=== PATIENT | female | born 1950 | race African-American/Black ===

== ENCOUNTER 2016-09-27 08:41 | Inpatient (IN) | payer MEDICARE, BC, MEDICAID ==
[~2016-09-27] VITALS: Ht 175.3 cm; Wt 57.6 kg
[2016-09-27] VITALS (9 sets, daily range): BP systolic 147–224; BP diastolic 75–100; PULSE 83–95; RESP 15–18; TEMP 97–98.8; O2SAT 89–97
[~2016-09-27 08:41] MED LIST: 3-IN3MIS; ACCUKIT11; ACCUKIT13; AMLO10 PO; ATOR10TA PO; CALC667T PO; CITA10TA4 PO; CLON.1 PO; CLON.2 PO; DUONI NEB; ERGO50000 PO; GUAN1TAB PO; HYDRA50 PO; INSU-118; LIDO3CRE2 TOP; LORA-474 PO; LOSA50 PO; METO50TA PO; NIFE1TAB86 PO; NOVOLOGSS SQ; OXYC1SOL5 PO; PRED10 PO; PROT40TA PO; SYMB160A INH; WALKER ROLLING
[2016-09-27] MEDS ORDERED: MORPHINE SULFATE 4 MG/ML INJ IV PUSH ONE (09:15)
[2016-09-27] MEDS ORDERED: ONDANSETRON HCL 4 MG/2 ML VIAL IVP ONE (09:15)
[2016-09-27] MEDS: SODIUM CHLORIDE 0.9% FLUSH 10 ML FLUSH IV FLUSH PRN (09:34)
[2016-09-27 09:40] LABS: AUTOMATED NEUTROPHIL # 7.8 TH/MM3 (1.8-7.7); BASOPHIL % 0.4 % (0.0-2.0); EOSINOPHIL # 0.1 TH/MM3 (0-0.4); EOSINOPHIL % 1.3 % (0.0-4.0); HEMATOCRIT 29.7 % (35.0-46.0); HEMO FLAGS DIFF FINAL; LYMPH % 5.5 % (9.0-44.0); LYMPHOCYTE # 0.5 TH/MM3 (1.0-4.8); MEAN CELL VOLUME 92.6 FL (80.0-100.0); MEAN CORPUSCULAR HEMOGLOBIN 31.9 PG (27.0-34.0); MEAN CORPUSCULAR HGB CONC 34.4 % (32.0-36.0); MONO % 9.4 % (0.0-8.0); NEUT % 83.4 % (16.0-70.0); PLATELET COUNT 147 TH/MM3 (150-450); RED BLOOD COUNT 3.21 MIL/MM3 (4.00-5.30); RED CELL DISTRIBUTION WIDTH 15.1 % (11.6-17.2); WHITE BLOOD COUNT 9.4 TH/MM3 (4.0-11.0)
--- NOTE | 2016-09-27 09:46 | PD ---
HPI Chief Complaint: GI Complaint Time Seen by Provider: 09:08 Travel History International Travel<30 days: No Contact w/Intl Traveler<30days: No Traveled to known affect area: No History of Present Illness HPI Patient is a 66-year-old female with history of hypertension, hyperlipidemia, GERD, osteoarthritis, end-stage renal disease on hemodialysis on Tuesdays, and Monday and lung cancer, presents to emergency room with complaints of abdominal pain with nausea and vomiting. She reports that since , she has had increased lower abdominal pain, reports that she has been feeling sick and has been nauseous and has been vomiting. Reports that she has not been able to eat or drink anything because her symptoms. Patient reports that she missed dialysis on Monday because she simply forgot to go to her dialysis treatment. Reports that she went to dialysis today and half way through her dialysis, is that she cannot tolerate any longer as she felt nauseous and had increased lower abdominal pain. Patient reports that she feels as if she may have a small bowel obstruction as she had similar symptoms in the past which ended up leading to small bowel obstruction which required surgical intervention. Patient denies any fevers or chills, reports that her last bowel movement was yesterday. Patient with no chest pain or shortness of breath at this time. PFSH Past Medical History Heart Rhythm Problems: Yes (PAPITATIONS, PT REPORTS OCC TACHY) Cancer: Yes (lung) Cardiovascular Problems: Yes High Cholesterol: Yes Chemotherapy: Yes Chest Pain: Yes Congestive Heart Failure: No Diabetes: Yes Patient Takes Glucophage: No Dialysis: Yes () Diminished Hearing: No Endocrine: Yes Gastrointestinal Disorders: Yes GERD: Yes Genitourinary: Yes Hepatitis: No Hiatal Hernia: No Hypertension: Yes Immune Disorder: No Medical other: Yes (CURRENTLY ON CHEMO AND RADIATION) Musculoskeletal: Yes (OSTEOARTHRITIS) Neurologic: No Psychiatric: No Reproductive: Yes (CERVICAL CANCER 2006) Respiratory: Yes (lung ca) Immunizations Current: Yes Radiation Therapy: Yes Renal Failure: Yes Thyroid Disease: Yes (GOITER REMOVED 2006) Tetanus Vaccination: < 5 Years Influenza Vaccination: Yes Menopausal: Yes : 0 Past Surgical History Abdominal Surgery: Yes (PEG TUBE PLACEMENT 01-13-) AICD: No Endocrine Surgery: Yes (THYROIDECTOMY FOR GOITER 2010) Gynecologic Surgery: Yes (PARTIAL HYSTERECTOMY 1980, SALPINGOOOPHORECTOMY 1994) Hysterectomy: Yes Joint Replacement: No Pacemaker: No Other Surgery: Yes Social History Alcohol Use: No Tobacco Use: Yes (1 PPD) Substance Use: No Allergies-Medications (Allergen,Severity, Reaction): Coded Allergies: Penicillin (Verified Allergy, Intermediate, UNKNOWN, 07/14/15) Reported Meds & Prescriptions Reported Meds & Active Scripts Active Oxycodone/Acetaminophen 5 mg/325 mg 5 mg/325 mg Tab 1 Tab PO Q6H PRN 3 Days Novolog Insulin Supplemental Scale (Insulin Aspart) 100 /Ml Inj 1 Injection SQ ACHS SLIDING SCALE 30 Days Norvasc (Amlodipine Besylate) 10 Mg Tab 10 Mg PO DAILY 30 Days Resp: Albuterol/Ipratropium 2.5 Mg/0.5 Mg (Albuterol/Ipratropium) 1 Amp Nebu 1 Ampule NEB Q2HR NEB PRN 30 Days Resp: Albuterol/Ipratropium 2.5 Mg/0.5 Mg (Albuterol/Ipratropium) 1 Amp Nebu 1 Ampule NEB QID NEB 30 Days Metoprolol Tartrate 50 Mg Tab 75 Mg PO Q6HR 30 Days Calcium Acetate 667 Mg Cap 1,334 Mg PO TID 30 Days Deltasone 10 Mg Tab (Prednisone) 10 Mg Tab 10 Mg PO DAILY Take 2 tablets (20mg) daily for 3 days; Take 1 tablets (10mg) daily for 3 days; Ativan (Lorazepam) 1 Mg Tab 1 Mg PO Q6H PRN Accu-Chek Fastclix Lancet (Lancets Misc.) Fastclix Kit Kit Careone Insulin Syringes/ 30G X 1/2" 0.3 ml (Insulin Syringe/Needle U-100) 1 Mis Mis Syringe Accu-Chek Fanny Plus (Blood Glucose Monitoring Suppl) Fanny Pl Kit Kit Protonix (Pantoprazole Sodium) 40 Mg Tabdr 40 Mg PO DAILY Losartan Potassium 50 Mg Tab 50 Mg PO BID Hydralazine HCl 50 Mg Tab 100 Mg PO Q8HR Catapres (Clonidine HCl) 0.1 Mg Tab 0.1 Mg PO UNSCH PRN Symbicort (Budesonide/Formoterol Fumarate) 60 Puff Aero 2 Puff INH Q12HR 30 Days 3-in-1 Commode (Misc. Devices) 1 Mis Mis Container DAILY as directed Walker Rolling (Device) Device 1 Ea as instructed Reported Citalopram Hydrobromide 10 Mg Tab 10 Mg PO DAILY Guanfacine Hcl (Guanfacine HCl) 1 Mg Tab 1 Mg PO HS Lidocaine (Lidocaine HCl) 3 % Cre 1 Appl TOP PRIOR TO TREATMENTS Vitamin D / Drisdol 50,000 Units (Ergocalciferol) 50,000 Units Cap 1 Cap PO DIRECTED VERY OTHER MONDAY Nifedipine Er (Nifedipine) 60 Mg Tab 60 Mg PO BID Catapres 0.2 mg (Clonidine HCl) 0.2 Mg Tab 0.2 Mg PO TID Atorvastatin 10 mg (Atorvastatin Calcium) 10 Mg Tab 10 Mg PO DAILY Review of Systems General / Constitutional: No: Fever Eyes: No: Visual changes HENT: No: Headaches Cardiovascular: No: Chest Pain or Discomfort Respiratory: No: Shortness of Breath Gastrointestinal: Positive: Nausea, Vomiting, Abdominal Pain Genitourinary: No: Dysuria Musculoskeletal: No: Pain Skin: No Rash Neurologic: No: Weakness Psychiatric: No: Depression Endocrine: No: Polydipsia Hematologic/Lymphatic: No: Easy Bruising Physical Exam Narrative GENERAL: Mild distress SKIN: Focused skin assessment warm/dry. HEAD: Atraumatic. Normocephalic. EYES: Pupils equal and round. No scleral icterus. No injection or drainage. ENT: No nasal bleeding or discharge. Mucous membranes pink and dry. NECK: Trachea midline. No JVD. CARDIOVASCULAR: Regular rate and rhythm. No murmur appreciated. RESPIRATORY: No accessory muscle use. Clear to auscultation. Breath sounds equal bilaterally. GASTROINTESTINAL: Abdomen soft, patient with diffuse tenderness on exam, no rebound or guarding. MUSCULOSKELETAL: No obvious deformities. No clubbing. No cyanosis. No edema. Right sided AV fistula with good thrill NEUROLOGICAL: Awake and alert. No obvious cranial nerve deficits. Motor grossly within normal limits. Normal speech. PSYCHIATRIC: Appropriate mood and affect; insight and judgment normal. Data Data Last Documented VS Vital Signs Date Time Temp Pulse Resp B/P Pulse Ox O2 Delivery O2 Flow Rate FiO2 09/27/16 10:00 86 18 178/84 96 Nasal Cannula 2 09/27/16 08:53 98.4 Orders Complete Blood Count With Diff (09/27/16 09:13) Comprehensive Metabolic Panel (09/27/16 09:13) Lipase (09/27/16 09:13) Lactic Acid (09/27/16 09:13) Prothrombin Time / Inr (Pt) (09/27/16 09:13) Act Partial Throm Time (Ptt) (09/27/16 09:13) Ct Abd/Pel W/O Iv Contrast (09/27/16 09:13) Iv Access Insert/Monitor (09/27/16 09:13) Ecg Monitoring (09/27/16 09:13) Oximetry (09/27/16 09:13) Morphine Inj (Morphine Inj) (09/27/16 09:15) Ondansetron Inj (Zofran Inj) (09/27/16 09:15) Sodium Chloride 0.9% Flush (Ns Flush) (09/27/16 09:15) Chest, Single Ap (09/27/16 09:13) Electrocardiogram (09/27/16 ) Consult General Surgery (09/27/16 ) Labs Laboratory Tests Test 09/27/16 09:13 White Blood Count 9.4 TH/MM3 Red Blood Count 3.21 MIL/MM3 Hemoglobin 10.2 GM/DL Hematocrit 29.7 % Mean Corpuscular Volume 92.6 FL Mean Corpuscular Hemoglobin 31.9 PG Mean Corpuscular Hemoglobin 34.4 % Concent Red Cell Distribution Width 15.1 % Platelet Count 147 TH/MM3 Mean Platelet Volume 9.9 FL Neutrophils (%) (Auto) 83.4 % Lymphocytes (%) (Auto) 5.5 % Monocytes (%) (Auto) 9.4 % Eosinophils (%) (Auto) 1.3 % Basophils (%) (Auto) 0.4 % Neutrophils # (Auto) 7.8 TH/MM3 Lymphocytes # (Auto) 0.5 TH/MM3 Monocytes # (Auto) 0.9 TH/MM3 Eosinophils # (Auto) 0.1 TH/MM3 Basophils # (Auto) 0.0 TH/MM3 CBC Comment DIFF FINAL Differential Comment Prothrombin Time 11.7 SEC Prothromb Time International 1.1 RATIO Ratio Activated Partial 75.1 SEC Thromboplast Time Sodium Level 137 MEQ/L Potassium Level 3.8 MEQ/L Chloride Level 93 MEQ/L Carbon Dioxide Level 28.0 MEQ/L Anion Gap 16 MEQ/L Blood Urea Nitrogen 69 MG/DL Creatinine 11.72 MG/DL Estimat Glomerular Filtration 4 ML/MIN Rate Random Glucose 148 MG/DL Lactic Acid Level 0.8 mmol/L Calcium Level 9.3 MG/DL Total Bilirubin 0.5 MG/DL Aspartate Amino Transf 10 U/L (AST/SGOT) Alanine Aminotransferase 8 U/L (ALT/SGPT) Alkaline Phosphatase 76 U/L Total Protein 8.5 GM/DL Albumin 3.7 GM/DL Lipase 136 U/L [facility] Medical Decision Making Medical Screen Exam Complete: Yes Emergency Medical Condition: Yes Interpretation(s) Vital Signs Date Time Temp Pulse Resp B/P Pulse Ox O2 Delivery O2 Flow Rate FiO2 09/27/16 08:53 18 09/27/16 08:53 98.4 83 18 152/78 96 Nasal Cannula 2 09/27/16 08:46 98.4 85 16 152/78 89 Differential Diagnosis abdominal pain could be secondary to colitis, electrolyte abnormality, SBO Narrative Course Patient is a 66-year-old female who presents to emergency room with complaints of abdominal pain, with nausea and vomiting. Patient missed her dialysis Monday as she forgot to go to her dialysis treatment. Patient reports that she was fpc through her dialysis today, patient reports that she felt nauseous and was vomiting. Patient complains of pain to lower abdomen. Plan to give antiemetics and pain medications, will obtain lab work and CT of the abdomen and pelvis. Vital Signs Date Time Temp Pulse Resp B/P Pulse Ox O2 Delivery O2 Flow Rate FiO2 09/27/16 09:39 18 09/27/16 09:36 96 Nasal Cannula 2 09/27/16 08:53 18 09/27/16 08:53 98.4 83 18 152/78 96 Nasal Cannula 2 09/27/16 08:46 98.4 85 16 152/78 89 Laboratory Tests Test 09/27/16 09:13 White Blood Count 9.4 TH/MM3 (4.0-11.0) Red Blood Count 3.21 MIL/MM3 (4.00-5.30) Hemoglobin 10.2 GM/DL (11.6-15.3) Hematocrit 29.7 % (35.0-46.0) Mean Corpuscular Volume 92.6 FL (80.0-100.0) Mean Corpuscular Hemoglobin 31.9 PG (27.0-34.0) Mean Corpuscular Hemoglobin 34.4 % Concent (32.0-36.0) Red Cell Distribution Width 15.1 % (11.6-17.2) Platelet Count 147 TH/MM3 (150-450) Mean Platelet Volume 9.9 FL (7.0-11.0) Neutrophils (%) (Auto) 83.4 % (16.0-70.0) Lymphocytes (%) (Auto) 5.5 % (9.0-44.0) Monocytes (%) (Auto) 9.4 % (0.0-8.0) Eosinophils (%) (Auto) 1.3 % (0.0-4.0) Basophils (%) (Auto) 0.4 % (0.0-2.0) Neutrophils # (Auto) 7.8 TH/MM3 (1.8-7.7) Lymphocytes # (Auto) 0.5 TH/MM3 (1.0-4.8) Monocytes # (Auto) 0.9 TH/MM3 (0-0.9) Eosinophils # (Auto) 0.1 TH/MM3 (0-0.4) Basophils # (Auto) 0.0 TH/MM3 (0-0.2) CBC Comment DIFF FINAL Differential Comment Prothrombin Time 11.7 SEC (9.8-11.6) Prothromb Time International 1.1 RATIO Ratio Activated Partial 75.1 SEC Thromboplast Time (24.3-30.1) Sodium Level 137 MEQ/L (136-145) Potassium Level 3.8 MEQ/L (3.5-5.1) Chloride Level 93 MEQ/L (98-107) Carbon Dioxide Level 28.0 MEQ/L (21.0-32.0) Anion Gap 16 MEQ/L (5-15) Blood Urea Nitrogen 69 MG/DL (7-18) Creatinine 11.72 MG/DL (0.50-1.00) Estimat Glomerular Filtration 4 ML/MIN (>89) Rate Random Glucose 148 MG/DL (74-106) Lactic Acid Level 0.8 mmol/L (0.4-2.0) Calcium Level 9.3 MG/DL (8.5-10.1) Total Bilirubin 0.5 MG/DL (0.2-1.0) Aspartate Amino Transf 10 U/L (15-37) (AST/SGOT) Alanine Aminotransferase 8 U/L (10-53) (ALT/SGPT) Alkaline Phosphatase 76 U/L (45-117) Total Protein 8.5 GM/DL (6.4-8.2) Albumin 3.7 GM/DL (3.4-5.0) Lipase 136 U/L (73-393) WBC is slightly 9.4, hemoglobin is 10.2, sodium 137, BUN 69, creatinine 11.72 ( pt does have ESRD on HD), potassium 3.8, ast: 10, alt: 8, lipase 136, lactic acid 0.8 ct abd/pelvis pending Last Impressions Chest X-Ray 09/27/16912 Signed Impressions: Service Date/Time: Tuesday, September 27, 2016 09:30 - CONCLUSION: 1. Stable left upper lobe density adjacent to aortic knob. 2. Stable scarring/atelectasis left lower lobe. Campbell Hines MD Abdomen/Pelvis CT 09/27/16912 Signed Impressions: Service Date/Time: Tuesday, September 27, 2016 10:27 - CONCLUSION: Proximal to mid small bowel distention with fluid accumulation characteristic of a partial small bowel obstruction. Transition zone is not clearly evident. Mild dilatation of the main pancreatic duct in the head and neck of the pancreas. This can be seen on prior study. Small kidneys with generalized cortical thinning. No other evidence of acute process. Frederick Dexter MD Patient with small bowel obstruction seen on CT of the abdomen and pelvis without IV contrast. CT shows that there are multiple distended loops of fluid- filled small bowel. There are several loops demonstrating greater than 4 cm in distention. A clear transition is not evident however the mid to distal ileum is not distended. Previous surgical history include thyroidectomy, PEG tube placement with reversal, partial hysterectomy for cervical cancer, salpingo- oophorectomy, AV shunt for hemodialysis, upper endoscopy. Call made to medicine service for admission. Call made to surgical service for SBO Case reviewed with Dr. Gutiérrez, will see patient in consult. Case reviewed with Dr. Cain who accepts pt to service Diagnosis Primary Impression: Small bowel obstruction Admitting Information Admitting Physician Requests: Admit Maidha Burgos DO September 27, 2016 09:46
[2016-09-27 09:53] LABS: APTT (PATIENT) 75.1 SEC (24.3-30.1); INTERNATIONAL NORMALIZED RATIO 1.1 RATIO; PROTHROMBIN TIME - PATIENT 11.7 SEC (9.8-11.6)
[2016-09-27 09:58] LABS: ALKALINE PHOSPHATASE 76 U/L (45-117); ALT (GPT) 8 U/L (10-53); ANION GAP 16 MEQ/L (5-15); AST (GOT) 10 U/L (15-37); BLOOD UREA NITROGEN 69 MG/DL (7-18); CHLORIDE 93 MEQ/L (98-107); GLOMERULAR FILTRATION RATE 4 ML/MIN (>89); POTASSIUM 3.8 MEQ/L (3.5-5.1); SODIUM (NA) 137 MEQ/L (136-145); TOTAL BILIRUBIN ADULT 0.5 MG/DL (0.2-1.0)
--- NOTE | 2016-09-27 10:37 | RADRPT ---
EXAM DATE/TIME: 09/27/2016 09:30 [facility] COMPARISON: CHEST SINGLE AP, July 25, 2015, 2:15. INDICATIONS : Nausea and vomiting today. MEDICAL HISTORY : Hypertension. Cardiovascular disease Carcinoma, lung.Cervical cancer; diabetes. Chemo therapy. Radiat ion therapy. SURGICAL HISTORY : Thyroidectomy. ENCOUNTER: Initial ACUITY: 1 day PAIN SCORE: 2/10 LOCATION: Bilateral chest FINDINGS: A single view of the chest demonstrates hyperaeration with slight elevation left hemidiaphragm and st able left basilar scarring. Minimal left upper lobe density is stable and seen adjacent to aortic kno b. Osseous structures are intact. CONCLUSION: 1. Stable left upper lobe density adjacent to aortic knob. 2. Stable scarring/atelectasis left lower lobe. Campbell Hines MD on September 27, 2016 at 10:33 Board Certified Radiologist. This report was verified electronically.
--- NOTE | 2016-09-27 11:08 | RADRPT ---
EXAM DATE/TIME: 09/27/2016 10:27 [facility] COMPARISON: CT ABDOMEN & PELVIS W/O CONTRAST, January 30, 2015, 10:28. INDICATIONS : Abdominal distention ORAL CONTRAST: No oral contrast ingested. RADIATION DOSE: 6.13 CTDIvol (mGy) MEDICAL HISTORY : Hypertension. Diabetes mellitus type 2. Carcinoma, lung.Renal failure SURGICAL HISTORY : Hysterectomy. ENCOUNTER: Initial ACUITY: 1 day PAIN SCALE: 5/10 LOCATION: diffuse abdomen TECHNIQUE: Volumetric scanning of the abdomen and pelvis was performed. Using automated exposure control and ad justment of the mA and/or kV according to patient size, radiation dose was kept as low as reasonably achievable to obtain optimal diagnostic quality images. FINDINGS: LOWER LUNGS: The visualized lower lungs are clear. LIVER: Homogeneous density without lesion. There is no dilation of the biliary tree. No calcified gallston es. SPLEEN: Normal size without lesion. PANCREAS: The main pancreatic duct remains mildly prominent throughout the head and neck of the pancreas. The m easures 5.6 mm in size. Pancreas is otherwise stable in appearance. There is no evidence of discrete mass. KIDNEYS: Kidneys are small and demonstrate diffuse cortical thinning. There is no evidence of hydronephrosis o r suspicious mass. ADRENAL GLANDS: Within normal limits. VASCULAR: There is no aortic aneurysm. BOWEL/MESENTERY: Multiple distended loops of fluid-filled small bowel are identified. There are several loops demonstr ating greater than 4 cm in distention. A clear transition is not evident however the mid to distal il eum is not distended. Post surgical changes with anastomotic suture are noted in the left anterior pe lvis. ABDOMINAL WALL: Postsurgical scarring is noted. RETROPERITONEUM: There is no lymphadenopathy. BLADDER: No wall thickening or mass. REPRODUCTIVE: Uterus is absent consistent with prior hysterectomy. INGUINAL: There is no lymphadenopathy or hernia. MUSCULOSKELETAL: Within normal limits for patient age. CONCLUSION: Proximal to mid small bowel distention with fluid accumulation characteristic of a partial small austyn l obstruction. Transition zone is not clearly evident. Mild dilatation of the main pancreatic duct in the head and neck of the pancreas. This can be seen on prior study. Small kidneys with generalized cortical thinning. No other evidence of acute process. Frederick Dexter MD on September 27, 2016 at 10:52 Board Certified Radiologist. This report was verified electronically.
--- NOTE | 2016-09-27 12:28 | HHI.HP ---
[facility] Harry Ackerman MD Admission Diagnosis small bowel obstruction Diagnoses: (1) Small bowel obstruction (2) DM (diabetes mellitus) (3) HTN (hypertension) (4) Lung cancer (5) ESRD on hemodialysis Chief Complaint: Abdominal pain Travel History International Travel<30 Days: No Contact w/Intl Traveler <30 Da: No Traveled to Known Affected Are: No History of Present Illness The patient is a 66-year-old female who presented to the ER with complaint of abdominal pain, nausea, vomiting. She states that she missed dialysis on Monday because she forgot. She went to dialysis today, and [facility] through she developed worsening abdominal pain. The abdominal pain started 3-4 days ago and has continued to worsen. She has not been able to keep any food or drink down. She states that she had a small bowel obstruction last year and required surgery. Review of Systems ROS Limitations: Poor Historian Constitutional: DENIES: Fever, Chills, Night Sweats Eyes: DENIES: Blurred vision, Vision loss Ears, nose, mouth, throat: DENIES: Hearing loss Respiratory: DENIES: Cough, Wheezing, Sputum production, Shortness of breath Cardiovascular: DENIES: Chest pain, Palpitations, Dyspnea on Exertion, Lower Extremity Edema Gastrointestinal: COMPLAINS OF: Abdominal pain, Nausea, Vomiting, DENIES: Constipation, Diarrhea Genitourinary: DENIES: Urinary frequency, Urinary incontinence, Urgency, Hematuria, Dysuria, Nocturia Musculoskeletal: DENIES: Joint pain, Muscle aches Integumentary: DENIES: Pruritus, Rash Hematologic/lymphatic: DENIES: Bruising Neurologic: DENIES: Headache Past Family Social History Past Medical History End-stage renal disease on hemodialysis Lung cancer Hyperlipidemia Diabetes mellitus GERD Hypertension Osteoarthritis History of cervical cancer Hypothyroidism Past Surgical History PEG tube placement 2014 Thyroidectomy for goiter Partial hysterectomy 1981 Salpingo-oophorectomy 1994 Surgery for bowel obstruction last year Reported Medications Oxycodone/Acetaminophen 5 mg/325 mg 5 mg/325 mg Tab 1 Tab PO Q6H PRN 3 Days Novolog Insulin Supplemental Scale (Insulin Aspart) 100 /Ml Inj 1 Injection SQ ACHS SLIDING SCALE 30 Days Norvasc (Amlodipine Besylate) 10 Mg Tab 10 Mg PO DAILY 30 Days Resp: Albuterol/Ipratropium 2.5 Mg/0.5 Mg (Albuterol/Ipratropium) 1 Amp Nebu 1 Ampule NEB Q2HR NEB PRN 30 Days Resp: Albuterol/Ipratropium 2.5 Mg/0.5 Mg (Albuterol/Ipratropium) 1 Amp Nebu 1 Ampule NEB QID NEB 30 Days Metoprolol Tartrate 50 Mg Tab 75 Mg PO Q6HR 30 Days Calcium Acetate 667 Mg Cap 1,334 Mg PO TID 30 Days Deltasone 10 Mg Tab (Prednisone) 10 Mg Tab 10 Mg PO DAILY Take 2 tablets (20mg) daily for 3 days; Take 1 tablets (10mg) daily for 3 days; Ativan (Lorazepam) 1 Mg Tab 1 Mg PO Q6H PRN Accu-Chek Fastclix Lancet (Lancets Misc.) Fastclix Kit Kit Careone Insulin Syringes/ 30G X 1/2" 0.3 ml (Insulin Syringe/Needle U-100) 1 Mis Mis Syringe Accu-Chek Fanny Plus (Blood Glucose Monitoring Suppl) Fanny Pl Kit Kit Protonix (Pantoprazole Sodium) 40 Mg Tabdr 40 Mg PO DAILY Losartan Potassium 50 Mg Tab 50 Mg PO BID Hydralazine HCl 50 Mg Tab 100 Mg PO Q8HR Catapres (Clonidine HCl) 0.1 Mg Tab 0.1 Mg PO UNSCH PRN Symbicort (Budesonide/Formoterol Fumarate) 60 Puff Aero 2 Puff INH Q12HR 30 Days Citalopram Hydrobromide 10 Mg Tab 10 Mg PO DAILY Guanfacine Hcl (Guanfacine HCl) 1 Mg Tab 1 Mg PO HS Lidocaine (Lidocaine HCl) 3 % Cre 1 Appl TOP PRIOR TO TREATMENTS Vitamin D / Drisdol 50,000 Units (Ergocalciferol) 50,000 Units Cap 1 Cap PO DIRECTED VERY OTHER MONDAY Nifedipine Er (Nifedipine) 60 Mg Tab 60 Mg PO BID Catapres 0.2 mg (Clonidine HCl) 0.2 Mg Tab 0.2 Mg PO TID Atorvastatin 10 mg (Atorvastatin Calcium) 10 Mg Tab 10 Mg PO DAILY Allergies: Coded Allergies: Penicillin (Verified Allergy, Intermediate, UNKNOWN, 07/14/15) Family History Diabetes mellitus Social History Denies alcohol or illicit drug use. Smokes about a pack per day. Physical Exam Vital Signs Vital Signs Date Time Temp Pulse Resp B/P Pulse Ox O2 Delivery O2 Flow Rate FiO2 09/27/16 10:00 86 18 178/84 96 Nasal Cannula 2 09/27/16 09:39 18 09/27/16 09:36 96 Nasal Cannula 2 09/27/16 08:53 18 09/27/16 08:53 98.4 83 18 152/78 96 Nasal Cannula 2 09/27/16 08:46 98.4 85 16 152/78 89 Physical Exam GENERAL: Well-nourished, well-developed female in no acute distress. HEENT: Normocephalic, atraumatic. Pupils equal, round and reactive. Extraocular movements intact. No scleral icterus. No injection or drainage. Oropharynx is clear. Mucous membranes are moist. CARDIOVASCULAR: Regular rate and rhythm without murmurs, gallops, or rubs. RESPIRATORY: Clear to auscultation. No wheezes, rales, or rhonchi. Breathing is non-labored. GASTROINTESTINAL: Abdomen soft, mild diffuse tenderness to palpation without rebound or guarding, nondistended. Decreased bowel sounds. EXTREMITIES: No lower extremity edema. No calf tenderness. PSYCH: Alert, answers questions appropriately. Does appear somewhat confused at times. Laboratory Laboratory Tests Test 09/27/16 09:13 White Blood Count 9.4 Red Blood Count 3.21 Hemoglobin 10.2 Hematocrit 29.7 Mean Corpuscular Volume 92.6 Mean Corpuscular Hemoglobin 31.9 Mean Corpuscular Hemoglobin 34.4 Concent Red Cell Distribution Width 15.1 Platelet Count 147 Mean Platelet Volume 9.9 Neutrophils (%) (Auto) 83.4 Lymphocytes (%) (Auto) 5.5 Monocytes (%) (Auto) 9.4 Eosinophils (%) (Auto) 1.3 Basophils (%) (Auto) 0.4 Neutrophils # (Auto) 7.8 Lymphocytes # (Auto) 0.5 Monocytes # (Auto) 0.9 Eosinophils # (Auto) 0.1 Basophils # (Auto) 0.0 CBC Comment DIFF FINAL Differential Comment Prothrombin Time 11.7 Prothromb Time International 1.1 Ratio Activated Partial 75.1 Thromboplast Time Sodium Level 137 Potassium Level 3.8 Chloride Level 93 Carbon Dioxide Level 28.0 Anion Gap 16 Blood Urea Nitrogen 69 Creatinine 11.72 Estimat Glomerular Filtration 4 Rate Random Glucose 148 Lactic Acid Level 0.8 Calcium Level 9.3 Total Bilirubin 0.5 Aspartate Amino Transf 10 (AST/SGOT) Alanine Aminotransferase 8 (ALT/SGPT) Alkaline Phosphatase 76 Total Protein 8.5 Albumin 3.7 Lipase 136 Result Diagram: 09/27/1691209/27/16912 Imaging Last Impressions Chest X-Ray 09/27/16912 Signed Impressions: Service Date/Time: Tuesday, September 27, 2016 09:30 - CONCLUSION: 1. Stable left upper lobe density adjacent to aortic knob. 2. Stable scarring/atelectasis left lower lobe. Campbell Hines MD Abdomen/Pelvis CT 09/27/16912 Signed Impressions: Service Date/Time: Tuesday, September 27, 2016 10:27 - CONCLUSION: Proximal to mid small bowel distention with fluid accumulation characteristic of a partial small bowel obstruction. Transition zone is not clearly evident. Mild dilatation of the main pancreatic duct in the head and neck of the pancreas. This can be seen on prior study. Small kidneys with generalized cortical thinning. No other evidence of acute process. Frederick Dexter MD Assessment and Plan Assessment and Plan 1. Small bowel obstruction: Surgery consultation requested. The ER physician notified the general surgeon. Keep nothing by mouth. IV fluids, pain medications , antiemetics. 2. Lung cancer: Continue outpatient follow-up with Dr. Barker. 3. End-stage renal disease: Hemodialysis per nephrology. 4. Diabetes mellitus: Monitor Accu-Cheks and cover with sliding scale insulin. 5. Hypertension: Continue home medications. Will cover with IV medication as needed as patient is nothing by mouth. 6. GERD: PPI. Otis Cain MD September 27, 2016 12:28
[2016-09-27] MEDS ORDERED: DEXTROSE 50% IN WATER 50 ML VIAL(D50) IV PUSH PRN (12:30)
[2016-09-27] MEDS ORDERED: GLUCAGON 1 MG/ML VIAL OTHER PRN (12:30)
[2016-09-27] MEDS: ONDANSETRON HCL 4 MG/2 ML VIAL IV PRN (12:39)
[2016-09-27] MEDS ORDERED: cloNIDine HCL 0.1 MG/24 HR PATCH T-DERMAL SCH (13:00)
[2016-09-27] MEDS ORDERED: CLON0.2T PO (13:04)
[2016-09-27] MEDS ORDERED: PHOS667C5 PO (13:04)
[2016-09-27] MEDS ORDERED: HYDR-3516 PO (13:04)
[2016-09-27] MEDS ORDERED: ATOR10TA15 PO (13:04)
[2016-09-27] MEDS ORDERED: DIPH2.5T14 PO (13:04)
[2016-09-27] MEDS ORDERED: CITA10TA4 PO (13:04)
[2016-09-27] MEDS ORDERED: NIFE90TA2 PO (13:04)
[2016-09-27] MEDS ORDERED: PERI8.6T PO (13:04)
[2016-09-27] MEDS ORDERED: CHOL50006 (13:04)
[2016-09-27] MEDS ORDERED: TERA5CAP3 PO (13:04)
[2016-09-27] MEDS ORDERED: METO50TA11 PO (13:04)
[2016-09-27] MEDS ORDERED: SYMB160A INH (13:04)
[2016-09-27] MEDS ORDERED: LORA-474 PO (13:04)
[2016-09-27] MEDS ORDERED: NOVOLOGP2 SQ (13:04)
[2016-09-27] MEDS ORDERED: PRIL20CA9 PO (13:04)
[2016-09-27] MEDS ORDERED: ZOFR8TAB PO (13:04)
[2016-09-27] MEDS ORDERED: SITA50 PO (13:04)
[2016-09-27] MEDS ORDERED: NS + KCL 20 MEQ INJ 1,000 ML IV SCH (14:00)
--- NOTE | 2016-09-27 15:47 | EKG ---
Date Performed: 09/27/2016 Time Performed: 11:00:30 PTAGE: 66 years EKG: Sinus rhythm NONSPECIFIC T-WAVE ABNORMALITY Compared to prior tracing no significant change BORDERLINE ECG PREVIOUS TRACING : 07/14/2015 00.11 DOCTOR: Bernadette Martinez Interpretating Date/Time 09/27/2016 15:44:53
--- NOTE | 2016-09-27 15:56 | PD.CONS ---
HPI Service General surgery Consult Requested By Dr. Burgos Reason for Consult Small bowel obstruction Primary Care Physician Harry Ackerman MD History of Present Illness 66-year-old female with a history of end-stage renal disease on hemodialysis and lung cancer presented mainly lower abdominal pain for for 5 days associated with nausea and emesis. She she missed dialysis on Monday and today in dialysis had persistent pain and nausea and therefore presented to the emergency room. She has a history of hysterectomy and salpingo-oophorectomy and also in 2014 underwent laparotomy with lysis of adhesions and small bowel resection for a small bowel obstruction. She had a PEG tube placed which has since been removed. At one time she had been doing quite poorly and lost significant amount of weight but she is much improved now. She was evaluated in the emergency department and a CT scan was concerning for small bowel obstruction. Review of Systems Constitutional: DENIES: Fever, Dizziness Eyes: DENIES: Eye inflammation, Eye pain Respiratory: DENIES: Cough Cardiovascular: DENIES: Chest pain, Syncope Gastrointestinal: COMPLAINS OF: Abdominal pain, Nausea, Vomiting Integumentary: DENIES: Pruritus, Rash Neurologic: DENIES: Localized weakness, Paresthesias Past Family Social History Past Medical History End-stage renal disease on hemodialysis Hypertension Hyperlipidemia Lung cancer Past Surgical History PEG tube placement 2014 Exploratory laparotomy, lysis of adhesions, small bowel resection 2014 Thyroidectomy for goiter Partial hysterectomy 1981 Salpingo-oophorectomy 1994 Reported Medications Reported Meds & Active Scripts Active Reported Zofran (Ondansetron HCl) 8 Mg Tab 8 Mg PO TID PRN Nifedipine ER (Nifedipine) 90 Mg Tab 60 Tab PO BID Prilosec (Omeprazole) 20 Mg Cap 20 Mg PO DAILY Metoprolol Succinate ER 24 HR (Metoprolol Succinate) 50 Mg Tab 50 Mg PO DAILY Phoslo (Calcium Acetate (Phosphate Binder)) 667 Mg Cap 667 Mg PO TID Ysbil-Colace (Sennosides-Docusate Sodium) 8.6-50 Mg Tab 1 Tab PO BID PRN Terazosin (Terazosin HCl) 5 Mg Cap 5 Mg PO HS Hydrocodone-Acetaminophen 5-325 mg Tab 1 Tab PO Q6H PRN Symbicort Inh (Budesonide/Formoterol Fumarate) 160-4.5 Mcg/Act Aero 2 Puff INH Q12HR Diphenoxylate-Atropine 2.5-0.025 Mg Tab 1 Tab PO Q6H PRN Januvia (Sitagliptin Phosphate) 50 Mg Tab 50 Mg PO DAILY Clonidine (Clonidine HCl) 0.2 Mg Tab 0.2 Mg PO TID Vitamin D (Cholecalciferol) 5,000 Unit Tab Citalopram (Citalopram Hydrobromide) 10 Mg Tab 10 Mg PO DAILY Atorvastatin (Atorvastatin Calcium) 10 Mg Tab 10 Mg PO HS Novolog Inj (Insulin Aspart) 1,000 Unit/10 Ml Vial 0 SQ DIRECTED Sliding Scale as directed. Ativan (Lorazepam) 1 Mg Tab 1 Mg PO Q6H PRN Allergies: Coded Allergies: Penicillin (Verified Allergy, Intermediate, UNKNOWN, 07/14/15) Active Ordered Medications Current Medications Medications (Trade) Dose Ordered Sig/Hero Route Start Time Stop Time Status Last Admin Sodium Chloride 2 ml 2 ml UNSCH PRN IV FLUSH 09/27/16 09:15 09/27/16 09:34 (NS + KCl 20 Meq Inj) 1,000 ml @ 70 mls/hr [id number] IV 09/27/16 14:00 09/27/16 14:00 (Morphine Inj) 2 mg Q4H PRN IV 09/27/16 12:15 (Zofran Inj) 4 mg Q6H PRN IV 09/27/16 12:15 09/27/16 12:39 (Protonix Inj) 40 mg DAILY IVP 09/28/16 09:00 (D50w (Vial) Inj) 25 ml UNSCH PRN IV PUSH 09/27/16 12:30 (Glucagon Inj) 1 mg UNSCH PRN OTHER 09/27/16 12:30 (Catapres-Tts 0.1mg Patch.7d) 1 patch Q7D T-DERMAL 09/27/16 13:00 09/27/16 13:52 (Lipitor) 10 mg HS PO 09/27/16 21:00 (Symbicort 160-4.5 Inh) 2 puff Q12HR INH 09/27/16 21:00 (Phoslo) 667 mg TID PO 09/27/16 18:00 (CeleXA) 10 mg DAILY PO 09/28/16 09:00 (Ativan) 1 mg Q6H PRN PO 09/27/16 15:45 (Toprol Xl) 50 mg DAILY PO 09/28/16 09:00 (Hytrin) 5 mg HS PO 09/27/16 21:00 Non-Formulary Medication 20 mg DAILY PO 09/28/16 09:00 UNV (Procardia Xl) 60 mg BID PO 09/27/16 21:00 Family History Noncontributory Social History According to the chart she continues to smoke 1 pack of cigarettes daily. Physical Exam Vital Signs Vital Signs Date Time Temp Pulse Resp B/P Pulse Ox O2 Delivery O2 Flow Rate FiO2 09/27/16 14:35 97.0 87 16 153/82 95 09/27/16 13:09 87 18 147/75 97 Nasal Cannula 2 09/27/16 10:00 86 18 178/84 96 Nasal Cannula 2 09/27/16 09:39 18 09/27/16 09:36 96 Nasal Cannula 2 09/27/16 08:53 18 09/27/16 08:53 98.4 83 18 152/78 96 Nasal Cannula 2 09/27/16 08:46 98.4 85 16 152/78 89 Physical Exam GENERAL: Awake and alert. No acute distress. Cooperative. Somewhat frail- appearing. HEAD: Normocephalic. Atraumatic. EYES: Pupils equal round and reactive to light bilaterally. No scleral icterus. CHEST: Lungs clear to auscultation bilaterally with no wheezing or rhonchi. No respiratory distress. CARDIOVASCULAR: Regular rate and rhythm. ABDOMEN: Lower midline scar and PEG scar. Mild distention. Mild left mid and upper abdominal tenderness to palpation. No rebound or guarding. EXTREMITIES: No cyanosis or edema. SKIN: Warm, dry, nonjaundiced. Laboratory Laboratory Tests Test 09/27/16 09:13 White Blood Count 9.4 Red Blood Count 3.21 Hemoglobin 10.2 Hematocrit 29.7 Mean Corpuscular Volume 92.6 Mean Corpuscular Hemoglobin 31.9 Mean Corpuscular Hemoglobin 34.4 Concent Red Cell Distribution Width 15.1 Platelet Count 147 Mean Platelet Volume 9.9 Neutrophils (%) (Auto) 83.4 Lymphocytes (%) (Auto) 5.5 Monocytes (%) (Auto) 9.4 Eosinophils (%) (Auto) 1.3 Basophils (%) (Auto) 0.4 Neutrophils # (Auto) 7.8 Lymphocytes # (Auto) 0.5 Monocytes # (Auto) 0.9 Eosinophils # (Auto) 0.1 Basophils # (Auto) 0.0 CBC Comment DIFF FINAL Differential Comment Prothrombin Time 11.7 Prothromb Time International 1.1 Ratio Activated Partial 75.1 Thromboplast Time Sodium Level 137 Potassium Level 3.8 Chloride Level 93 Carbon Dioxide Level 28.0 Anion Gap 16 Blood Urea Nitrogen 69 Creatinine 11.72 Estimat Glomerular Filtration 4 Rate Random Glucose 148 Lactic Acid Level 0.8 Calcium Level 9.3 Total Bilirubin 0.5 Aspartate Amino Transf 10 (AST/SGOT) Alanine Aminotransferase 8 (ALT/SGPT) Alkaline Phosphatase 76 Total Protein 8.5 Albumin 3.7 Lipase 136 Result Diagram: 09/27/1691209/27/16912 Imaging Last Impressions Chest X-Ray 09/27/16912 Signed Impressions: Service Date/Time: Tuesday, September 27, 2016 09:30 - CONCLUSION: 1. Stable left upper lobe density adjacent to aortic knob. 2. Stable scarring/atelectasis left lower lobe. Campbell Hines MD Abdomen/Pelvis CT 09/27/16912 Signed Impressions: Service Date/Time: Tuesday, September 27, 2016 10:27 - CONCLUSION: Proximal to mid small bowel distention with fluid accumulation characteristic of a partial small bowel obstruction. Transition zone is not clearly evident. Mild dilatation of the main pancreatic duct in the head and neck of the pancreas. This can be seen on prior study. Small kidneys with generalized cortical thinning. No other evidence of acute process. Frederick Dexter MD Assessment and Plan Assessment and Plan 66-year-old female with at least partial small bowel obstruction. She has a history of small bowel obstruction requiring operative intervention about 2 years ago. The current obstruction appears proximal in the small bowel. I have asked the nursing staff to place an NG tube to suction. We will attempt nonoperative management. Repeat labs and imaging in the morning. Discussed all with the nurse and the patient. Michael Gutiérrez MD September 27, 2016 15:56
[2016-09-27] MEDS: INSULIN ASPART SUPPLEMENTAL SCALE SQ SCH ×2 (16:00→20:00)
[2016-09-27] MEDS ORDERED: SODIUM CHLOR 0.9% 1000 ML INJ 1,000 ML IV PRN ×3 (17:14)
--- NOTE | 2016-09-27 17:14 | PD.CONS ---
HPI Service Nephrology Consult Requested By Reason for Consult ESRD on HD Primary Care Physician Harry Ackerman MD History of Present Illness This is out 66 y/o AAF dialysis patient. She had to cut dialysis short today as she was having severe abdominal pain. Transferred to [facility] and imaging showed SBO. She was admitted for management. She admits she did not have dialysis on Monday as she was vomiting and not feeling well. Other PMH listed below include lung CA with active smoking, anemia, metabolic bone disorder. She also has had cervical history (remote) and previous bowel obstruction. Today she is tearful, having NG tube placed. Reporting abdominal pain and nausea. K is normal today, she is not fluid overloaded. We were consulted for dialysis management. She has patent AVF for treatment. (Dinora Sanchez) Review of Systems Constitutional: COMPLAINS OF: Fatigue, Change in appetite, DENIES: Fever Cardiovascular: DENIES: Chest pain Gastrointestinal: COMPLAINS OF: Abdominal pain, Constipation, Nausea, Vomiting , DENIES: Black stools, Diarrhea (Dinora Sanchez) Past Family Social History Allergies: Coded Allergies: Penicillin (Verified Allergy, Intermediate, UNKNOWN, 07/14/15) Past Medical History End-stage renal disease on hemodialysis TTS Lung cancer Hyperlipidemia Diabetes mellitus GERD Hypertension anemia metabolic bone disorder Osteoarthritis History of cervical cancer Hypothyroidism Past Surgical History PEG tube placement 2014 Thyroidectomy for goiter Partial hysterectomy 1981 Salpingo-oophorectomy 1994 Surgery for bowel obstruction last year AV fistula Reported Medications Oxycodone/Acetaminophen 5 mg/325 mg 5 mg/325 mg Tab 1 Tab PO Q6H PRN 3 Days Novolog Insulin Supplemental Scale (Insulin Aspart) 100 /Ml Inj 1 Injection SQ ACHS SLIDING SCALE 30 Days Norvasc (Amlodipine Besylate) 10 Mg Tab 10 Mg PO DAILY 30 Days Resp: Albuterol/Ipratropium 2.5 Mg/0.5 Mg (Albuterol/Ipratropium) 1 Amp Nebu 1 Ampule NEB Q2HR NEB PRN 30 Days Resp: Albuterol/Ipratropium 2.5 Mg/0.5 Mg (Albuterol/Ipratropium) 1 Amp Nebu 1 Ampule NEB QID NEB 30 Days Metoprolol Tartrate 50 Mg Tab 75 Mg PO Q6HR 30 Days Calcium Acetate 667 Mg Cap 1,334 Mg PO TID 30 Days Deltasone 10 Mg Tab (Prednisone) 10 Mg Tab 10 Mg PO DAILY Take 2 tablets (20mg) daily for 3 days; Take 1 tablets (10mg) daily for 3 days; Ativan (Lorazepam) 1 Mg Tab 1 Mg PO Q6H PRN Accu-Chek Fastclix Lancet (Lancets Misc.) Fastclix Kit Kit Careone Insulin Syringes/ 30G X 1/2" 0.3 ml (Insulin Syringe/Needle U-100) 1 Mis Mis Syringe Accu-Chek Fanny Plus (Blood Glucose Monitoring Suppl) Fanny Pl Kit Kit Protonix (Pantoprazole Sodium) 40 Mg Tabdr 40 Mg PO DAILY Losartan Potassium 50 Mg Tab 50 Mg PO BID Hydralazine HCl 50 Mg Tab 100 Mg PO Q8HR Catapres (Clonidine HCl) 0.1 Mg Tab 0.1 Mg PO UNSCH PRN Symbicort (Budesonide/Formoterol Fumarate) 60 Puff Aero 2 Puff INH Q12HR 30 Days Active Ordered Medications Current Medications Medications (Trade) Dose Ordered Sig/Hero Route Start Time Stop Time Status Last Admin Sodium Chloride 2 ml 2 ml UNSCH PRN IV FLUSH 09/27/16 09:15 09/27/16 09:34 (NS + KCl 20 Meq Inj) 1,000 ml @ 70 mls/hr [id number] IV 09/27/16 14:00 09/27/16 14:00 (Morphine Inj) 2 mg Q4H PRN IV 09/27/16 12:15 (Zofran Inj) 4 mg Q6H PRN IV 09/27/16 12:15 09/27/16 12:39 (Protonix Inj) 40 mg DAILY IVP 09/28/16 09:00 (D50w (Vial) Inj) 25 ml UNSCH PRN IV PUSH 09/27/16 12:30 (Glucagon Inj) 1 mg UNSCH PRN OTHER 09/27/16 12:30 (Catapres-Tts 0.1mg Patch.7d) 1 patch Q7D T-DERMAL 09/27/16 13:00 09/27/16 13:52 (Lipitor) 10 mg HS PO 09/27/16 21:00 (Symbicort 160-4.5 Inh) 2 puff Q12HR INH 09/27/16 21:00 (Phoslo) 667 mg TID PO 09/27/16 18:00 (CeleXA) 10 mg DAILY PO 09/28/16 09:00 (Ativan) 1 mg Q6H PRN PO 09/27/16 15:45 (Toprol Xl) 50 mg DAILY PO 09/28/16 09:00 (Hytrin) 5 mg HS PO 09/27/16 21:00 (Procardia Xl) 60 mg BID PO 09/27/16 21:00 (Protonix) 20 mg DAILY PO 09/28/16 09:00 Family History no hx of renal disorders Social History daily smoker for many years no ETOH or illicits 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 (Dinora Sanchez) Physical Exam Vital Signs Vital Signs Date Time Temp Pulse Resp B/P Pulse Ox O2 Delivery O2 Flow Rate FiO2 09/27/16 14:35 97.0 87 16 153/82 95 09/27/16 13:09 87 18 147/75 97 Nasal Cannula 2 09/27/16 10:00 86 18 178/84 96 Nasal Cannula 2 09/27/16 09:39 18 09/27/16 09:36 96 Nasal Cannula 2 09/27/16 08:53 18 09/27/16 08:53 98.4 83 18 152/78 96 Nasal Cannula 2 09/27/16 08:46 98.4 85 16 152/78 89 Physical Exam Chronically ill appearing AAF having NG tube placed she is tearful, awake/alert/oriented x 3 S1/S2, regular without murmurs lungs: clear Abd: she is guarding left side, tender, hyperactive bowel sounds Ext: no edema; AVF patent with + thrill/bruit Laboratory Laboratory Tests Test 09/27/16 09:13 White Blood Count 9.4 Red Blood Count 3.21 Hemoglobin 10.2 Hematocrit 29.7 Mean Corpuscular Volume 92.6 Mean Corpuscular Hemoglobin 31.9 Mean Corpuscular Hemoglobin 34.4 Concent Red Cell Distribution Width 15.1 Platelet Count 147 Mean Platelet Volume 9.9 Neutrophils (%) (Auto) 83.4 Lymphocytes (%) (Auto) 5.5 Monocytes (%) (Auto) 9.4 Eosinophils (%) (Auto) 1.3 Basophils (%) (Auto) 0.4 Neutrophils # (Auto) 7.8 Lymphocytes # (Auto) 0.5 Monocytes # (Auto) 0.9 Eosinophils # (Auto) 0.1 Basophils # (Auto) 0.0 CBC Comment DIFF FINAL Differential Comment Prothrombin Time 11.7 Prothromb Time International 1.1 Ratio Activated Partial 75.1 Thromboplast Time Sodium Level 137 Potassium Level 3.8 Chloride Level 93 Carbon Dioxide Level 28.0 Anion Gap 16 Blood Urea Nitrogen 69 Creatinine 11.72 Estimat Glomerular Filtration 4 Rate Random Glucose 148 Lactic Acid Level 0.8 Calcium Level 9.3 Total Bilirubin 0.5 Aspartate Amino Transf 10 (AST/SGOT) Alanine Aminotransferase 8 (ALT/SGPT) Alkaline Phosphatase 76 Total Protein 8.5 Albumin 3.7 Lipase 136 (Dinora Sanchez) Result Diagram: 09/27/1691209/27/16912 Imaging Last Impressions Chest X-Ray 09/27/16912 Signed Impressions: Service Date/Time: Tuesday, September 27, 2016 09:30 - CONCLUSION: 1. Stable left upper lobe density adjacent to aortic knob. 2. Stable scarring/atelectasis left lower lobe. Campbell Hines MD Abdomen/Pelvis CT 09/27/16912 Signed Impressions: Service Date/Time: Tuesday, September 27, 2016 10:27 - CONCLUSION: Proximal to mid small bowel distention with fluid accumulation characteristic of a partial small bowel obstruction. Transition zone is not clearly evident. Mild dilatation of the main pancreatic duct in the head and neck of the pancreas. This can be seen on prior study. Small kidneys with generalized cortical thinning. No other evidence of acute process. Frederick Dexter MD (Dinora Sanchez) Assessment and Plan Problem List: (1) Small bowel obstruction Plan: general surgery has been consulted, they recommend non surgical management NG tube placed to suction monitor clinically, serial imaging , antiemetics (2) ESRD on hemodialysis Plan: typical TTS dialysis, last treatment last no electorltye disorders, no fluid overload we will dialyze tomorrow and resume schedule avoid IVF, current order discontinued monitor electrolytes daily avoid Gadolinium she does make some urine (3) DM (diabetes mellitus) Plan: insulin as needed goal 140-180 mg/dL (4) HTN (hypertension) Plan: resume home medications (5) Metabolic bone disease Plan: phoslo with meals when no longer NPO (6) Anemia Plan: epogen with dialysis (Dinora Sanchez) Assessment and Plan patient was seen and examined. Agree with above assessment and plan. (Benjamín Teixeira MD) Dinora Sanchez September 27, 2016 17:14 Benjamín Teixeira MD September 29, 2016 11:06
[2016-09-27] MEDS ORDERED: HEPARIN SODIUM - IV 10,000 UNITS/10 ML VIAL PRN (17:15)
[2016-09-27] MEDS ORDERED: GENTAMICIN SULFATE (DIALYSIS USE ONLY) 20 MG/2 ML VIAL IV PRN (17:15)
[2016-09-27] MEDS ORDERED: NITROGLYCERIN 0.4 MG SL 25 TABS/BTL SL PRN (17:15)
[2016-09-27] MEDS ORDERED: SODIUM CHLORIDE 0.9% FLUSH 10 ML FLUSH IV FLUSH PRN (17:15)
[2016-09-27] MEDS ORDERED: ONDANSETRON HCL 4 MG/2 ML VIAL IV PRN (17:15)
[2016-09-27] MEDS ORDERED: MANNITOL 12.5 GM/50 ML VIAL IV PRN (17:15)
[2016-09-27] MEDS ORDERED: cloNIDine HCL 0.1 MG TAB PO PRN (17:15)
[2016-09-27] MEDS ORDERED: GELATIN 12 MM/7 MM FOAM TOP PRN (17:15)
[2016-09-27] MEDS ORDERED: HEPARIN SODIUM - IV 10,000 UNITS/10 ML VIAL IVF PRN (17:15)
[2016-09-27] MEDS ORDERED: diphenhydrAMINE HCL 25 MG CAP PO PRN (17:15)
[2016-09-27] MEDS ORDERED: ACETAMINOPHEN 325 MG TAB PO PRN (17:15)
[2016-09-27] MEDS: MORPHINE SULFATE 4 MG/ML INJ IV PRN ×2 (17:32→23:54)
[2016-09-27] MEDS: CALCIUM ACETATE 667 MG CAP PO SCH (18:10)
[2016-09-27] MEDS: NIFEdipine 60 MG SUSTAINED RELEASE TAB PO SCH (19:59)
[2016-09-27] MEDS: TERAZOSIN HCL 5 MG CAP PO SCH (19:59)
[2016-09-27] MEDS: ATORVASTATIN 10 MG TAB PO SCH (19:59)
[2016-09-27] MEDS: BUDESONIDE-FORMOTEROL 160/4.5 MCG INHALER INH SCH (20:00)
[2016-09-27] MEDS ORDERED: NIFEDIPINE PO SCH (21:00)
[2016-09-28] VITALS (9 sets, daily range): BP systolic 121–173; BP diastolic 56–89; PULSE 82–109; RESP 15–20; TEMP 96.5–98.9; O2SAT 92–100
[2016-09-28] MEDS: MORPHINE SULFATE 4 MG/ML INJ IV PRN ×2 (05:43→19:24)
[2016-09-28] MEDS: INSULIN ASPART SUPPLEMENTAL SCALE SQ SCH ×4 (07:00→21:00)
[2016-09-28 07:04] LABS: AUTOMATED NEUTROPHIL # 4.2 TH/MM3 (1.8-7.7); BASOPHIL # 0.1 TH/MM3 (0-0.2); BASOPHIL % 0.8 % (0.0-2.0); EOSINOPHIL # 0.2 TH/MM3 (0-0.4); EOSINOPHIL % 2.4 % (0.0-4.0); HEMATOCRIT 27.8 % (35.0-46.0); HEMO FLAGS DIFF FINAL; LYMPH % 16.7 % (9.0-44.0); MEAN CELL VOLUME 94.3 FL (80.0-100.0); MEAN CORPUSCULAR HEMOGLOBIN 31.4 PG (27.0-34.0); MEAN CORPUSCULAR HGB CONC 33.3 % (32.0-36.0); MONO % 12.3 % (0.0-8.0); NEUT % 67.8 % (16.0-70.0); PLATELET COUNT 112 TH/MM3 (150-450); RED BLOOD COUNT 2.95 MIL/MM3 (4.00-5.30); WHITE BLOOD COUNT 6.2 TH/MM3 (4.0-11.0)
[2016-09-28 07:37] LABS: BICARBONATE 25.2 MEQ/L (21.0-32.0); POTASSIUM 4.3 MEQ/L (3.5-5.1)
[2016-09-28] MEDS: BUDESONIDE-FORMOTEROL 160/4.5 MCG INHALER INH SCH ×2 (08:35→20:27)
[2016-09-28] MEDS: METOPROLOL SUCCINATE 50 MG EXTENDED RELEASE TAB PO SCH (08:36)
[2016-09-28] MEDS: NIFEdipine 60 MG SUSTAINED RELEASE TAB PO SCH ×2 (08:36→20:27)
[2016-09-28] MEDS: CALCIUM ACETATE 667 MG CAP PO SCH ×3 (08:36→18:00)
[2016-09-28] MEDS: PANTOPRAZOLE SODIUM 40 MG VIAL IVP SCH (08:36)
[2016-09-28] MEDS: PANTOPRAZOLE SOD 20 MG DELAYED RELEASE TAB PO SCH (08:36)
[2016-09-28] MEDS: CITALOPRAM HYDROBROMIDE 20 MG TAB PO SCH (08:36)
[2016-09-28] MEDS ORDERED: NON-FORMULARY DRUG (Omeprazole (Prilosec) 20 MG) PO SCH (09:00)
--- NOTE | 2016-09-28 09:21 | RADRPT ---
EXAM DATE/TIME: 09/28/2016 08:57 [facility] COMPARISON: ABDOMEN FLAT & UPRIGHT, February 01, 2015, 8:19. INDICATIONS : Obstruction. Nausea and vomiting. MEDICAL HISTORY : Hypertension. Diabetes mellitus type 2. Carcinoma, lung.Renal failure SURGICAL HISTORY : Hysterectomy. ENCOUNTER: Subsequent ACUITY: 2 days PAIN SCORE: 0/10 LOCATION: Bilateral Abdomen. FINDINGS: Supine and upright views of the abdomen were performed. The abdominal bowel gas pattern is normal. No air fluid levels are seen. No abnormal masses, calcifications, or organomegaly is seen. The visu alized lower lungs are clear. No evidence of free intraperitoneal gas. Anastomotic sutures in the p salma. The osseous structures are unremarkable. CONCLUSION: Unremarkable abdomen. Campbell Hines MD on September 28, 2016 at 9:18 Board Certified Radiologist. This report was verified electronically.
--- NOTE | 2016-09-28 10:27 | HHI.NPPN ---
Subjective General Problems: Anemia Renal Failure: Chronic, End Stage Renal Disease Interval History She had a BM last night. Abdominal pain has improved. (Dinora Sanchez) Objective Data Data 09/27/16 09/28/16 19:00 07:00 Intake Total 0 ml Output Total 950 ml Balance -950 ml Intake Oral 0 ml Output Gastric Drainage Total 950 ml # Voids 1 # Bowel Movements 2 Vital Signs Date Time Temp Pulse Resp B/P Pulse Ox O2 Delivery O2 Flow Rate FiO2 09/28/16 08:00 96.5 100 20 172/89 92 09/28/16 04:30 98.5 95 15 144/75 100 09/28/16 00:35 98.9 91 15 173/84 94 09/27/16 21:10 166/91 09/27/16 20:52 185/90 09/27/16 19:45 98.8 95 15 224/100 92 09/27/16 14:35 97.0 87 16 153/82 95 09/27/16 13:09 87 18 147/75 97 Nasal Cannula 2 (Dinora Sanchez) -: 09/28/16 0640 09/28/16 0640 Imaging Last 72 hours Impressions Abdomen X-Ray 09/28/16 0600 Signed Impressions: Service Date/Time: Wednesday, September 28, 2016 08:57 - CONCLUSION: Unremarkable abdomen. Campbell Hines MD Chest X-Ray 09/27/16912 Signed Impressions: Service Date/Time: Tuesday, September 27, 2016 09:30 - CONCLUSION: 1. Stable left upper lobe density adjacent to aortic knob. 2. Stable scarring/atelectasis left lower lobe. Campbell Hines MD Abdomen/Pelvis CT 09/27/16912 Signed Impressions: Service Date/Time: Tuesday, September 27, 2016 10:27 - CONCLUSION: Proximal to mid small bowel distention with fluid accumulation characteristic of a partial small bowel obstruction. Transition zone is not clearly evident. Mild dilatation of the main pancreatic duct in the head and neck of the pancreas. This can be seen on prior study. Small kidneys with generalized cortical thinning. No other evidence of acute process. Frederick Dexter MD (Dinora Sanchez) Physical Exam General Appearance: Well Developed, No Acute Distress, Comfortable, Malnourished ( Dinora Sanchez) Throat Throat Exam: Oral Mucosa [place] & Moist Throat Remarks missing teeth (Dinora Sanchez) Pulmonary Resp Exam: Breath Sounds Equal, Crackles, Rhonchi (Dinora Sanchez) Cardiology CV Exam: Regular, Normal Sinus Rhythm (Dinora Sanchez) Gastrointestinal/Abdomen GI Exam: Bowel Sounds Present, Positive Bowel Movement, Distended GI Remarks slightly tender (Dinora Sanchez) Musculoskeletal MS Exam: Joints Intact, Normal Tone (Dinora Sanchez) Integumentary Skin Exam: Warm, Dry (Dinora Sanchez) Extremeties Extremities Exam: No Edema, Pedal Pulses Palpable (Dinora Sanchez) Neurologic Neuro Exam: Alert, Awake, Oriented, Speech Clear, Moving All Extremities ( Dinora Sanchez) Psychiatric Psych Exam: Appropriate Responses (Dinora Sanchez) Assessment/Plan Discussed Condition With: Patient Assessment Summary: Anemia of CKD, End Stage Renal Disease Problem List: (1) Small bowel obstruction Plan: general surgery has been consulted, they recommend to continue non surgical management NG tube in place, she did have a BM last hospital monitor clinically, serial imaging , antiemetics (2) ESRD on hemodialysis Plan: typical TTS dialysis, last treatment last HD today and resume TTS schedule tomorrow no electrolyte disorders, no fluid overload avoid IVF monitor electrolytes intermittently avoid Gadolinium she does make some urine (3) DM (diabetes mellitus) Plan: insulin as needed goal 140-180 mg/dL (4) HTN (hypertension) Plan: resume home medications (5) Metabolic bone disease Plan: phosphorus is very high, resume phoslo with meals when no longer NPO (6) Anemia Plan: epogen with dialysis (Dinora Sanchez) Plan patient was seen and examined. Agree with above assessment and plan. Conservative management for SBO being pursued for the time being. (Benjamín Teixeira MD) Dinora Sanchez September 28, 2016 10:27 Benjamín Teixiera MD September 29, 2016 11:11
--- NOTE | 2016-09-28 11:36 | HHI.PR ---
Subjective Remarks The patient was sitting up by the window. She was not sure when she was going for dialysis. She said she came into the hospital because she was having pain all over. She said she did have a bowel movement earlier today. Objective Vitals Vital Signs Date Time Temp Pulse Resp B/P Pulse Ox O2 Delivery O2 Flow Rate FiO2 09/28/16 08:00 96.5 100 20 172/89 92 09/28/16 04:30 98.5 95 15 144/75 100 09/28/16 00:35 98.9 91 15 173/84 94 09/27/16 21:10 166/91 09/27/16 20:52 185/90 09/27/16 19:45 98.8 95 15 224/100 92 09/27/16 14:35 97.0 87 16 153/82 95 09/27/16 13:09 87 18 147/75 97 Nasal Cannula 2 I/O 09/27/16 09/27/16 09/27/16 09/28/16 09/28/16 09/28/16 07:00 15:00 23:00 07:00 15:00 23:00 Intake Total 0 ml 0 ml Output Total 950 ml Balance -950 ml 0 ml Intake Oral 0 ml 0 ml Output Gastric Drainage Total 950 ml # Voids 1 # Bowel Movements 1 1 Result Diagram: 09/28/1640 09/28/16639 Imaging Last Impressions Abdomen X-Ray 09/28/16599 Signed Impressions: Service Date/Time: Wednesday, September 28, 2016 08:57 - CONCLUSION: Unremarkable abdomen. Campbell Hines MD Chest X-Ray 09/27/16912 Signed Impressions: Service Date/Time: Tuesday, September 27, 2016 09:30 - CONCLUSION: 1. Stable left upper lobe density adjacent to aortic knob. 2. Stable scarring/atelectasis left lower lobe. Campbell Hines MD Abdomen/Pelvis CT 09/27/16912 Signed Impressions: Service Date/Time: Tuesday, September 27, 2016 10:27 - CONCLUSION: Proximal to mid small bowel distention with fluid accumulation characteristic of a partial small bowel obstruction. Transition zone is not clearly evident. Mild dilatation of the main pancreatic duct in the head and neck of the pancreas. This can be seen on prior study. Small kidneys with generalized cortical thinning. No other evidence of acute process. Frederick Dexter MD Objective Remarks GENERAL: Well-nourished, well-developed female in no acute distress. HEENT: Normocephalic, atraumatic. Pupils equal, round and reactive. Extraocular movements intact. No scleral icterus. No injection or drainage. Oropharynx is clear. Mucous membranes are moist. CARDIOVASCULAR: Regular rate and rhythm without murmurs, gallops, or rubs. RESPIRATORY: Clear to auscultation. No wheezes, rales, or rhonchi. Breathing is non-labored. GASTROINTESTINAL: Abdomen soft, mild tenderness to palpation without rebound or guarding, nondistended. + bowel sounds. EXTREMITIES: No lower extremity edema. No calf tenderness. NEURO: Awake and alert. PSYCH: Flattened affect. Medications and IVs Current Medications Medications (Trade) Dose Ordered Sig/Hero Route Start Time Stop Time Status Last Admin (NS Flush) 2 ml UNSCH PRN IV FLUSH 09/27/16 09:15 09/27/16 09:34 (Morphine Inj) 2 mg Q4H PRN IV 09/27/16 12:15 09/28/16 05:43 (Zofran Inj) 4 mg Q6H PRN IV 09/27/16 12:15 09/27/16 12:39 (Protonix Inj) 40 mg DAILY IVP 09/28/16 09:00 09/28/16 08:36 (D50w (Vial) Inj) 25 ml UNSCH PRN IV PUSH 09/27/16 12:30 (Glucagon Inj) 1 mg UNSCH PRN OTHER 09/27/16 12:30 (Catapres-Tts 0.1mg Patch.7d) 1 patch Q7D T-DERMAL 09/27/16 13:00 09/27/16 13:52 (Lipitor) 10 mg HS PO 09/27/16 21:00 09/27/16 19:59 (Symbicort 160-4.5 Inh) 2 puff Q12HR INH 09/27/16 21:00 09/28/16 08:35 (CeleXA) 10 mg DAILY PO 09/28/16 09:00 09/28/16 08:36 (Ativan) 1 mg Q6H PRN PO 09/27/16 15:45 (Toprol Xl) 50 mg DAILY PO 09/28/16 09:00 09/28/16 08:36 (Hytrin) 5 mg HS PO 09/27/16 21:00 09/27/16 19:59 (Procardia Xl) 60 mg BID PO 09/27/16 21:00 09/28/16 08:36 Pantoprazole Sodium 20 mg 20 mg DAILY PO 09/28/16 09:00 09/28/16 08:36 (NS 1000 ml Inj) 1,000 ml @ 0 mls/hr Q0M PRN IV 09/27/16 17:14 Heparin Sodium (Porcine) 8000 units 8,000 units UNSCH PRN IVF 09/27/16 17:15 Sodium Chloride 1,000 ml @ 200 mls/hr Q5H PRN IV 09/27/16 17:14 (NS 1000 ml Inj) 1,000 ml @ 0 mls/hr Q0M PRN IV 09/27/16 17:14 (Mannitol Inj) 12.5 gm UNSCH PRN IV 09/27/16 17:15 (Albumin 25% Inj) 25 gm UNSCH PRN IV 09/27/16 17:15 (NS Flush) 5 ml UNSCH PRN IV FLUSH 09/27/16 17:15 (Heparin Inj) UNSCH PRN .XX 09/27/16 17:15 (Gentamicin (Dialysis) Inj) 20 mg UNSCH PRN IV 09/27/16 17:15 (Zofran Inj) 4 mg UNSCH PRN IV 09/27/16 17:15 (Tylenol) 650 mg UNSCH PRN PO 09/27/16 17:15 (Benadryl) 25 mg UNSCH PRN PO 09/27/16 17:15 (Nitrostat Sl) 0.4 mg UNSCH PRN SL 09/27/16 17:15 (Catapres) 0.1 mg UNSCH PRN PO 09/27/16 17:15 09/27/16 19:59 (Epogen Inj) 8,000 units UNSCH PRN IV 09/27/16 17:15 (Gelfoam 12 Mm/7 Mm Top) 1 foam UNSCH PRN TOP 09/27/16 17:15 (Phoslo) 1,334 mg TID PO 09/28/16 13:00 A/P Problem List: (1) Small bowel obstruction ICD Code: K56.69 Status: Acute (2) DM (diabetes mellitus) ICD Code: E11.9 Status: Chronic (3) HTN (hypertension) ICD Code: I10 Status: Chronic (4) Lung cancer ICD Code: C34.90 Status: Chronic (5) ESRD on hemodialysis ICD Code: N18.6 Status: Chronic Assessment and Plan Small bowel obstruction CT showed Proximal to mid small bowel distention with fluid accumulation characteristic of a partial small bowel obstruction; Transition zone is not clearly evident; Mild dilatation of the main pancreatic duct in the head and neck of the pancreas, This can be seen on prior study. Surgery consultation appreciated. Repeat KUB unremarkable. - Keep nothing by mouth with IV fluids. - pain medications, antiemetics as needed. Lung cancer Respiratory status is stable. - Continue outpatient follow-up with Dr. Barker. End-stage renal disease Nephrology consult appreciated. - Hemodialysis per nephrology. Diabetes mellitus Well controlled 09/28. - Monitor Accu-Cheks and cover with sliding scale insulin. Hypertension Blood pressure has been elevated. - Continue home medications. Will cover with IV medication as needed as patient is nothing by mouth. PPx: SCDs. Discharge Planning Awaiting clinical improvement. Deep Kam DO September 28, 2016 11:36
[2016-09-28] MEDS: EPOETIN ALFA 10,000 UNITS/ML VIAL IV PRN (14:18)
[2016-09-28] MEDS: ALBUMIN HUMAN 25% 25 GM/100 ML BAGP IV PRN (14:19)
--- NOTE | 2016-09-28 18:34 | HHI.PR ---
Subjective Subjective Notes Denies pain or nausea. She had a larger bm yesterday. Objective Vitals/I&O Vital Signs Date Time Temp Pulse Resp B/P Pulse Ox O2 Delivery O2 Flow Rate FiO2 09/28/16 16:00 98.5 91 20 121/56 92 09/28/16 11:49 21 09/27/16 13:09 Nasal Cannula 2 Labs Laboratory Tests Test 09/28/16 06:40 White Blood Count 6.2 Red Blood Count 2.95 Hemoglobin 9.3 Hematocrit 27.8 Mean Corpuscular Volume 94.3 Mean Corpuscular Hemoglobin 31.4 Mean Corpuscular Hemoglobin 33.3 Concent Red Cell Distribution Width 15.0 Platelet Count 112 Mean Platelet Volume 9.6 Neutrophils (%) (Auto) 67.8 Lymphocytes (%) (Auto) 16.7 Monocytes (%) (Auto) 12.3 Eosinophils (%) (Auto) 2.4 Basophils (%) (Auto) 0.8 Neutrophils # (Auto) 4.2 Lymphocytes # (Auto) 1.0 Monocytes # (Auto) 0.8 Eosinophils # (Auto) 0.2 Basophils # (Auto) 0.1 CBC Comment DIFF FINAL Differential Comment Sodium Level 137 Potassium Level 4.3 Chloride Level 94 Carbon Dioxide Level 25.2 Anion Gap 18 Blood Urea Nitrogen 90 Creatinine 14.74 Estimat Glomerular Filtration 3 Rate Random Glucose 124 Calcium Level 8.5 Phosphorus Level 8.5 Radiology Last Impressions Chest X-Ray 09/27/16912 Signed Impressions: Service Date/Time: Tuesday, September 27, 2016 09:30 - CONCLUSION: 1. Stable left upper lobe density adjacent to aortic knob. 2. Stable scarring/atelectasis left lower lobe. Campbell Hines MD Abdomen/Pelvis CT 09/27/16912 Signed Impressions: Service Date/Time: Tuesday, September 27, 2016 10:27 - CONCLUSION: Proximal to mid small bowel distention with fluid accumulation characteristic of a partial small bowel obstruction. Transition zone is not clearly evident. Mild dilatation of the main pancreatic duct in the head and neck of the pancreas. This can be seen on prior study. Small kidneys with generalized cortical thinning. No other evidence of acute process. Frederick Dexter MD Narrative Exam NAD, sitting up Abd: soft, nontender. NG dark green output about 1200 since placement. A/P Assessment and Plan 66 yo F with SBO Denies pain. KUB unremarkable. Start clears. Await return of bowel function. May not be distended due to SBO being proximal. If she does not fully resolve would need surgery in the next few days. Michael Gutiérrez MD September 28, 2016 18:34
[2016-09-28] MEDS: TERAZOSIN HCL 5 MG CAP PO SCH (20:27)
[2016-09-28] MEDS: ATORVASTATIN 10 MG TAB PO SCH (20:27)
[2016-09-28] MEDS: LORazepam 1 MG TAB PO PRN (22:25)
[2016-09-29 00:45] VITALS: BP 137/63; PULSE 94; RESP 16; TEMP 97.9; O2SAT 100
[2016-09-29] MEDS: MORPHINE SULFATE 4 MG/ML INJ IV PRN ×3 (01:30→21:27)
[2016-09-29 04:30] VITALS: BP 137/80; PULSE 96; RESP 16; TEMP 98.3; O2SAT 94
[2016-09-29] MEDS: INSULIN ASPART SUPPLEMENTAL SCALE SQ SCH ×3 (07:00→16:00)
[2016-09-29 07:34] VITALS: BP 175/76; PULSE 99; RESP 17; TEMP 98.2; O2SAT 91
[2016-09-29] MEDS: CITALOPRAM HYDROBROMIDE 20 MG TAB PO SCH (09:00)
[2016-09-29] MEDS: NIFEdipine 60 MG SUSTAINED RELEASE TAB PO SCH ×2 (09:00→21:28)
[2016-09-29] MEDS: METOPROLOL SUCCINATE 50 MG EXTENDED RELEASE TAB PO SCH (09:00)
[2016-09-29] MEDS: PANTOPRAZOLE SOD 20 MG DELAYED RELEASE TAB PO SCH (09:00)
--- NOTE | 2016-09-29 09:20 | HHI.PR ---
Subjective Subjective Notes No complaints. NG output 350cc for 8 hrs overnight. She denies flatus. Objective Vitals/I&O Vital Signs Date Time Temp Pulse Resp B/P Pulse Ox O2 Delivery O2 Flow Rate FiO2 09/29/16 07:34 98.2 99 17 175/76 91 09/28/16 11:49 21 09/27/16 13:09 Nasal Cannula 2 Radiology Last Impressions Chest X-Ray 09/27/16912 Signed Impressions: Service Date/Time: Tuesday, September 27, 2016 09:30 - CONCLUSION: 1. Stable left upper lobe density adjacent to aortic knob. 2. Stable scarring/atelectasis left lower lobe. Campbell Hines MD Abdomen/Pelvis CT 09/27/16912 Signed Impressions: Service Date/Time: Tuesday, September 27, 2016 10:27 - CONCLUSION: Proximal to mid small bowel distention with fluid accumulation characteristic of a partial small bowel obstruction. Transition zone is not clearly evident. Mild dilatation of the main pancreatic duct in the head and neck of the pancreas. This can be seen on prior study. Small kidneys with generalized cortical thinning. No other evidence of acute process. Frederick Dexter MD Narrative Exam NAD Abd: soft, mild diffuse tenderness A/P Assessment and Plan 66 yo F with SBO Cont ng to LIS. Check sbft today. Michael Gutiérrez MD September 29, 2016 09:20
[2016-09-29] MEDS ORDERED: DIATRIZOATE MEGLUM/DIATRIZOATE SOD 120 ML BTL (for RAD DIAG) NG ONE (10:00)
--- NOTE | 2016-09-29 11:05 | HHI.NPPN ---
Subjective General Problems: Anemia Renal Failure: Chronic, End Stage Renal Disease Interval History In route for small bowel series. Due for dialysis today. (Dinora Sanchez) Objective Data Data 09/28/16 09/29/16 19:00 07:00 Intake Total 0 ml 180 ml Output Total 2100 ml 275 ml Balance -2100 ml -95 ml Intake Oral 0 ml 180 ml Output Urine Total 0 ml Gastric Drainage Total 300 ml 275 ml Hemodialysis 1800 ml # Voids 0 # Bowel Movements 0 0 Vital Signs Date Time Temp Pulse Resp B/P Pulse Ox O2 Delivery O2 Flow Rate FiO2 09/29/16 07:34 98.2 99 17 175/76 91 09/29/16 04:30 98.3 96 16 137/80 94 09/29/16 00:45 97.9 94 16 137/63 100 09/28/16 23:00 82 09/28/16 22:00 88 09/28/16 20:20 98.1 99 16 159/74 96 09/28/16 16:00 98.5 91 20 121/56 92 09/28/16 12:00 97.4 109 20 166/81 93 09/28/16 11:49 92 21 (Dinora Sanchez) -: 09/28/16 0640 09/28/16 0640 Imaging Last 72 hours Impressions Abdomen X-Ray 09/28/16 0600 Signed Impressions: Service Date/Time: Wednesday, September 28, 2016 08:57 - CONCLUSION: Unremarkable abdomen. Campbell Hines MD Chest X-Ray 09/27/16912 Signed Impressions: Service Date/Time: Tuesday, September 27, 2016 09:30 - CONCLUSION: 1. Stable left upper lobe density adjacent to aortic knob. 2. Stable scarring/atelectasis left lower lobe. Campbell Hines MD Abdomen/Pelvis CT 09/27/16912 Signed Impressions: Service Date/Time: Tuesday, September 27, 2016 10:27 - CONCLUSION: Proximal to mid small bowel distention with fluid accumulation characteristic of a partial small bowel obstruction. Transition zone is not clearly evident. Mild dilatation of the main pancreatic duct in the head and neck of the pancreas. This can be seen on prior study. Small kidneys with generalized cortical thinning. No other evidence of acute process. Frederick Dexter MD Tubes & Lines Comment NG tube (Dinora Sanchez) Physical Exam General Appearance: Well Developed, No Acute Distress, Comfortable, Malnourished ( Dinora Sanchez) Throat Throat Exam: Oral Mucosa [place] & Moist Throat Remarks missing teeth (Dinora Sanchez) Pulmonary Resp Exam: Breath Sounds Equal, Crackles, Rhonchi (Dinora Sanchez) Cardiology CV Exam: Regular, Normal Sinus Rhythm (Dinora Sanchez) Gastrointestinal/Abdomen GI Exam: Bowel Sounds Present, Positive Bowel Movement, Distended GI Remarks slightly tender (Dinora Sanchez) Musculoskeletal MS Exam: Joints Intact, Normal Tone (Dinora Sanchez) Integumentary Skin Exam: Warm, Dry (Dinora Sanchez) Extremeties Extremities Exam: No Edema, Pedal Pulses Palpable (Dinora Sanchez) Neurologic Neuro Exam: Alert, Awake, Oriented, Speech Clear, Moving All Extremities ( Dinora Sanchez) Psychiatric Psych Exam: Appropriate Responses (Dinora Sanchez) Assessment/Plan Discussed Condition With: Patient Assessment Summary: Anemia of CKD, End Stage Renal Disease Problem List: (1) Small bowel obstruction Plan: general surgery is following, they recommend to continue non surgical management NG tube in place KUB unremarkable, having small bowel series this morning if no improvement may need surgical intervention monitor clinically, serial imaging , antiemetics (2) ESRD on hemodialysis Plan: typical TTS dialysis, she is due today no electrolyte disorders, no fluid overload avoid IVF monitor electrolytes intermittently avoid Gadolinium she does make some urine at baseline (3) DM (diabetes mellitus) Plan: insulin as needed goal 140-180 mg/dL (4) HTN (hypertension) Plan: resume home medications (5) Metabolic bone disease Plan: phosphorus is elevated, on phoslo with meals as no longer NPO dose was increased (6) Anemia Plan: epogen with dialysis (Dinora Sanchez) Plan patient was seen and examined. Repeat imaging today. Dialysis TTS. (Benjamín Teixeira MD) Dinora Sanchez September 29, 2016 11:05 Benjamín Teixeira MD September 29, 2016 11:29
[2016-09-29] MEDS: PANTOPRAZOLE SODIUM 40 MG VIAL IVP SCH (13:58)
[2016-09-29] MEDS: BUDESONIDE-FORMOTEROL 160/4.5 MCG INHALER INH SCH ×2 (14:04→21:27)
--- NOTE | 2016-09-29 15:10 | RADRPT ---
EXAM DATE/TIME: 09/29/2016 10:26 [facility] COMPARISON: SMALL BOWEL SERIES W/GASTROGRAFIN, January 31, 2015, 15:56. INDICATIONS : Abdominal pain, evaluate for obstruction FLUORO TIME: 3.9 minutes IMAGE COUNT: 13 CONTRAST: MD Rivera IMAGING TIME(S): 15 min, 30 min, 45 min, 1 hr, 1.5 hrs2 hr MEDICAL HISTORY : Hypertension. Diabetes mellitus type II. Carcinoma, lung. Smoker. Dialysis. SURGICAL HISTORY : Hysterectomy. ENCOUNTER: Subsequent ACUITY: 3 days PAIN SCORE: 3/10 LOCATION: Bilateral abd FINDINGS: Preliminary film dimensions a nasogastric tube in the gastric lumen. There is atherosclerotic calcifi cation of the regional vasculature. The stomach is grossly unremarkable. Transient filling defects in the gastric antrum or duodenal bulb are most characteristic of an air bubble. Examination of the small bowel demonstrates mild distention of the jejunal loops with decompression o f the more distal bowel loops to the terminal ileum. Findings are concerning for a partial small [place] l extraction with a transition point near the jejunal ileal junction. CONCLUSION: 1. Mild distention of the proximal small bowel loops with decompression of the distal loops concernin g for a more proximal partial small bowel obstruction. 2. No pneumoperitoneum. Terminal ileum is partially obscured by overlying bowel loops but appears to be grossly normal. . Josue Chand MD on September 29, 2016 at 14:34 Board Certified Radiologist. This report was verified electronically.
[2016-09-29 15:28] VITALS: BP 128/65; PULSE 94; RESP 17; TEMP 95.5; O2SAT 96
[2016-09-29] MEDS: ALBUMIN HUMAN 25% 25 GM/100 ML BAGP IV PRN (16:45)
--- NOTE | 2016-09-29 17:33 | HHI.PR ---
Subjective Remarks The pt was being taken to dialysis. She said she was exhausted from the testing earlier. She wanted to know if she would be having surgery. Objective Vitals Vital Signs Date Time Temp Pulse Resp B/P Pulse Ox O2 Delivery O2 Flow Rate FiO2 09/29/16 15:28 95.5 94 17 128/65 96 09/29/16 07:34 98.2 99 17 175/76 91 09/29/16 04:30 98.3 96 16 137/80 94 09/29/16 00:45 97.9 94 16 137/63 100 09/28/16 23:00 82 09/28/16 22:00 88 09/28/16 20:20 98.1 99 16 159/74 96 I/O 09/28/16 09/28/16 09/28/16 09/29/16 09/29/16 09/29/16 07:00 15:00 23:00 07:00 15:00 23:00 Intake Total 0 ml 0 ml 180 ml 400 ml Output Total 300 ml 2075 ml 800 ml Balance 0 ml -300 ml -1895 ml 400 ml -800 ml Intake Oral 0 ml 0 ml 180 ml 400 ml Output Urine Total 0 ml Gastric Drainage Total 300 ml 275 ml 800 ml Hemodialysis 1800 ml # Voids 0 3 # Bowel Movements 1 0 0 1 Result Diagram: 09/28/16 0640 09/28/16 0640 Imaging Last Impressions Small Bowel X-Ray 09/29/16 0000 Signed Impressions: Service Date/Time: September 10:26 - CONCLUSION: 1. Mild distention of the proximal small bowel loops with decompression of the distal loops concerning for a more proximal partial small bowel obstruction. 2. No pneumoperitoneum. Terminal ileum is partially obscured by overlying bowel loops but appears to be grossly normal. . Josue Chand MD Abdomen X-Ray 09/28/16 0600 Signed Impressions: Service Date/Time: Wednesday, September 28, 2016 08:57 - CONCLUSION: Unremarkable abdomen. Campbell Hines MD Chest X-Ray 09/27/16 0913 Signed Impressions: Service Date/Time: Tuesday, September 27, 2016 09:30 - CONCLUSION: 1. Stable left upper lobe density adjacent to aortic knob. 2. Stable scarring/atelectasis left lower lobe. Campbell Hines MD Abdomen/Pelvis CT 09/27/16 0913 Signed Impressions: Service Date/Time: Tuesday, September 27, 2016 10:27 - CONCLUSION: Proximal to mid small bowel distention with fluid accumulation characteristic of a partial small bowel obstruction. Transition zone is not clearly evident. Mild dilatation of the main pancreatic duct in the head and neck of the pancreas. This can be seen on prior study. Small kidneys with generalized cortical thinning. No other evidence of acute process. Frederick Dexter MD Objective Remarks GENERAL: Well-nourished, well-developed female in no acute distress. HEENT: Normocephalic, atraumatic. Pupils equal, round and reactive. Extraocular movements intact. No scleral icterus. No injection or drainage. Oropharynx is clear. Mucous membranes are moist. NGT in place. CARDIOVASCULAR: Regular rate and rhythm without murmurs, gallops, or rubs. RESPIRATORY: Clear to auscultation. No wheezes, rales, or rhonchi. Breathing is non-labored. GASTROINTESTINAL: Abdomen soft, mild tenderness to palpation without rebound or guarding, nondistended. + bowel sounds. EXTREMITIES: No lower extremity edema. NEURO: Awake and alert. PSYCH: Flattened affect. Medications and IVs Current Medications Medications (Trade) Dose Ordered Sig/Hero Route Start Time Stop Time Status Last Admin (NS Flush) 2 ml UNSCH PRN IV FLUSH 09/27/16 09:15 09/27/16 09:34 (Morphine Inj) 2 mg Q4H PRN IV 09/27/16 12:15 09/29/16 08:59 (Zofran Inj) 4 mg Q6H PRN IV 09/27/16 12:15 09/27/16 12:39 (Protonix Inj) 40 mg DAILY IVP 09/28/16 09:00 09/29/16 13:58 (D50w (Vial) Inj) 25 ml UNSCH PRN IV PUSH 09/27/16 12:30 (Glucagon Inj) 1 mg UNSCH PRN OTHER 09/27/16 12:30 (Catapres-Tts 0.1mg Patch.7d) 1 patch Q7D T-DERMAL 09/27/16 13:00 09/27/16 13:52 (Lipitor) 10 mg HS PO 09/27/16 21:00 09/28/16 20:27 (Symbicort 160-4.5 Inh) 2 puff Q12HR INH 09/27/16 21:00 09/29/16 14:04 (CeleXA) 10 mg DAILY PO 09/28/16 09:00 09/28/16 08:36 (Ativan) 1 mg Q6H PRN PO 09/27/16 15:45 09/28/16 22:25 (Toprol Xl) 50 mg DAILY PO 09/28/16 09:00 09/28/16 08:36 (Hytrin) 5 mg HS PO 09/27/16 21:00 09/28/16 20:27 (Procardia Xl) 60 mg BID PO 09/27/16 21:00 09/28/16 20:27 Pantoprazole Sodium 20 mg 20 mg DAILY PO 09/28/16 09:00 09/28/16 08:36 (NS 1000 ml Inj) 1,000 ml @ 0 mls/hr Q0M PRN IV 09/27/16 17:14 Heparin Sodium (Porcine) 8000 units 8,000 units UNSCH PRN IVF 09/27/16 17:15 Sodium Chloride 1,000 ml @ 200 mls/hr Q5H PRN IV 09/27/16 17:14 (NS 1000 ml Inj) 1,000 ml @ 0 mls/hr Q0M PRN IV 09/27/16 17:14 (Mannitol Inj) 12.5 gm UNSCH PRN IV 09/27/16 17:15 (Albumin 25% Inj) 25 gm UNSCH PRN IV 09/27/16 17:15 09/29/16 16:45 (NS Flush) 5 ml UNSCH PRN IV FLUSH 09/27/16 17:15 (Heparin Inj) UNSCH PRN .XX 09/27/16 17:15 (Gentamicin (Dialysis) Inj) 20 mg UNSCH PRN IV 09/27/16 17:15 (Zofran Inj) 4 mg UNSCH PRN IV 09/27/16 17:15 (Tylenol) 650 mg UNSCH PRN PO 09/27/16 17:15 (Benadryl) 25 mg UNSCH PRN PO 09/27/16 17:15 (Nitrostat Sl) 0.4 mg UNSCH PRN SL 09/27/16 17:15 (Catapres) 0.1 mg UNSCH PRN PO 09/27/16 17:15 09/27/16 19:59 (Epogen Inj) 8,000 units UNSCH PRN IV 09/27/16 17:15 09/28/16 14:18 (Gelfoam 12 Mm/7 Mm Top) 1 foam UNSCH PRN TOP 09/27/16 17:15 (Phoslo) 1,334 mg TID PO 09/28/16 13:00 A/P Problem List: (1) Small bowel obstruction ICD Code: K56.69 Status: Acute (2) DM (diabetes mellitus) ICD Code: E11.9 Status: Chronic (3) HTN (hypertension) ICD Code: I10 Status: Chronic (4) Lung cancer ICD Code: C34.90 Status: Chronic (5) ESRD on hemodialysis ICD Code: N18.6 Status: Chronic Assessment and Plan Small bowel obstruction CT showed Proximal to mid small bowel distention with fluid accumulation characteristic of a partial small bowel obstruction; Transition zone is not clearly evident; Mild dilatation of the main pancreatic duct in the head and neck of the pancreas, This can be seen on prior study. Surgery consultation appreciated. Repeat KUB unremarkable. Small bowel series: Mild distention of the proximal small bowel loops with decompression of the distal loops concerning for a more proximal partial small bowel obstruction; No pneumoperitoneum; Terminal ileum is partially obscured by overlying bowel loops but appears to be grossly normal. - clear liquid diet per surgery. - pain medications, antiemetics as needed. Lung cancer Respiratory status is stable. - Continue outpatient follow-up with Dr. Barker. End-stage renal disease Nephrology consult appreciated. - Hemodialysis per nephrology. Diabetes mellitus Well controlled 09/29. - Monitor Accu-Cheks and cover with sliding scale insulin. Hypertension Blood pressure has been elevated. - Continue home medications. PPx: SCDs. Discharge Planning Awaiting clinical improvement. Deep Kam DO September 29, 2016 17:33
[2016-09-29] MEDS: EPOETIN ALFA 10,000 UNITS/ML VIAL IV PRN (17:34)
[2016-09-29] MEDS: CALCIUM ACETATE 667 MG CAP PO SCH (18:00)
[2016-09-29 20:25] VITALS: BP 141/67; PULSE 95; RESP 17; TEMP 98.1; O2SAT 97
[2016-09-29] MEDS: ATORVASTATIN 10 MG TAB PO SCH (21:28)
[2016-09-29] MEDS: TERAZOSIN HCL 5 MG CAP PO SCH (21:31)
[2016-09-29] MEDS: SODIUM CHLORIDE 0.9% FLUSH 10 ML FLUSH IV FLUSH PRN (21:32)
[2016-09-29 21:41] LABS: HEMATOCRIT 32.1 % (35.0-46.0); MEAN CELL VOLUME 94.9 FL (80.0-100.0); MEAN CORPUSCULAR HEMOGLOBIN 30.7 PG (27.0-34.0); MEAN CORPUSCULAR HGB CONC 32.4 % (32.0-36.0); PLATELET COUNT 135 TH/MM3 (150-450); RED BLOOD COUNT 3.38 MIL/MM3 (4.00-5.30); RED CELL DISTRIBUTION WIDTH 15.1 % (11.6-17.2); REVIEW FLAG FINAL; WHITE BLOOD COUNT 8.5 TH/MM3 (4.0-11.0)
[2016-09-29 22:00] LABS: BICARBONATE 27.2 MEQ/L (21.0-32.0); MAGNESIUM 1.8 MG/DL (1.5-2.5); POTASSIUM 3.6 MEQ/L (3.5-5.1)
[2016-09-30] VITALS (7 sets, daily range): BP systolic 115–144; BP diastolic 57–70; PULSE 89–102; RESP 17–18; TEMP 97.3–98.3; O2SAT 94–97
[2016-09-30] MEDS: LORazepam 1 MG TAB PO PRN ×2 (00:14→11:13)
[2016-09-30] MEDS: INSULIN ASPART SUPPLEMENTAL SCALE SQ SCH ×5 (00:24→21:12)
[2016-09-30 06:25] LABS: HEMATOCRIT 29.5 % (35.0-46.0); MEAN CELL VOLUME 94.8 FL (80.0-100.0); MEAN CORPUSCULAR HGB CONC 32.7 % (32.0-36.0); PLATELET COUNT 126 TH/MM3 (150-450); RED BLOOD COUNT 3.12 MIL/MM3 (4.00-5.30); RED CELL DISTRIBUTION WIDTH 14.7 % (11.6-17.2); REVIEW FLAG FINAL; WHITE BLOOD COUNT 7.3 TH/MM3 (4.0-11.0)
[2016-09-30 06:50] LABS: BICARBONATE 30.7 MEQ/L (21.0-32.0); MAGNESIUM 1.9 MG/DL (1.5-2.5); POTASSIUM 3.6 MEQ/L (3.5-5.1)
[2016-09-30] MEDS: METOPROLOL SUCCINATE 50 MG EXTENDED RELEASE TAB PO SCH (08:33)
[2016-09-30] MEDS: PANTOPRAZOLE SODIUM 40 MG VIAL IVP SCH (08:33)
[2016-09-30] MEDS: NIFEdipine 60 MG SUSTAINED RELEASE TAB PO SCH ×2 (08:33→21:06)
[2016-09-30] MEDS: PANTOPRAZOLE SOD 20 MG DELAYED RELEASE TAB PO SCH (08:34)
[2016-09-30] MEDS: CALCIUM ACETATE 667 MG CAP PO SCH ×3 (08:34→18:10)
[2016-09-30] MEDS: CITALOPRAM HYDROBROMIDE 20 MG TAB PO SCH (08:34)
[2016-09-30] MEDS: BUDESONIDE-FORMOTEROL 160/4.5 MCG INHALER INH SCH ×2 (08:37→21:07)
--- NOTE | 2016-09-30 09:00 | HHI.PR ---
Subjective Subjective Notes Denies abdominal pain. Had a few bowel movts. She had SBFT yesterday showing dilated proximal small bowel but relatively quick transit to colon. Objective Vitals/I&O Vital Signs Date Time Temp Pulse Resp B/P Pulse Ox O2 Delivery O2 Flow Rate FiO2 09/30/16 08:10 97.4 96 18 129/69 95 09/29/16 21:13 21 09/27/16 13:09 Nasal Cannula 2 Labs Laboratory Tests Test 09/29/16 09/30/16 21:17 06:01 White Blood Count 8.5 7.3 Red Blood Count 3.38 3.12 Hemoglobin 10.4 9.7 Hematocrit 32.1 29.5 Mean Corpuscular Volume 94.9 94.8 Mean Corpuscular Hemoglobin 30.7 31.0 Mean Corpuscular Hemoglobin 32.4 32.7 Concent Red Cell Distribution Width 15.1 14.7 Platelet Count 135 126 Mean Platelet Volume 9.9 10.7 Sodium Level 138 138 Potassium Level 3.6 3.6 Chloride Level 93 92 Carbon Dioxide Level 27.2 30.7 Anion Gap 18 15 Blood Urea Nitrogen 36 43 Creatinine 7.16 8.43 Estimat Glomerular Filtration 7 6 Rate Random Glucose 87 119 Calcium Level 10.4 10.2 Phosphorus Level 4.7 Magnesium Level 1.8 1.9 Radiology Last Impressions Chest X-Ray 09/27/16912 Signed Impressions: Service Date/Time: Tuesday, September 27, 2016 09:30 - CONCLUSION: 1. Stable left upper lobe density adjacent to aortic knob. 2. Stable scarring/atelectasis left lower lobe. Campbell Hines MD Abdomen/Pelvis CT 09/27/16912 Signed Impressions: Service Date/Time: Tuesday, September 27, 2016 10:27 - CONCLUSION: Proximal to mid small bowel distention with fluid accumulation characteristic of a partial small bowel obstruction. Transition zone is not clearly evident. Mild dilatation of the main pancreatic duct in the head and neck of the pancreas. This can be seen on prior study. Small kidneys with generalized cortical thinning. No other evidence of acute process. Frederick Dexter MD Narrative Exam NAD Abd: soft, nontender A/P Assessment and Plan 66 yo F with partial small bowel obstruction. She has partial obstruction in proximal small bowel, and contrast seems to pass relatively easily. I am going to d/c ngt and place her on fulls. Hopefully she will tolerate this well and be able to be advanced over the weekend. Brock,Michael CHAO September 30, 2016 09:00
--- NOTE | 2016-09-30 11:48 | HHI.PR ---
Subjective Remarks The patient was sitting up in a chair. She said she was happy the NG tube was removed. She ordered lunch. She would like some pain medication for her pain in her left chest which she gets from her lung cancer. She said she had a bowel movement in her diapers last night. Discussed with nursing. Objective Vitals Vital Signs Date Time Temp Pulse Resp B/P Pulse Ox O2 Delivery O2 Flow Rate FiO2 09/30/16 09:55 94 21 09/30/16 08:10 97.4 96 18 129/69 95 09/30/16 04:29 97.9 102 17 144/70 95 09/30/16 00:12 97.9 100 17 115/57 95 09/29/16 21:13 21 09/29/16 20:25 98.1 95 17 141/67 97 09/29/16 15:28 95.5 94 17 128/65 96 I/O 09/29/16 09/29/16 09/29/16 09/30/16 09/30/16 09/30/16 06:59 14:59 22:59 06:59 14:59 22:59 Intake Total 400 ml 300 ml 120 ml Output Total 1350 ml 200 ml Balance 400 ml -1050 ml -80 ml Intake Oral 400 ml 300 ml 120 ml Gastric Drainage Total 1350 ml 200 ml Hemodialysis 0 ml # Voids 3 1 1 # Bowel Movements 1 1 1 Result Diagram: 09/30/16 0601 09/30/16 0601 Imaging Last Impressions Small Bowel X-Ray 09/29/16 0000 Signed Impressions: Service Date/Time: September 10:26 - CONCLUSION: 1. Mild distention of the proximal small bowel loops with decompression of the distal loops concerning for a more proximal partial small bowel obstruction. 2. No pneumoperitoneum. Terminal ileum is partially obscured by overlying bowel loops but appears to be grossly normal. . Josue Chand MD Abdomen X-Ray 09/28/16 0600 Signed Impressions: Service Date/Time: Wednesday, September 28, 2016 08:57 - CONCLUSION: Unremarkable abdomen. Campbell Hines MD Chest X-Ray 09/27/16 0913 Signed Impressions: Service Date/Time: Tuesday, September 27, 2016 09:30 - CONCLUSION: 1. Stable left upper lobe density adjacent to aortic knob. 2. Stable scarring/atelectasis left lower lobe. Campbell Hines MD Abdomen/Pelvis CT 09/27/16 0913 Signed Impressions: Service Date/Time: Tuesday, September 27, 2016 10:27 - CONCLUSION: Proximal to mid small bowel distention with fluid accumulation characteristic of a partial small bowel obstruction. Transition zone is not clearly evident. Mild dilatation of the main pancreatic duct in the head and neck of the pancreas. This can be seen on prior study. Small kidneys with generalized cortical thinning. No other evidence of acute process. Frederick Dexter MD Objective Remarks GENERAL: Well-nourished, well-developed female in no acute distress. HEENT: Normocephalic, atraumatic. Pupils equal, round and reactive. Extraocular movements intact. No scleral icterus. No injection or drainage. Oropharynx is clear. Mucous membranes are moist. NGT in place. CARDIOVASCULAR: Regular rate and rhythm without murmurs, gallops, or rubs. RESPIRATORY: Clear to auscultation. No wheezes, rales, or rhonchi. Breathing is non-labored. GASTROINTESTINAL: Abdomen soft, mild tenderness to palpation without rebound or guarding, nondistended. + bowel sounds. EXTREMITIES: No lower extremity edema. NEURO: Awake and alert. PSYCH: Flattened affect. Medications and IVs Current Medications Medications (Trade) Dose Ordered Sig/Hero Route Start Time Stop Time Status Last Admin (NS Flush) 2 ml UNSCH PRN IV FLUSH 09/27/16 09:15 09/29/16 21:32 (Morphine Inj) 2 mg Q4H PRN IV 09/27/16 12:15 09/29/16 21:27 (Zofran Inj) 4 mg Q6H PRN IV 09/27/16 12:15 09/27/16 12:39 (Protonix Inj) 40 mg DAILY IVP 09/28/16 09:00 09/30/16 08:33 (D50w (Vial) Inj) 25 ml UNSCH PRN IV PUSH 09/27/16 12:30 (Glucagon Inj) 1 mg UNSCH PRN OTHER 09/27/16 12:30 (Catapres-Tts 0.1mg Patch.7d) 1 patch Q7D T-DERMAL 09/27/16 13:00 09/27/16 13:52 (Lipitor) 10 mg HS PO 09/27/16 21:00 09/29/16 21:28 (Symbicort 160-4.5 Inh) 2 puff Q12HR INH 09/27/16 21:00 09/30/16 08:37 (CeleXA) 10 mg DAILY PO 09/28/16 09:00 09/30/16 08:34 (Ativan) 1 mg Q6H PRN PO 09/27/16 15:45 09/30/16 11:13 (Toprol Xl) 50 mg DAILY PO 09/28/16 09:00 09/30/16 08:33 (Hytrin) 5 mg HS PO 09/27/16 21:00 09/29/16 21:31 (Procardia Xl) 60 mg BID PO 09/27/16 21:00 09/30/16 08:33 Pantoprazole Sodium 20 mg 20 mg DAILY PO 09/28/16 09:00 09/30/16 08:34 (NS 1000 ml Inj) 1,000 ml @ 0 mls/hr Q0M PRN IV 09/27/16 17:14 Heparin Sodium (Porcine) 8000 units 8,000 units UNSCH PRN IVF 09/27/16 17:15 Sodium Chloride 1,000 ml @ 200 mls/hr Q5H PRN IV 09/27/16 17:14 (NS 1000 ml Inj) 1,000 ml @ 0 mls/hr Q0M PRN IV 09/27/16 17:14 (Mannitol Inj) 12.5 gm UNSCH PRN IV 09/27/16 17:15 (Albumin 25% Inj) 25 gm UNSCH PRN IV 09/27/16 17:15 09/29/16 16:45 (NS Flush) 5 ml UNSCH PRN IV FLUSH 09/27/16 17:15 (Heparin Inj) UNSCH PRN .XX 09/27/16 17:15 (Gentamicin (Dialysis) Inj) 20 mg UNSCH PRN IV 09/27/16 17:15 (Zofran Inj) 4 mg UNSCH PRN IV 09/27/16 17:15 (Tylenol) 650 mg UNSCH PRN PO 09/27/16 17:15 (Benadryl) 25 mg UNSCH PRN PO 09/27/16 17:15 (Nitrostat Sl) 0.4 mg UNSCH PRN SL 09/27/16 17:15 (Catapres) 0.1 mg UNSCH PRN PO 09/27/16 17:15 09/27/16 19:59 (Epogen Inj) 8,000 units UNSCH PRN IV 09/27/16 17:15 09/29/16 17:34 (Gelfoam 12 Mm/7 Mm Top) 1 foam UNSCH PRN TOP 09/27/16 17:15 (Phoslo) 1,334 mg TID PO 09/28/16 13:00 09/30/16 08:34 A/P Problem List: (1) Small bowel obstruction ICD Code: K56.69 Status: Acute (2) DM (diabetes mellitus) ICD Code: E11.9 Status: Chronic (3) HTN (hypertension) ICD Code: I10 Status: Chronic (4) Lung cancer ICD Code: C34.90 Status: Chronic (5) ESRD on hemodialysis ICD Code: N18.6 Status: Chronic Assessment and Plan Small bowel obstruction CT showed Proximal to mid small bowel distention with fluid accumulation characteristic of a partial small bowel obstruction; Transition zone is not clearly evident; Mild dilatation of the main pancreatic duct in the head and neck of the pancreas, This can be seen on prior study. Surgery consultation appreciated. Repeat KUB unremarkable. Small bowel series: Mild distention of the proximal small bowel loops with decompression of the distal loops concerning for a more proximal partial small bowel obstruction; No pneumoperitoneum; Terminal ileum is partially obscured by overlying bowel loops but appears to be grossly normal. NGT has been removed. The pt had a bowel movement 09/29. - full liquid diet per surgery. - pain medications, antiemetics as needed. Lung cancer Respiratory status is stable. - Continue outpatient follow-up with Dr. Barker. - pain meds as needed for chronic pain. End-stage renal disease Nephrology consult appreciated. - Hemodialysis per nephrology. Diabetes mellitus Well controlled 09/30. - Monitor Accu-Cheks and cover with sliding scale insulin. Hypertension Blood pressure improved 09/30. - Continue home medications. Anemia Likely s/t ESRD, cancer. Hgb around baseline. - follow CBC as needed. PPx: SCDs. Discharge Planning Awaiting clinical improvement. Deep Kam DO September 30, 2016 11:48
[2016-09-30] MEDS: ATORVASTATIN 10 MG TAB PO SCH (21:06)
[2016-09-30] MEDS: TERAZOSIN HCL 5 MG CAP PO SCH (21:06)
[2016-10-01] VITALS: BP 103/58; PULSE 87; RESP 17; TEMP 97; O2SAT 100
[2016-10-01 04:00] VITALS: BP 111/62; PULSE 96; RESP 18; TEMP 98.1; O2SAT 93
[2016-10-01] MEDS: INSULIN ASPART SUPPLEMENTAL SCALE SQ SCH ×4 (07:00→20:18)
[2016-10-01 08:00] VITALS: BP 107/61; PULSE 89; RESP 17; TEMP 98.1; O2SAT 97
[2016-10-01] MEDS: METOPROLOL SUCCINATE 50 MG EXTENDED RELEASE TAB PO SCH (09:00)
[2016-10-01] MEDS: CALCIUM ACETATE 667 MG CAP PO SCH ×3 (09:00→18:31)
[2016-10-01] MEDS: NIFEdipine 60 MG SUSTAINED RELEASE TAB PO SCH ×2 (09:07→20:06)
[2016-10-01] MEDS: PANTOPRAZOLE SOD 20 MG DELAYED RELEASE TAB PO SCH (09:07)
[2016-10-01] MEDS: CITALOPRAM HYDROBROMIDE 20 MG TAB PO SCH (09:08)
[2016-10-01] MEDS: BUDESONIDE-FORMOTEROL 160/4.5 MCG INHALER INH SCH ×2 (09:10→20:04)
[2016-10-01] MEDS: PANTOPRAZOLE SODIUM 40 MG VIAL IVP SCH (09:12)
--- NOTE | 2016-10-01 11:08 | HHI.PR ---
Subjective Remarks The patient was seen in dialysis. She said she has been tolerating a full liquid diet. She denies abdominal pain or nausea. She said she had 2 watery bowel movements. She had no acute complaints. Objective Vitals Vital Signs Date Time Temp Pulse Resp B/P Pulse Ox O2 Delivery O2 Flow Rate FiO2 10/01/16 08:00 98.1 89 17 107/61 97 10/01/16 04:00 98.1 96 18 111/62 93 10/01/16 00:00 97.0 87 17 103/58 100 09/30/16 20:00 97.3 89 18 121/69 94 09/30/16 16:10 98.3 94 18 122/60 97 09/30/16 12:19 97.7 90 18 130/64 96 I/O 09/30/16 09/30/16 09/30/16 10/01/16 10/01/16 10/01/16 07:00 15:00 23:00 07:00 15:00 23:00 Intake Total 120 ml 660 ml 240 ml 120 ml Output Total 200 ml Balance -80 ml 660 ml 240 ml 120 ml Intake Oral 120 ml 660 ml 240 ml 120 ml Gastric Drainage Total 200 ml # Voids 1 4 0 0 # Bowel Movements 1 0 2 Result Diagram: 09/30/16 0601 09/30/16 0601 Imaging Last Impressions Small Bowel X-Ray 09/29/16 0000 Signed Impressions: Service Date/Time: September 10:26 - CONCLUSION: 1. Mild distention of the proximal small bowel loops with decompression of the distal loops concerning for a more proximal partial small bowel obstruction. 2. No pneumoperitoneum. Terminal ileum is partially obscured by overlying bowel loops but appears to be grossly normal. . Josue Chand MD Abdomen X-Ray 09/28/16 0600 Signed Impressions: Service Date/Time: Wednesday, September 28, 2016 08:57 - CONCLUSION: Unremarkable abdomen. Campbell Hines MD Chest X-Ray 09/27/16 0913 Signed Impressions: Service Date/Time: Tuesday, September 27, 2016 09:30 - CONCLUSION: 1. Stable left upper lobe density adjacent to aortic knob. 2. Stable scarring/atelectasis left lower lobe. Campbell Hines MD Abdomen/Pelvis CT 09/27/16 0913 Signed Impressions: Service Date/Time: Tuesday, September 27, 2016 10:27 - CONCLUSION: Proximal to mid small bowel distention with fluid accumulation characteristic of a partial small bowel obstruction. Transition zone is not clearly evident. Mild dilatation of the main pancreatic duct in the head and neck of the pancreas. This can be seen on prior study. Small kidneys with generalized cortical thinning. No other evidence of acute process. Frederick Dexter MD Objective Remarks GENERAL: Well-nourished, well-developed female in no acute distress. HEENT: Normocephalic, atraumatic. Pupils equal, round and reactive. Extraocular movements intact. No scleral icterus. No injection or drainage. Oropharynx is clear. Mucous membranes are moist. NGT in place. CARDIOVASCULAR: Regular rate and rhythm without murmurs, gallops, or rubs. RESPIRATORY: Clear to auscultation. No wheezes, rales, or rhonchi. Breathing is non-labored. GASTROINTESTINAL: Abdomen soft, mild tenderness to palpation without rebound or guarding, nondistended. + bowel sounds. EXTREMITIES: No lower extremity edema. NEURO: Awake and alert. PSYCH: Flattened affect. Medications and IVs Current Medications Medications (Trade) Dose Ordered Sig/Hero Route Start Time Stop Time Status Last Admin (NS Flush) 2 ml UNSCH PRN IV FLUSH 09/27/16 09:15 09/29/16 21:32 (Zofran Inj) 4 mg Q6H PRN IV 09/27/16 12:15 09/27/16 12:39 (Protonix Inj) 40 mg DAILY IVP 09/28/16 09:00 10/01/16 09:12 (D50w (Vial) Inj) 25 ml UNSCH PRN IV PUSH 09/27/16 12:30 (Glucagon Inj) 1 mg UNSCH PRN OTHER 09/27/16 12:30 (Catapres-Tts 0.1mg Patch.7d) 1 patch Q7D T-DERMAL 09/27/16 13:00 09/27/16 13:52 (Lipitor) 10 mg HS PO 09/27/16 21:00 09/30/16 21:06 (Symbicort 160-4.5 Inh) 2 puff Q12HR INH 09/27/16 21:00 10/01/16 09:10 (CeleXA) 10 mg DAILY PO 09/28/16 09:00 10/01/16 09:08 (Ativan) 1 mg Q6H PRN PO 09/27/16 15:45 09/30/16 11:13 (Toprol Xl) 50 mg DAILY PO 09/28/16 09:00 09/30/16 08:33 (Hytrin) 5 mg HS PO 09/27/16 21:00 09/30/16 21:06 (Procardia Xl) 60 mg BID PO 09/27/16 21:00 10/01/16 09:07 Pantoprazole Sodium 20 mg 20 mg DAILY PO 09/28/16 09:00 10/01/16 09:07 (NS 1000 ml Inj) 1,000 ml @ 0 mls/hr Q0M PRN IV 09/27/16 17:14 Heparin Sodium (Porcine) 8000 units 8,000 units UNSCH PRN IVF 09/27/16 17:15 Sodium Chloride 1,000 ml @ 200 mls/hr Q5H PRN IV 09/27/16 17:14 (NS 1000 ml Inj) 1,000 ml @ 0 mls/hr Q0M PRN IV 09/27/16 17:14 (Mannitol Inj) 12.5 gm UNSCH PRN IV 09/27/16 17:15 (Albumin 25% Inj) 25 gm UNSCH PRN IV 09/27/16 17:15 09/29/16 16:45 (NS Flush) 5 ml UNSCH PRN IV FLUSH 09/27/16 17:15 (Heparin Inj) UNSCH PRN .XX 09/27/16 17:15 (Gentamicin (Dialysis) Inj) 20 mg UNSCH PRN IV 09/27/16 17:15 (Zofran Inj) 4 mg UNSCH PRN IV 09/27/16 17:15 (Tylenol) 650 mg UNSCH PRN PO 09/27/16 17:15 (Benadryl) 25 mg UNSCH PRN PO 09/27/16 17:15 (Nitrostat Sl) 0.4 mg UNSCH PRN SL 09/27/16 17:15 (Catapres) 0.1 mg UNSCH PRN PO 09/27/16 17:15 09/27/16 19:59 (Epogen Inj) 8,000 units UNSCH PRN IV 09/27/16 17:15 09/29/16 17:34 (Gelfoam 12 Mm/7 Mm Top) 1 foam UNSCH PRN TOP 09/27/16 17:15 (Phoslo) 1,334 mg TID PO 09/28/16 13:00 09/30/16 18:10 (Roxicodone) 5 mg Q4H PRN PO 09/30/16 13:00 09/30/16 19:02 A/P Problem List: (1) Small bowel obstruction ICD Code: K56.69 Status: Acute (2) DM (diabetes mellitus) ICD Code: E11.9 Status: Chronic (3) HTN (hypertension) ICD Code: I10 Status: Chronic (4) Lung cancer ICD Code: C34.90 Status: Chronic (5) ESRD on hemodialysis ICD Code: N18.6 Status: Chronic Assessment and Plan Small bowel obstruction CT showed Proximal to mid small bowel distention with fluid accumulation characteristic of a partial small bowel obstruction; Transition zone is not clearly evident; Mild dilatation of the main pancreatic duct in the head and neck of the pancreas, This can be seen on prior study. Surgery consultation appreciated. Repeat KUB unremarkable. Small bowel series: Mild distention of the proximal small bowel loops with decompression of the distal loops concerning for a more proximal partial small bowel obstruction; No pneumoperitoneum; Terminal ileum is partially obscured by overlying bowel loops but appears to be grossly normal. NGT has been removed. The pt has been having bowel movements and is tolerating a full liquid diet. - advance diet per surgery. - pain medications, antiemetics as needed. Lung cancer Respiratory status is stable. - Continue outpatient follow-up with Dr. Barker. - pain meds as needed for chronic pain. End-stage renal disease Nephrology consult appreciated. - Hemodialysis per nephrology. Diabetes mellitus Well controlled 10/01. - Monitor Accu-Cheks and cover with sliding scale insulin. Hypertension Blood pressure improved 10/01. - Continue home medications. Anemia Likely s/t ESRD, cancer. Hgb around baseline. - follow CBC as needed. - Epo per nephrology. PPx: SCDs. Discharge Planning Anticipate d/c in 1-2 days once cleared by surgery. Deep Kam DO October 01, 2016 11:08
--- NOTE | 2016-10-01 11:31 | HHI.NPPN ---
Subjective General Problems: Anemia Renal Failure: Chronic, End Stage Renal Disease Additional Remarks c/o chest pain Objective Data Data 09/30/16 10/01/16 19:00 07:00 Intake Total 660 ml 360 ml Balance 660 ml 360 ml Intake Oral 660 ml 360 ml # Voids 4 0 # Bowel Movements 2 Vital Signs Date Time Temp Pulse Resp B/P Pulse Ox O2 Delivery O2 Flow Rate FiO2 10/01/16 08:00 98.1 89 17 107/61 97 10/01/16 04:00 98.1 96 18 111/62 93 10/01/16 00:00 97.0 87 17 103/58 100 09/30/16 20:00 97.3 89 18 121/69 94 09/30/16 16:10 98.3 94 18 122/60 97 09/30/16 12:19 97.7 90 18 130/64 96 -: 09/30/16 0601 09/30/16 0601 Tubes & Lines Comment NG tube Physical Exam General Appearance: Well Developed, No Acute Distress, Comfortable, Malnourished Throat Throat Exam: Oral Mucosa [place] & Moist Pulmonary Resp Exam: Breath Sounds Equal, Crackles, Rhonchi Cardiology CV Exam: Regular, Normal Sinus Rhythm Gastrointestinal/Abdomen GI Exam: Bowel Sounds Present, Positive Bowel Movement, Distended Musculoskeletal MS Exam: Joints Intact, Normal Tone Integumentary Skin Exam: Warm, Dry Extremeties Extremities Exam: No Edema, Pedal Pulses Palpable Neurologic Neuro Exam: Alert, Awake, Oriented, Speech Clear, Moving All Extremities Psychiatric Psych Exam: Appropriate Responses Assessment/Plan Discussed Condition With: Patient Assessment Summary: Anemia of CKD, End Stage Renal Disease Problem List: (1) Small bowel obstruction Plan: general surgery is following, they recommend to continue non surgical management lung cancer seen during HD 4 K UF 2 L if no improvement may need surgical intervention monitor clinically, serial imaging , antiemetics (2) ESRD on hemodialysis Plan: TTS dialysis, monitor electrolytes intermittently avoid Gadolinium she does make some urine at baseline (3) DM (diabetes mellitus) Plan: insulin as needed goal 140-180 mg/dL (4) HTN (hypertension) Plan: resume home medications (5) Metabolic bone disease Plan: phosphorus is elevated, on phoslo with meals as no longer NPO dose was increased (6) Anemia Plan: epogen with dialysis Юлия Elizabeth MD October 01, 2016 11:31
[2016-10-01] MEDS: EPOETIN ALFA 10,000 UNITS/ML VIAL IV PRN (11:49)
[2016-10-01] MEDS: LORazepam 1 MG TAB PO PRN (12:43)
--- NOTE | 2016-10-01 15:26 | HHI.PR ---
Subjective Subjective Notes The patient recently returned from dialysis and is very tired. Denies any abdominal pain. There's been at least 1 or 2 small bowel movements as well as increased passage of flatus. Tolerating a full liquid diet currently. Objective Vitals/I&O Vital Signs Date Time Temp Pulse Resp B/P Pulse Ox O2 Delivery O2 Flow Rate FiO2 10/01/16 08:00 98.1 89 17 107/61 97 09/30/16 09:55 21 09/27/16 13:09 Nasal Cannula 2 Labs Laboratory Tests Test 09/29/16 09/30/16 21:17 06:01 White Blood Count 8.5 TH/MM3 7.3 TH/MM3 Red Blood Count 3.38 MIL/MM3 3.12 MIL/MM3 Hemoglobin 10.4 GM/DL 9.7 GM/DL Hematocrit 32.1 % 29.5 % Mean Corpuscular Volume 94.9 FL 94.8 FL Mean Corpuscular Hemoglobin 30.7 PG 31.0 PG Mean Corpuscular Hemoglobin 32.4 % 32.7 % Concent Red Cell Distribution Width 15.1 % 14.7 % Platelet Count 135 TH/MM3 126 TH/MM3 Mean Platelet Volume 9.9 FL 10.7 FL Sodium Level 138 MEQ/L 138 MEQ/L Potassium Level 3.6 MEQ/L 3.6 MEQ/L Chloride Level 93 MEQ/L 92 MEQ/L Carbon Dioxide Level 27.2 MEQ/L 30.7 MEQ/L Anion Gap 18 MEQ/L 15 MEQ/L Blood Urea Nitrogen 36 MG/DL 43 MG/DL Creatinine 7.16 MG/DL 8.43 MG/DL Estimat Glomerular Filtration 7 ML/MIN 6 ML/MIN Rate Random Glucose 87 MG/DL 119 MG/DL Calcium Level 10.4 MG/DL 10.2 MG/DL Phosphorus Level 4.7 MG/DL Magnesium Level 1.8 MG/DL 1.9 MG/DL Radiology Last Impressions Chest X-Ray 09/27/16912 Signed Impressions: Service Date/Time: Tuesday, September 27, 2016 09:30 - CONCLUSION: 1. Stable left upper lobe density adjacent to aortic knob. 2. Stable scarring/atelectasis left lower lobe. Campbell Hines MD Abdomen/Pelvis CT 09/27/16912 Signed Impressions: Service Date/Time: Tuesday, September 27, 2016 10:27 - CONCLUSION: Proximal to mid small bowel distention with fluid accumulation characteristic of a partial small bowel obstruction. Transition zone is not clearly evident. Mild dilatation of the main pancreatic duct in the head and neck of the pancreas. This can be seen on prior study. Small kidneys with generalized cortical thinning. No other evidence of acute process. Frederick Dexter MD Cardiovascular: Regular Lungs: Clear Abdomen: Non-distended, Non-tender, BS normal A/P Assessment and Plan Impression: No evidence currently for small bowel obstruction. No surgical intervention is necessary. Plan: General surgery will sign off and see the patient when necessary. Please call if needed. Kuldip Buckley MD October 01, 2016 15:26
[2016-10-01 16:00] VITALS: BP 90/56; PULSE 104; RESP 17; TEMP 98.1; O2SAT 98
[2016-10-01 20:00] VITALS: BP 104/65; PULSE 98; RESP 17; TEMP 96.1; O2SAT 96
[2016-10-01] MEDS: ATORVASTATIN 10 MG TAB PO SCH (20:04)
[2016-10-01] MEDS: TERAZOSIN HCL 5 MG CAP PO SCH (20:06)
[2016-10-02] VITALS: BP 107/62; PULSE 83; RESP 18; TEMP 96.9; O2SAT 94
[2016-10-02] MEDS: ONDANSETRON HCL 4 MG/2 ML VIAL IV PRN (02:54)
[2016-10-02 04:00] VITALS: BP 105/62; PULSE 101; RESP 17; TEMP 96.5; O2SAT 100
[2016-10-02] MEDS: LORazepam 1 MG TAB PO PRN (06:22)
[2016-10-02 07:09] LABS: HEMATOCRIT 30.2 % (35.0-46.0); MEAN CORPUSCULAR HEMOGLOBIN 30.9 PG (27.0-34.0); MEAN CORPUSCULAR HGB CONC 32.6 % (32.0-36.0); PLATELET COUNT 150 TH/MM3 (150-450); RED BLOOD COUNT 3.18 MIL/MM3 (4.00-5.30); RED CELL DISTRIBUTION WIDTH 14.6 % (11.6-17.2); REVIEW FLAG FINAL
[2016-10-02 07:30] LABS: BICARBONATE 29.9 MEQ/L (21.0-32.0); MAGNESIUM 1.7 MG/DL (1.5-2.5); POTASSIUM 3.8 MEQ/L (3.5-5.1)
[2016-10-02] MEDS: INSULIN ASPART SUPPLEMENTAL SCALE SQ SCH (07:56)
[2016-10-02 08:00] VITALS: BP 141/79; PULSE 101; RESP 17; TEMP 97.1; O2SAT 96
[2016-10-02] MEDS: PANTOPRAZOLE SODIUM 40 MG VIAL IVP SCH (09:00)
[2016-10-02] MEDS: METOPROLOL SUCCINATE 50 MG EXTENDED RELEASE TAB PO SCH (09:41)
[2016-10-02] MEDS: CITALOPRAM HYDROBROMIDE 20 MG TAB PO SCH (09:41)
[2016-10-02] MEDS: PANTOPRAZOLE SOD 20 MG DELAYED RELEASE TAB PO SCH (09:41)
[2016-10-02] MEDS: NIFEdipine 60 MG SUSTAINED RELEASE TAB PO SCH (09:41)
[2016-10-02] MEDS: CALCIUM ACETATE 667 MG CAP PO SCH (09:41)
[2016-10-02] MEDS: BUDESONIDE-FORMOTEROL 160/4.5 MCG INHALER INH SCH (09:42)
[2016-10-02] MEDS ORDERED: LORA-474 PO (10:27)
[2016-10-02] MEDS ORDERED: CALC667C PO (10:27)
[2016-10-02] MEDS ORDERED: HYDR-3516 PO (10:27)
--- NOTE | 2016-10-02 10:28 | HHI.DCPOC ---
Discharge Care Plan Diagnosis: (1) Anemia (2) Lung cancer (3) HTN (hypertension) (4) DM (diabetes mellitus) (5) ESRD on hemodialysis (6) Partial bowel obstruction Goals to Promote Your Health * To prevent worsening of your condition and complications * To maintain your health at the optimal level Directions to Meet Your Goals Take your medications as prescribed Follow your dietary instruction Follow activity as directed Keep your appointments as scheduled Take your immunizations and boosters as scheduled If your symptoms worsen call your PCP, if no PCP go to Urgent Care Center or Emergency Room Smoking is Dangerous to Your Health. Avoid second hand smoke Call the 24-hour hour crisis hotline for domestic abuse at Deep Kam DO October 02, 2016 10:28
--- NOTE | 2016-10-02 10:34 | HHI.PR ---
Subjective Remarks The patient was sitting up in a chair. She said she has been tolerating her diet. She had some nausea earlier but that has resolved with medication. She describes a decreased appetite. She is looking forward to going home. Discussed with case management. Objective Vitals Vital Signs Date Time Temp Pulse Resp B/P Pulse Ox O2 Delivery O2 Flow Rate FiO2 10/02/16 08:00 97.1 101 17 141/79 96 10/02/16 04:00 96.5 101 17 105/62 100 10/02/16 00:00 96.9 83 18 107/62 94 10/01/16 20:00 96.1 98 17 104/65 96 10/01/16 16:00 98.1 104 17 90/56 98 I/O 10/01/16 10/01/16 10/01/16 10/02/16 10/02/16 10/02/16 07:00 15:00 23:00 07:00 15:00 23:00 Intake Total 120 ml 240 ml 240 ml Output Total 2000 ml Balance 120 ml -2000 ml 240 ml 240 ml Intake Oral 120 ml 240 ml 240 ml Hemodialysis 2000 ml # Voids 0 0 0 # Bowel Movements 2 0 0 Result Diagram: 10/02/16 0603 10/02/16 0603 Imaging Last Impressions Small Bowel X-Ray 09/29/16 0000 Signed Impressions: Service Date/Time: September 10:26 - CONCLUSION: 1. Mild distention of the proximal small bowel loops with decompression of the distal loops concerning for a more proximal partial small bowel obstruction. 2. No pneumoperitoneum. Terminal ileum is partially obscured by overlying bowel loops but appears to be grossly normal. . Josue Chand MD Abdomen X-Ray 09/28/16 0600 Signed Impressions: Service Date/Time: Wednesday, September 28, 2016 08:57 - CONCLUSION: Unremarkable abdomen. Campbell Hines MD Chest X-Ray 09/27/16912 Signed Impressions: Service Date/Time: Tuesday, September 27, 2016 09:30 - CONCLUSION: 1. Stable left upper lobe density adjacent to aortic knob. 2. Stable scarring/atelectasis left lower lobe. Campbell Hines MD Abdomen/Pelvis CT 09/27/16912 Signed Impressions: Service Date/Time: Tuesday, September 27, 2016 10:27 - CONCLUSION: Proximal to mid small bowel distention with fluid accumulation characteristic of a partial small bowel obstruction. Transition zone is not clearly evident. Mild dilatation of the main pancreatic duct in the head and neck of the pancreas. This can be seen on prior study. Small kidneys with generalized cortical thinning. No other evidence of acute process. Frederick Dexter MD Objective Remarks GENERAL: Well-nourished, well-developed female in no acute distress. HEENT: Normocephalic, atraumatic. Pupils equal, round and reactive. Extraocular movements intact. No scleral icterus. No injection or drainage. Oropharynx is clear. Mucous membranes are moist. NGT in place. CARDIOVASCULAR: Regular rate and rhythm without murmurs, gallops, or rubs. RESPIRATORY: Clear to auscultation. No wheezes, rales, or rhonchi. Breathing is non-labored. GASTROINTESTINAL: Abdomen soft, mild tenderness to palpation without rebound or guarding, nondistended. Decreased bowel sounds. EXTREMITIES: No lower extremity edema. NEURO: Awake and alert. PSYCH: Flattened affect. Procedures None. Medications and IVs Current Medications Medications (Trade) Dose Ordered Sig/Hero Route Start Time Stop Time Status Last Admin (NS Flush) 2 ml UNSCH PRN IV FLUSH 09/27/16 09:15 09/29/16 21:32 (Zofran Inj) 4 mg Q6H PRN IV 09/27/16 12:15 10/02/16 02:54 (Protonix Inj) 40 mg DAILY IVP 09/28/16 09:00 10/01/16 09:12 (D50w (Vial) Inj) 25 ml UNSCH PRN IV PUSH 09/27/16 12:30 (Glucagon Inj) 1 mg UNSCH PRN OTHER 09/27/16 12:30 (Catapres-Tts 0.1mg Patch.7d) 1 patch Q7D T-DERMAL 09/27/16 13:00 09/27/16 13:52 (Lipitor) 10 mg HS PO 09/27/16 21:00 10/01/16 20:04 (Symbicort 160-4.5 Inh) 2 puff Q12HR INH 09/27/16 21:00 10/02/16 09:42 (CeleXA) 10 mg DAILY PO 09/28/16 09:00 10/02/16 09:41 (Ativan) 1 mg Q6H PRN PO 09/27/16 15:45 10/02/16 06:22 (Toprol Xl) 50 mg DAILY PO 09/28/16 09:00 10/02/16 09:41 (Hytrin) 5 mg HS PO 09/27/16 21:00 09/30/16 21:06 (Procardia Xl) 60 mg BID PO 09/27/16 21:00 10/02/16 09:41 Pantoprazole Sodium 20 mg 20 mg DAILY PO 09/28/16 09:00 10/02/16 09:41 (NS 1000 ml Inj) 1,000 ml @ 0 mls/hr Q0M PRN IV 09/27/16 17:14 Heparin Sodium (Porcine) 8000 units 8,000 units UNSCH PRN IVF 09/27/16 17:15 Sodium Chloride 1,000 ml @ 200 mls/hr Q5H PRN IV 09/27/16 17:14 (NS 1000 ml Inj) 1,000 ml @ 0 mls/hr Q0M PRN IV 09/27/16 17:14 (Mannitol Inj) 12.5 gm UNSCH PRN IV 09/27/16 17:15 (Albumin 25% Inj) 25 gm UNSCH PRN IV 09/27/16 17:15 09/29/16 16:45 (NS Flush) 5 ml UNSCH PRN IV FLUSH 09/27/16 17:15 (Heparin Inj) UNSCH PRN .XX 09/27/16 17:15 (Gentamicin (Dialysis) Inj) 20 mg UNSCH PRN IV 09/27/16 17:15 (Zofran Inj) 4 mg UNSCH PRN IV 09/27/16 17:15 (Tylenol) 650 mg UNSCH PRN PO 09/27/16 17:15 (Benadryl) 25 mg UNSCH PRN PO 09/27/16 17:15 (Nitrostat Sl) 0.4 mg UNSCH PRN SL 09/27/16 17:15 (Catapres) 0.1 mg UNSCH PRN PO 09/27/16 17:15 09/27/16 19:59 (Epogen Inj) 8,000 units UNSCH PRN IV 09/27/16 17:15 10/01/16 11:49 (Gelfoam 12 Mm/7 Mm Top) 1 foam UNSCH PRN TOP 09/27/16 17:15 (Phoslo) 1,334 mg TID PO 09/28/16 13:00 10/02/16 09:41 (Roxicodone) 5 mg Q4H PRN PO 09/30/16 13:00 10/02/16 09:47 A/P Problem List: (1) Small bowel obstruction ICD Code: K56.69 Status: Acute (2) DM (diabetes mellitus) ICD Code: E11.9 Status: Chronic (3) HTN (hypertension) ICD Code: I10 Status: Chronic (4) Lung cancer ICD Code: C34.90 Status: Chronic (5) ESRD on hemodialysis ICD Code: N18.6 Status: Chronic Assessment and Plan Small bowel obstruction CT showed Proximal to mid small bowel distention with fluid accumulation characteristic of a partial small bowel obstruction; Transition zone is not clearly evident; Mild dilatation of the main pancreatic duct in the head and neck of the pancreas, This can be seen on prior study. Surgery consultation appreciated. Repeat KUB unremarkable. Small bowel series: Mild distention of the proximal small bowel loops with decompression of the distal loops concerning for a more proximal partial small bowel obstruction; No pneumoperitoneum; Terminal ileum is partially obscured by overlying bowel loops but appears to be grossly normal. NGT has been removed. The pt has been having bowel movements and is tolerating a full liquid diet. Surgery signed off. - advance diet as tolerated. - pain medications, antiemetics as needed. Lung cancer Respiratory status is stable. - Continue outpatient follow-up with Dr. Barker. - pain meds as needed for chronic pain. End-stage renal disease Nephrology consult appreciated. - Hemodialysis per nephrology. Diabetes mellitus Well controlled 10/02. - Monitor Accu-Cheks and cover with sliding scale insulin. Hypertension Blood pressure controlled 10/02. - Continue home medications. Anemia Likely s/t ESRD, cancer. Hgb around baseline. - follow CBC as needed. - Epo per nephrology. PPx: SCDs. Discharge Planning D/c after lunch if tolerating. Deep Kam DO October 02, 2016 10:34
--- NOTE | 2016-10-02 10:40 | HHI.DS ---
Discharge Summary Admission Date September 27, 2016 at 11:45 Discharge Date: October 02, 2016 Admitting Diagnosis small bowel obstruction (1) Small bowel obstruction ICD Code: K56.69 Diagnosis: Principal (2) DM (diabetes mellitus) ICD Code: E11.9 (3) HTN (hypertension) ICD Code: I10 (4) Lung cancer ICD Code: C34.90 (5) ESRD on hemodialysis ICD Code: N18.6 Procedures None. Brief History - From Admission The patient is a 66-year-old female who presented to the ER with complaint of abdominal pain, nausea, vomiting. She states that she missed dialysis on Monday because she forgot. She went to dialysis today, and residential through she developed worsening abdominal pain. The abdominal pain started 3-4 days ago and has continued to worsen. She has not been able to keep any food or drink down. She states that she had a small bowel obstruction last year and required surgery. CBC/BMP: 10/02/16 0603 10/02/16 0603 Significant Findings Laboratory Tests Test 09/29/16 09/30/16 10/02/16 21:17 06:01 06:03 Red Blood Count 3.38 MIL/MM3 3.12 MIL/MM3 3.18 MIL/MM3 (4.00-5.30) (4.00-5.30) (4.00-5.30) Hemoglobin 10.4 GM/DL 9.7 GM/DL 9.8 GM/DL (11.6-15.3) (11.6-15.3) (11.6-15.3) Hematocrit 32.1 % 29.5 % 30.2 % (35.0-46.0) (35.0-46.0) (35.0-46.0) Platelet Count 135 TH/MM3 126 TH/MM3 (150-450) (150-450) Chloride Level 93 MEQ/L 92 MEQ/L 89 MEQ/L (98-107) (98-107) (98-107) Anion Gap 18 MEQ/L (5-15) Blood Urea Nitrogen 36 MG/DL (7-18) 43 MG/DL (7-18) 50 MG/DL (7-18) Creatinine 7.16 MG/DL 8.43 MG/DL 8.71 MG/DL (0.50-1.00) (0.50-1.00) (0.50-1.00) Estimat Glomerular Filtration 7 ML/MIN (>89) 6 ML/MIN (>89) 6 ML/MIN (>89) Rate Calcium Level 10.4 MG/DL 10.2 MG/DL 10.4 MG/DL (8.5-10.1) (8.5-10.1) (8.5-10.1) Random Glucose 119 MG/DL 153 MG/DL (74-106) (74-106) Sodium Level 132 MEQ/L (136-145) Imaging Last Impressions Small Bowel X-Ray 09/29/16 0000 Signed Impressions: Service Date/Time: September 10:26 - CONCLUSION: 1. Mild distention of the proximal small bowel loops with decompression of the distal loops concerning for a more proximal partial small bowel obstruction. 2. No pneumoperitoneum. Terminal ileum is partially obscured by overlying bowel loops but appears to be grossly normal. . Josue Chand MD Abdomen X-Ray 09/28/16 0600 Signed Impressions: Service Date/Time: Wednesday, September 28, 2016 08:57 - CONCLUSION: Unremarkable abdomen. Campbell Hines MD Chest X-Ray 09/27/16 0913 Signed Impressions: Service Date/Time: Tuesday, September 27, 2016 09:30 - CONCLUSION: 1. Stable left upper lobe density adjacent to aortic knob. 2. Stable scarring/atelectasis left lower lobe. Campbell Hines MD Abdomen/Pelvis CT 09/27/1613 Signed Impressions: Service Date/Time: Tuesday, September 27, 2016 10:27 - CONCLUSION: Proximal to mid small bowel distention with fluid accumulation characteristic of a partial small bowel obstruction. Transition zone is not clearly evident. Mild dilatation of the main pancreatic duct in the head and neck of the pancreas. This can be seen on prior study. Small kidneys with generalized cortical thinning. No other evidence of acute process. Frederick Dexter MD PE at Discharge GENERAL: Well-nourished, well-developed female in no acute distress. HEENT: Normocephalic, atraumatic. Pupils equal, round and reactive. Extraocular movements intact. No scleral icterus. No injection or drainage. Oropharynx is clear. Mucous membranes are moist. NGT in place. CARDIOVASCULAR: Regular rate and rhythm without murmurs, gallops, or rubs. RESPIRATORY: Clear to auscultation. No wheezes, rales, or rhonchi. Breathing is non-labored. GASTROINTESTINAL: Abdomen soft, mild tenderness to palpation without rebound or guarding, nondistended. Decreased bowel sounds. EXTREMITIES: No lower extremity edema. NEURO: Awake and alert. PSYCH: Flattened affect. Hospital Course Small bowel obstruction CT showed Proximal to mid small bowel distention with fluid accumulation characteristic of a partial small bowel obstruction; Transition zone is not clearly evident; Mild dilatation of the main pancreatic duct in the head and neck of the pancreas, This can be seen on prior study. Surgery was consulted. Repeat KUB unremarkable. Small bowel series: Mild distention of the proximal small bowel loops with decompression of the distal loops concerning for a more proximal partial small bowel obstruction; No pneumoperitoneum; Terminal ileum is partially obscured by overlying bowel loops but appears to be grossly normal. NGT was placed and has since been removed. The pt has been having bowel movements and is tolerating a full liquid diet. Surgery signed off. She was advanced to a regular diet. She received pain medications, antiemetics as needed. She will follow up with her PCP. End-stage renal disease/ Anemia Nephrology was consulted for resumption of hemodialysis. She received Epogen as indicated. Pt Condition on Discharge: Stable Discharge Disposition: Discharge Home Discharge Time: > 30 minutes Discharge Instructions DIET: Follow Instructions for: Renal Failure Diet, Low Residue Diet Activities you can perform: Weight Bearing as Tim Follow up Referrals: Nephrology - 1 Week PCP Follow-up - 1 Week New Medications: Calcium Acetate (Phosphate Bin (Calcium Acetate) 667 Mg Cap 1334 MG PO TID Dialysis #90 CAP Continued Medications: Atorvastatin (Atorvastatin) 10 Mg Tab 10 MG PO HS Cholesterol Management #30 Ref 0 TAB Budesonide-Formoterol Inh (Symbicort Inh) 160-4.5 Mcg/Act Aero 2 PUFF INH Q12HR #1 Ref 0 INHALER Calcium Acetate (Phosphate Binder) (Phoslo) 667 Mg Cap 667 MG PO TID Hyperphosphatemia #90 Ref 0 CAP Cholecalciferol (Vitamin D) 5,000 Unit Tab Citalopram (Citalopram) 10 Mg Tab 10 MG PO DAILY Control Depression #30 Ref 0 TAB Clonidine (Clonidine) 0.2 Mg Tab 0.2 MG PO TID Blood Pressure Management #60 Ref 0 TAB Hydrocodone-Acetaminophen (Hydrocodone-Acetaminophen) 5-325 mg Tab 1 TAB PO Q6H PRN PAIN #12 Ref 0 TAB (This prescription has been renewed) Insulin Aspart Inj (Novolog Inj) 1,000 Unit/10 Ml Vial 0 SQ DIRECTED Sliding Scale as directed. Blood Sugar Management #10 Ref 0 ML Lorazepam (Ativan) 1 Mg Tab 1 MG PO Q6H PRN ANXIETY AND/OR AGITATION #10 Ref 0 TAB (This prescription has been renewed) Metoprolol Succinate ER 24 HR (Metoprolol Succinate ER 24 HR) 50 Mg Tab 50 MG PO DAILY #30 Ref 0 TAB Nifedipine (Nifedipine ER) 90 Mg Tab 60 TAB PO BID Omeprazole (Prilosec) 20 Mg Cap 20 MG PO DAILY #30 Ref 0 CAP Ondansetron (Zofran) 8 Mg Tab 8 MG PO TID PRN NAUSEA OR VOMITING Ref 0 TAB Sennosides-Docusate Sodium (Sybil-Colace) 8.6-50 Mg Tab 1 TAB PO BID PRN Constipation #60 Ref 0 TAB Sitagliptin (Januvia) 50 Mg Tab 50 MG PO DAILY Blood Sugar Management #30 Ref 0 TAB Terazosin (Terazosin) 5 Mg Cap 5 MG PO HS #30 Ref 0 CAP Discontinued Medications: Diphenoxylate-Atropine (Diphenoxylate-Atropine) 2.5-0.025 Mg Tab 1 TAB PO Q6H PRN DIARRHEA Ref 0 TAB Additional Information Discharge time greater than 30 minutes Deep Kam DO October 02, 2016 10:40
[2016-10-02 12:00] VITALS: BP 94/52; PULSE 87; RESP 16; TEMP 96.2; O2SAT 96
== END 2016-10-02 15:40 | disposition home or self-care (01) | DRG 388 ==
LOC: NEPC 08:41 → NEDA 11:45 → N06B 14:07
PROVIDERS: ADMIT Family Medicine; ATTEND Hospitalist
PROC: 5A1D60Z (ICD-10-PCS; principal; 2016-09-28)
DX: K56.60 Unspecified intestinal obstruction (principal); N18.6 End stage renal disease; E88.89 Other specified metabolic disorders; I12.0 Hypertensive chronic kidney disease with stage 5 chronic kidney disease or end stage renal disease; E11.22 Type 2 diabetes mellitus with diabetic chronic kidney disease; D63.1 Anemia in chronic kidney disease; C34.90 Malignant neoplasm of unspecified part of unspecified bronchus or lung; K21.9 Gastro-esophageal reflux disease without esophagitis; F17.210 Nicotine dependence, cigarettes, uncomplicated; E78.5 Hyperlipidemia, unspecified; Z99.2 Dependence on renal dialysis; G89.3 Neoplasm related pain (acute) (chronic); D63.0 Anemia in neoplastic disease; Z85.41 Personal history of malignant neoplasm of cervix uteri; Z79.4 Long term (current) use of insulin; Z88.0 Allergy status to penicillin
CPT/HCPCS: 71010; 74020; 74176; 74250; 76937; 80048; 80053; 82948; 83605; 83690; 83735; 84100; 85025; 85027; 85610; 85730; 90935; 93005; 96374; 96375; C9113; J1815; J2270; J2405; J3480; P9047; Q4081; Q9963

== ENCOUNTER 2016-10-27 06:35 | Inpatient (IN) | payer MEDICARE, BC, MEDICAID ==
[2016-10-27] VITALS (9 sets, daily range): BP systolic 141–205; BP diastolic 70–125; PULSE 76–110; RESP 18–22; TEMP 98–98.7; O2SAT 88–96
[~2016-10-27] VITALS: Ht 175.3 cm; Wt 61.0 kg
[~2016-10-27 06:35] MED LIST changes: -3-IN3MIS; -ACCUKIT11; -ACCUKIT13; -AMLO10 PO; -ATOR10TA PO; +ATOR10TA15 PO; +CALC667C PO; -CALC667T PO; +CHOL50006; -CLON.1 PO; -CLON.2 PO; +CLON0.2T PO; -DUONI NEB; -ERGO50000 PO; -GUAN1TAB PO; +HYDR-3516 PO; -HYDRA50 PO; -INSU-118; -LIDO3CRE2 TOP; -LOSA50 PO; -METO50TA PO; +METO50TA11 PO; -NIFE1TAB86 PO; +NIFE90TA2 PO; +NOVOLOGP2 SQ; -NOVOLOGSS SQ; -OXYC1SOL5 PO; +PERI8.6T PO; +PHOS667C5 PO; -PRED10 PO; +PRIL20CA9 PO; -PROT40TA PO; +SITA50 PO; +TERA5CAP3 PO; -WALKER ROLLING; +ZOFR8TAB PO
--- NOTE | 2016-10-27 06:56 | PD ---
HPI Chief Complaint: Respiratory Symptoms Time Seen by Provider: 06:56 Travel History International Travel<30 days: No Contact w/Intl Traveler<30days: No Traveled to known affect area: No History of Present Illness HPI 66-year-old female presents to the emergency department by private transportation for evaluation of shortness of breath. Patient states she has a history of lung cancer, renal failure on hemodialysis Tuesdays and Saturdays, and more recently was hospitalized with a small bowel obstruction. Patient also complains of lower abdominal pain. Patient does not complain of any chest pain or pleuritic chest pain. Patient denies any fever or chills or productive cough. Patient does not report any nausea or vomiting or change in bowel activity. Patient was supposed to go to dialysis this morning at 6 AM because of shortness of breath decided to come to the emergency room instead. Patient rates abdominal discomfort as mild to moderate. PFSH Past Medical History Narrative Medical Palpitations, lung cancer, dyslipidemia, chest pain, chemotherapy, diabetes, renal failure, hemodialysis Saturdays, GERD hypertension, hypothyroidism; hysterectomy salpingo-oophorectomy PEG tube AV graft fistula right upper extremity tobacco use nursing notes reviewed Heart Rhythm Problems: Yes (PAPITATIONS, PT REPORTS OCC TACHY) Cancer: Yes (lung) Cardiovascular Problems: Yes High Cholesterol: Yes Chemotherapy: Yes Chest Pain: Yes Congestive Heart Failure: No Diabetes: Yes Dialysis: Yes () Diminished Hearing: No Endocrine: Yes Gastrointestinal Disorders: Yes GERD: Yes Genitourinary: Yes Hepatitis: No Hiatal Hernia: No Hypertension: Yes Immune Disorder: No Musculoskeletal: Yes (OSTEOARTHRITIS) Neurologic: No Psychiatric: No Reproductive: Yes (CERVICAL CANCER 2006) Respiratory: Yes (lung ca) Immunizations Current: Yes Radiation Therapy: Yes Renal Failure: Yes Thyroid Disease: Yes (GOITER REMOVED 2006) Menopausal: Yes : 0 Past Surgical History Abdominal Surgery: Yes (PEG TUBE PLACEMENT 01-13-15) AICD: No Endocrine Surgery: Yes (THYROIDECTOMY FOR GOITER 2010) Gynecologic Surgery: Yes (PARTIAL HYSTERECTOMY 1980, SALPINGOOOPHORECTOMY 1994) Hysterectomy: Yes Joint Replacement: No Pacemaker: No Other Surgery: Yes Social History Alcohol Use: No Tobacco Use: Yes (1 PPD) Substance Use: No Allergies-Medications (Allergen,Severity, Reaction): Coded Allergies: Penicillin (Verified Allergy, Intermediate, UNKNOWN, 10/27/16) Reported Meds & Prescriptions Reported Meds & Active Scripts Active Calcium Acetate (Calcium Acetate (Phosphate Bin) 667 Mg Cap 1,334 Mg PO TID Hydrocodone-Acetaminophen 5-325 mg Tab 1 Tab PO Q6H PRN Ativan (Lorazepam) 1 Mg Tab 1 Mg PO Q6H PRN Reported Zofran (Ondansetron HCl) 8 Mg Tab 8 Mg PO TID PRN Nifedipine ER (Nifedipine) 90 Mg Tab 60 Tab PO BID Metoprolol Succinate ER 24 HR (Metoprolol Succinate) 50 Mg Tab 50 Mg PO DAILY Phoslo (Calcium Acetate (Phosphate Binder)) 667 Mg Cap 667 Mg PO TID Sybil-Colace (Sennosides-Docusate Sodium) 8.6-50 Mg Tab 1 Tab PO BID PRN Terazosin (Terazosin HCl) 5 Mg Cap 5 Mg PO HS Symbicort Inh (Budesonide/Formoterol Fumarate) 160-4.5 Mcg/Act Aero 2 Puff INH Q12HR Januvia (Sitagliptin Phosphate) 50 Mg Tab 50 Mg PO DAILY Clonidine (Clonidine HCl) 0.2 Mg Tab 0.2 Mg PO TID Vitamin D (Cholecalciferol) 5,000 Unit Tab Citalopram (Citalopram Hydrobromide) 10 Mg Tab 10 Mg PO DAILY Atorvastatin (Atorvastatin Calcium) 10 Mg Tab 10 Mg PO HS Novolog Inj (Insulin Aspart) 1,000 Unit/10 Ml Vial 0 SQ DIRECTED Sliding Scale as directed. Review of Systems Except as stated in HPI: all other systems reviewed are Neg General / Constitutional: No: Fever, Chills HENT: No: Congestion Cardiovascular: No: Chest Pain or Discomfort Respiratory: Positive: Shortness of Breath Gastrointestinal: Positive: Abdominal Pain, No: Nausea, Vomiting Genitourinary: No: Flank Pain Musculoskeletal: No: Myalgias, Arthralgias Skin: No Rash Neurologic: No: Weakness Psychiatric: No: Anxiety Hematologic/Lymphatic: No: Lymph Node Enlargement Physical Exam Narrative GENERAL: Well-developed well-nourished female in no acute distress no respiratory distress; patient speaking in complete sentences and smiling and laughing with medical staff. Room air O2 saturation 95%. SKIN: Warm and dry. HEAD: Normocephalic. EYES: No scleral icterus. No injection or drainage. NECK: Supple, trachea midline. No JVD or lymphadenopathy. CARDIOVASCULAR: Regular rate and rhythm without murmurs, gallops, or rubs. RESPIRATORY: Breath sounds equal bilaterally. No accessory muscle use. GASTROINTESTINAL: Abdomen soft, non-tender, nondistended. MUSCULOSKELETAL: No cyanosis, or edema. BACK: Nontender without obvious deformity. No CVA tenderness. Data Data Last Documented VS Vital Signs Date Time Temp Pulse Resp B/P Pulse Ox O2 Delivery O2 Flow Rate FiO2 10/27/16 07:05 95 Nasal Cannula 2 10/27/16 06:48 98.5 95 18 151/70 Orders Complete Blood Count With Diff (10/27/16 06:56) Comprehensive Metabolic Panel (10/27/16 06:56) Magnesium (Mg) (10/27/16 06:56) Ckmb (Isoenzyme) Profile (10/27/16 06:56) Troponin I (10/27/16 06:56) Iv Access Insert/Monitor (10/27/16 06:56) Electrocardiogram (10/27/16 06:56) Ecg Monitoring (10/27/16 06:56) Oximetry (10/27/16 06:56) Oxygen Administration (10/27/16 06:56) Chest, Single Ap (10/27/16 06:56) Sodium Chloride 0.9% Flush (Ns Flush) (10/27/16 07:00) Albuterol-Ipratropium Neb (Duoneb Neb) (10/27/16 07:00) Blood Glucose (10/27/16 06:56) MDM Medical Decision Making Medical Screen Exam Complete: Yes Emergency Medical Condition: Yes Medical Record Reviewed: Yes Differential Diagnosis Dyspnea, CHF, PE, pneumonia, COPD, anemia, partial bowel obstruction, electrolyte disturbance, arrhythmia, ACS Narrative Course Patient placed on ross furnace operator IV access obtained specimens collected and sent for resulting EKG ordered At 7:10 AM care signed over to oncoming physician Chantale Silva MD Oct 27, 2016 06:56
[2016-10-27] MEDS ORDERED: RESP: ALBUTEROL 2.5 MG/IPRATROPIUM 0.5 MG NEB (SCH) INH ONE (07:00)
[2016-10-27] MEDS ORDERED: SODIUM CHLORIDE 0.9% FLUSH 10 ML FLUSH IVF PRN (07:00)
--- NOTE | 2016-10-27 07:19 | RADHPO ---
EXAM DATE/TIME: 10/27/2016 07:04 [facility] COMPARISON: CHEST SINGLE AP, September 27, 2016, 9:30. INDICATIONS : Short of breath. MEDICAL HISTORY : Hypertension. Hypercholesterolemia. Osteoarthritis. Thyriod disease. Lung CA. GERD. Cervical CA. Dialysis. Renal failure. Chemotherapy. Radiation Therapy. SURGICAL HISTORY : Hysterectomy. Peg tube. Thyroidectomy. ENCOUNTER: Initial ACUITY: 1 day PAIN SCORE: 0/10 LOCATION: chest FINDINGS: The heart size is normal. The aorta is calcified. There is diffuse increased interstitial markings. T here is further increased density seen at the bases bilaterally being worse on the right. There is a mild right pleural effusion. CONCLUSION: Diffuse increased interstitial markings and right effusion likely representing pulmonary edema. Is ne w when compared to the prior exam. There is some further atelectasis or consolidation at the bases be ing worse on the right. Dilan Pizarro MD on October 27, 2016 at 7:17 Board Certified Radiologist. This report was verified electronically.
[2016-10-27 08:14] LABS: CHLORIDE 101 MEQ/L (98-107); POTASSIUM 5.3 MEQ/L (3.5-5.1); SODIUM (NA) 137 MEQ/L (136-145)
[2016-10-27] MEDS ORDERED: NITROGLYCERIN 2% OINT 1 GM PACKET TOPICAL ONE (08:15)
[2016-10-27 08:18] LABS: ANION GAP 11 MEQ/L (5-15); BICARBONATE 24.8 MEQ/L (21.0-32.0); BLOOD UREA NITROGEN 44 MG/DL (7-18); MAGNESIUM 1.5 MG/DL (1.5-2.5)
[2016-10-27 08:21] LABS: ALT (GPT) 50 U/L (10-53); AST (GOT) 63 U/L (15-37); GLOMERULAR FILTRATION RATE 6 ML/MIN (>89)
[2016-10-27 08:22] LABS: AUTOMATED NEUTROPHIL # 5.2 TH/MM3 (1.8-7.7); BASOPHIL # 0.1 TH/MM3 (0-0.2); BASOPHIL % 0.9 % (0.0-2.0); EOSINOPHIL # 0.2 TH/MM3 (0-0.4); EOSINOPHIL % 2.7 % (0.0-4.0); LYMPH % 10.9 % (9.0-44.0); LYMPHOCYTE # 0.7 TH/MM3 (1.0-4.8); MEAN CELL VOLUME 93.9 FL (80.0-100.0); MEAN CORPUSCULAR HEMOGLOBIN 30.6 PG (27.0-34.0); MEAN CORPUSCULAR HGB CONC 32.6 % (32.0-36.0); MONO % 8.5 % (0.0-8.0); PLATELET COUNT 132 TH/MM3 (150-450); RED BLOOD COUNT 2.23 MIL/MM3 (4.00-5.30); RED CELL DISTRIBUTION WIDTH 16.1 % (11.6-17.2); WHITE BLOOD COUNT 6.8 TH/MM3 (4.0-11.0)
[2016-10-27 08:23] LABS: TOTAL BILIRUBIN ADULT 0.4 MG/DL (0.2-1.0)
[2016-10-27 08:24] LABS: ALKALINE PHOSPHATASE 91 U/L (45-117)
[2016-10-27 08:25] LABS: HEMO FLAGS AUTO DIFF
[2016-10-27 08:26] LABS: CREATINE KINASE 52 U/L (26-192); HEMATOCRIT 20.9 % (35.0-46.0)
[2016-10-27] MEDS ORDERED: SODIUM CHLOR 0.9% 250 ML INJ 250 ML IV ONE ×2 (08:45→09:30)
[2016-10-27 09:00] LABS: KERATOCYTES 1+ (NORMAL); ROULEAUX PRESENT (NORMAL); SCAN/DIFF AUTO DIFF CONFIRMED
--- NOTE | 2016-10-27 09:07 | PD ---
Physical Exam Date Seen by Provider: Oct 27, 2016 Time Seen by Provider: 07:00 Narrative Patient initially seen and evaluated by Dr. Jackson, please see her note for further details. Here with shortness of breath, initially was ordered for Solu- Medrol and nebulizers in the ER. Awaiting workup. Laboratory Tests Test 10/27/16 07:55 Red Blood Count 2.23 MIL/MM3 (4.00-5.30) Hemoglobin 6.8 GM/DL (11.6-15.3) Hematocrit 20.9 % (35.0-46.0) Platelet Count 132 TH/MM3 (150-450) Neutrophils (%) (Auto) 77.0 % (16.0-70.0) Monocytes (%) (Auto) 8.5 % (0.0-8.0) Lymphocytes # (Auto) 0.7 TH/MM3 (1.0-4.8) Rouleau PRESENT (NORMAL) Keratocytes 1+ (NORMAL) Potassium Level 5.3 MEQ/L (3.5-5.1) Blood Urea Nitrogen 44 MG/DL (7-18) Creatinine 7.80 MG/DL (0.50-1.00) Estimat Glomerular Filtration 6 ML/MIN (>89) Rate Random Glucose 195 MG/DL (74-106) Aspartate Amino Transf 63 U/L (15-37) (AST/SGOT) Troponin I LESS THAN 0.02 NG/ML (0.02-0.05) B-Type Natriuretic Peptide 1457 PG/ML (0-100) Albumin 3.2 GM/DL (3.4-5.0) Last 24 hours Impressions Chest X-Ray 10/27/16 0656 Signed Impressions: Service Date/Time: October 07:04 - CONCLUSION: Diffuse increased interstitial markings and right effusion likely representing pulmonary edema. Is new when compared to the prior exam. There is some further atelectasis or consolidation at the bases being worse on the right. Dilan Pizarro MD Chest x-ray indicates underlying pulmonary effusion. Patient had missed dialysis today and likely needs her dialysis. Nitroglycerin was placed by me at this point. Lab work returns showing significant anemia which is decreased from baseline just 3 weeks ago from 9 to a hemoglobin of 6. At this point, case was discussed with Dr. Teixeira who is covering for patient's renal doctor, Dr. Ackerman, and he states that patient will need dialysis this morning and to get a transfusion at dialysis. He has recommended that considering patient's significant medical issues, he would recommend dialysis at the [facility]. At this point, my plan would be to admit the patient to the [facility], transferred directly for dialysis and transfusion as per discussion with renal. Case is discussed with Dr. Her for admission. Data Data Last Documented VS Vital Signs Date Time Temp Pulse Resp B/P Pulse Ox O2 Delivery O2 Flow Rate FiO2 10/27/16 08:56 92 18 141/78 94 Nasal Cannula 2 10/27/16 06:48 98.5 Orders Complete Blood Count With Diff (10/27/16 06:56) Comprehensive Metabolic Panel (10/27/16 06:56) Magnesium (Mg) (10/27/16 06:56) Ckmb (Isoenzyme) Profile (10/27/16 06:56) Troponin I (10/27/16 06:56) Iv Access Insert/Monitor (10/27/16 06:56) Electrocardiogram (10/27/16 06:56) Ecg Monitoring (10/27/16 06:56) Oximetry (10/27/16 06:56) Oxygen Administration (10/27/16 06:56) Chest, Single Ap (10/27/16 06:56) Sodium Chloride 0.9% Flush (Ns Flush) (10/27/16 07:00) Albuterol-Ipratropium Neb (Duoneb Neb) (10/27/16 07:00) Blood Glucose (10/27/16 06:56) B-Type Natriuretic Peptide (10/27/16 07:47) Nitroglycerin 2% Oint (Nitroglycerin 2% (10/27/16 08:15) Type And Screen (10/27/16 08:42) Red Blood Cells (Rbc) (10/27/16 08:42) Blood Product Administration .UPON TRANSFUSION (10/27/16 08:42) Sodium Chlor 0.9% 250 Ml Inj (Ns 250 Ml (10/27/16 08:45) Consult Nephrology (10/27/16 ) (Hub Use Only)Inp Phy Cons/Ref (10/27/16 ) Admit Order (Ed Use Only) (10/27/16 09:09) Labs Laboratory Tests Test 10/27/16 07:55 White Blood Count 6.8 TH/MM3 Red Blood Count 2.23 MIL/MM3 Hemoglobin 6.8 GM/DL Hematocrit 20.9 % Mean Corpuscular Volume 93.9 FL Mean Corpuscular Hemoglobin 30.6 PG Mean Corpuscular Hemoglobin 32.6 % Concent Red Cell Distribution Width 16.1 % Platelet Count 132 TH/MM3 Mean Platelet Volume 8.1 FL Neutrophils (%) (Auto) 77.0 % Lymphocytes (%) (Auto) 10.9 % Monocytes (%) (Auto) 8.5 % Eosinophils (%) (Auto) 2.7 % Basophils (%) (Auto) 0.9 % Neutrophils # (Auto) 5.2 TH/MM3 Lymphocytes # (Auto) 0.7 TH/MM3 Monocytes # (Auto) 0.6 TH/MM3 Eosinophils # (Auto) 0.2 TH/MM3 Basophils # (Auto) 0.1 TH/MM3 CBC Comment AUTO DIFF Differential Comment AUTO DIFF CONFIRMED Rouleau PRESENT Keratocytes 1+ Sodium Level 137 MEQ/L Potassium Level 5.3 MEQ/L Chloride Level 101 MEQ/L Carbon Dioxide Level 24.8 MEQ/L Anion Gap 11 MEQ/L Blood Urea Nitrogen 44 MG/DL Creatinine 7.80 MG/DL Estimat Glomerular Filtration 6 ML/MIN Rate Random Glucose 195 MG/DL Calcium Level 8.8 MG/DL Magnesium Level 1.5 MG/DL Total Bilirubin 0.4 MG/DL Aspartate Amino Transf 63 U/L (AST/SGOT) Alanine Aminotransferase 50 U/L (ALT/SGPT) Alkaline Phosphatase 91 U/L Total Creatine Kinase 52 U/L Troponin I LESS THAN 0.02 NG/ML B-Type Natriuretic Peptide 1457 PG/ML Total Protein 7.7 GM/DL Albumin 3.2 GM/DL [facility] Medical Record Reviewed: Yes Supervised Visit with TRIP: No Diagnosis Primary Impression: Fluid overload Additional Impressions: Symptomatic anemia Dialysis patient Admitting Information Admitting Physician Requests: Chalino Muñoz MD Oct 27, 2016 09:07
[2016-10-27] MEDS ORDERED: NALOXONE HCL 0.4 MG/ML AMP IV PRN (09:15)
[2016-10-27] MEDS ORDERED: LACTULOSE SYRUP 20 GM/30 ML CUP PO PRN (09:15)
[2016-10-27] MEDS ORDERED: MAGNESIUM HYDROXIDE SUSP 30 ML CUP PO PRN (09:15)
[2016-10-27] MEDS ORDERED: SENNOSIDES 8.6 MG TAB PO PRN (09:15)
[2016-10-27] MEDS ORDERED: SODIUM CHLORIDE 0.9% FLUSH 10 ML FLUSH IV FLUSH PRN ×2 (09:15→09:30)
[2016-10-27] MEDS ORDERED: BISACODYL 10 MG SUPP RECTAL PRN (09:15)
[2016-10-27] MEDS ORDERED: SODIUM CHLOR 0.9% 1000 ML INJ 1,000 ML IV PRN ×3 (09:26)
[2016-10-27] MEDS ORDERED: NITROGLYCERIN 0.4 MG SL 25 TABS/BTL SL PRN (09:30)
[2016-10-27] MEDS ORDERED: HEPARIN SODIUM - IV 10,000 UNITS/10 ML VIAL IVF PRN (09:30)
[2016-10-27] MEDS ORDERED: GENTAMICIN SULFATE (DIALYSIS USE ONLY) 20 MG/2 ML VIAL IV PRN (09:30)
[2016-10-27] MEDS ORDERED: DOCUSATE SODIUM 50 MG/SENNA 8.6 MG TAB PO PRN (09:30)
[2016-10-27] MEDS ORDERED: ALBUMIN HUMAN 25% 25 GM/100 ML BAGP IV PRN (09:30)
[2016-10-27] MEDS ORDERED: ONDANSETRON HCL 4 MG/2 ML VIAL IV PRN (09:30)
[2016-10-27] MEDS ORDERED: HEPARIN SODIUM - IV 10,000 UNITS/10 ML VIAL PRN (09:30)
[2016-10-27] MEDS ORDERED: cloNIDine HCL 0.1 MG TAB PO PRN (09:30)
[2016-10-27] MEDS ORDERED: GELATIN 12 MM/7 MM FOAM TOP PRN (09:30)
[2016-10-27] MEDS ORDERED: ACETAMINOPHEN 325 MG TAB PO PRN (09:30)
[2016-10-27] MEDS ORDERED: diphenhydrAMINE HCL 25 MG CAP PO PRN (09:30)
[2016-10-27] MEDS ORDERED: MANNITOL 12.5 GM/50 ML VIAL IV PRN (09:30)
[2016-10-27] MEDS ORDERED: ONDANSETRON ODT 4 MG TAB PO PRN (09:30)
[2016-10-27] MEDS ORDERED: GLUCAGON 1 MG/ML VIAL OTHER PRN (09:45)
[2016-10-27] MEDS ORDERED: DEXTROSE 50% IN WATER 50 ML VIAL(D50) IV PUSH PRN (09:45)
[2016-10-27] MEDS: INSULIN ASPART SUPPLEMENTAL SCALE SQ SCH ×3 (11:00→20:24)
--- NOTE | 2016-10-27 11:08 | HHI.HP ---
[facility] Trini Naranjo MD Admission Diagnosis fluid overload/dialysis/symptomatic anemia Diagnoses: Travel History International Travel<30 Days: No Contact w/Intl Traveler <30 Da: No Traveled to Known Affected Are: No History of Present Illness 66-year-old female with a history of end-stage renal disease, on hemodialysis, lung cancer status post radiation, but not on chemotherapy, diabetes, recent admission for small bowel obstruction which resolved with NG tube, who presents with a one-week history of worsening generalized fatigue, as well as generalized weakness worse in bilateral legs. She reports chronic left-sided chest pressure/pain, which is worse over the past week, however with no exacerbating or relieving factors area; patient does have lung cancer with baseline chest pain. She denies any bleeding. Denies any abdominal pain. Reports chronic chills but no fevers. Review of Systems Performed and negative except for history of present illness and past medical history. Past Family Social History Past Medical History ESRD on hemodialysis Lung cancer. Status post radiation, no chemotherapy Hyperlipidemia Diabetes mellitus GERD Hypertension Osteoarthritis History of cervical cancer Hypothyroidism History of small bowel obstruction last month Past Surgical History 2014 with PEG tube placement Thyroidectomy Rectal hysterectomy 1981 Salpingo-oophorectomy 1995 Small bowel obstruction surgery last year. Reported Medications Reported Meds & Active Scripts Active Calcium Acetate (Calcium Acetate (Phosphate Bin) 667 Mg Cap 1,334 Mg PO TID Hydrocodone-Acetaminophen 5-325 mg Tab 1 Tab PO Q6H PRN Ativan (Lorazepam) 1 Mg Tab 1 Mg PO Q6H PRN Reported Zofran (Ondansetron HCl) 8 Mg Tab 8 Mg PO TID PRN Nifedipine ER (Nifedipine) 90 Mg Tab 60 Tab PO BID Metoprolol Succinate ER 24 HR (Metoprolol Succinate) 50 Mg Tab 50 Mg PO DAILY Phoslo (Calcium Acetate (Phosphate Binder)) 667 Mg Cap 667 Mg PO TID Sybil-Colace (Sennosides-Docusate Sodium) 8.6-50 Mg Tab 1 Tab PO BID PRN Terazosin (Terazosin HCl) 5 Mg Cap 5 Mg PO HS Symbicort Inh (Budesonide/Formoterol Fumarate) 160-4.5 Mcg/Act Aero 2 Puff INH Q12HR Januvia (Sitagliptin Phosphate) 50 Mg Tab 50 Mg PO DAILY Clonidine (Clonidine HCl) 0.2 Mg Tab 0.2 Mg PO TID Vitamin D (Cholecalciferol) 5,000 Unit Tab Citalopram (Citalopram Hydrobromide) 10 Mg Tab 10 Mg PO DAILY Atorvastatin (Atorvastatin Calcium) 10 Mg Tab 10 Mg PO HS Novolog Inj (Insulin Aspart) 1,000 Unit/10 Ml Vial 0 SQ DIRECTED Sliding Scale as directed. Allergies: Coded Allergies: Penicillin (Verified Allergy, Intermediate, UNKNOWN, 10/27/16) Family History Mother with history of diabetes and kidney failure. Father from meningitis Social History Patient has smoked one pack per day for the past 50 years Patient drinks socially. Past history of drug use. Denies any recently. Physical Exam Vital Signs Vital Signs Date Time Temp Pulse Resp B/P Pulse Ox O2 Delivery O2 Flow Rate FiO2 10/27/16 08:56 92 18 141/78 94 Nasal Cannula 2 10/27/16 07:17 94 Nasal Cannula 1.50 10/27/16 07:11 Nasal Cannula 2 10/27/16 07:11 95 Nasal Cannula 2 10/27/16 07:05 95 Nasal Cannula 2 10/27/16 06:48 98.5 95 18 151/70 95 Physical Exam GENERAL: This is a well-nourished, well-developed patient, in no apparent distress. SKIN: No rashes, ecchymoses or lesions. Cool and dry. HEAD: Atraumatic. Normocephalic. No temporal or scalp tenderness. EYES: Pupils equal round and reactive. Extraocular motions intact. No scleral icterus. No injection or drainage. ENT: Nose without bleeding, purulent drainage or septal hematoma. Throat without erythema, tonsillar hypertrophy or exudate. Uvula midline. Airway patent. NECK: Trachea midline. No JVD or lymphadenopathy. Supple, nontender, no meningeal signs. CARDIOVASCULAR: Regular rate and rhythm without murmurs, gallops, or rubs. RESPIRATORY: Clear to auscultation. Breath sounds equal bilaterally. No wheezes , rales, or rhonchi. GASTROINTESTINAL: Abdomen soft, non-tender, nondistended. No hepato-splenomegaly , or palpable masses. No guarding. MUSCULOSKELETAL: Extremities without clubbing, cyanosis, or edema. No joint tenderness, effusion, or edema noted. No calf tenderness. Negative Homans sign bilaterally. NEUROLOGICAL: Awake and alert. Cranial nerves II through XII intact. Motor and sensory grossly within normal limits. Five out of 5 muscle strength in all muscle groups. Normal speech. Laboratory Laboratory Tests Test 10/27/16 07:55 White Blood Count 6.8 Red Blood Count 2.23 Hemoglobin 6.8 Hematocrit 20.9 Mean Corpuscular Volume 93.9 Mean Corpuscular Hemoglobin 30.6 Mean Corpuscular Hemoglobin 32.6 Concent Red Cell Distribution Width 16.1 Platelet Count 132 Mean Platelet Volume 8.1 Neutrophils (%) (Auto) 77.0 Lymphocytes (%) (Auto) 10.9 Monocytes (%) (Auto) 8.5 Eosinophils (%) (Auto) 2.7 Basophils (%) (Auto) 0.9 Neutrophils # (Auto) 5.2 Lymphocytes # (Auto) 0.7 Monocytes # (Auto) 0.6 Eosinophils # (Auto) 0.2 Basophils # (Auto) 0.1 CBC Comment AUTO DIFF Differential Comment AUTO DIFF CONFIRMED Rouleau PRESENT Keratocytes 1+ Sodium Level 137 Potassium Level 5.3 Chloride Level 101 Carbon Dioxide Level 24.8 Anion Gap 11 Blood Urea Nitrogen 44 Creatinine 7.80 Estimat Glomerular Filtration 6 Rate Random Glucose 195 Calcium Level 8.8 Magnesium Level 1.5 Total Bilirubin 0.4 Aspartate Amino Transf 63 (AST/SGOT) Alanine Aminotransferase 50 (ALT/SGPT) Alkaline Phosphatase 91 Total Creatine Kinase 52 Troponin I LESS THAN 0.02 B-Type Natriuretic Peptide 1457 Total Protein 7.7 Albumin 3.2 Result Diagram: 10/27/16 0755 10/27/16 0755 Imaging Last Impressions Chest X-Ray 10/27/16 0656 Signed Impressions: Service Date/Time: October 07:04 - CONCLUSION: Diffuse increased interstitial markings and right effusion likely representing pulmonary edema. Is new when compared to the prior exam. There is some further atelectasis or consolidation at the bases being worse on the right. Dilan Pizarro MD Assessment and Plan Assessment and Plan //Symptomatic Anemia. Acute on chronic. -Could be GI bleed versus anemia of renal disease versus chronic inflammation from malignancy. -Uncertain if patient is on EPO Every 8 hour H&H. Hemoccult. -Transfused 2 units with hemodialysis. - GI consult //Chest pain. Acute on chronic. - One-week history of worsening left-sided chest pain. -Troponin 1 negative. -Possibility of demand ischemia from anemia. -EKG nonspecific. Trending troponins, EKGs. -Transfuse. Monitor. //Hypertension. Blood pressure acceptable. Continue home medications. Monitor. //GERD. Chronic. Continue PPI. //Lung cancer. Chronic. Patient follows with Dr. Barker. No chemotherapy. //Tobaccoism. Cessation counseling provided. Cessation strongly advised. //Prophylaxis. SCDs. Avoid anticoagulation in the setting of anemia with possible GI bleed. Code Status full code Discussed Condition With patient, nurse, ed physician Physician Certification 2 Midnight Certification Type: Admission for Inpatient Services Order for Inpatient Services The services are ordered in accordance with Medicare regulations or non- Medicare payer requirements, as applicable. In the case of services not specified as inpatient-only, they are appropriately provided as inpatient services in accordance with the 2-midnight benchmark. Estimated LOS (days): 3 days is the estimated time the patient will need to remain in the hospital, assuming treatment plan goals are met and no additional complications. Post-Hospital Plan: Not yet determined Romie Her MD Oct 27, 2016 11:07
[2016-10-27] MEDS: LORazepam 1 MG TAB PO PRN (11:50)
[2016-10-27] MEDS: PANTOPRAZOLE SOD 40 MG DELAYED RELEASE TAB PO SCH ×2 (11:50→19:59)
[2016-10-27 12:40] LABS: PROTHROMBIN TIME - PATIENT 11.5 SEC (9.8-11.6)
[2016-10-27] MEDS: cloNIDine HCL 0.2 MG TAB PO SCH ×2 (13:00→17:16)
[2016-10-27 13:02] LABS: TRANSFERRIN IRON PROFILE 128 MG/DL (200-360)
[2016-10-27 13:04] LABS: FERRITIN 1252 NG/ML (8-252)
[2016-10-27 13:09] LABS: CREATINE KINASE 40 U/L (26-192)
--- NOTE | 2016-10-27 14:08 | EKG ---
Date Performed: 10/27/2016 Time Performed: 07:35:08 PTAGE: 66 years EKG: Sinus rhythm Septal T wave changes are nonspecific Borderline ECG PREVIOUS TRACING : 09/27/2016 11.00 Since previous tracing, no significant change noted DOCTOR: Rinku Hammer Interpretating Date/Time 10/27/2016 14:00:12
[2016-10-27] MEDS: EPOETIN ALFA 10,000 UNITS/ML VIAL IV PRN (14:40)
--- NOTE | 2016-10-27 16:33 | PD.CONS ---
HPI History of Present Illness This is a 66 year old female with ESRD, lung cancer, who presented with anemia. She says she has "felt bad" for a week. No black stools or blood in stool, no hematemesis. She says she has had nausea for a long time, cannot qualify further. No blood thinners, NSAIDs. She does have hx SBO and says she had surgery on it but cannot give further details. Per EMR she had SBO in September and it resolved with NGT. She said she wanted a blood transfusion but the people at [facility] wouldn't give her any. She had a colonoscopy she thinks before and findings were "irlanda" that were burnt off. Pt is poor historian. (Soco Meraz) PFSH Past Medical History ESRD on hemodialysis Lung cancer. Status post radiation, no chemotherapy Hyperlipidemia Diabetes mellitus GERD Hypertension Osteoarthritis History of cervical cancer Hypothyroidism History of small bowel obstruction last month Past Surgical History 2014 with PEG tube placement Thyroidectomy Rectal hysterectomy 1980 Salpingo-oophorectomy 1994 Small bowel obstruction surgery last year. (Soco Meraz) Coded Allergies: Penicillin (Verified Allergy, Intermediate, UNKNOWN, 10/27/16) Family History Mother with history of diabetes and kidney failure. Father from meningitis Social History Patient has smoked one pack per day for the past 50 years Patient drinks socially. Past history of drug use. Denies any recently. (Soco Meraz) Review of Systems Constitutional: DENIES: Fever Ears, nose, mouth, throat: DENIES: Hearing loss Respiratory: DENIES: Hemoptysis Cardiovascular: DENIES: Chest pain Gastrointestinal: COMPLAINS OF: Nausea, DENIES: Abdominal pain, Black stools, Bloody stools, Constipation, Diarrhea, Vomiting, Hematemesis Genitourinary: DENIES: Hematuria Musculoskeletal: DENIES: Muscle aches Neurologic: DENIES: Headache Psychiatric: DENIES: Confusion (Soco Meraz) GI Exam Vitals I&O Vital Signs Date Time Temp Pulse Resp B/P Pulse Ox O2 Delivery O2 Flow Rate FiO2 10/27/16 11:30 76 10/27/16 11:10 98.0 90 20 168/79 88 10/27/16 08:56 92 18 141/78 94 Nasal Cannula 2 10/27/16 07:17 94 Nasal Cannula 1.50 10/27/16 07:11 Nasal Cannula 2 10/27/16 07:11 95 Nasal Cannula 2 10/27/16 07:05 95 Nasal Cannula 2 10/27/16 06:48 98.5 95 18 151/70 95 I/O 10/26/16 10/26/16 10/26/16 10/27/16 10/27/16 10/27/16 07:00 15:00 23:00 07:00 15:00 23:00 Intake Total 240 ml Output Total 3500 ml Balance 240 ml -3500 ml Intake Oral 240 ml Output Hemodialysis 3500 ml Imaging Last Impressions Chest X-Ray 10/27/16 0656 Signed Impressions: Service Date/Time: October 07:04 - CONCLUSION: Diffuse increased interstitial markings and right effusion likely representing pulmonary edema. Is new when compared to the prior exam. There is some further atelectasis or consolidation at the bases being worse on the right. Dilan Pizarro MD Laboratory Test 10/27/16 10/27/16 10/27/16 07:55 08:53 11:49 White Blood Count 6.8 TH/MM3 Red Blood Count 2.23 MIL/MM3 Hemoglobin 6.8 GM/DL 6.3 GM/DL Hematocrit 20.9 % Mean Corpuscular Volume 93.9 FL Mean Corpuscular Hemoglobin 30.6 PG Mean Corpuscular Hemoglobin 32.6 % Concent Red Cell Distribution Width 16.1 % Platelet Count 132 TH/MM3 Mean Platelet Volume 8.1 FL Neutrophils (%) (Auto) 77.0 % Lymphocytes (%) (Auto) 10.9 % Monocytes (%) (Auto) 8.5 % Eosinophils (%) (Auto) 2.7 % Basophils (%) (Auto) 0.9 % Neutrophils # (Auto) 5.2 TH/MM3 Lymphocytes # (Auto) 0.7 TH/MM3 Monocytes # (Auto) 0.6 TH/MM3 Eosinophils # (Auto) 0.2 TH/MM3 Basophils # (Auto) 0.1 TH/MM3 CBC Comment AUTO DIFF Differential Comment AUTO DIFF CONFIRMED Rouleau PRESENT Keratocytes 1+ Sodium Level 137 MEQ/L Potassium Level 5.3 MEQ/L Chloride Level 101 MEQ/L Carbon Dioxide Level 24.8 MEQ/L Anion Gap 11 MEQ/L Blood Urea Nitrogen 44 MG/DL Creatinine 7.80 MG/DL Estimat Glomerular Filtration 6 ML/MIN Rate Random Glucose 195 MG/DL Calcium Level 8.8 MG/DL Magnesium Level 1.5 MG/DL Total Bilirubin 0.4 MG/DL Aspartate Amino Transf 63 U/L (AST/SGOT) Alanine Aminotransferase 50 U/L (ALT/SGPT) Alkaline Phosphatase 91 U/L Total Creatine Kinase 52 U/L 40 U/L Troponin I LESS THAN 0.02 LESS THAN 0.02 NG/ML NG/ML B-Type Natriuretic Peptide 1457 PG/ML Total Protein 7.7 GM/DL Albumin 3.2 GM/DL Blood Type A POSITIVE Antibody Screen NEGATIVE Crossmatch Leukocyte-Reduced Red Blood Cells Blood Bank Comment Prothrombin Time 11.5 SEC Prothromb Time International 1.0 RATIO Ratio Iron Level 42 MCG/DL Total Iron Binding Capacity 179 MCG/DL Percent Iron Saturation 23.4 % Ferritin 1252 NG/ML Physical Examination HEENT: EOMI; normocephalic; atraumatic; no jaundice. CHEST: CTA CARDIAC: tachy ABDOMEN: Soft, nondistended, nontender; no hepatosplenomegaly; bowel sounds are present in all four quadrants. EXTREMITIES: No clubbing, cyanosis, or edema. SKIN: Normal; no rash; no jaundice. [employer] SERVICE SUPERVISOR: No focal deficits; alert and oriented times three. (Soco Meraz) Assessment and Plan Plan ASSESSMENT - anemia - Hgb 6.8 on admission. Pt has since received blood with dialysis. Denies black stool, blood in stool, hematemesis. stool occult pending. PLAN - await stool occult - consider colonoscopy and EGD if pos - monitor HH - transfuse prn this pt seen by myself and DR Prieto and this note is written on his behalf. ( Soco Meraz) Physician Comments Seen and examined, plan as above, will follow up with you. (Eric Prieto MD) Soco Meraz Oct 27, 2016 16:33 Eric Prieto MD Oct 27, 2016 23:53
--- NOTE | 2016-10-27 17:09 | PD.CONS ---
[facility] Service Nephrology Consult Requested By Reason for Consult ESRD on HD Primary Care Physician Trini Naranjo MD History of Present Illness This is a 66 y/o AAF with PMH listed below and is quite extensive. She was short of breath therefore did not go to dialysis today, came to ER. She was found to be severely anemic at 6.8 (Hb). Typical TTS dialysis, she has not missed any treatments. Other PMH of lung cancer with radiation no chemotherapy. She often times has fluid overload in outpatient setting, symptoms of shortness of breath are similar today. We were consulted for renal management. She is seen during dialysis today, is receiving 1 of 2 PRBC units ordered. She is awake , alert, not in distress. She is on oxygen via nasal cannula. She is a full code. (Dinora Sanchez) Review of Systems Constitutional: COMPLAINS OF: Fatigue, Weight gain Respiratory: COMPLAINS OF: Shortness of breath Cardiovascular: DENIES: Chest pain, Lower Extremity Edema Gastrointestinal: DENIES: Abdominal pain (Dinora Sanchez) Past Family Social History Allergies: Coded Allergies: Penicillin (Verified Allergy, Intermediate, UNKNOWN, 10/27/16) Past Medical History ESRD on hemodialysis Lung cancer. Status post radiation, no chemotherapy Hyperlipidemia DM II GERD HTN Osteoarthritis History of cervical cancer Hypothyroidism History of small bowel obstruction last month anemia metabolic bone disorder Past Surgical History 2014 with PEG tube placement Thyroidectomy Rectal hysterectomy 1981 Salpingo-oophorectomy 1994 Small bowel obstruction surgery last year. Reported Medications Calcium Acetate (Calcium Acetate (Phosphate Bin) 667 Mg Cap 1,334 Mg PO TID Hydrocodone-Acetaminophen 5-325 mg Tab 1 Tab PO Q6H PRN Ativan (Lorazepam) 1 Mg Tab 1 Mg PO Q6H PRN Zofran (Ondansetron HCl) 8 Mg Tab 8 Mg PO TID PRN Nifedipine ER (Nifedipine) 90 Mg Tab 60 Tab PO BID Metoprolol Succinate ER 24 HR (Metoprolol Succinate) 50 Mg Tab 50 Mg PO DAILY Phoslo (Calcium Acetate (Phosphate Binder)) 667 Mg Cap 667 Mg PO TID Sybil-Colace (Sennosides-Docusate Sodium) 8.6-50 Mg Tab 1 Tab PO BID PRN Terazosin (Terazosin HCl) 5 Mg Cap 5 Mg PO HS Symbicort Inh (Budesonide/Formoterol Fumarate) 160-4.5 Mcg/Act Aero 2 Puff INH Q12HR Januvia (Sitagliptin Phosphate) 50 Mg Tab 50 Mg PO DAILY Clonidine (Clonidine HCl) 0.2 Mg Tab 0.2 Mg PO TID Vitamin D (Cholecalciferol) 5,000 Unit Tab Citalopram (Citalopram Hydrobromide) 10 Mg Tab 10 Mg PO DAILY Atorvastatin (Atorvastatin Calcium) 10 Mg Tab 10 Mg PO HS Novolog Inj (Insulin Aspart) 1,000 Unit/10 Ml Vial 0 SQ DIRECTED Sliding Scale as directed. Active Ordered Medications Current Medications Medications (Trade) Dose Ordered Sig/Hero Route Start Time Stop Time Status Last Admin (NS 250 ml Inj) 250 ml @ 15 mls/hr ONCE ONCE IV 10/27/16 08:45 10/28/16 01:24 (NS Flush) 2 ml UNSCH PRN IV FLUSH 10/27/16 09:15 (NS Flush) 2 ml BID IV FLUSH 10/27/16 21:00 (Narcan Inj) 0.4 mg UNSCH PRN IV 10/27/16 09:15 (Sybil-Colace) 1 tab BID PO 10/27/16 21:00 (Milk Of Magnesia Liq) 30 ml Q12H PRN PO 10/27/16 09:15 (Senokot) 17.2 mg Q12H PRN PO 10/27/16 09:15 (Dulcolax Supp) 10 mg DAILY PRN RECTAL 10/27/16 09:15 (Lactulose Liq) 30 ml DAILY PRN PO 10/27/16 09:15 (Lipitor) 10 mg HS PO 10/27/16 21:00 (Symbicort 160-4.5 Inh) 2 puff Q12HR INH 10/27/16 21:00 (CeleXA) 10 mg DAILY PO 10/28/16 09:00 (Catapres) 0.2 mg TID PO 10/27/16 13:00 ([place] 5-325 Mg) 1 tab Q6H PRN PO 10/27/16 09:30 (Ativan) 1 mg Q6H PRN PO 10/27/16 09:30 10/27/16 11:50 (Toprol Xl) 50 mg DAILY PO 10/28/16 09:00 (Procardia Xl) 90 mg BID PO 10/27/16 21:00 (Hytrin) 5 mg HS PO 10/27/16 21:00 Ondansetron HCl 8 mg 8 mg TID PRN PO 10/27/16 09:30 Sodium Chloride 250 ml @ 15 mls/hr ONCE ONCE IV 10/27/16 09:30 10/28/16 02:09 (NS 1000 ml Inj) 1,000 ml @ 0 mls/hr Q0M PRN IV 10/27/16 09:26 Heparin Sodium (Porcine) 8000 units 8,000 units UNSCH PRN IVF 10/27/16 09:30 Sodium Chloride 1,000 ml @ 200 mls/hr Q5H PRN IV 10/27/16 09:26 (NS 1000 ml Inj) 1,000 ml @ 0 mls/hr Q0M PRN IV 10/27/16 09:26 (Mannitol Inj) 12.5 gm UNSCH PRN IV 10/27/16 09:30 (Albumin 25% Inj) 25 gm UNSCH PRN IV 10/27/16 09:30 (NS Flush) 5 ml UNSCH PRN IV FLUSH 10/27/16 09:30 (Heparin Inj) UNSCH PRN .XX 10/27/16 09:30 (Gentamicin (Dialysis) Inj) 20 mg UNSCH PRN IV 10/27/16 09:30 (Zofran Inj) 4 mg UNSCH PRN IV 10/27/16 09:30 (Tylenol) 650 mg UNSCH PRN PO 10/27/16 09:30 (Benadryl) 25 mg UNSCH PRN PO 10/27/16 09:30 (Nitrostat Sl) 0.4 mg UNSCH PRN SL 10/27/16 09:30 (Catapres) 0.1 mg UNSCH PRN PO 10/27/16 09:30 (Epogen Inj) 10,000 units UNSCH PRN IV 10/27/16 09:30 10/27/16 14:40 (Gelfoam 12 Mm/7 Mm Top) 1 foam UNSCH PRN TOP 10/27/16 09:30 (D50w (Vial) Inj) 25 ml UNSCH PRN IV PUSH 10/27/16 09:45 (Glucagon Inj) 1 mg UNSCH PRN OTHER 10/27/16 09:45 (Protonix) 40 mg Q12HR PO 10/27/16 11:00 10/27/16 11:50 Family History no hx of renal disorders Social History daily smoker for decades no ETOH or drug use full code disabled independent lives alone (Dinora Sanchez) Physical Exam Vital Signs Vital Signs Date Time Temp Pulse Resp B/P Pulse Ox O2 Delivery O2 Flow Rate FiO2 10/27/16 11:30 76 10/27/16 11:10 98.0 90 20 168/79 88 10/27/16 08:56 92 18 141/78 94 Nasal Cannula 2 10/27/16 07:17 94 Nasal Cannula 1.50 10/27/16 07:11 Nasal Cannula 2 10/27/16 07:11 95 Nasal Cannula 2 10/27/16 07:05 95 Nasal Cannula 2 10/27/16 06:48 98.5 95 18 151/70 95 Physical Exam GENERAL: This is a chronically ill, thin AAF receiving dialysis, in no apparent distress. SKIN: No rashes, ecchymoses or lesions. Cool and dry. HEAD: Atraumatic. Normocephalic. No temporal or scalp tenderness. EYES: Pupils equal round and reactive. Extraocular motions intact. No scleral icterus. No injection or drainage. she wears glasses ENT: Nose without bleeding, purulent drainage or septal hematoma. Throat without erythema, tonsillar hypertrophy or exudate. Uvula midline. Airway patent. NECK: Trachea midline. No JVD or lymphadenopathy. Supple, nontender, no meningeal signs. CARDIOVASCULAR: Regular rate and rhythm without murmurs, gallops, or rubs. RESPIRATORY: Breath sounds equal bilaterally. No wheezes, although she does have bibasilar rales GASTROINTESTINAL: Abdomen flat, soft, non-tender, nondistended. MUSCULOSKELETAL: Extremities without clubbing, cyanosis, or edema. No joint tenderness, effusion, or edema noted. No calf tenderness. Negative Homans sign bilaterally. NEUROLOGICAL: Awake and alert. Cranial nerves II through XII intact. Motor and sensory grossly within normal limits. Five out of 5 muscle strength in all muscle groups. Normal speech. EXT: no dependent edema, left arm AVF accessed for HD Laboratory Laboratory Tests Test 10/27/16 10/27/16 10/27/16 07:55 08:53 11:49 White Blood Count 6.8 Red Blood Count 2.23 Hemoglobin 6.8 6.3 Hematocrit 20.9 Mean Corpuscular Volume 93.9 Mean Corpuscular Hemoglobin 30.6 Mean Corpuscular Hemoglobin 32.6 Concent Red Cell Distribution Width 16.1 Platelet Count 132 Mean Platelet Volume 8.1 Neutrophils (%) (Auto) 77.0 Lymphocytes (%) (Auto) 10.9 Monocytes (%) (Auto) 8.5 Eosinophils (%) (Auto) 2.7 Basophils (%) (Auto) 0.9 Neutrophils # (Auto) 5.2 Lymphocytes # (Auto) 0.7 Monocytes # (Auto) 0.6 Eosinophils # (Auto) 0.2 Basophils # (Auto) 0.1 CBC Comment AUTO DIFF Differential Comment AUTO DIFF CONFIRMED Rouleau PRESENT Keratocytes 1+ Sodium Level 137 Potassium Level 5.3 Chloride Level 101 Carbon Dioxide Level 24.8 Anion Gap 11 Blood Urea Nitrogen 44 Creatinine 7.80 Estimat Glomerular Filtration 6 Rate Random Glucose 195 Calcium Level 8.8 Magnesium Level 1.5 Total Bilirubin 0.4 Aspartate Amino Transf 63 (AST/SGOT) Alanine Aminotransferase 50 (ALT/SGPT) Alkaline Phosphatase 91 Total Creatine Kinase 52 40 Troponin I LESS THAN 0.02 LESS THAN 0.02 B-Type Natriuretic Peptide 1457 Total Protein 7.7 Albumin 3.2 Blood Type A POSITIVE Antibody Screen NEGATIVE Crossmatch Leukocyte-Reduced Red Blood Cells Blood Bank Comment Prothrombin Time 11.5 Prothromb Time International 1.0 Ratio Iron Level 42 Total Iron Binding Capacity 179 Percent Iron Saturation 23.4 Ferritin 1252 (Dinora Sanchez) Result Diagram: 10/27/16 1149 10/27/16 0755 Imaging Last 72 hours Impressions Chest X-Ray 10/27/16 0656 Signed Impressions: Service Date/Time: October 07:04 - CONCLUSION: Diffuse increased interstitial markings and right effusion likely representing pulmonary edema. Is new when compared to the prior exam. There is some further atelectasis or consolidation at the bases being worse on the right. Dilan Pizarro MD (Dinora Sanchez) Assessment and Plan Problem List: (1) ESRD on hemodialysis Plan: Seen during dialysis on a 2K, 350 BFR, goal 3500 ml K 5.3, recheck tomorrow has functioning fistula for dialysis intermittent renal panel avoid IVF, gadolinium high protein diet , add protein supplement (2) Anemia Plan: severely anemic, GI has been consulted given 2 units with dialysis today continue Epogen with dialysis check iron profile. check stool for occult blood follow Hb (3) DM (diabetes mellitus) Plan: continue insulin therapy goal 140-180 mg/dL. (4) Fluid overload Plan: discussed and advised fluid restriction UF as tolerated with dialysis (5) HTN (hypertension) Plan: BP acceptable, she is on clonidine, terazosin, nifedipine (6) Metabolic bone disease Plan: resume Calcium acetate (Dinora Sanchez) Assessment and Plan patient was seen and examined. Seen during dialysis. Blood transfusion done during dialysis. Rule out GI bleeding. Fluid removal with dialysis. Monitor. ( Benjamín Teixeira MD) Problem Qualifiers (1) DM (diabetes mellitus): Dinora Sanchez Oct 27, 2016 17:09 Benjamín Teixeira MD Oct 28, 2016 16:59
[2016-10-27] MEDS: CALCIUM ACETATE 667 MG CAP PO SCH (17:10)
[2016-10-27] MEDS: NIFEdipine 90 MG SUSTAINED RELEASE TAB PO SCH (19:59)
[2016-10-27] MEDS: TERAZOSIN HCL 5 MG CAP PO SCH (19:59)
[2016-10-27] MEDS: ACETAMINOPHEN/HYDROcodone 325 MG/5 MG TAB PO PRN (19:59)
[2016-10-27] MEDS: ATORVASTATIN 10 MG TAB PO SCH (19:59)
[2016-10-27] MEDS: DOCUSATE SODIUM 50 MG/SENNA 8.6 MG TAB PO SCH (19:59)
[2016-10-27] MEDS: SODIUM CHLORIDE 0.9% FLUSH 10 ML FLUSH IV FLUSH SCH (20:00)
[2016-10-27 20:25] LABS: CREATINE KINASE 54 U/L (26-192)
[2016-10-27] MEDS: BUDESONIDE-FORMOTEROL 160/4.5 MCG INHALER INH SCH (22:45)
[2016-10-28] VITALS (9 sets, daily range): BP systolic 133–180; BP diastolic 64–86; PULSE 83–105; RESP 18–20; TEMP 97.4–98.5; O2SAT 92–100
[2016-10-28 03:31] LABS: AUTOMATED NEUTROPHIL # 3.8 TH/MM3 (1.8-7.7); BASOPHIL # 0.1 TH/MM3 (0-0.2); BASOPHIL % 1.1 % (0.0-2.0); EOSINOPHIL # 0.2 TH/MM3 (0-0.4); EOSINOPHIL % 2.9 % (0.0-4.0); HEMATOCRIT 26.5 % (35.0-46.0); HEMO FLAGS DIFF FINAL; LYMPH % 15.4 % (9.0-44.0); LYMPHOCYTE # 0.8 TH/MM3 (1.0-4.8); MEAN CELL VOLUME 89.1 FL (80.0-100.0); MEAN CORPUSCULAR HGB CONC 34.8 % (32.0-36.0); MONO % 9.5 % (0.0-8.0); NEUT % 71.1 % (16.0-70.0); PLATELET COUNT 111 TH/MM3 (150-450); RED BLOOD COUNT 2.98 MIL/MM3 (4.00-5.30); RED CELL DISTRIBUTION WIDTH 17.2 % (11.6-17.2); WHITE BLOOD COUNT 5.3 TH/MM3 (4.0-11.0)
[2016-10-28 03:52] LABS: ALT (GPT) 45 U/L (10-53); ANION GAP 10 MEQ/L (5-15); AST (GOT) 36 U/L (15-37); BICARBONATE 31.5 MEQ/L (21.0-32.0); BLOOD UREA NITROGEN 39 MG/DL (7-18); CHLORIDE 97 MEQ/L (98-107); GLOMERULAR FILTRATION RATE 9 ML/MIN (>89); POTASSIUM 3.9 MEQ/L (3.5-5.1); SODIUM (NA) 138 MEQ/L (136-145)
[2016-10-28 03:55] LABS: ALKALINE PHOSPHATASE 91 U/L (45-117); TOTAL BILIRUBIN ADULT 1.2 MG/DL (0.2-1.0)
[2016-10-28] MEDS: ACETAMINOPHEN/HYDROcodone 325 MG/5 MG TAB PO PRN (06:21)
[2016-10-28] MEDS: INSULIN ASPART SUPPLEMENTAL SCALE SQ SCH ×4 (06:24→20:49)
[2016-10-28] MEDS: cloNIDine HCL 0.2 MG TAB PO SCH ×3 (08:17→17:09)
[2016-10-28] MEDS: PANTOPRAZOLE SOD 40 MG DELAYED RELEASE TAB PO SCH ×2 (08:17→20:40)
[2016-10-28] MEDS: NIFEdipine 90 MG SUSTAINED RELEASE TAB PO SCH ×2 (08:17→20:40)
[2016-10-28] MEDS: CALCIUM ACETATE 667 MG CAP PO SCH ×3 (08:17→17:09)
[2016-10-28] MEDS: LORazepam 1 MG TAB PO PRN ×2 (08:17→17:12)
[2016-10-28] MEDS: DOCUSATE SODIUM 50 MG/SENNA 8.6 MG TAB PO SCH ×2 (08:17→20:40)
[2016-10-28] MEDS: METOPROLOL SUCCINATE 50 MG EXTENDED RELEASE TAB PO SCH (08:18)
[2016-10-28] MEDS: CITALOPRAM HYDROBROMIDE 20 MG TAB PO SCH (08:18)
[2016-10-28] MEDS: BUDESONIDE-FORMOTEROL 160/4.5 MCG INHALER INH SCH ×2 (08:20→20:43)
[2016-10-28] MEDS: SODIUM CHLORIDE 0.9% FLUSH 10 ML FLUSH IV FLUSH SCH ×2 (08:20→20:42)
--- NOTE | 2016-10-28 10:59 | HHI.NPPN ---
Subjective Complaints: Shortness of Breath General Problems: Anemia Renal Failure: Chronic, End Stage Renal Disease Interval History Sitting up in chair. Eating well. Breathing is better. (Dinora Sanchez ) Review of Systems Respiratory Lungs: SOB, Cough (Dinora Sanchez) Objective Data Data 10/27/16 10/28/16 19:00 07:00 Intake Total 600 ml 120 ml Output Total 3500 ml 550 ml Balance -2900 ml -430 ml Intake Oral 600 ml 120 ml Output Urine Total 550 ml Hemodialysis 3500 ml # Voids 0 # Bowel Movements 0 0 Vital Signs Date Time Temp Pulse Resp B/P Pulse Ox O2 Delivery O2 Flow Rate FiO2 10/28/16 09:18 Nasal Cannula 2.00 10/28/16 08:00 97.4 94 20 154/77 93 10/28/16 07:42 94 Nasal Cannula 2.00 10/28/16 04:00 98.5 99 18 144/74 94 10/28/16 00:00 Nasal Cannula 4.00 10/28/16 00:00 98.2 105 20 180/86 100 10/27/16 20:01 108 10/27/16 20:00 98.1 110 22 205/125 95 159/86 10/27/16 20:00 Nasal Cannula 4.00 10/27/16 16:00 98.7 105 18 196/95 96 10/27/16 11:30 76 10/27/16 11:10 98.0 90 20 168/79 88 (Dinora Sanchez) -: 10/28/16 0318 10/28/16 0318 Imaging Last 72 hours Impressions Chest X-Ray 10/27/16 0656 Signed Impressions: Service Date/Time: October 07:04 - CONCLUSION: Diffuse increased interstitial markings and right effusion likely representing pulmonary edema. Is new when compared to the prior exam. There is some further atelectasis or consolidation at the bases being worse on the right. Dilan Pizarro MD (Dinora Sanchez) Physical Exam General Appearance: Well Developed, Malnourished (Dinora Sanchez) Throat Throat Exam: Oral Mucosa [place] & Moist (Dinora Sanchez) Pulmonary Resp Exam: Breath Sounds Equal, No Distress Resp Remarks some wheezing (Dinora Sanchez) Cardiology CV Exam: Regular, Normal Sinus Rhythm (Dinora Sanchez) Gastrointestinal/Abdomen GI Exam: Soft, Non-Tender (Dinora Sanchez) Musculoskeletal MS Exam: Joints Intact, Normal Gait (Dinora Sanchez) Integumentary Skin Exam: Clear, Warm, Dry, Intact (Dinora Sanchez) Extremeties Extremities Exam: No Edema, Pedal Pulses Palpable (Dinora Sanchez) Neurologic Neuro Exam: Alert, Awake, Oriented, Speech Clear, Moving All Extremities ( Dinora Sanchez) Psychiatric Psych Exam: Appropriate Responses (Dinora Sanchez) Assessment/Plan Discussed Condition With: Patient Assessment Summary: Anemia of CKD, End Stage Renal Disease Problem List: (1) ESRD on hemodialysis Plan: 3500 ml UF with dialysis yesterday, continue TTS HD support has functioning fistula for dialysis intermittent renal panel avoid IVF, gadolinium high protein diet , add protein supplement (2) Anemia Plan: severely anemic, GI has been consulted given 2 units with dialysis today continue Epogen with dialysis check stool for occult blood follow Hb (3) DM (diabetes mellitus) Plan: continue insulin therapy goal 140-180 mg/dL. (4) Fluid overload Plan: discussed and advised fluid restriction UF as tolerated with dialysis (5) HTN (hypertension) Plan: BP acceptable, she is on clonidine, terazosin, nifedipine (6) Metabolic bone disease Plan: continue Calcium acetate (Dinora Sanchez) Plan patient was seen and examined. Agree with above assessment and plan. (Benjamín Teixeira MD) Problem Qualifiers (1) DM (diabetes mellitus): Dinora Sanchez Oct 28, 2016 10:59 Benjamín Teixeira MD Oct 28, 2016 17:26
--- NOTE | 2016-10-28 13:35 | HHI.GIFU ---
Subjective Remarks Pt OOB to chair, in no distress. Says she feels better after receiving blood yesterday. No BM yet. (Soco Meraz) Objective Vitals I&O Vital Signs Date Time Temp Pulse Resp B/P Pulse Ox O2 Delivery O2 Flow Rate FiO2 10/28/16 12:00 97.6 91 20 134/64 96 10/28/16 09:18 Nasal Cannula 2.00 10/28/16 08:00 97.4 94 20 154/77 93 10/28/16 07:42 94 Nasal Cannula 2.00 10/28/16 04:00 98.5 99 18 144/74 94 10/28/16 00:00 Nasal Cannula 4.00 10/28/16 00:00 98.2 105 20 180/86 100 10/27/16 20:01 108 10/27/16 20:00 95 Nasal Cannula 4.00 10/27/16 20:00 98.1 110 22 205/125 95 159/86 10/27/16 20:00 Nasal Cannula 4.00 10/27/16 16:00 98.7 105 18 196/95 96 I/O 10/27/16 10/27/16 10/27/16 10/28/16 10/28/16 10/28/16 07:00 15:00 23:00 07:00 15:00 23:00 Intake Total 600 ml 120 ml 0 ml Output Total 4050 ml 0 ml Balance 600 ml -3930 ml 0 ml Intake Oral 600 ml 120 ml 0 ml Output Urine Total 550 ml 0 ml Hemodialysis 3500 ml # Voids 0 # Bowel Movements 0 0 0 Laboratory Laboratory Tests Test 10/27/16 10/28/16 10/28/16 19:20 03:18 10:34 Hemoglobin 9.9 9.2 9.2 Total Creatine Kinase 54 Troponin I LESS THAN 0.02 White Blood Count 5.3 Red Blood Count 2.98 Hematocrit 26.5 Mean Corpuscular Volume 89.1 Mean Corpuscular Hemoglobin 31.0 Mean Corpuscular Hemoglobin 34.8 Concent Red Cell Distribution Width 17.2 Platelet Count 111 Mean Platelet Volume 9.0 Neutrophils (%) (Auto) 71.1 Lymphocytes (%) (Auto) 15.4 Monocytes (%) (Auto) 9.5 Eosinophils (%) (Auto) 2.9 Basophils (%) (Auto) 1.1 Neutrophils # (Auto) 3.8 Lymphocytes # (Auto) 0.8 Monocytes # (Auto) 0.5 Eosinophils # (Auto) 0.2 Basophils # (Auto) 0.1 CBC Comment DIFF FINAL Differential Comment Sodium Level 138 Potassium Level 3.9 Chloride Level 97 Carbon Dioxide Level 31.5 Anion Gap 10 Blood Urea Nitrogen 39 Creatinine 5.88 Estimat Glomerular Filtration 9 Rate Random Glucose 187 Calcium Level 8.7 Total Bilirubin 1.2 Aspartate Amino Transf 36 (AST/SGOT) Alanine Aminotransferase 45 (ALT/SGPT) Alkaline Phosphatase 91 Total Protein 7.4 Albumin 3.0 Physical Exam HEENT: EOMI; normocephalic; atraumatic; no jaundice. CHEST: CTA CARDIAC: RRR ABDOMEN: Soft, nondistended, nontender; no hepatosplenomegaly; bowel sounds are present in all four quadrants. EXTREMITIES: No clubbing, cyanosis, or edema. SKIN: Normal; no rash; no jaundice. PATROL CONDUCTOR: No focal deficits; alert and oriented times three. (Soco Meraz) Assessment and Plan Plan ASSESSMENT - anemia - Hgb 6.8 on admission. Pt has since received blood with dialysis. Denies black stool, blood in stool, hematemesis. stool occult pending. PLAN - await stool occult - consider colonoscopy and EGD if pos - monitor HH - transfuse prn this pt seen by myself and DR Prieto and this note is written on his behalf. ( Soco Meraz) Physician Comments Seen with Soco plan as above. Will follow up with you. (Eric Prieto MD) Soco Meraz Oct 28, 2016 13:35 Eric Prieto MD Oct 28, 2016 17:04
--- NOTE | 2016-10-28 14:51 | HHI.PR ---
Subjective Remarks Patient stated he has dizziness this morning, no chest pain no short of breath no fever or chills Objective Vitals Vital Signs Date Time Temp Pulse Resp B/P Pulse Ox O2 Delivery O2 Flow Rate FiO2 10/28/16 12:00 97.6 91 20 134/64 96 10/28/16 09:18 Nasal Cannula 2.00 10/28/16 08:00 97.4 94 20 154/77 93 10/28/16 07:42 94 Nasal Cannula 2.00 10/28/16 04:00 98.5 99 18 144/74 94 10/28/16 00:00 Nasal Cannula 4.00 10/28/16 00:00 98.2 105 20 180/86 100 10/27/16 20:01 108 10/27/16 20:00 95 Nasal Cannula 4.00 10/27/16 20:00 98.1 110 22 205/125 95 159/86 10/27/16 20:00 Nasal Cannula 4.00 10/27/16 16:00 98.7 105 18 196/95 96 I/O 10/27/16 10/27/16 10/27/16 10/28/16 10/28/16 10/28/16 07:00 15:00 23:00 07:00 15:00 23:00 Intake Total 600 ml 120 ml 0 ml Output Total 4050 ml 0 ml Balance 600 ml -3930 ml 0 ml Intake Oral 600 ml 120 ml 0 ml Output Urine Total 550 ml 0 ml Hemodialysis 3500 ml # Voids 0 # Bowel Movements 0 0 0 Result Diagram: 10/28/16 1034 10/28/16 0318 Objective Remarks GENERAL: This is a well-nourished, well-developed patient, in no apparent distress. SKIN: No rashes, warm and dry HEAD: Atraumatic. Normocephalic. EYES: Pupils equal round and reactive. Extraocular motions intact. No scleral icterus. ENT: Nose without bleeding, or drainage, Airway patent. NECK: Trachea midline. Supple CARDIOVASCULAR: Regular rate and rhythm without murmurs, gallops, or rubs. RESPIRATORY: Fair air entry bilaterally. No wheezes, rales, or rhonchi. GASTROINTESTINAL: Abdomen soft, non-tender, nondistended. Positive bowel sounds MUSCULOSKELETAL: Extremities without clubbing, cyanosis, or edema. Pedal pulses appreciated NEUROLOGICAL: Awake and alert. Moves all extremity. Normal speech.no focal neurological deficit A/P Assessment and Plan Symptomatic Anemia. Acute on chronic. -Possibly GI bleed versus anemia of renal disease versus chronic inflammation from malignancy. Every 8 hour H&H. Hemoccult. -Transfused 2 units with hemodialysis. -Appreciate GI consultation, awaiting Hemoccult stool, possible EGD and colonoscopy Chest pain. Acute on chronic. - One-week history of worsening left-sided chest pain. -Troponin negative. -Possibility of demand ischemia from anemia. -EKG nonspecific. Trending troponins, EKGs. -Transfuse. Monitor. Hypertension. Blood pressure acceptable. Continue home medications. Monitor. ESRD: On hemodialysis, renal consulted appreciated their consult GERD. Chronic. Continue PPI. Lung cancer. Chronic. Patient follows with Dr. Barker. No chemotherapy. Tobaccoism. Cessation counseling provided. Cessation strongly advised. Prophylaxis. SCDs. Avoid anticoagulation in the setting of anemia with possible GI bleed. Isidoro Olivera MD Oct 28, 2016 14:51
--- NOTE | 2016-10-28 17:46 | EKG ---
Date Performed: 10/27/2016 Time Performed: 17:49:56 PTAGE: 66 years EKG: SINUS TACHYCARDIA LEFT ATRIAL ENLARGEMENT ABNORMAL ECG PREVIOUS TRACING : 10/27/2016 07.35 Compared to prior tracing no significant change DOCTOR: Elva Hinkle Interpretating Date/Time 10/28/2016 17:46:08
[2016-10-28] MEDS: ATORVASTATIN 10 MG TAB PO SCH (20:40)
[2016-10-28] MEDS: TERAZOSIN HCL 5 MG CAP PO SCH (20:40)
[2016-10-29] VITALS (9 sets, daily range): BP systolic 18–167; BP diastolic 57–98; PULSE 86–97; RESP 16–20; TEMP 97.2–98.4; O2SAT 97–100
[2016-10-29] MEDS: ACETAMINOPHEN/HYDROcodone 325 MG/5 MG TAB PO PRN ×3 (00:58→19:54)
[2016-10-29] MEDS: LORazepam 1 MG TAB PO PRN ×4 (03:11→20:55)
[2016-10-29] MEDS: INSULIN ASPART SUPPLEMENTAL SCALE SQ SCH ×4 (05:49→20:56)
[2016-10-29] MEDS: cloNIDine HCL 0.2 MG TAB PO SCH ×3 (08:50→17:42)
[2016-10-29] MEDS: CALCIUM ACETATE 667 MG CAP PO SCH ×3 (08:50→17:42)
[2016-10-29] MEDS: DOCUSATE SODIUM 50 MG/SENNA 8.6 MG TAB PO SCH ×2 (08:50→20:55)
[2016-10-29] MEDS: BUDESONIDE-FORMOTEROL 160/4.5 MCG INHALER INH SCH ×2 (09:00→20:56)
[2016-10-29] MEDS: SODIUM CHLORIDE 0.9% FLUSH 10 ML FLUSH IV FLUSH SCH ×2 (09:00→20:55)
--- NOTE | 2016-10-29 09:46 | HHI.NPPN ---
Subjective Complaints: Shortness of Breath General Problems: Anemia Renal Failure: Chronic, End Stage Renal Disease History of Present Illness 66 y/o AAF with PMH listed below and is quite extensive. She was short of breath therefore did not go to dialysis today, came to ER. She was found to be severely anemic at 6.8 (Hb). Typical TTS dialysis, she has not missed any treatments. Other PMH of lung cancer with radiation no chemotherapy. Additional Remarks Patient seen during HD, with nasal cannula, breathing is better. Review of Systems General Constitutional: Fatigue Respiratory Lungs: SOB, Cough Cardiovascular Cardiac: [place] Objective Data Data 10/28/16 10/29/16 19:00 07:00 Intake Total 840 ml 40 ml Balance 840 ml 40 ml Intake Oral 840 ml 40 ml # Voids 1 1 # Bowel Movements 1 2 Vital Signs Date Time Temp Pulse Resp B/P Pulse Ox O2 Delivery O2 Flow Rate FiO2 10/29/16 08:00 Nasal Cannula 3.00 10/29/16 04:00 97.2 88 20 122/64 98 10/29/16 03:06 97.5 89 16 147/72 98 10/29/16 00:00 97.7 88 20 132/68 97 10/28/16 20:51 Nasal Cannula 3.00 10/28/16 20:01 83 10/28/16 20:00 97.8 85 20 133/70 100 10/28/16 18:08 94 Nasal Cannula 2.00 10/28/16 16:00 98.0 88 20 146/75 92 10/28/16 12:00 97.6 91 20 134/64 96 -: 10/28/16 1850 10/28/16 0318 Physical Exam General Appearance: No Acute Distress, Comfortable, Anxious, Malnourished Throat Throat Exam: Oral Mucosa [place] & Moist Pulmonary Resp Exam: Breath Sounds Equal, No Distress Cardiology CV Exam: Regular, Normal Sinus Rhythm Gastrointestinal/Abdomen GI Exam: Soft, Non-Tender Musculoskeletal MS Exam: Joints Intact, Normal Gait Integumentary Skin Exam: Clear, Warm, Dry, Intact Extremeties Extremities Exam: No Edema Neurologic Neuro Exam: Alert, Awake, Oriented, Speech Clear Assessment/Plan Discussed Condition With: Patient Assessment Summary: Anemia of CKD, End Stage Renal Disease Problem List: (1) ESRD on hemodialysis Plan: Patient is now on HD, BP is stable, not eating well, remove 2 liters. On Epogen with HD. Hgb stable post transfusion. (2) Anemia Plan: severely anemic, GI has been consulted given 2 units with dialysis today continue Epogen with dialysis check stool for occult blood follow Hb (3) DM (diabetes mellitus) Plan: continue insulin therapy goal 140-180 mg/dL. (4) Fluid overload Plan: discussed and advised fluid restriction UF as tolerated with dialysis (5) HTN (hypertension) Plan: BP acceptable, she is on clonidine, terazosin, nifedipine (6) Metabolic bone disease Plan: continue Calcium acetate Problem Qualifiers (1) DM (diabetes mellitus): Julio Cesar Dominguez MD Oct 29, 2016 09:46
[2016-10-29] MEDS: EPOETIN ALFA 10,000 UNITS/ML VIAL IV PRN (12:30)
[2016-10-29] MEDS: PANTOPRAZOLE SOD 40 MG DELAYED RELEASE TAB PO SCH ×2 (13:39→20:59)
[2016-10-29] MEDS: NIFEdipine 90 MG SUSTAINED RELEASE TAB PO SCH ×2 (13:39→20:55)
[2016-10-29] MEDS: METOPROLOL SUCCINATE 50 MG EXTENDED RELEASE TAB PO SCH (13:40)
[2016-10-29] MEDS: CITALOPRAM HYDROBROMIDE 20 MG TAB PO SCH (13:40)
--- NOTE | 2016-10-29 15:37 | HHI.GIFU ---
Subjective Remarks Patient is resting in bed, reports some mild abd cramps, but denies nausea, vomiting, hematemesis, or hematochezia (KaushalYovany ENERGY AND CONSERVATION TECHNICIAN) Objective Vitals I&O Vital Signs Date Time Temp Pulse Resp B/P Pulse Ox O2 Delivery O2 Flow Rate FiO2 10/29/16 13:32 98.4 97 18 167/81 100 10/29/16 10:24 98 2.50 10/29/16 08:00 Nasal Cannula 3.00 10/29/16 08:00 97.9 86 18 121/57 98 10/29/16 08:00 88 10/29/16 04:00 97.2 88 20 122/64 98 10/29/16 03:06 97.5 89 16 147/72 98 10/29/16 00:00 97.7 88 20 132/68 97 10/28/16 20:51 Nasal Cannula 3.00 10/28/16 20:01 83 10/28/16 20:00 97.8 85 20 133/70 100 10/28/16 18:08 94 Nasal Cannula 2.00 10/28/16 16:00 98.0 88 20 146/75 92 I/O 10/28/16 10/28/16 10/28/16 10/29/16 10/29/16 10/29/16 07:00 15:00 23:00 07:00 15:00 23:00 Intake Total 0 ml 840 ml 0 ml 40 ml Output Total 0 ml 2000 ml Balance 0 ml 840 ml 0 ml 40 ml -2000 ml Intake Oral 0 ml 840 ml 0 ml 40 ml Output Urine Total 0 ml Hemodialysis 2000 ml # Voids 1 1 0 # Bowel Movements 0 1 1 1 Laboratory Laboratory Tests Test 10/28/16 18:50 Hemoglobin 8.9 Imaging Last Impressions Chest X-Ray 10/27/16 0656 Signed Impressions: Service Date/Time: October 07:04 - CONCLUSION: Diffuse increased interstitial markings and right effusion likely representing pulmonary edema. Is new when compared to the prior exam. There is some further atelectasis or consolidation at the bases being worse on the right. Dilan Pizarro MD Physical Exam HEENT: EOMI; normocephalic; atraumatic; no jaundice. CHEST: CTA CARDIAC: RRR ABDOMEN: Soft, nondistended, nontender; no hepatosplenomegaly; bowel sounds are present in all four quadrants. EXTREMITIES: No clubbing, cyanosis, or edema. SKIN: Normal; no rash; no jaundice. SORTING MACHINE ATTENDANT: No focal deficits; alert and oriented times three. (Yovany Easley) Assessment and Plan Plan ASSESSMENT - anemia - Hgb 6.8 on admission. today 8.9 s/p 2 units of blood. Pt has since received blood with dialysis. Denies black stool, blood in stool, hematemesis. stool occult pending. Last EGD/colonoscopy in 2014 and revealed colon polyps and gastritis, benign bx with 5 year f/u recommendations - ESRD- HD, anemia could be that of chronic Dz - hx of lung cancer, cervical cancer sbo, PLAN - await stool occult - No signs of bleeding, will monitor for now - monitor HH - transfuse prn this pt seen by myself and DR Mueller and this note is written on his behalf. (Yovany Easley) Physician Comments Patient seen and examined Agree with above Continue with current supportive care Monitor labs No active bleeding noted and hemoglobin stable Indices are within normal limits which indicates probable anemia of chronic disease Not much to add from a GI standpoint We will sign off (Camilo Mueller MD) Yovany Easley Oct 29, 2016 15:37 Camilo Mueller MD Oct 29, 2016 18:59
--- NOTE | 2016-10-29 17:09 | HHI.PR ---
Subjective Remarks Resting in bed, minimal abdominal discomfort, hemoglobin stable, GI following, no fever or chills Objective Vitals Vital Signs Date Time Temp Pulse Resp B/P Pulse Ox O2 Delivery O2 Flow Rate FiO2 10/29/16 13:32 98.4 97 18 167/81 100 10/29/16 10:24 98 2.50 10/29/16 08:00 Nasal Cannula 3.00 10/29/16 08:00 97.9 86 18 121/57 98 10/29/16 08:00 88 10/29/16 04:00 97.2 88 20 122/64 98 10/29/16 03:06 97.5 89 16 147/72 98 10/29/16 00:00 97.7 88 20 132/68 97 10/28/16 20:51 Nasal Cannula 3.00 10/28/16 20:01 83 10/28/16 20:00 97.8 85 20 133/70 100 10/28/16 18:08 94 Nasal Cannula 2.00 I/O 10/28/16 10/28/16 10/28/16 10/29/16 10/29/16 10/29/16 07:00 15:00 23:00 07:00 15:00 23:00 Intake Total 0 ml 840 ml 0 ml 40 ml Output Total 0 ml 2000 ml Balance 0 ml 840 ml 0 ml 40 ml -2000 ml Intake Oral 0 ml 840 ml 0 ml 40 ml Output Urine Total 0 ml Hemodialysis 2000 ml # Voids 1 1 0 # Bowel Movements 0 1 1 1 Result Diagram: 10/28/16 1850 10/28/16 0318 Objective Remarks GENERAL: This is a well-nourished, well-developed patient, in no apparent distress. SKIN: No rashes, warm and dry HEAD: Atraumatic. Normocephalic. EYES: Pupils equal round and reactive. Extraocular motions intact. No scleral icterus. ENT: Nose without bleeding, or drainage, Airway patent. NECK: Trachea midline. Supple CARDIOVASCULAR: Regular rate and rhythm without murmurs, gallops, or rubs. RESPIRATORY: Fair air entry bilaterally. No wheezes, rales, or rhonchi. GASTROINTESTINAL: Abdomen soft, non-tender, nondistended. Positive bowel sounds MUSCULOSKELETAL: Extremities without clubbing, cyanosis, or edema. Pedal pulses appreciated NEUROLOGICAL: Awake and alert. Moves all extremity. Normal speech.no focal neurological deficit A/P Assessment and Plan 10/29: Hemoglobin stable, continue current care, GI following for endoscopy A/P: Symptomatic Anemia. Acute on chronic. -Possibly GI bleed versus anemia of renal disease versus chronic inflammation from malignancy. Every 8 hour H&H. Hemoccult. -Transfused 2 units with hemodialysis. -GI following Chest pain. Acute on chronic. - One-week history of worsening left-sided chest pain. -Troponin negative. -Possibility of demand ischemia from anemia. -EKG nonspecific. Trending troponins, EKGs. -Transfuse. Monitor. Hypertension. Blood pressure acceptable. Continue home medications. Monitor. ESRD: On hemodialysis, renal consulted appreciated their consult GERD. Chronic. Continue PPI. Lung cancer. Chronic. Patient follows with Dr. Barker. No chemotherapy. Tobaccoism. Cessation counseling provided. Cessation strongly advised. Prophylaxis. SCDs. Avoid anticoagulation in the setting of anemia with possible GI bleed. Isidoro Olivera MD Oct 29, 2016 17:09
[2016-10-29] MEDS: TERAZOSIN HCL 5 MG CAP PO SCH (20:55)
[2016-10-29] MEDS: ATORVASTATIN 10 MG TAB PO SCH (20:55)
[2016-10-30] VITALS: BP 135/71; PULSE 90; RESP 18; TEMP 98; O2SAT 95
[2016-10-30] MEDS: ACETAMINOPHEN/HYDROcodone 325 MG/5 MG TAB PO PRN (02:37)
[2016-10-30] MEDS: LORazepam 1 MG TAB PO PRN ×2 (02:55→09:05)
[2016-10-30 04:00] VITALS: BP 140/70; PULSE 90; RESP 18; TEMP 98.2; O2SAT 97
[2016-10-30] MEDS: INSULIN ASPART SUPPLEMENTAL SCALE SQ SCH ×2 (06:14→12:12)
[2016-10-30 08:00] VITALS: BP 157/71; PULSE 90; RESP 18; TEMP 97.7; O2SAT 99
[2016-10-30 08:28] VITALS: O2SAT 98
[2016-10-30] MEDS: BUDESONIDE-FORMOTEROL 160/4.5 MCG INHALER INH SCH (08:53)
[2016-10-30] MEDS: cloNIDine HCL 0.2 MG TAB PO SCH ×2 (08:56→12:07)
[2016-10-30] MEDS: NIFEdipine 90 MG SUSTAINED RELEASE TAB PO SCH (08:56)
[2016-10-30] MEDS: DOCUSATE SODIUM 50 MG/SENNA 8.6 MG TAB PO SCH (08:56)
[2016-10-30] MEDS: METOPROLOL SUCCINATE 50 MG EXTENDED RELEASE TAB PO SCH (08:56)
[2016-10-30] MEDS: CALCIUM ACETATE 667 MG CAP PO SCH ×2 (08:56→12:07)
[2016-10-30] MEDS: PANTOPRAZOLE SOD 40 MG DELAYED RELEASE TAB PO SCH (08:56)
[2016-10-30] MEDS: CITALOPRAM HYDROBROMIDE 20 MG TAB PO SCH (08:57)
[2016-10-30] MEDS: SODIUM CHLORIDE 0.9% FLUSH 10 ML FLUSH IV FLUSH SCH (08:59)
--- NOTE | 2016-10-30 10:52 | HHI.NPPN ---
Subjective Complaints: Shortness of Breath General Problems: Anemia Renal Failure: Chronic, End Stage Renal Disease History of Present Illness 66 y/o AAF with PMH listed below and is quite extensive. She was short of breath therefore did not go to dialysis today, came to ER. She was found to be severely anemic at 6.8 (Hb). Typical TTS dialysis, she has not missed any treatments. Other PMH of lung cancer with radiation no chemotherapy. Additional Remarks Patient sitting on chair, feeling better, no SOB. Review of Systems General Constitutional: Fatigue Respiratory Lungs: SOB, Cough Cardiovascular Cardiac: HURTADO Objective Data Data 10/29/16 10/30/16 19:00 07:00 Intake Total 700 ml 600 ml Output Total 2000 ml Balance -1300 ml 600 ml Intake Oral 700 ml 600 ml IV Total 0 ml Hemodialysis 2000 ml # Voids 1 Vital Signs Date Time Temp Pulse Resp B/P Pulse Ox O2 Delivery O2 Flow Rate FiO2 10/30/16 08:28 98 Nasal Cannula 2.50 10/30/16 08:00 Nasal Cannula 3.00 10/30/16 08:00 97.7 90 18 157/71 99 10/30/16 04:00 98.2 90 18 140/70 97 10/30/16 00:00 98.0 90 18 135/71 95 10/29/16 20:00 98.2 90 17 143/70 99 10/29/16 20:00 Nasal Cannula 3.00 10/29/16 20:00 90 10/29/16 17:25 100 Nasal Cannula 2.50 10/29/16 16:00 98.4 97 18 164/78 100 10/29/16 13:32 98.4 97 18 167/81 100 -: 10/28/16 1850 10/28/16 0318 Physical Exam General Appearance: No Acute Distress, Comfortable, Anxious, Malnourished Throat Throat Exam: Oral Mucosa [place] & Moist Pulmonary Resp Exam: Breath Sounds Equal, No Distress Cardiology CV Exam: Regular, Normal Sinus Rhythm Gastrointestinal/Abdomen GI Exam: Soft, Non-Tender Musculoskeletal MS Exam: Joints Intact, Normal Gait Integumentary Skin Exam: Clear, Warm, Dry, Intact Extremeties Extremities Exam: No Edema Neurologic Neuro Exam: Alert, Awake, Oriented, Speech Clear Assessment/Plan Discussed Condition With: Patient Assessment Summary: Anemia of CKD, End Stage Renal Disease Problem List: (1) ESRD on hemodialysis Plan: BP is stable, not eating well, HD done yesterday and removed 2 liters. On Epogen with HD. Hgb stable post transfusion. (2) Anemia Plan: severely anemic, GI has been consulted given 2 units with dialysis today continue Epogen with dialysis check stool for occult blood follow Hb (3) DM (diabetes mellitus) Plan: continue insulin therapy goal 140-180 mg/dL. (4) Fluid overload Plan: discussed and advised fluid restriction UF as tolerated with dialysis (5) HTN (hypertension) Plan: BP acceptable, she is on clonidine, terazosin, nifedipine (6) Metabolic bone disease Plan: continue Calcium acetate Problem Qualifiers (1) DM (diabetes mellitus): Julio Cesar Dominguez MD Oct 30, 2016 10:52
[2016-10-30 12:00] VITALS: BP 136/67; PULSE 87; RESP 18; TEMP 98; O2SAT 98
[2016-10-30 13:31] LABS: HEMATOCRIT 27.2 % (35.0-46.0); REVIEW FLAG FINAL
--- NOTE | 2016-10-30 13:34 | HHI.DS ---
Discharge Summary Admission Date Oct 27, 2016 at 09:15 Discharge Date: Oct 30, 2016 Admitting Diagnosis fluid overload/dialysis/symptomatic anemia (1) Anemia ICD Code: D64.9 (2) Symptomatic anemia ICD Code: D64.9 Procedures none Brief History - From Admission 66-year-old female with a history of end-stage renal disease, on hemodialysis, lung cancer status post radiation, but not on chemotherapy, diabetes, recent admission for small bowel obstruction which resolved with NG tube, who presents with a one-week history of worsening generalized fatigue, as well as generalized weakness worse in bilateral legs. She reports chronic left-sided chest pressure/pain, which is worse over the past week, however with no exacerbating or relieving factors area; patient does have lung cancer with baseline chest pain. She denies any bleeding. Denies any abdominal pain. Reports chronic chills but no fevers. CBC/BMP: 10/28/16 1850 10/28/16 0318 Significant Findings Laboratory Tests Test 10/27/16 10/28/16 10/28/16 10/28/16 19:20 03:18 10:34 18:50 Hemoglobin 9.9 GM/DL 9.2 GM/DL 9.2 GM/DL 8.9 GM/DL (11.6-15.3) (11.6-15.3) (11.6-15.3) (11.6-15.3) Troponin I LESS THAN 0.02 NG/ML (0.02-0.05) Red Blood Count 2.98 MIL/MM3 (4.00-5.30) Hematocrit 26.5 % (35.0-46.0) Platelet Count 111 TH/MM3 (150-450) Neutrophils (%) (Auto) 71.1 % (16.0-70.0) Monocytes (%) (Auto) 9.5 % (0.0-8.0) Lymphocytes # (Auto) 0.8 TH/MM3 (1.0-4.8) Chloride Level 97 MEQ/L (98-107) Blood Urea Nitrogen 39 MG/DL (7-18) Creatinine 5.88 MG/DL (0.50-1.00) Estimat Glomerular Filtration 9 ML/MIN (>89) Rate Random Glucose 187 MG/DL (74-106) Total Bilirubin 1.2 MG/DL (0.2-1.0) Albumin 3.0 GM/DL (3.4-5.0) PE at Discharge GENERAL: This is a well-nourished, well-developed patient, in no apparent distress. SKIN: No rashes, warm and dry HEAD: Atraumatic. Normocephalic. EYES: Pupils equal round and reactive. Extraocular motions intact. No scleral icterus. ENT: Nose without bleeding, or drainage, Airway patent. NECK: Trachea midline. Supple CARDIOVASCULAR: Regular rate and rhythm without murmurs, gallops, or rubs. RESPIRATORY: Fair air entry bilaterally. No wheezes, rales, or rhonchi. GASTROINTESTINAL: Abdomen soft, non-tender, nondistended. Positive bowel sounds MUSCULOSKELETAL: Extremities without clubbing, cyanosis, or edema. Pedal pulses appreciated NEUROLOGICAL: Awake and alert. Moves all extremity. Normal speech.no focal neurological deficit Hospital Course 66 y/o F admitted for Symptomatic Anemia. mostly Acute on chronic. H&H Every 8 hour H&H. Hemoccult in the stool has been followed, GI consulted, hemoglobin has been stable around 8-9 After Transfused 2 units with hemodialysis. GI signed off on the recommended following up as an outpatient Pt Condition on Discharge: Fair Discharge Disposition: Discharge Home Discharge Time: <= 30 minutes Discharge Instructions DIET: Follow Instructions for: Heart Healthy Diet, Diabetic Diet Activities you can perform: Weight Bearing as Tim Continued Medications: Atorvastatin (Atorvastatin) 10 Mg Tab 10 MG PO HS Cholesterol Management #30 Ref 0 TAB Budesonide-Formoterol Inh (Symbicort Inh) 160-4.5 Mcg/Act Aero 2 PUFF INH Q12HR #1 Ref 0 INHALER Calcium Acetate (Phosphate Binder) (Phoslo) 667 Mg Cap 667 MG PO TID Hyperphosphatemia #90 Ref 0 CAP Cholecalciferol (Vitamin D) 5,000 Unit Tab Citalopram (Citalopram) 10 Mg Tab 10 MG PO DAILY Control Depression #30 Ref 0 TAB Clonidine (Clonidine) 0.2 Mg Tab 0.2 MG PO TID Blood Pressure Management #60 Ref 0 TAB Hydrocodone-Acetaminophen (Hydrocodone-Acetaminophen) 5-325 mg Tab 1 TAB PO Q6H PRN PAIN #12 Ref 0 TAB Insulin Aspart Inj (Novolog Inj) 1,000 Unit/10 Ml Vial 0 SQ DIRECTED Sliding Scale as directed. Blood Sugar Management #10 Ref 0 ML Lorazepam (Ativan) 1 Mg Tab 1 MG PO Q6H PRN ANXIETY AND/OR AGITATION #10 Ref 0 TAB Metoprolol Succinate ER 24 HR (Metoprolol Succinate ER 24 HR) 50 Mg Tab 50 MG PO DAILY #30 Ref 0 TAB Nifedipine (Nifedipine ER) 90 Mg Tab 60 TAB PO BID Ondansetron (Zofran) 8 Mg Tab 8 MG PO TID PRN NAUSEA OR VOMITING Ref 0 TAB Sennosides-Docusate Sodium (Sybil-Colace) 8.6-50 Mg Tab 1 TAB PO BID PRN Constipation #60 Ref 0 TAB Sitagliptin (Januvia) 50 Mg Tab 50 MG PO DAILY Blood Sugar Management #30 Ref 0 TAB Terazosin (Terazosin) 5 Mg Cap 5 MG PO HS #30 Ref 0 CAP Isidoro Olivera MD Oct 30, 2016 13:34
== END 2016-10-30 14:54 | disposition home or self-care (01) | DRG 640 ==
LOC: PHED 06:35 → PHEDA 09:11 → OBSVTOIN 09:15 → N04A 11:03
PROVIDERS: ADMIT Hospitalist; ATTEND Hospitalist
PROC: 5A1D60Z (ICD-10-PCS; principal; 2016-10-27)
PROC: 30233N1 Transfusion of Nonautologous Red Blood Cells into Peripheral Vein, Percutaneous Approach (ICD-10-PCS; 2016-10-27)
DX: E87.70 Fluid overload, unspecified (principal); N18.6 End stage renal disease; I12.0 Hypertensive chronic kidney disease with stage 5 chronic kidney disease or end stage renal disease; I24.8 Other forms of acute ischemic heart disease; E11.22 Type 2 diabetes mellitus with diabetic chronic kidney disease; C34.90 Malignant neoplasm of unspecified part of unspecified bronchus or lung; Z99.2 Dependence on renal dialysis; E78.5 Hyperlipidemia, unspecified; Z92.21 Personal history of antineoplastic chemotherapy; E03.9 Hypothyroidism, unspecified; K21.9 Gastro-esophageal reflux disease without esophagitis; M19.90 Unspecified osteoarthritis, unspecified site; Z85.41 Personal history of malignant neoplasm of cervix uteri; Z92.3 Personal history of irradiation; F17.210 Nicotine dependence, cigarettes, uncomplicated; Z88.0 Allergy status to penicillin; Z79.84 Long term (current) use of oral hypoglycemic drugs; Z79.4 Long term (current) use of insulin; N25.0 Renal osteodystrophy; D63.1 Anemia in chronic kidney disease; Z86.010 Personal history of colon polyps
CPT/HCPCS: 36430; 71010; 80053; 82550; 82728; 82948; 83540; 83550; 83735; 83880; 84484; 85014; 85018; 85025; 85610; 86850; 86900; 86901; 86920; 90935; 93005; 94664; 96374; J1815; P9016; Q4081

== ENCOUNTER 2016-11-15 12:41 | Inpatient (IN) | payer MEDICARE, BC, MEDICAID ==
[~2016-11-15] VITALS: Ht 175.3 cm; Wt 59.0 kg
[~2016-11-15 12:41] MED LIST changes: -PRIL20CA9 PO
[2016-11-15 12:42] VITALS: BP 194/92; PULSE 84; RESP 18; TEMP 98.1; O2SAT 93
--- NOTE | 2016-11-15 12:51 | PD ---
Physical Exam Date Seen by Provider: Nov 15, 2016 Time Seen by Provider: 12:49 Data Data Last Documented VS Vital Signs Date Time Temp Pulse Resp B/P Pulse Ox O2 Delivery O2 Flow Rate FiO2 11/15/16 12:42 98.1 84 18 194/92 93 MDM Supervised Visit with TRIP: No Narrative Course 66 YO F with complaint of SOB x [address] Guerrero, who sent her. History left sided lung cancer. On dialysis. Diabetic. Vitals reviewed. Patient seen in triage, awaiting bed placement. Suyapa Munoz Nov 15, 2016 12:51
[2016-11-15] MEDS ORDERED: SODIUM CHLORIDE 0.9% FLUSH 10 ML FLUSH IVF PRN (14:15)
[2016-11-15] MEDS ORDERED: cloNIDine HCL 0.1 MG TAB PO ONE (14:15)
--- NOTE | 2016-11-15 14:52 | PD ---
HPI Chief Complaint: Respiratory Symptoms Time Seen by Provider: 13:59 Travel History International Travel<30 days: No Contact w/Intl Traveler<30days: No Traveled to known affect area: No History of Present Illness HPI 66-year-old female presents with shortness of breath and general ill feeling over the past couple of days. She states she had dialysis this morning and they took out 3 L. She states that she then went to Dr. Guerrero's office afterwards that she wanted to get checked out and there her oxygen level was low so they advised her to come to the emergency department. She states that her oxygen level was about 86. She states that she doesn't have any home oxygen. She states she recently was in the hospital and had to have a blood transfusion. She states that she does have also lung cancer but hasn't had chemotherapy since the beginning of this year and is not due again until January. She denies any other specific complaints other than feeling weak and short of breath. She feels worse when she moves around. She denies other modifying factors. PFSH Past Medical History Heart Rhythm Problems: Yes (PAPITATIONS, PT REPORTS OCC TACHY) Cancer: Yes (lung) Cardiovascular Problems: Yes (htn) High Cholesterol: Yes Chemotherapy: Yes (lung cancer) Chest Pain: Yes Congestive Heart Failure: No COPD: Yes Diabetes: Yes Patient Takes Glucophage: No Dialysis: Yes () Diminished Hearing: No Endocrine: Yes Gastrointestinal Disorders: Yes GERD: Yes Genitourinary: Yes Hepatitis: No Hiatal Hernia: No Hypertension: Yes Immune Disorder: No Medical other: Yes (CURRENTLY ON CHEMO AND RADIATION) Musculoskeletal: Yes (OSTEOARTHRITIS) Neurologic: No Psychiatric: No Reproductive: Yes (CERVICAL CANCER 2006) Respiratory: Yes (lung ca) Immunizations Current: Yes Radiation Therapy: Yes Renal Failure: Yes Thyroid Disease: Yes (GOITER REMOVED 2006) Menopausal: Yes : 0 Past Surgical History Abdominal Surgery: Yes (PEG TUBE PLACEMENT 01-13-) AICD: No Endocrine Surgery: Yes (THYROIDECTOMY FOR GOITER 2010) Gynecologic Surgery: Yes (PARTIAL HYSTERECTOMY 1980, SALPINGOOOPHORECTOMY 1994) Hysterectomy: Yes Joint Replacement: No Pacemaker: No Other Surgery: Yes Social History Alcohol Use: No Tobacco Use: Yes (1 PPD) Substance Use: No Allergies-Medications (Allergen,Severity, Reaction): Coded Allergies: Penicillin (Verified Allergy, Intermediate, UNKNOWN, 11/15/16) Reported Meds & Prescriptions Reported Meds & Active Scripts Active Calcium Acetate (Calcium Acetate (Phosphate Bin) 667 Mg Cap 1,334 Mg PO TID Hydrocodone-Acetaminophen 5-325 mg Tab 1 Tab PO Q6H PRN Ativan (Lorazepam) 1 Mg Tab 1 Mg PO Q6H PRN Reported Zofran (Ondansetron HCl) 8 Mg Tab 8 Mg PO TID PRN Nifedipine ER (Nifedipine) 90 Mg Tab 60 Tab PO BID Metoprolol Succinate ER 24 HR (Metoprolol Succinate) 50 Mg Tab 50 Mg PO DAILY Phoslo (Calcium Acetate (Phosphate Binder)) 667 Mg Cap 667 Mg PO TID Sybil-Colace (Sennosides-Docusate Sodium) 8.6-50 Mg Tab 1 Tab PO BID PRN Terazosin (Terazosin HCl) 5 Mg Cap 5 Mg PO HS Symbicort Inh (Budesonide/Formoterol Fumarate) 160-4.5 Mcg/Act Aero 2 Puff INH Q12HR Januvia (Sitagliptin Phosphate) 50 Mg Tab 50 Mg PO DAILY Clonidine (Clonidine HCl) 0.2 Mg Tab 0.2 Mg PO TID Vitamin D (Cholecalciferol) 5,000 Unit Tab Citalopram (Citalopram Hydrobromide) 10 Mg Tab 10 Mg PO DAILY Atorvastatin (Atorvastatin Calcium) 10 Mg Tab 10 Mg PO HS Novolog Inj (Insulin Aspart) 1,000 Unit/10 Ml Vial 0 SQ DIRECTED Sliding Scale as directed. Review of Systems Except as stated in HPI: all other systems reviewed are Neg Physical Exam Narrative GENERAL: Pleasant Well-nourished, well-developed patient. SKIN: Warm and dry. HEAD: Normocephalic and atraumatic. EYES: No injection or drainage. ENT: No nasal drainage noted. NECK: Supple, trachea midline. CARDIOVASCULAR: Regular rate and rhythm RESPIRATORY: Breath sounds equal bilaterally at apices. No accessory muscle use. GASTROINTESTINAL: Abdomen soft, non-tender, nondistended. NEUROLOGICAL: Awake and alert. Moves all extremities. Normal speech. Data Data Last Documented VS Vital Signs Date Time Temp Pulse Resp B/P Pulse Ox O2 Delivery O2 Flow Rate FiO2 11/15/16 15:30 94 Nasal Cannula 2 11/15/16 12:42 98.1 84 18 194/92 Orders Complete Blood Count With Diff (11/15/16 14:07) Comprehensive Metabolic Panel (11/15/16 14:07) B-Type Natriuretic Peptide (11/15/16 14:07) Act Partial Throm Time (Ptt) (11/15/16 14:07) Prothrombin Time / Inr (Pt) (11/15/16 14:07) Magnesium (Mg) (11/15/16 14:07) Ckmb (Isoenzyme) Profile (11/15/16 14:07) Troponin I (11/15/16 14:07) Iv Access Insert/Monitor (11/15/16 14:07) Electrocardiogram (11/15/16 14:07) Ecg Monitoring (11/15/16 14:07) Oximetry (11/15/16 14:07) Oxygen Administration (11/15/16 14:07) Chest, Single Ap (11/15/16 14:07) Sodium Chloride 0.9% Flush (Ns Flush) (11/15/16 14:15) Clonidine (Catapres) (11/15/16 14:15) Red Blood Cells (Rbc) (11/15/16 15:58) Type And Screen (11/15/16 15:58) Consult Nephrology (11/15/16 ) Admit Order (Ed Use Only) (11/15/16 16:11) Diet Renal (11/15/16 Dinner) Vital Signs (Adult) CYRUS.Q4H (11/15/16 16:11) Resp Oxygen Jesse C Titrat 1-4 L (11/15/16 ) Labs Laboratory Tests Test 11/15/16 14:48 White Blood Count 6.6 TH/MM3 Red Blood Count 2.68 MIL/MM3 Hemoglobin 8.0 GM/DL Hematocrit 23.9 % Mean Corpuscular Volume 89.2 FL Mean Corpuscular Hemoglobin 29.9 PG Mean Corpuscular Hemoglobin 33.5 % Concent Red Cell Distribution Width 17.7 % Mean Platelet Volume 8.6 FL Neutrophils (%) (Auto) % Lymphocytes (%) (Auto) % Monocytes (%) (Auto) % Eosinophils (%) (Auto) % Basophils (%) (Auto) % Neutrophils # (Auto) TH/MM3 Lymphocytes # (Auto) TH/MM3 Monocytes # (Auto) TH/MM3 Eosinophils # (Auto) TH/MM3 Basophils # (Auto) TH/MM3 CBC Comment AUTO DIFF Prothrombin Time 11.4 SEC Prothromb Time International 1.0 RATIO Ratio Activated Partial 27.5 SEC Thromboplast Time Sodium Level 139 MEQ/L Potassium Level 4.2 MEQ/L Chloride Level 102 MEQ/L Carbon Dioxide Level 26.4 MEQ/L Anion Gap 11 MEQ/L Blood Urea Nitrogen 26 MG/DL Creatinine 5.34 MG/DL Estimat Glomerular Filtration 10 ML/MIN Rate Random Glucose 112 MG/DL Calcium Level 8.7 MG/DL Magnesium Level 1.7 MG/DL Total Bilirubin 0.6 MG/DL Aspartate Amino Transf 83 U/L (AST/SGOT) Alanine Aminotransferase 74 U/L (ALT/SGPT) Alkaline Phosphatase 92 U/L Total Creatine Kinase 77 U/L Troponin I 0.02 NG/ML B-Type Natriuretic Peptide 2032 PG/ML Total Protein 7.8 GM/DL Albumin 3.5 GM/DL MDM Medical Decision Making Medical Screen Exam Complete: Yes Emergency Medical Condition: Yes Medical Record Reviewed: Yes (past history confirm, recent hospitalization reviewed) Interpretation(s) CBC & BMP Diagram 11/15/16 14:48 Last 24 hours Impressions Chest X-Ray 11/15/16 1407 Signed Impressions: Service Date/Time: Tuesday, November 15, 2016 14:07 - CONCLUSION: 1. Cardiomegaly with pulmonary vascular congestion. 2. Small bilateral pleural effusions with associated lower lobe airspace disease, likely atelectasis. Yovani Johnson MD Differential Diagnosis Anemia, SC, pleural effusion, pneumonia, PE, electrolyte abnormality Narrative Course Will check blood work, chest x-ray, EKG and dose with home clonidine and reevaluate ED workup with anemia and excess fluid on x-ray. Patient will be admitted to the hospital and will discuss with her binding printer. Physician Communication Physician Communication dr allen agrees to admit dr torres will follow Diagnosis Primary Impression: Anemia Qualified Code: N18.6 - Anemia in chronic kidney disease, on chronic dialysis Additional Impressions: ESRD (end stage renal disease) Respiratory distress Fluid overload Qualified Code: E87.70 - Hypervolemia, unspecified hypervolemia type Admitting Information Admitting Physician Requests: Admit Jennifer Holloway MD Nov 15, 2016 14:52
--- NOTE | 2016-11-15 14:54 | RADRPT ---
EXAM DATE/TIME: 11/15/2016 14:07 [facility] COMPARISON: CHEST SINGLE AP, October 27, 2016, 7:04. INDICATIONS : Chest pain and shortness of breath. MEDICAL HISTORY : Carcinoma, lung. Radiation and chemo. Left lung cancer. SURGICAL HISTORY : Hysterectomy. ENCOUNTER: Initial ACUITY: 1 day PAIN SCORE: 9/10 LOCATION: Bilateral chest FINDINGS: There are small bilateral pleural effusions with associated lower lobe airspace disease. Diffuse mild interstitial prominence. Cardiac silhouette is enlarged. Pulmonary vascularity is indistinct. The ex am is unchanged. CONCLUSION: 1. Cardiomegaly with pulmonary vascular congestion. 2. Small bilateral pleural effusions with associated lower lobe airspace disease, likely atelectasis. Yovani Johnson MD on November 15, 2016 at 14:51 Board Certified Radiologist. This report was verified electronically.
[2016-11-15 15:01] LABS: HEMATOCRIT 23.9 % (35.0-46.0); MEAN CELL VOLUME 89.2 FL (80.0-100.0); MEAN CORPUSCULAR HEMOGLOBIN 29.9 PG (27.0-34.0); MEAN CORPUSCULAR HGB CONC 33.5 % (32.0-36.0); RED BLOOD COUNT 2.68 MIL/MM3 (4.00-5.30); RED CELL DISTRIBUTION WIDTH 17.7 % (11.6-17.2); WHITE BLOOD COUNT 6.6 TH/MM3 (4.0-11.0)
[2016-11-15 15:12] LABS: APTT (PATIENT) 27.5 SEC (24.3-30.1); HEMO FLAGS AUTO DIFF; PROTHROMBIN TIME - PATIENT 11.4 SEC (9.8-11.6)
[2016-11-15 15:21] LABS: ALT (GPT) 74 U/L (10-53); ANION GAP 11 MEQ/L (5-15); AST (GOT) 83 U/L (15-37); BICARBONATE 26.4 MEQ/L (21.0-32.0); BLOOD UREA NITROGEN 26 MG/DL (7-18); CHLORIDE 102 MEQ/L (98-107); GLOMERULAR FILTRATION RATE 10 ML/MIN (>89); MAGNESIUM 1.7 MG/DL (1.5-2.5); POTASSIUM 4.2 MEQ/L (3.5-5.1); SODIUM (NA) 139 MEQ/L (136-145)
[2016-11-15 15:25] LABS: ALKALINE PHOSPHATASE 92 U/L (45-117); TOTAL BILIRUBIN ADULT 0.6 MG/DL (0.2-1.0)
[2016-11-15 15:29] LABS: CREATINE KINASE 77 U/L (26-192)
[2016-11-15] MEDS ORDERED: SODIUM CHLOR 0.9% 1000 ML INJ 1,000 ML IV PRN ×3 (16:14)
[2016-11-15] MEDS ORDERED: ONDANSETRON HCL 4 MG/2 ML VIAL IV PRN (16:15)
[2016-11-15] MEDS ORDERED: HEPARIN SODIUM - IV 10,000 UNITS/10 ML VIAL PRN (16:15)
[2016-11-15] MEDS ORDERED: MANNITOL 12.5 GM/50 ML VIAL IV PRN (16:15)
[2016-11-15] MEDS ORDERED: diphenhydrAMINE HCL 25 MG CAP PO PRN (16:15)
[2016-11-15] MEDS ORDERED: ALBUMIN HUMAN 25% 25 GM/100 ML BAGP IV PRN (16:15)
[2016-11-15] MEDS ORDERED: cloNIDine HCL 0.1 MG TAB PO PRN ×2 (16:15→17:00)
[2016-11-15] MEDS ORDERED: SODIUM CHLORIDE 0.9% FLUSH 10 ML FLUSH IV FLUSH PRN (16:15)
[2016-11-15] MEDS ORDERED: GENTAMICIN SULFATE (DIALYSIS USE ONLY) 20 MG/2 ML VIAL IV PRN (16:15)
[2016-11-15] MEDS ORDERED: NITROGLYCERIN 0.4 MG SL 25 TABS/BTL SL PRN (16:15)
[2016-11-15] MEDS ORDERED: HEPARIN SODIUM - IV 10,000 UNITS/10 ML VIAL IVF PRN (16:15)
[2016-11-15] MEDS ORDERED: ACETAMINOPHEN 325 MG TAB PO PRN ×2 (16:15→17:00)
--- NOTE | 2016-11-15 16:27 | PD.CONS ---
HPI Service Nephrology Consult Requested By Dr. Holloway Reason for Consult End-stage renal disease Primary Care Physician Trini Naranjo MD History of Present Illness 66-year-old female with history of end-stage renal disease on hemodialysis she was at dialysis center today and cut short her treatment 1 hour and 8 minutes was left as she had some shortness of breath the patient has 2.8 L of fluid removed She is in now with increasing shortness of breath chest x-ray showed pulmonary edema she is stable on oxygen Review of Systems Constitutional: COMPLAINS OF: Fatigue Respiratory: COMPLAINS OF: Shortness of breath Cardiovascular: COMPLAINS OF: Lower Extremity Edema Past Family Social History Allergies: Coded Allergies: Penicillin (Verified Allergy, Intermediate, UNKNOWN, 11/15/16) Past Medical History End-stage renal disease Congestive heart failure COPD Diabetes Lung cancer Cervical cancer Past Surgical History Post hysterectomy Salpingo-oophorectomy AV fistula Thyroidectomy Reported Medications Reported Meds & Active Scripts Active Calcium Acetate (Calcium Acetate (Phosphate Bin) 667 Mg Cap 1,334 Mg PO TID Hydrocodone-Acetaminophen 5-325 mg Tab 1 Tab PO Q6H PRN Ativan (Lorazepam) 1 Mg Tab 1 Mg PO Q6H PRN Reported Zofran (Ondansetron HCl) 8 Mg Tab 8 Mg PO TID PRN Nifedipine ER (Nifedipine) 90 Mg Tab 60 Tab PO BID Metoprolol Succinate ER 24 HR (Metoprolol Succinate) 50 Mg Tab 50 Mg PO DAILY Phoslo (Calcium Acetate (Phosphate Binder)) 667 Mg Cap 667 Mg PO TID Sybil-Colace (Sennosides-Docusate Sodium) 8.6-50 Mg Tab 1 Tab PO BID PRN Terazosin (Terazosin HCl) 5 Mg Cap 5 Mg PO HS Symbicort Inh (Budesonide/Formoterol Fumarate) 160-4.5 Mcg/Act Aero 2 Puff INH Q12HR Januvia (Sitagliptin Phosphate) 50 Mg Tab 50 Mg PO DAILY Clonidine (Clonidine HCl) 0.2 Mg Tab 0.2 Mg PO TID Vitamin D (Cholecalciferol) 5,000 Unit Tab Citalopram (Citalopram Hydrobromide) 10 Mg Tab 10 Mg PO DAILY Atorvastatin (Atorvastatin Calcium) 10 Mg Tab 10 Mg PO HS Novolog Inj (Insulin Aspart) 1,000 Unit/10 Ml Vial 0 SQ DIRECTED Sliding Scale as directed. Active Ordered Medications Current Medications Medications (Trade) Dose Ordered Sig/Hero Route Start Time Stop Time Status Last Admin (NS Flush) 2 ml UNSCH PRN IVF 11/15/16 14:15 Family History Noncontributory Social History History of smoking Physical Exam Vital Signs Vital Signs Date Time Temp Pulse Resp B/P Pulse Ox O2 Delivery O2 Flow Rate FiO2 11/15/16 13:54 94 Nasal Cannula 2 11/15/16 12:42 98.1 84 18 194/92 93 Physical Exam GENERAL: Well-nourished, well-developed patient. SKIN: Warm and dry. HEAD: Normocephalic. EYES: No scleral icterus. No injection or drainage. NECK: Supple, trachea midline. No JVD or lymphadenopathy. CARDIOVASCULAR: Regular rate and rhythm without murmurs, gallops, or rubs. RESPIRATORY: Breath sounds diminished at bases GASTROINTESTINAL: Abdomen soft, non-tender, nondistended. EXTREMITIES: No cyanosis, or edema. NEUROLOGICAL: Awake, alert, and oriented x 3. Non-focal. Laboratory Laboratory Tests Test 11/15/16 14:48 White Blood Count 6.6 Red Blood Count 2.68 Hemoglobin 8.0 Hematocrit 23.9 Mean Corpuscular Volume 89.2 Mean Corpuscular Hemoglobin 29.9 Mean Corpuscular Hemoglobin 33.5 Concent Red Cell Distribution Width 17.7 Mean Platelet Volume 8.6 Neutrophils (%) (Auto) Lymphocytes (%) (Auto) Monocytes (%) (Auto) Eosinophils (%) (Auto) Basophils (%) (Auto) Neutrophils # (Auto) Lymphocytes # (Auto) Monocytes # (Auto) Eosinophils # (Auto) Basophils # (Auto) CBC Comment AUTO DIFF Prothrombin Time 11.4 Prothromb Time International 1.0 Ratio Activated Partial 27.5 Thromboplast Time Sodium Level 139 Potassium Level 4.2 Chloride Level 102 Carbon Dioxide Level 26.4 Anion Gap 11 Blood Urea Nitrogen 26 Creatinine 5.34 Estimat Glomerular Filtration 10 Rate Random Glucose 112 Calcium Level 8.7 Magnesium Level 1.7 Total Bilirubin 0.6 Aspartate Amino Transf 83 (AST/SGOT) Alanine Aminotransferase 74 (ALT/SGPT) Alkaline Phosphatase 92 Total Creatine Kinase 77 Troponin I 0.02 B-Type Natriuretic Peptide 2032 Total Protein 7.8 Albumin 3.5 Result Diagram: 11/15/16 1448 11/15/16 1448 Imaging Last Impressions Chest X-Ray 11/15/16 1407 Signed Impressions: Service Date/Time: Tuesday, November 15, 2016 14:07 - CONCLUSION: 1. Cardiomegaly with pulmonary vascular congestion. 2. Small bilateral pleural effusions with associated lower lobe airspace disease, likely atelectasis. Yovani Johnson MD Assessment and Plan Problem List: (1) ESRD (end stage renal disease) Plan: Dialysis to be continued in the hospital, due to pukmonary edema, follow her hemoglobin. (2) DM (diabetes mellitus) Plan: Monitor Her blood glucose (3) HTN (hypertension) Plan: Monitor blood pressure (4) Fluid overload Plan: Monitor respiratory status Problem Qualifiers (1) Fluid overload: Qualified Code: E87.70 - Hypervolemia, unspecified hypervolemia type Юлия Elizabeth MD Nov 15, 2016 16:26
--- NOTE | 2016-11-15 16:50 | HHI.HP ---
[facility]ician Trini Naranjo MD Admission Diagnosis anemia, fluid overload Diagnoses: (1) Fluid overload Diagnosis: Principal (2) Anemia Diagnosis: Principal Chief Complaint: sob Travel History International Travel<30 Days: No Contact w/Intl Traveler <30 Da: No Traveled to Known Affected Are: No History of Present Illness patient is a 66 y/o female with ESRD- on HD , hypertension, diabetes mellitus, lung cancer who presented to ER with sob. she says that she had her HD earlier today. she was seen by her physician this morning and when she was found to have low oxygen level she was advised to come to ER. she reports productive cough of whitish sputum with no fever or chills. she denies any rectal bleed or dark, black stools. she's complaining of mild nausea but with no emesis. Review of Systems Constitutional: DENIES: Fever, Weight loss, Chills, Night Sweats Eyes: DENIES: Blurred vision, Diplopia, Vision loss, Double Vision Ears, nose, mouth, throat: DENIES: Tinnitus, Vertigo, Throat pain, Epistaxis Respiratory: COMPLAINS OF: Cough, Sputum production, Shortness of breath, DENIES: Apneas, Snoring, Wheezing, Hemoptysis Cardiovascular: DENIES: Chest pain, Palpitations, Syncope, Dyspnea on Exertion , PND, Lower Extremity Edema, Orthopnea, Claudication Gastrointestinal: COMPLAINS OF: Nausea, DENIES: Abdominal pain, Black stools, Bloody stools, Constipation, Diarrhea, Vomiting, Difficulty Swallowing, Anorexia Genitourinary: DENIES: Urinary frequency, Urgency, Hematuria, Dysuria Musculoskeletal: DENIES: Joint pain, Muscle aches, Stiffness, Joint Swelling Integumentary: DENIES: Rash Neurologic: DENIES: Abnormal gait, Headache, Localized weakness, Paresthesias, Seizures, Speech Problems, Tremor, Poor Balance Psychiatric: DENIES: Anxiety, Confusion, Mood changes, Depression, Hallucinations, Agitation, Suicidal Ideation, Homicidal Ideation, Delusions Past Family Social History Past Medical History ESRD hypertension diabetes mellitus Past Surgical History hysterectomy thyroidectomy PEG placement Reported Medications Calcium Acetate (Calcium Acetate (Phosphate Bin) 667 Mg Cap 1,334 Mg PO TID Hydrocodone-Acetaminophen 5-325 mg Tab 1 Tab PO Q6H PRN Ativan (Lorazepam) 1 Mg Tab 1 Mg PO Q6H PRN Reported Zofran (Ondansetron HCl) 8 Mg Tab 8 Mg PO TID PRN Nifedipine ER (Nifedipine) 90 Mg Tab 60 Tab PO BID Metoprolol Succinate ER 24 HR (Metoprolol Succinate) 50 Mg Tab 50 Mg PO DAILY Phoslo (Calcium Acetate (Phosphate Binder)) 667 Mg Cap 667 Mg PO TID Sybil-Colace (Sennosides-Docusate Sodium) 8.6-50 Mg Tab 1 Tab PO BID PRN Terazosin (Terazosin HCl) 5 Mg Cap 5 Mg PO HS Symbicort Inh (Budesonide/Formoterol Fumarate) 160-4.5 Mcg/Act Aero 2 Puff INH Q12HR Januvia (Sitagliptin Phosphate) 50 Mg Tab 50 Mg PO DAILY Clonidine (Clonidine HCl) 0.2 Mg Tab 0.2 Mg PO TID Vitamin D (Cholecalciferol) 5,000 Unit Tab Citalopram (Citalopram Hydrobromide) 10 Mg Tab 10 Mg PO DAILY Atorvastatin (Atorvastatin Calcium) 10 Mg Tab 10 Mg PO HS Novolog Inj (Insulin Aspart) 1,000 Unit/10 Ml Vial 0 SQ DIRECTED Sliding Scale as directed. Allergies: Coded Allergies: Penicillin (Verified Allergy, Intermediate, UNKNOWN, 11/15/16) Active Ordered Medications Current Medications Sodium Chloride (NS Flush) 2 ml UNSCH PRN IVF FLUSH AFTER USING IV ACCESS; Start 11/15/16 at 14:15 Clonidine 0.1 mg 0.1 mg ONCE ONCE PO Last administered on 11/15/16t 14:56; Start 11/15/16 at 14:15; Stop 11/15/16 at 14:16; Status DC Sodium Chloride (NS 1000 ml Inj) 1,000 ml @ 0 mls/hr Q0M PRN IV For Prime & Rinse Back; Start 11/15/16 at 16:14 Heparin Sodium (Porcine) 8000 units 8,000 units UNSCH PRN IVF WITH DIALYSIS; Start 11/15/16 at 16:15 Sodium Chloride 1,000 ml @ 200 mls/hr Q5H PRN IV WITH DIALYSIS; Start 11/15/16 at 16:14 Sodium Chloride (NS 1000 ml Inj) 1,000 ml @ 0 mls/hr Q0M PRN IV WITH DIALYSIS; Start 11/15/16 at 16:14 Mannitol (Mannitol Inj) 12.5 gm UNSCH PRN IV WITH DIALYSIS; Start 11/15/16 at 16:15 Albumin Human (Albumin 25% Inj) 25 gm UNSCH PRN IV WITH DIALYSIS; Start at 16:15 Sodium Chloride (NS Flush) 5 ml UNSCH PRN IV FLUSH WITH DIALYSIS; Start at 16:15 Heparin Sodium (Porcine) (Heparin Inj) UNSCH PRN .XX WITH DIALYSIS; Start at 16:15 Gentamicin Sulfate (Gentamicin (Dialysis) Inj) 20 mg UNSCH PRN IV WITH DIALYSIS ; Start 11/15/16 at 16:15 Ondansetron HCl (Zofran Inj) 4 mg UNSCH PRN IV WITH DIALYSIS; Start 11/15/16 at 16:15 Acetaminophen (Tylenol) 650 mg UNSCH PRN PO for headach, pain, temp > 101F; Start 11/15/16 at 16:15 Diphenhydramine HCl (Benadryl) 25 mg UNSCH PRN PO for hives/itching/anaphylaxis ; Start 11/15/16 at 16:15 Nitroglycerin (Nitrostat Sl) 0.4 mg UNSCH PRN SL CHEST PAIN; Start 11/15/16 at 16:15 Clonidine (Catapres) 0.1 mg UNSCH PRN PO for BP > 180/100 X 2 readings; Start 11/15/16 at 16:15 Epoetin Julian (Epogen Inj) 10,000 units UNSCH PRN IV WITH DIALYSIS; Start at 16:15 Gelatin (Gelfoam 12 Mm/7 Mm Top) 1 foam UNSCH PRN TOP SEE LABEL COMMENTS; Start 11/15/16 at 16:15 Family History kidney disease in her mother. Social History smokes and drinks. Physical Exam Vital Signs Vital Signs Date Time Temp Pulse Resp B/P Pulse Ox O2 Delivery O2 Flow Rate FiO2 11/15/16 15:30 94 Nasal Cannula 2 11/15/16 13:54 94 Nasal Cannula 2 11/15/16 12:42 98.1 84 18 194/92 93 Physical Exam GENERAL: with mild sob SKIN: No rashes, ecchymoses or lesions. Cool and dry. HEAD: Atraumatic. Normocephalic. No temporal or scalp tenderness. EYES: Pupils equal round and reactive. Extraocular motions intact. No scleral icterus. No injection or drainage. ENT: Nose without bleeding, purulent drainage or septal hematoma. Throat without erythema, tonsillar hypertrophy or exudate. Uvula midline. Airway patent. NECK: Trachea midline. No JVD or lymphadenopathy. Supple, nontender, no meningeal signs. CARDIOVASCULAR: Regular rate and rhythm without murmurs, gallops, or rubs. RESPIRATORY: bilateral crackles and wheezing GASTROINTESTINAL: Abdomen soft, non-tender, nondistended. No hepato-splenomegaly , or palpable masses. No guarding. MUSCULOSKELETAL: Extremities without clubbing, cyanosis, or edema. No joint tenderness, effusion, or edema noted. No calf tenderness. Negative Homans sign bilaterally. NEUROLOGICAL: Awake and alert. Cranial nerves II through XII intact. Motor and sensory grossly within normal limits. Five out of 5 muscle strength in all muscle groups. Normal speech. Laboratory Laboratory Tests Test 11/15/16 14:48 White Blood Count 6.6 Red Blood Count 2.68 Hemoglobin 8.0 Hematocrit 23.9 Mean Corpuscular Volume 89.2 Mean Corpuscular Hemoglobin 29.9 Mean Corpuscular Hemoglobin 33.5 Concent Red Cell Distribution Width 17.7 Mean Platelet Volume 8.6 Neutrophils (%) (Auto) Lymphocytes (%) (Auto) Monocytes (%) (Auto) Eosinophils (%) (Auto) Basophils (%) (Auto) Neutrophils # (Auto) Lymphocytes # (Auto) Monocytes # (Auto) Eosinophils # (Auto) Basophils # (Auto) CBC Comment AUTO DIFF Prothrombin Time 11.4 Prothromb Time International 1.0 Ratio Activated Partial 27.5 Thromboplast Time Sodium Level 139 Potassium Level 4.2 Chloride Level 102 Carbon Dioxide Level 26.4 Anion Gap 11 Blood Urea Nitrogen 26 Creatinine 5.34 Estimat Glomerular Filtration 10 Rate Random Glucose 112 Calcium Level 8.7 Magnesium Level 1.7 Total Bilirubin 0.6 Aspartate Amino Transf 83 (AST/SGOT) Alanine Aminotransferase 74 (ALT/SGPT) Alkaline Phosphatase 92 Total Creatine Kinase 77 Troponin I 0.02 B-Type Natriuretic Peptide 2032 Total Protein 7.8 Albumin 3.5 Result Diagram: 11/15/16 1448 11/15/16 1448 Imaging Last Impressions Chest X-Ray 11/15/16 1407 Signed Impressions: Service Date/Time: Tuesday, November 15, 2016 14:07 - CONCLUSION: 1. Cardiomegaly with pulmonary vascular congestion. 2. Small bilateral pleural effusions with associated lower lobe airspace disease, likely atelectasis. Yovani Johnson MD Assessment and Plan Assessment and Plan A/P - ESRD- on HD with fluid overload nephrology consulted; HD per nephrology- continue with oxygen and neb treatment as needed. -hypertension; resume home meds will monitor BP and adjust the regimen as needed. -anemia of chronic disease- will monitor for now evaluated by GI recent admission- -diabetes mellitus; accu-check with SSI -dyslipidemia; resume statin -DVT prophylaxis with SCD's Discussed Condition With ER physician and the patient. Physician Certification 2 Midnight Certification Type: Admission for Inpatient Services Order for Inpatient Services The services are ordered in accordance with Medicare regulations or non- Medicare payer requirements, as applicable. In the case of services not specified as inpatient-only, they are appropriately provided as inpatient services in accordance with the 2-midnight benchmark. Estimated LOS (days): 2 days is the estimated time the patient will need to remain in the hospital, assuming treatment plan goals are met and no additional complications. Post-Hospital Plan: Not yet determined Problem Qualifiers (1) Anemia: Qualified Code: N18.6 - Anemia in chronic kidney disease, on chronic dialysis Stephanie Dong MD Nov 15, 2016 16:50
[2016-11-15 16:52] VITALS: O2SAT 93
[2016-11-15] MEDS ORDERED: ONDANSETRON HCL 4 MG/2 ML VIAL IV PUSH PRN (17:00)
[2016-11-15 17:02] VITALS: BP 218/107; PULSE 88; RESP 18; O2SAT 94
[2016-11-15] MEDS ORDERED: PILL SPLITTER OTHER PRN (18:00)
[2016-11-15] MEDS: cloNIDine HCL 0.2 MG TAB PO SCH (18:00)
[2016-11-15] MEDS ORDERED: RESP: ALBUTEROL 2.5 MG/IPRATROPIUM 0.5 MG NEB (PRN) NEB (18:00)
[2016-11-15] MEDS: GELATIN 12 MM/7 MM FOAM TOP PRN (18:31)
[2016-11-15] MEDS: EPOETIN ALFA 10,000 UNITS/ML VIAL IV PRN (18:32)
[2016-11-15 20:26] VITALS: BP 190/82; PULSE 97; RESP 18; TEMP 98.4; O2SAT 97
[2016-11-15 21:17] VITALS: BP 190/92
[2016-11-15] MEDS: TERAZOSIN HCL 5 MG CAP PO SCH (21:31)
[2016-11-15] MEDS: ACETAMINOPHEN/HYDROcodone 325 MG/5 MG TAB PO PRN (21:31)
[2016-11-15] MEDS: ATORVASTATIN 10 MG TAB PO SCH (21:31)
[2016-11-15] MEDS: NIFEdipine 60 MG SUSTAINED RELEASE TAB PO SCH (21:31)
[2016-11-15 21:45] LABS: BASOPHILS 1 % (0-2); CORRECTED NUCLEATED RBC 1 /100 WBC (0-0); NEUTROPHIL # MANUAL DIFF 5.5 TH/MM3 (1.8-7.7); POLYS (SEG NEUTROPHILS) 84 % (16-70); WBC DIFF SAMPLE 100
[2016-11-15] MEDS: LORazepam 1 MG TAB PO PRN (21:53)
[2016-11-15] MEDS: CALCIUM ACETATE 667 MG CAP PO SCH (21:53)
[2016-11-15 22:05] LABS: PLATELET COUNT 125 TH/MM3 (150-450); PLATELET ESTIMATE SMEAR LOW (NORMAL); PLATELET MORPHOLOGY NORMAL (NORMAL); SCAN/DIFF FINAL DIFF MANUAL
[2016-11-15] MEDS: BUDESONIDE-FORMOTEROL 160/4.5 MCG INHALER INH SCH (22:08)
[2016-11-15 23:58] VITALS: PULSE 86
[2016-11-16] VITALS (9 sets, daily range): BP systolic 102–172; BP diastolic 57–83; PULSE 82–90; RESP 18–20; TEMP 97.4–99; O2SAT 96–98
[2016-11-16 07:21] LABS: HEMATOCRIT 21.2 % (35.0-46.0)
[2016-11-16] MEDS: CITALOPRAM HYDROBROMIDE 20 MG TAB PO SCH (07:51)
[2016-11-16] MEDS: CALCIUM ACETATE 667 MG CAP PO SCH ×3 (07:51→18:02)
[2016-11-16] MEDS: NIFEdipine 60 MG SUSTAINED RELEASE TAB PO SCH ×2 (07:52→21:06)
[2016-11-16] MEDS: BUDESONIDE-FORMOTEROL 160/4.5 MCG INHALER INH SCH ×2 (07:52→21:07)
[2016-11-16] MEDS: cloNIDine HCL 0.2 MG TAB PO SCH ×3 (07:52→18:02)
[2016-11-16] MEDS: METOPROLOL SUCCINATE 50 MG EXTENDED RELEASE TAB PO SCH (07:52)
[2016-11-16] MEDS: LORazepam 1 MG TAB PO PRN ×2 (08:44→18:09)
[2016-11-16] MEDS: ACETAMINOPHEN/HYDROcodone 325 MG/5 MG TAB PO PRN ×3 (09:07→22:23)
--- NOTE | 2016-11-16 10:27 | HHI.PR ---
Subjective Remarks sitting on the chair with no acute distress. looks somewhat more comfortable today. has mild generalized body ache. Objective Vitals Vital Signs Date Time Temp Pulse Resp B/P Pulse Ox O2 Delivery O2 Flow Rate FiO2 11/16/16 09:18 Nasal Cannula 2.00 11/16/16 08:00 98.9 88 18 169/81 98 11/16/16 04:00 98.5 89 18 140/68 96 11/16/16 00:00 Nasal Cannula 2.00 11/16/16 00:00 99.0 90 18 172/80 96 11/15/16 23:58 86 11/15/16 21:17 190/92 11/15/16 20:46 Nasal Cannula 2.00 11/15/16 20:26 98.4 97 18 190/82 97 11/15/16 17:02 88 18 218/107 94 Nasal Cannula 2 11/15/16 16:52 93 Nasal Cannula 1.00 11/15/16 15:30 94 Nasal Cannula 2 11/15/16 13:54 94 Nasal Cannula 2 11/15/16 12:42 98.1 84 18 194/92 93 I/O 11/15/16 11/15/16 11/15/16 11/16/16 11/16/16 11/16/16 07:00 15:00 23:00 07:00 15:00 23:00 Intake Total 480 ml 240 ml Output Total 1000 ml Balance -520 ml 240 ml Intake Oral 480 ml 240 ml Output Hemodialysis 1000 ml # Voids 0 0 # Bowel Movements 0 0 Result Diagram: 11/16/16 0628 11/15/16 1448 Imaging Last Impressions Chest X-Ray 11/15/16 1407 Signed Impressions: Service Date/Time: Tuesday, November 15, 2016 14:07 - CONCLUSION: 1. Cardiomegaly with pulmonary vascular congestion. 2. Small bilateral pleural effusions with associated lower lobe airspace disease, likely atelectasis. Yovani Johnson MD Objective Remarks GENERAL: This is a well-nourished, well-developed patient, in no apparent distress. CARDIOVASCULAR: Regular rate and regular rhythm without murmurs, gallops, or rubs. RESPIRATORY: basal crackles. GASTROINTESTINAL: Abdomen soft, non-tender, nondistended. Normal, active bowel sounds MUSCULOSKELETAL: Extremities without clubbing, cyanosis, or edema. NEURO: Alert & Oriented x4 to person, place, time, situation. Moves all ext x4 Procedures none Medications and IVs Current Medications Sodium Chloride (NS Flush) 2 ml UNSCH PRN IVF FLUSH AFTER USING IV ACCESS; Start 11/15/16 at 14:15 Clonidine 0.1 mg 0.1 mg ONCE ONCE PO Last administered on 11/15/16t 14:56; Start 11/15/16 at 14:15; Stop 11/15/16 at 14:16; Status DC Sodium Chloride (NS 1000 ml Inj) 1,000 ml @ 0 mls/hr Q0M PRN IV For Prime & Rinse Back; Start 11/15/16 at 16:14 Heparin Sodium (Porcine) 8000 units 8,000 units UNSCH PRN IVF WITH DIALYSIS; Start 11/15/16 at 16:15 Sodium Chloride 1,000 ml @ 200 mls/hr Q5H PRN IV WITH DIALYSIS; Start 11/15/16 at 16:14 Sodium Chloride (NS 1000 ml Inj) 1,000 ml @ 0 mls/hr Q0M PRN IV WITH DIALYSIS; Start 11/15/16 at 16:14 Mannitol (Mannitol Inj) 12.5 gm UNSCH PRN IV WITH DIALYSIS; Start 11/15/16 at 16:15 Albumin Human (Albumin 25% Inj) 25 gm UNSCH PRN IV WITH DIALYSIS; Start at 16:15 Sodium Chloride (NS Flush) 5 ml UNSCH PRN IV FLUSH WITH DIALYSIS; Start at 16:15 Heparin Sodium (Porcine) (Heparin Inj) UNSCH PRN .XX WITH DIALYSIS; Start at 16:15 Gentamicin Sulfate (Gentamicin (Dialysis) Inj) 20 mg UNSCH PRN IV WITH DIALYSIS ; Start 11/15/16 at 16:15 Ondansetron HCl (Zofran Inj) 4 mg UNSCH PRN IV WITH DIALYSIS; Start 11/15/16 at 16:15 Acetaminophen (Tylenol) 650 mg UNSCH PRN PO for headach, pain, temp > 101F; Start 11/15/16 at 16:15 Diphenhydramine HCl (Benadryl) 25 mg UNSCH PRN PO for hives/itching/anaphylaxis ; Start 11/15/16 at 16:15 Nitroglycerin (Nitrostat Sl) 0.4 mg UNSCH PRN SL CHEST PAIN; Start 11/15/16 at 16:15 Clonidine (Catapres) 0.1 mg UNSCH PRN PO for BP > 180/100 X 2 readings Last administered on 11/15/16 17:13; Start 11/15/16 at 16:15 Epoetin Julian (Epogen Inj) 10,000 units UNSCH PRN IV WITH DIALYSIS Last administered on 11/15/16 18:32; Start 11/15/16 at 16:15 Gelatin (Gelfoam 12 Mm/7 Mm Top) 1 foam UNSCH PRN TOP SEE LABEL COMMENTS Last administered on 11/15/16 18:31; Start 11/15/16 at 16:15 Atorvastatin Calcium (Lipitor) 10 mg HS PO Last administered on 11/15/16 21:31 ; Start 11/15/16 at 21:00 Budesonide/ Formoterol Fumarate (Symbicort 160-4.5 Inh) 2 puff Q12HR INH Last administered on 11/16/16 07:52; Start 11/15/16 at 21:00 Calcium Acetate (Phoslo) 1,334 mg TID PO Last administered on 11/16/16 07:51; Start 11/15/16 at 18:00 Citalopram Hydrobromide (CeleXA) 10 mg DAILY PO Last administered on 11/16/16 07:51; Start 11/16/16 at 09:00 Clonidine (Catapres) 0.2 mg TID PO Last administered on 11/16/16 07:52; Start 11/15/16 at 18:00 Lorazepam (Ativan) 1 mg Q6H PRN PO ANXIETY AND/OR AGITATION Last administered on 11/16/16 08:44; Start 11/15/16 at 16:45 Metoprolol Succinate (Toprol Xl) 50 mg DAILY PO Last administered on 11/16/16 07:52; Start 11/16/16 at 09:00 Nifedipine (Procardia Xl) 60 mg BID PO Last administered on 11/16/16 07:52; Start 11/15/16 at 21:00 Sitagliptin Phosphate (Januvia) 50 mg DAILY PO Last administered on 11/16/16 08:39; Start 11/16/16 at 09:00 Terazosin HCl (Hytrin) 5 mg HS PO Last administered on 11/15/16 21:31; Start 11/15/16 at 21:00 Ondansetron HCl (Zofran Inj) 4 mg Q8HR PRN IV PUSH NAUSEA; Start 11/15/16 at 17 :00 Acetaminophen (Tylenol) 650 mg Q4H PRN PO FEVER/PAIN <5; Start 11/15/16 at 17: 00 Acetaminophen/ Hydrocodone Bitart (Bethany 5-325 Mg) 1 tab Q4H PRN PO PAIN >5 Last administered on 11/16/16 09:07; Start 11/15/16 at 17:00 Albuterol/ Ipratropium (Duoneb Neb) 1 ampule Q6HR NEB PRN NEB SHORTNESS OF BREATH; Start 11/15/16 at 18:00 Clonidine (Catapres) 0.1 mg Q8HR PRN PO SBP> OR = 180, DBP> OR = 100; Start at 17:00 Miscellaneous (Pill Splitter) 1 ea UNSCH PRN OTHER SEE LABEL COMMENTS; Start at 18:00 A/P Assessment and Plan A/P - ESRD- on HD with fluid overload nephrology consulted; HD per nephrology- continue with oxygen and neb treatment as needed. -COPD- continue symbicort- neb treatment - will consider walk test before discharge. -hypertension; overall better- resumed home meds will monitor BP and adjust the regimen as needed. -anemia of chronic disease- epogen with HD- will monitor H/H; if further drop will transfuse with PRBC with the next HD. evaluated by GI recent admission- -diabetes mellitus;resumed Januvia- accu-check with SSI -dyslipidemia; resumed statin -DVT prophylaxis with SCD's Discharge Planning within the next one-two days if stable. will consider walk test before discharge. Stephanie Dong MD Nov 16, 2016 10:27
[2016-11-16] MEDS ORDERED: GLUCAGON 1 MG/ML VIAL OTHER PRN (10:30)
[2016-11-16] MEDS ORDERED: DEXTROSE 50% IN WATER 50 ML VIAL(D50) IV PRN (10:30)
[2016-11-16] MEDS: INSULIN ASPART SUPPLEMENTAL SCALE SQ SCH ×3 (11:00→21:25)
--- NOTE | 2016-11-16 17:24 | HHI.NPPN ---
Subjective History of Present Illness hx of ESRD copd, chf Review of Systems Cardiovascular Cardiac: HURTADO Objective Data Data 11/15/16 11/16/16 19:00 07:00 Intake Total 720 ml Output Total 1000 ml Balance -280 ml Intake Oral 720 ml Output Hemodialysis 1000 ml # Voids 0 # Bowel Movements 0 Vital Signs Date Time Temp Pulse Resp B/P Pulse Ox O2 Delivery O2 Flow Rate FiO2 11/16/16 12:00 97.5 82 20 170/83 98 11/16/16 11:04 98 Nasal Cannula 2.00 11/16/16 09:18 Nasal Cannula 2.00 11/16/16 08:00 98.9 88 18 169/81 98 11/16/16 04:00 98.5 89 18 140/68 96 11/16/16 00:00 Nasal Cannula 2.00 11/16/16 00:00 99.0 90 18 172/80 96 11/15/16 23:58 86 11/15/16 21:17 190/92 11/15/16 20:46 Nasal Cannula 2.00 11/15/16 20:26 98.4 97 18 190/82 97 -: 11/16/16 0628 11/15/16 1448 Physical Exam General Appearance: Well Developed Pulmonary Resp Exam: Decreased Bases Cardiology CV Exam: Regular Gastrointestinal/Abdomen GI Exam: Soft, Non-Tender, Bowel Sounds Present Extremeties Extremities Exam: No Edema Assessment/Plan Problem List: (1) ESRD (end stage renal disease) Plan: Dialysis done yesterday doing better, 1 L off H/H low on Epogen PRBC ordered (2) DM (diabetes mellitus) Plan: Monitor Her blood glucose (3) HTN (hypertension) Plan: Monitor blood pressure (4) Fluid overload Plan: Monitor respiratory status Problem Qualifiers (1) Fluid overload: Qualified Code: E87.70 - Hypervolemia, unspecified hypervolemia type Юлия Elizabeth MD Nov 16, 2016 17:24
[2016-11-16] MEDS: TERAZOSIN HCL 5 MG CAP PO SCH (21:06)
[2016-11-16] MEDS: ATORVASTATIN 10 MG TAB PO SCH (21:06)
--- NOTE | 2016-11-16 23:35 | EKG ---
Date Performed: 11/15/2016 Time Performed: 16:03:08 PTAGE: 66 years EKG: Sinus rhythm NORMAL ECG PREVIOUS TRACING : 10/27/2016 17.49 Compared to prior tracing no significant change DOCTOR: Elva Hinkle Interpretating Date/Time 11/16/2016 23:34:02
[2016-11-17] VITALS (12 sets, daily range): BP systolic 116–171; BP diastolic 62–82; PULSE 73–91; RESP 14–20; TEMP 92.3–98.3; O2SAT 96–100
[2016-11-17] MEDS: INSULIN ASPART SUPPLEMENTAL SCALE SQ SCH ×4 (05:44→21:00)
[2016-11-17 06:59] LABS: HEMATOCRIT 22.1 % (35.0-46.0)
[2016-11-17] MEDS: ACETAMINOPHEN/HYDROcodone 325 MG/5 MG TAB PO PRN ×2 (07:49→17:34)
[2016-11-17] MEDS: LORazepam 1 MG TAB PO PRN (07:49)
[2016-11-17] MEDS: CITALOPRAM HYDROBROMIDE 20 MG TAB PO SCH ×2 (09:00→13:54)
[2016-11-17] MEDS: CALCIUM ACETATE 667 MG CAP PO SCH ×3 (09:00→13:51)
[2016-11-17] MEDS: cloNIDine HCL 0.2 MG TAB PO SCH ×3 (09:00→17:28)
[2016-11-17] MEDS: BUDESONIDE-FORMOTEROL 160/4.5 MCG INHALER INH SCH ×2 (09:00→22:50)
[2016-11-17] MEDS: NIFEdipine 60 MG SUSTAINED RELEASE TAB PO SCH ×2 (09:00→13:54)
[2016-11-17] MEDS: METOPROLOL SUCCINATE 50 MG EXTENDED RELEASE TAB PO SCH ×2 (09:00→13:55)
--- NOTE | 2016-11-17 11:03 | HHI.NPPN ---
Subjective History of Present Illness hx of ESRD copd, chf Review of Systems Cardiovascular Cardiac: HURTADO Objective Data Data 11/16/16 11/17/16 19:00 07:00 Intake Total 1178 ml Output Total 0 ml Balance 1178 ml Intake Oral 1178 ml Output Urine Total 0 ml # Voids 0 # Bowel Movements 0 Vital Signs Date Time Temp Pulse Resp B/P Pulse Ox O2 Delivery O2 Flow Rate FiO2 11/17/16 08:00 97.7 76 20 134/65 100 11/17/16 04:00 97.5 84 18 116/62 96 11/16/16 23:00 98.2 84 18 102/59 98 11/16/16 20:00 98.0 85 18 118/57 98 11/16/16 20:00 Nasal Cannula 2.00 11/16/16 19:57 90 11/16/16 17:22 Nasal Cannula 2.00 11/16/16 16:00 97.4 84 18 116/63 96 11/16/16 12:00 97.5 82 20 170/83 98 11/16/16 11:04 98 Nasal Cannula 2.00 -: 11/17/16 0618 11/15/16 1448 Physical Exam General Appearance: Well Developed Pulmonary Resp Exam: Decreased Bases Cardiology CV Exam: Regular Gastrointestinal/Abdomen GI Exam: Soft, Non-Tender, Bowel Sounds Present Extremeties Extremities Exam: No Edema Assessment/Plan Problem List: (1) ESRD (end stage renal disease) Plan: Dialysis proceedings noted UF 3 L H/H low on Epogen PRBC ordered 1 UNIT (2) DM (diabetes mellitus) Plan: Monitor Her blood glucose (3) HTN (hypertension) Plan: Monitor blood pressure (4) Fluid overload Plan: Monitor respiratory status Problem Qualifiers (1) Fluid overload: Qualified Code: E87.70 - Hypervolemia, unspecified hypervolemia type Юлия Elizabeth MD Nov 17, 2016 11:03
--- NOTE | 2016-11-17 12:04 | HHI.PR ---
Subjective Remarks seen in HD. resting comfortably. sob has improved. blood transfusion in process. no new complaints. Objective Vitals Vital Signs Date Time Temp Pulse Resp B/P Pulse Ox O2 Delivery O2 Flow Rate FiO2 11/17/16 08:00 97.7 76 20 134/65 100 11/17/16 08:00 96 Nasal Cannula 2.00 11/17/16 04:00 97.5 84 18 116/62 96 11/16/16 23:00 98.2 84 18 102/59 98 11/16/16 20:00 98.0 85 18 118/57 98 11/16/16 20:00 Nasal Cannula 2.00 11/16/16 19:57 90 11/16/16 17:22 Nasal Cannula 2.00 11/16/16 16:00 97.4 84 18 116/63 96 I/O 11/16/16 11/16/16 11/16/16 11/17/16 11/17/16 11/17/16 07:00 15:00 23:00 07:00 15:00 23:00 Intake Total 240 ml 698 ml 480 ml Output Total 0 ml Balance 240 ml 698 ml 480 ml Intake Oral 240 ml 698 ml 480 ml Output Urine Total 0 ml # Voids 0 0 # Bowel Movements 0 0 Result Diagram: 11/17/16 0618 11/15/16 1448 Imaging Last Impressions Chest X-Ray 11/15/16 1407 Signed Impressions: Service Date/Time: Tuesday, November 15, 2016 14:07 - CONCLUSION: 1. Cardiomegaly with pulmonary vascular congestion. 2. Small bilateral pleural effusions with associated lower lobe airspace disease, likely atelectasis. Yovani Johnson MD Objective Remarks GENERAL: This is a well-nourished, well-developed patient, in no apparent distress. CARDIOVASCULAR: Regular rate and regular rhythm without murmurs, gallops, or rubs. RESPIRATORY: bilateral air entry present GASTROINTESTINAL: Abdomen soft, non-tender, nondistended. Normal, active bowel sounds MUSCULOSKELETAL: Extremities without clubbing, cyanosis, or edema. NEURO: Alert & Oriented x4 to person, place, time, situation. Moves all ext x4 Procedures none Medications and IVs Current Medications Sodium Chloride (NS Flush) 2 ml UNSCH PRN IVF FLUSH AFTER USING IV ACCESS; Start 11/15/16 at 14:15 Clonidine 0.1 mg 0.1 mg ONCE ONCE PO Last administered on 11/15/16t 14:56; Start 11/15/16 at 14:15; Stop 11/15/16 at 14:16; Status DC Sodium Chloride (NS 1000 ml Inj) 1,000 ml @ 0 mls/hr Q0M PRN IV For Prime & Rinse Back; Start 11/15/16 at 16:14 Heparin Sodium (Porcine) 8000 units 8,000 units UNSCH PRN IVF WITH DIALYSIS; Start 11/15/16 at 16:15 Sodium Chloride 1,000 ml @ 200 mls/hr Q5H PRN IV WITH DIALYSIS; Start 11/15/16 at 16:14 Sodium Chloride (NS 1000 ml Inj) 1,000 ml @ 0 mls/hr Q0M PRN IV WITH DIALYSIS; Start 11/15/16 at 16:14 Mannitol (Mannitol Inj) 12.5 gm UNSCH PRN IV WITH DIALYSIS; Start 11/15/16 at 16:15 Albumin Human (Albumin 25% Inj) 25 gm UNSCH PRN IV WITH DIALYSIS; Start at 16:15 Sodium Chloride (NS Flush) 5 ml UNSCH PRN IV FLUSH WITH DIALYSIS Last administered on 11/16/16t 21:06; Start 11/15/16 at 16:15 Heparin Sodium (Porcine) (Heparin Inj) UNSCH PRN .XX WITH DIALYSIS; Start at 16:15 Gentamicin Sulfate (Gentamicin (Dialysis) Inj) 20 mg UNSCH PRN IV WITH DIALYSIS ; Start 11/15/16 at 16:15 Ondansetron HCl (Zofran Inj) 4 mg UNSCH PRN IV WITH DIALYSIS; Start 11/15/16 at 16:15 Acetaminophen (Tylenol) 650 mg UNSCH PRN PO for headach, pain, temp > 101F; Start 11/15/16 at 16:15 Diphenhydramine HCl (Benadryl) 25 mg UNSCH PRN PO for hives/itching/anaphylaxis ; Start 11/15/16 at 16:15 Nitroglycerin (Nitrostat Sl) 0.4 mg UNSCH PRN SL CHEST PAIN; Start 11/15/16 at 16:15 Clonidine (Catapres) 0.1 mg UNSCH PRN PO for BP > 180/100 X 2 readings Last administered on 11/15/16 17:13; Start 11/15/16 at 16:15 Epoetin Julian (Epogen Inj) 10,000 units UNSCH PRN IV WITH DIALYSIS Last administered on 11/15/16 18:32; Start 11/15/16 at 16:15 Gelatin (Gelfoam 12 Mm/7 Mm Top) 1 foam UNSCH PRN TOP SEE LABEL COMMENTS Last administered on 11/15/16 18:31; Start 11/15/16 at 16:15 Atorvastatin Calcium (Lipitor) 10 mg HS PO Last administered on 11/16/16 21:06 ; Start 11/15/16 at 21:00 Budesonide/ Formoterol Fumarate (Symbicort 160-4.5 Inh) 2 puff Q12HR INH Last administered on 11/16/16 21:07; Start 11/15/16 at 21:00 Calcium Acetate (Phoslo) 1,334 mg TID PO Last administered on 11/16/16 18:02; Start 11/15/16 at 18:00 Citalopram Hydrobromide (CeleXA) 10 mg DAILY PO Last administered on 11/16/16 07:51; Start 11/16/16 at 09:00 Clonidine (Catapres) 0.2 mg TID PO Last administered on 11/16/16 18:02; Start 11/15/16 at 18:00 Lorazepam (Ativan) 1 mg Q6H PRN PO ANXIETY AND/OR AGITATION Last administered on 11/17/16 07:49; Start 11/15/16 at 16:45 Metoprolol Succinate (Toprol Xl) 50 mg DAILY PO Last administered on 11/16/16 07:52; Start 11/16/16 at 09:00 Nifedipine (Procardia Xl) 60 mg BID PO Last administered on 11/16/16 21:06; Start 11/15/16 at 21:00 Sitagliptin Phosphate (Januvia) 50 mg DAILY PO Last administered on 11/16/16 08:39; Start 11/16/16 at 09:00 Terazosin HCl (Hytrin) 5 mg HS PO Last administered on 11/16/16 21:06; Start 11/15/16 at 21:00 Ondansetron HCl (Zofran Inj) 4 mg Q8HR PRN IV PUSH NAUSEA; Start 11/15/16 at 17 :00 Acetaminophen (Tylenol) 650 mg Q4H PRN PO FEVER/PAIN <5; Start 11/15/16 at 17: 00 Acetaminophen/ Hydrocodone Bitart ([place] 5-325 Mg) 1 tab Q4H PRN PO PAIN >5 Last administered on 11/17/16 07:49; Start 11/15/16 at 17:00 Albuterol/ Ipratropium (Duoneb Neb) 1 ampule Q6HR NEB PRN NEB SHORTNESS OF BREATH; Start 11/15/16 at 18:00 Clonidine (Catapres) 0.1 mg Q8HR PRN PO SBP> OR = 180, DBP> OR = 100; Start at 17:00 Miscellaneous (Pill Splitter) 1 ea UNSCH PRN OTHER SEE LABEL COMMENTS; Start at 18:00 Dextrose (D50w (Vial) Inj) 50 ml UNSCH PRN IV HYPOGLYCEMIA-SEE COMMENTS; Start 11/16/16 at 10:30 Glucagon (Glucagon Inj) 1 mg UNSCH PRN OTHER HYPOGLYCEMIA-SEE COMMENTS; Start 11/16/16 at 10:30 Insulin Aspart (NovoLOG SUPPLEMENTAL SCALE) 1 ACHS SLIDING SCALE SQ Last administered on 11/16/16 21:25; Start 11/16/16 at 11:00 A/P Assessment and Plan A/P - ESRD- on HD with fluid overload nephrology consulted; HD per nephrology- continue with oxygen and neb treatment as needed. -COPD- continue symbicort- neb treatment - walk test today. -hypertension; overall better- resumed home meds will monitor BP and adjust the regimen as needed. -anemia of chronic disease- epogen with HD-received one unit of PRBC today. evaluated by GI recent admission- -diabetes mellitus;resumed Januvia- accu-check with SSI -dyslipidemia; resumed statin -DVT prophylaxis with SCD's Discharge Planning dc home tomorrow if stable. walk test today. Stephanie Dong MD Nov 17, 2016 12:04
[2016-11-17] MEDS: EPOETIN ALFA 10,000 UNITS/ML VIAL IV PRN (12:08)
[2016-11-17] MEDS: GELATIN 12 MM/7 MM FOAM TOP PRN (12:09)
--- NOTE | 2016-11-17 20:13 | RADRPT ---
EXAM DATE/TIME: 11/17/2016 20:03 [facility] COMPARISON: No previous studies available for comparison. INDICATIONS : Stroke alert, decrease in alertness, inability to speak. RADIATION DOSE: 30.18 CTDIvol (mGy) This report was called Dr. Salas by Dr. Jordan at 2009 hrs. MEDICAL HISTORY : Non-responsive. SURGICAL HISTORY : Non-responsive. ENCOUNTER: Initial ACUITY: 1 day PAIN SCALE: Non-responsive LOCATION: cranial TECHNIQUE: Multiple contiguous axial images were obtained of the head. Using automated exposure control and adj ustment of the mA and/or kV according to patient size, radiation dose was kept as low as reasonably a chievable to obtain optimal diagnostic quality images. DICOM format image data is available electro nically for review and comparison. FINDINGS: CEREBRUM: The ventricles are normal for age with mild atrophic change. No evidence of midline shift, mass lesio n, hemorrhage or acute infarction. No extra-axial fluid collections are seen. POSTERIOR FOSSA: The cerebellum and brainstem are intact. The 4th ventricle is midline. The cerebellopontine angle i s unremarkable. EXTRACRANIAL: The visualized portion of the orbits is intact. SKULL: The calvaria is intact. No evidence of skull fracture. CONCLUSION: Mild atrophic change with no evidence of hemorrhage, mass or definite infarction. Deep Jordan MD on November 17, 2016 at 20:07 Board Certified Radiologist. This report was verified electronically.
[2016-11-17 20:14] LABS: I-STAT POTASSIUM 3.5 MMOL/L (3.5-4.9); I-STAT SODIUM 140 MMOL/L (138-146)
[2016-11-17 20:22] LABS: AUTOMATED NEUTROPHIL # 4.4 TH/MM3 (1.8-7.7); BASOPHIL # 0.1 TH/MM3 (0-0.2); EOSINOPHIL # 0.2 TH/MM3 (0-0.4); EOSINOPHIL % 3.1 % (0.0-4.0); HEMATOCRIT 31.6 % (35.0-46.0); HEMO FLAGS DIFF FINAL; LYMPH % 20.7 % (9.0-44.0); LYMPHOCYTE # 1.4 TH/MM3 (1.0-4.8); MEAN CELL VOLUME 88.7 FL (80.0-100.0); MEAN CORPUSCULAR HGB CONC 33.8 % (32.0-36.0); MONO % 8.7 % (0.0-8.0); NEUT % 66.5 % (16.0-70.0); PLATELET COUNT 148 TH/MM3 (150-450); RED BLOOD COUNT 3.56 MIL/MM3 (4.00-5.30); RED CELL DISTRIBUTION WIDTH 16.3 % (11.6-17.2); WHITE BLOOD COUNT 6.7 TH/MM3 (4.0-11.0)
[2016-11-17 20:25] LABS: APTT (PATIENT) 31.4 SEC (24.3-30.1)
[2016-11-17] MEDS ORDERED: ALTEPLASE BOLUS 9 MG/9 ML SYR IV ONE (20:30)
[2016-11-17] MEDS ORDERED: ALTEPLASE DRIP IV ONE (20:30)
[2016-11-17] MEDS ORDERED: SODIUM CHLORIDE 0.9% 50 ML BAG IVF ONE (20:30)
[2016-11-17] MEDS ORDERED: MISCELLANEOUS NURSING INFORMATION XX PRN (20:30)
[2016-11-17 20:43] LABS: CREATINE KINASE 62 U/L (26-192)
[2016-11-17] MEDS ORDERED: MIDAZOLAM HCL 5 MG/ML VIAL (1 ML) ONE (20:57)
[2016-11-17] MEDS: ATORVASTATIN 10 MG TAB PO SCH (21:00)
[2016-11-17] MEDS: TERAZOSIN HCL 5 MG CAP PO SCH (21:00)
[2016-11-17] MEDS ORDERED: PROPOFOL 1000 MG/100 ML INJ 100 ML ONE ×2 (21:06→23:40)
--- NOTE | 2016-11-17 21:07 | MB ---
cc: KIMMY PAK M.D. DATE OF CONSULTATION 11/17/16 REASON FOR CONSULTATION Stroke alert HISTORY OF PRESENT ILLNESS This is a 66-year-old woman who is admitted to the hospital with congestive heart failure and anemia for which she did receive packed red cells. She had no history of blood loss. No history of rectal bleeding or dark tarry stools. She also receives dialysis for end-stage renal disease. According to the nursing staff, she was at her baseline last seen normal at 07:00 p.m. at that time had no focal deficits and was able to converse. Shortly after that, probably around 07:10 or 07:15, she was found to have a significant change in neurological status where she appeared to be weaker on the right side with a right facial droop drooling out of the right side of her mouth, had decreased responsiveness, was unable to communicate and, therefore, a stroke alert was called. In the interim, she has had a CT scan of the brain done STAT showing no acute hemorrhage. No acute change. Her blood glucose on the floor was obtained, was 125. PERSONAL HISTORY 1. Hypertension, 2. Diabetes, 3. History of lung cancer 4. End-stage renal disease on dialysis, 5. Diabetes, 6. Hysterectomy, 7. Thyroidectomy 8. PEG placement. MEDICATIONS Current, 1. Insulin. 2. Celexa 10 mg daily. 3. Metoprolol 50 mg daily. 4. Januvia 50 mg daily. 5. Lipitor 10 mg daily. 6. Symbicort 7. Procardia XL 60 mg b.i.d. 8. Terazosin 5 mg at bedtime, 9. PhosLo. 10. Clonidine 0.2 mg t.i.d. 11. DuoNeb. 12. Zofran p.r.n. 13. Tylenol p.r.n. 14. Catapres p.r.n. 15. Ativan p.r.n. 16. Heparin with dialysis 17. Mannitol with dialysis. 18. Gentamicin with dialysis 19. Zofran with dialysis. 20. Benadryl p.r.n. 21. Nitrostat p.r.n. NEUROLOGIC EXAMINATION Blood pressure is 152/77, pulse 85, respirations 18, temperature 98 degrees. Higher cortical function - The patient is nonresponsive. She has had head and eye deviation to the left. She has minimal spontaneous movement. She appears to withdraw the left side more than the right with noxious stimuli. Reflexes symmetric. IMAGING STUDIES CT of the brain is reviewed as noted above with mild atrophy, no evidence of hemorrhage, mass effect or midline shift. LABORATORY DATA Sodium 140, potassium 3.5, chloride 93, BUN 17, creatinine 3.7, serum glucose was 20. Again, on the floor the fingerstick glucose is 127. We repeated this fingerstick glucose and that came back at 99. The white count is 6,700, hemoglobin 10.7, hematocrit 31.6%, platelet count is 148,000. PT from 11/15 is 11.4, INR one, APTT 27.5. Coags from today pending. IMPRESSION Probable acute left MCA distribution stroke with right-sided weakness. The patient does meet criteria for IV TPA. She is not a candidate for CT angiography because of the renal failure. Because of the discrepancy in the serum glucose, We did repeat a fingerstick which showed glucose to be normal. We will obtain another serum glucose Stat for review. If this confirms a normal glucose, would recommend proceeding with IV TPA per protocol. The patient is currently being intubated and IV access is being established. We will have to wait until intubation and stabilizing the patient before ultimately administering the IV TPA. This will be done well within the three and also 4 1/2 hour limit as her symptoms began somewhere between 7:00 and 07:15 p.m. We will follow the post TPA protocol with frequent neuro checks and vital signs. No antiplatelets or anticoagulants for at least [address] of the brain 24 hours after TPA administered. Would also check MRI of the brain, carotid ultrasound, echocardiogram and lipid panel. MD ABBIE Benjamin/ /8:47 PM /8:59 PM
--- NOTE | 2016-11-17 21:10 | MB ---
cc: KIMMY PAK DATE OF CONSULTATION 11/17/16 ADDENDUM The NIH stroke scale is 37. MD ABBIE Benjamin/ /9:01 PM /9:12 PM
[2016-11-17] MEDS ORDERED: DEXTROSE 50% IN WATER 50 ML SYRINGE ONE (21:37)
--- NOTE | 2016-11-17 21:44 | RADRPT ---
EXAM DATE/TIME: 11/17/2016 21:02 [facility] COMPARISON: CHEST SINGLE AP, November 15, 2016, 14:07. INDICATIONS : ET tube placement, Central line placement MEDICAL HISTORY : Carcinoma, lung. Radiation and chemo. Left lung cancer SURGICAL HISTORY : Hysterectomy. ENCOUNTER: Subsequent ACUITY: 3 days PAIN SCORE: Non-responsive. LOCATION: Bilateral chest FINDINGS: A single AP supine view of the chest was obtained and demonstrates interval intubation with the endot wilman tube tip at the level of the thoracic inlet. A right internal jugular central venous line has been placed and is projected over the superior vena cava. There is no evidence of a pneumothorax. Pa tient is moderately rotated to the left. Atherosclerotic changes are noted in the aorta with calcific ation. There is mild patchy opacity both lung bases which is improved from the prior study. The left costophrenic angle remains blunted. The heart size is within normal limits. CONCLUSION: 1. Interval intubation and placement of right internal jugular central venous line with no pneumothor ax. 2. Rotated exam with interval improvement in bibasal opacity. Deep Jordan MD on November 17, 2016 at 21:40 Board Certified Radiologist. This report was verified electronically.
--- NOTE | 2016-11-17 21:55 | PD.CONS ---
HPI Service Critical Care Medicine Consult Requested By Primary Care Physician Trini Naranjo MD History of Present Illness 66-year-old unfortunate female with end-stage renal disease on hemodialysis, hypertension, diabetes mellitus, remote history of lung cancer who presented with shortness of breath. She was seen by her physician in the morning prior to admission and when she was found to have low oxygen level she was advised to come to ER. She reports productive cough of whitish sputum with no fever or chills. she denies any rectal bleed or dark, black stools. she's complaining of mild nausea but with no emesis. She was admitted to medical surgical floor with telemetry. Late in the afternoon/evening patient was found unresponsive with GCS 3. Stroke alert was called. Her blood glucose level was found to be 6. The decision was made not to proceed with a TPA as a stroke since her mental status condition is most likely due to severe hypoglycemia. On the arrival to the ICU patient was intubated for an airway protection. Review of Systems ROS Unable to obtain due to patient's altered mental status and unresponsiveness Past Family Social History Allergies: Coded Allergies: Penicillin (Verified Allergy, Intermediate, UNKNOWN, 11/15/16) Past Medical History ESRD Hypertension Diabetes mellitus Past Surgical History hysterectomy thyroidectomy PEG placement Reported Medications Reported Meds & Active Scripts Active Calcium Acetate (Calcium Acetate (Phosphate Bin) 667 Mg Cap 1,334 Mg PO TID Hydrocodone-Acetaminophen 5-325 mg Tab 1 Tab PO Q6H PRN Ativan (Lorazepam) 1 Mg Tab 1 Mg PO Q6H PRN Reported Zofran (Ondansetron HCl) 8 Mg Tab 8 Mg PO TID PRN Nifedipine ER (Nifedipine) 90 Mg Tab 60 Tab PO BID Metoprolol Succinate ER 24 HR (Metoprolol Succinate) 50 Mg Tab 50 Mg PO DAILY Phoslo (Calcium Acetate (Phosphate Binder)) 667 Mg Cap 667 Mg PO TID Sybil-Colace (Sennosides-Docusate Sodium) 8.6-50 Mg Tab 1 Tab PO BID PRN Terazosin (Terazosin HCl) 5 Mg Cap 5 Mg PO HS Symbicort Inh (Budesonide/Formoterol Fumarate) 160-4.5 Mcg/Act Aero 2 Puff INH Q12HR Januvia (Sitagliptin Phosphate) 50 Mg Tab 50 Mg PO DAILY Clonidine (Clonidine HCl) 0.2 Mg Tab 0.2 Mg PO TID Vitamin D (Cholecalciferol) 5,000 Unit Tab Citalopram (Citalopram Hydrobromide) 10 Mg Tab 10 Mg PO DAILY Atorvastatin (Atorvastatin Calcium) 10 Mg Tab 10 Mg PO HS Novolog Inj (Insulin Aspart) 1,000 Unit/10 Ml Vial 0 SQ DIRECTED Sliding Scale as directed. Active Ordered Medications Current Medications Medications (Trade) Dose Ordered Sig/Hero Route PRN Reason Start Time Stop Time Status Last Admin Dose Admin Sodium Chloride 2 ml 2 ml UNSCH PRN IVF FLUSH AFTER USING IV ACCESS 11/15/16 14:15 Sodium Chloride (NS 1000 ml Inj) 1,000 ml @ 0 mls/hr Q0M PRN IV For Prime & Rinse Back 11/15/16 16:14 11/17/16 12:09 Heparin Sodium (Porcine) 8000 units 8,000 units UNSCH PRN IVF WITH DIALYSIS 11/15/16 16:15 Sodium Chloride 1,000 ml @ 200 mls/hr Q5H PRN IV WITH DIALYSIS 11/15/16 16:14 Sodium Chloride (NS 1000 ml Inj) 1,000 ml @ 0 mls/hr Q0M PRN IV WITH DIALYSIS 11/15/16 16:14 Mannitol (Mannitol Inj) 12.5 gm UNSCH PRN IV WITH DIALYSIS 11/15/16 16:15 Albumin Human (Albumin 25% Inj) 25 gm UNSCH PRN IV WITH DIALYSIS 11/15/16 16:15 Sodium Chloride (NS Flush) 5 ml UNSCH PRN IV FLUSH WITH DIALYSIS 11/15/16 16:15 11/16/16 21:06 Heparin Sodium (Porcine) (Heparin Inj) UNSCH PRN .XX WITH DIALYSIS 11/15/16 16:15 Gentamicin Sulfate (Gentamicin (Dialysis) Inj) 20 mg UNSCH PRN IV WITH DIALYSIS 11/15/16 16:15 Ondansetron HCl (Zofran Inj) 4 mg UNSCH PRN IV WITH DIALYSIS 11/15/16 16:15 Acetaminophen (Tylenol) 650 mg UNSCH PRN PO for headach, pain, temp > 101F 11/15/16 16:15 Diphenhydramine HCl (Benadryl) 25 mg UNSCH PRN PO for hives/itching/anaphylaxis 11/15/16 16:15 Nitroglycerin (Nitrostat Sl) 0.4 mg UNSCH PRN SL CHEST PAIN 11/15/16 16:15 Clonidine (Catapres) 0.1 mg UNSCH PRN PO for BP > 180/100 X 2 readings 11/15/16 16:15 11/15/16 17:13 Epoetin Julian (Epogen Inj) 10,000 units UNSCH PRN IV WITH DIALYSIS 11/15/16 16:15 11/17/16 12:08 Gelatin (Gelfoam 12 Mm/7 Mm Top) 1 foam UNSCH PRN TOP SEE LABEL COMMENTS 11/15/16 16:15 11/17/16 12:09 Atorvastatin Calcium (Lipitor) 10 mg HS PO 11/15/16 21:00 11/16/16 21:06 Budesonide/ Formoterol Fumarate (Symbicort 160-4.5 Inh) 2 puff Q12HR INH 11/15/16 21:00 11/17/16 22:50 Calcium Acetate (Phoslo) 1,334 mg TID PO 11/15/16 18:00 11/17/16 13:51 Citalopram Hydrobromide (CeleXA) 10 mg DAILY PO 11/16/16 09:00 11/17/16 13:54 Clonidine (Catapres) 0.2 mg TID PO 11/15/16 18:00 11/17/16 17:28 Lorazepam (Ativan) 1 mg Q6H PRN PO ANXIETY AND/OR AGITATION 11/15/16 16:45 11/17/16 07:49 Metoprolol Succinate (Toprol Xl) 50 mg DAILY PO 11/16/16 09:00 11/17/16 13:55 Nifedipine (Procardia Xl) 60 mg BID PO 11/15/16 21:00 11/17/16 13:54 Sitagliptin Phosphate (Januvia) 50 mg DAILY PO 11/16/16 09:00 11/17/16 13:55 Terazosin HCl (Hytrin) 5 mg HS PO 11/15/16 21:00 11/17/16 21:00 Ondansetron HCl (Zofran Inj) 4 mg Q8HR PRN IV PUSH NAUSEA 11/15/16 17:00 Acetaminophen (Tylenol) 650 mg Q4H PRN PO FEVER/PAIN <5 11/15/16 17:00 Acetaminophen/ Hydrocodone Bitart ([place] 5-325 Mg) 1 tab Q4H PRN PO PAIN >5 11/15/16 17:00 11/17/16 17:34 Clonidine (Catapres) 0.1 mg Q8HR PRN PO SBP> OR = 180, DBP> OR = 100 11/15/16 17:00 11/17/16 23:47 Miscellaneous (Pill Splitter) 1 ea UNSCH PRN OTHER SEE LABEL COMMENTS 11/15/16 18:00 Dextrose (D50w (Vial) Inj) 50 ml UNSCH PRN IV HYPOGLYCEMIA-SEE COMMENTS 11/16/16 10:30 Glucagon (Glucagon Inj) 1 mg UNSCH PRN OTHER HYPOGLYCEMIA-SEE COMMENTS 11/16/16 10:30 Miscellaneous Information No Heparin, Warfarin, Aspir... UNSCH PRN XX SEE DOSE INSTRUCTIONS 11/17/16 20:30 11/18/16 20:29 Hydralazine HCl 20 mg 20 mg Q4H PRN IV PUSH SBP>160, DBP>90 11/17/16 23:45 11/17/16 23:45 Propofol 100 ml @ 0 mls/hr TITRATE IV 11/17/16 23:45 Fentanyl Citrate (fentaNYL DRIP) 250 ml @ 0 mls/hr TITRATE IV 11/17/16 23:45 Family History No history of early cardiac disease, cancer Social History No history of alcohol use drug abuse or smoking Physical Exam Vital Signs Vital Signs Date Time Temp Pulse Resp B/P Pulse Ox O2 Delivery O2 Flow Rate FiO2 11/17/16 21:15 100 40 11/17/16 19:45 98 ambu bag 11/17/16 19:45 99 12.00 11/17/16 19:30 97.3 91 18 150/82 99 11/17/16 17:43 100 Nasal Cannula 2.00 11/17/16 16:00 98.3 85 18 152/77 97 11/17/16 09:00 76 11/17/16 08:00 97.7 76 20 134/65 100 11/17/16 08:00 96 Nasal Cannula 2.00 11/17/16 04:00 97.5 84 18 116/62 96 11/16/16 23:00 98.2 84 18 102/59 98 Physical Exam GENERAL: Elderly lady critically ill appearing, unresponsive. SKIN: Warm and dry. HEAD: Normocephalic. EYES: No scleral icterus. No injection or drainage. NECK: Supple, trachea midline. No JVD or lymphadenopathy. CARDIOVASCULAR: Regular rate and rhythm without murmurs, gallops, or rubs. RESPIRATORY: Breath sounds equal bilaterally. No accessory muscle use. GASTROINTESTINAL: Abdomen soft, non-tender, nondistended. MUSCULOSKELETAL: No cyanosis, or edema. BACK: Nontender without obvious deformity. No CVA tenderness. EXTREMITIES: No clubbing cyanosis or edema Laboratory Laboratory Tests Test 11/17/16 11/17/16 11/17/16 06:18 20:00 21:07 Hemoglobin 7.6 10.7 Hematocrit 22.1 31.6 White Blood Count 6.7 Red Blood Count 3.56 Bedside Hemoglobin 11.6 Bedside Hematocrit 34.0 Mean Corpuscular Volume 88.7 Mean Corpuscular Hemoglobin 30.0 Mean Corpuscular Hemoglobin 33.8 Concent Red Cell Distribution Width 16.3 Platelet Count 148 Mean Platelet Volume 9.3 Neutrophils (%) (Auto) 66.5 Lymphocytes (%) (Auto) 20.7 Monocytes (%) (Auto) 8.7 Eosinophils (%) (Auto) 3.1 Basophils (%) (Auto) 1.0 Neutrophils # (Auto) 4.4 Lymphocytes # (Auto) 1.4 Monocytes # (Auto) 0.6 Eosinophils # (Auto) 0.2 Basophils # (Auto) 0.1 CBC Comment DIFF FINAL Differential Comment Prothrombin Time 11.0 Prothromb Time International 1.0 Ratio Activated Partial 31.4 Thromboplast Time Fibrinogen 442 Bedside Sodium 140 Bedside Potassium 3.5 Bedside Chloride 93 Bedside Blood Urea Nitrogen 17 Bedside Creatinine 3.7 Bedside Glucose 20 Total Creatine Kinase 62 Troponin I LESS THAN 0.02 Random Glucose 6 Result Diagram: 11/17/16199911/17/162106 Assessment and Plan Assessment and Plan Respiratory failure - Intubated for an airway protection - No weaning until neurologically improved - ABG and CXR daily Altered mental status - Due to severe hypoglycemia - CT head negative - Treat underlying condition Hypoglycemia - D10 infusion - Hypoglycemia workup - Insulin and pre-insulin level - C-peptide - Insulin antibodies End-stage renal disease - Hemodialysis per nephrology Dyslipidemia - Statins when extubated Hypertension - Resume home meds when by mouth - Hydralazine and labetalol when necessary to keep SBP less than 160 DVT GI prophylaxis - Subcutaneous heparin and Pepcid Critical Care: The total critical care time was 35 minutes. Time to perform other separately billable procedures was not included in the critical care time. Cooper Bliss MD Nov 17, 2016 21:55
--- NOTE | 2016-11-17 21:55 | PD.PROCEDR ---
Procedure Note Procedure Endotracheal Intubation A time-out was completed verifying correct patient, procedure, site, positioning , and special equipment if applicable. The patient was placed in a flat position. Sedation was obtained using Etomidate 20mg. The patient was easily ventilated using an ambu bag. The [employer]/ MAC 4 BLADE was used and inserted into the oropharynx at which time there was a Grade 1 view of the vocal cords. A 8-telugu endotracheal tube was inserted and visualized going through the vocal cords. The stylette was removed. Colorimetric change was visualized on the CO2 meter. Breath sounds were heard in both lung phillips equally. The endotracheal tube was placed at 23 cm, measured at the teeth. A chest x-ray was ordered to assess for pneumothorax and verify endotrachealtube placement. Estimated Blood Loss: 0 The patient tolerated the procedure well and there were no complications. Cooper Bliss MD Nov 17, 2016 21:55
--- NOTE | 2016-11-17 21:56 | PD.PROCEDR ---
Procedure Note Procedure Central line placement A time-out was completed verifying correct patient, procedure, site, positioning , and special equipment if applicable. The patient was placed in a dependent position appropriate for central line placement based on the vein to be cannulated. The patients right neck was prepped and draped in sterile fashion. 1% Lidocaine was used to anesthetize the surrounding skin area. A triple lumen 9 -[place] catheter was introduced into the the internal jugular vein using the Seldinger technique and under ultrasound guidance. The catheter was threaded smoothly over the guide wire and appropriate blood return was obtained. Each lumen of the catheter was evacuated of air and flushed with sterile saline. The catheter was then sutured in place to the skin and a sterile dressing applied. Perfusion to the extremity distal to the point of catheter insertion was checked and found to be adequate. Estimated Blood Loss: 1ml The patient tolerated the procedure well and there were no complications. Cooper Bliss MD Nov 17, 2016 21:56
--- NOTE | 2016-11-17 21:57 | PD.PROCEDR ---
Procedure Note Procedure A time-out was completed verifying correct patient, procedure, site, positioning , and special equipment if applicable. Allens test was performed to ensure adequate perfusion. The patients right wrist was prepped and draped in sterile fashion. 1% Lidocaine was used to anesthetize the area. A 18G Arrow arterial line was introduced into the radial artery. The catheter was threaded over the guide wire and the needle was removed with appropriate pulsatile blood return. The catheter was then sutured in place to the skin and a sterile dressing applied. Perfusion to the extremity distal to the point of catheter insertion was checked and found to be adequate. Estimated Blood Loss: 1ml The patient tolerated the procedure well and there were no complications. Cooper Bliss MD Nov 17, 2016 21:57
--- NOTE | 2016-11-17 22:01 | MB ---
cc: KIMMY SALAS PHD DATE OF CONSULTATION 11/17/16 ADDENDUM Since the original dictation, a repeat serum glucose has been obtained on a stat basis and again came back very low at 6. While the fingerstick glucoses have been normal, it is most likely that the patient is experiencing significant hypoglycemic episodes. Therefore I recommended not giving TPA. I discussed the case with Dr. Bliss who will began with glucose supplementation to raise the serum glucose to normal range. Kimmy Salas MD ABBIE/EO /9:54 PM /9:58 PM
[2016-11-17 22:20] LABS: BLOOD GAS CARBOXYHEMOGLOBIN 1.9 % (0-4); BLOOD GAS HCO3 35 mmol/L (22-26); BLOOD GAS METHEMOGLOBIN 0.8 % (0-2); BLOOD GAS O2 HGB SATURATION 96 % (90-100); BLOOD GAS OXYGEN CONTENT 12.2 Vol % (12.0-20.0); BLOOD GAS PCO2 47 mmHg (38-42); BLOOD GAS PO2 111 mmHg (61-120); BLOOD GAS TOTAL HGB 8.9 G/DL (12.0-16.0); CRITICAL VALUE NO; OXYGEN DEVICE VENTILATOR; TEMP CORR TO 98.6; VENT SETTINGS PRVC/AC
[2016-11-17 22:21] LABS: DRAW SITE ART LINE; FIO2 40 %; STAT NO
[2016-11-17 22:34] LABS: HDL CHOLESTEROL 44.5 MG/DL (40.0-60.0)
[2016-11-17] MEDS ORDERED: fentaNYL 2,500 MCG/NS 250 ML IV SCH (23:15)
[2016-11-17] MEDS ORDERED: PROPOFOL 1000 MG/100 ML INJ 100 ML IV SCH (23:45)
[2016-11-17] MEDS ORDERED: fentaNYL DRIP 250 ML IV SCH (23:45)
[2016-11-17] MEDS: hydrALAZINE HCL 20 MG/ML VIAL IV PUSH PRN (23:45)
[2016-11-18] VITALS (16 sets, daily range): BP systolic 116–153; BP diastolic 55–72; PULSE 71–86; RESP 14–19; TEMP 96.6–99; O2SAT 97–100
[2016-11-18 04:00] LABS: HEMATOCRIT 25.3 % (35.0-46.0)
--- NOTE | 2016-11-18 05:01 | EKG ---
Date Performed: 11/17/2016 Time Performed: 20:08:21 PTAGE: 66 years EKG: Sinus rhythm POSSIBLE LEFT ATRIAL ENLARGEMENT POSSIBLE LEFT VENTRICULAR HYPERTROPHY NONSPECIFIC T-WAVE ABNORMALIT Y ABNORMAL ECG COMPARED TO PRIOR ELECTROCARDIOGRAM, T wave amplitude has decreased. PREVIOUS TRACING : 11/15/2016 16.03 DOCTOR: Alton Lima Interpretating Date/Time 11/18/2016 04:59:20
[2016-11-18] MEDS: hydrALAZINE HCL 20 MG/ML VIAL IV PUSH PRN (05:27)
[2016-11-18] MEDS: INSULIN ASPART SUPPLEMENTAL SCALE SQ SCH ×4 (07:00→21:00)
[2016-11-18] MEDS: CALCIUM ACETATE 667 MG CAP PO SCH ×3 (08:47→17:20)
[2016-11-18] MEDS: NIFEdipine 60 MG SUSTAINED RELEASE TAB PO SCH ×2 (08:54→20:41)
[2016-11-18] MEDS: cloNIDine HCL 0.2 MG TAB PO SCH ×3 (08:57→17:45)
[2016-11-18] MEDS: BUDESONIDE-FORMOTEROL 160/4.5 MCG INHALER INH SCH ×2 (09:58→20:42)
--- NOTE | 2016-11-18 11:55 | HHI.CCPN ---
Subjective Remarks/Hospital Course 66-year-old unfortunate female with end-stage renal disease on hemodialysis, hypertension, diabetes mellitus, remote history of lung cancer who presented with shortness of breath. She was seen by her physician in the morning prior to admission and when she was found to have low oxygen level she was advised to come to ER. She reports productive cough of whitish sputum with no fever or chills. she denies any rectal bleed or dark, black stools. she's complaining of mild nausea but with no emesis. She was admitted to medical surgical floor with telemetry. Late in the afternoon/evening patient was found unresponsive with GCS 3. Stroke alert was called. Her blood glucose level was found to be 6. The decision was made not to proceed with a TPA as a stroke since her mental status condition is most likely due to severe hypoglycemia. On the arrival to the ICU patient was intubated for an airway protection. 11/18: Opens eyes, does not focus or track. Glucose levels now acceptable. Objective Vital Signs Date Time Temp Pulse Resp B/P Pulse Ox O2 Delivery O2 Flow Rate FiO2 11/18/16 11:30 100 30 11/18/16 08:00 96.6 71 16 143/70 11/17/16 19:45 ambu bag 11/17/16 19:45 12.00 Intake and Output 11/17/16 11/17/16 11/18/16 08:00 16:00 00:00 Intake Total 480 ml 360 ml Output Total 3000 ml 150 ml Balance 480 ml -2640 ml -150 ml Result Diagram: 11/18/16 0346 11/17/16 2929 Other Results Laboratory Tests Test 11/17/16 22:10 Blood Gas Puncture Site ART LINE Blood Gas Patient Temperature 98.6 Blood Gas HCO3 35 mmol/L (22-26) Blood Gas Base Excess 11.0 mmol/L (-2-2) Blood Gas Oxygen Saturation 96 % (90-100) Arterial Blood pH 7.48 (7.380-7.420) Arterial Blood Partial 47 mmHg (38-42) Pressure CO2 Arterial Blood Partial 111 mmHg Pressure O2 (61-120) Arterial Blood Oxygen Content 12.2 Vol % (12.0-20.0) Arterial Blood 1.9 % (0-4) Carboxyhemoglobin Arterial Blood Methemoglobin 0.8 % (0-2) Blood Gas Hemoglobin 8.9 G/DL (12.0-16.0) Oxygen Delivery Device VENTILATOR Blood Gas Ventilator Setting PRVC/AC Blood Gas Inspired Oxygen 40 % Objective Remarks GENERAL: Elderly lady, critically ill appearing, unresponsive. SKIN: Warm and dry. HEAD: Normocephalic. EYES: No scleral icterus. No injection or drainage. NECK: Supple, trachea midline. Orally intubated. CARDIOVASCULAR: Regular rate and rhythm without murmurs, gallops, or rubs. No JVD. RESPIRATORY: Breath sounds equal bilaterally. No accessory muscle use. No wheezes or crackles. GASTROINTESTINAL: Abdomen soft, non-tender, nondistended. BS active. MUSCULOSKELETAL: No cyanosis, or edema. Well perfused. NEURO: Moves 4 limbs spontaneously. Opens eyes. Does not follow command. ROSANNE. Procedures none A/P Assessment and Plan Respiratory failure - Intubated for an airway protection - No weaning until neurologically improved - ABG and CXR today Altered mental status - Due to severe hypoglycemia, now resolved - CT head negative - Treat underlying condition Hypoglycemia - D10 infusion - Hypoglycemia workup - Insulin and pre-insulin level - C-peptide - Insulin antibodies End-stage renal disease - Hemodialysis per nephrology Dyslipidemia - Statins when extubated Hypertension - Resume home meds when by mouth - Hydralazine and labetalol when necessary to keep SBP less than 160 DVT GI prophylaxis - Subcutaneous heparin and Pepcid Overall impression: Unable to wean from ventilator due to unstable neurological condition. Critical care 43 mins Aravind Ponce MD Nov 18, 2016 11:55
--- NOTE | 2016-11-18 15:21 | HHI.NPPN ---
Subjective History of Present Illness hx of ESRD copd, chf Additional Remarks intubated as was unresponsive with hypoglycemic event BG 6 Review of Systems Cardiovascular Cardiac: HURTADO Objective Data Data 11/17/16 11/18/16 19:00 07:00 Intake Total 360 ml 357 ml Output Total 3000 ml 200 ml Balance -2640 ml 157 ml Intake Oral 360 ml IV Total 357 ml Output Urine Total 50 ml Gastric Drainage Total 150 ml Hemodialysis 3000 ml # Voids 0 # Bowel Movements 0 0 Vital Signs Date Time Temp Pulse Resp B/P Pulse Ox O2 Delivery O2 Flow Rate FiO2 11/18/16 14:43 30 11/18/16 14:43 100 30 11/18/16 12:00 80 11/18/16 12:00 98.2 80 14 116/55 100 11/18/16 11:45 100 100 11/18/16 11:30 100 30 11/18/16 08:20 100 30 11/18/16 08:00 96.6 71 16 143/70 100 11/18/16 08:00 71 11/18/16 08:00 30 11/18/16 04:08 100 30 11/18/16 04:00 30 11/18/16 04:00 99.0 81 16 153/72 100 Manual Cuff/Auscultation Automatic Cuff 11/18/16 04:00 81 11/18/16 01:34 100 30 11/18/16 00:00 82 11/18/16 00:00 30 11/17/16 23:00 74 11/17/16 23:00 94.5 75 16 100 171/74 11/17/16 22:22 100 30 11/17/16 21:30 30 11/17/16 21:15 100 40 11/17/16 21:00 40 11/17/16 21:00 92.3 74 14 165/73 100 166/72 11/17/16 21:00 73 11/17/16 20:00 82 11/17/16 19:45 98 ambu bag 11/17/16 19:45 99 12.00 11/17/16 19:30 97.3 91 18 150/82 99 11/17/16 17:43 100 Nasal Cannula 2.00 11/17/16 16:00 98.3 85 18 152/77 97 -: 11/18/16 0346 11/17/16 2340 Physical Exam General Appearance: Well Developed Neck Neck Exam: Neck Supple Pulmonary Resp Exam: Decreased Bases Cardiology CV Exam: Regular Gastrointestinal/Abdomen GI Exam: Soft, Non-Tender, Bowel Sounds Present Extremeties Extremities Exam: No Edema Neurologic Neuro Exam: Alert Assessment/Plan Problem List: (1) ESRD (end stage renal disease) Plan: Dialysis on T,T,S patient has hypoglycemic shock, intubated, she is responding well and trying to communicate continue with supportive care d/w staff extubation soon (2) DM (diabetes mellitus) Plan: Monitor Her blood glucose had hypoglycemia now better (3) HTN (hypertension) Plan: Monitor blood pressure (4) Fluid overload Plan: Monitor respiratory status intubated for airway protection Problem Qualifiers (1) Fluid overload: Qualified Code: E87.70 - Hypervolemia, unspecified hypervolemia type Юлия Elizabeth MD Nov 18, 2016 15:21
--- NOTE | 2016-11-18 15:23 | HHI.PR ---
Review/Management Diagnosis sudden neurologic change, due to hypoglycemia--now improved Plan f/u MRI Diagnosis/Plan: Subjective Subjective Comments Pt is intubated, but is alert and following commands. Her serum glucose has been restored to normal last night Active Medications Current Medications Medications (Trade) Dose Ordered Sig/Hero Route Start Time Stop Time Status Last Admin Sodium Chloride 2 ml 2 ml UNSCH PRN IVF 11/15/16 14:15 (NS 1000 ml Inj) 1,000 ml @ 0 mls/hr Q0M PRN IV 11/15/16 16:14 11/17/16 12:09 Heparin Sodium (Porcine) 8000 units 8,000 units UNSCH PRN IVF 11/15/16 16:15 Sodium Chloride 1,000 ml @ 200 mls/hr Q5H PRN IV 11/15/16 16:14 (NS 1000 ml Inj) 1,000 ml @ 0 mls/hr Q0M PRN IV 11/15/16 16:14 (Mannitol Inj) 12.5 gm UNSCH PRN IV 11/15/16 16:15 (Albumin 25% Inj) 25 gm UNSCH PRN IV 11/15/16 16:15 (NS Flush) 5 ml UNSCH PRN IV FLUSH 11/15/16 16:15 11/16/16 21:06 (Heparin Inj) UNSCH PRN .XX 11/15/16 16:15 (Gentamicin (Dialysis) Inj) 20 mg UNSCH PRN IV 11/15/16 16:15 (Zofran Inj) 4 mg UNSCH PRN IV 11/15/16 16:15 (Tylenol) 650 mg UNSCH PRN PO 11/15/16 16:15 (Benadryl) 25 mg UNSCH PRN PO 11/15/16 16:15 (Nitrostat Sl) 0.4 mg UNSCH PRN SL 11/15/16 16:15 (Catapres) 0.1 mg UNSCH PRN PO 11/15/16 16:15 11/15/16 17:13 (Epogen Inj) 10,000 units UNSCH PRN IV 11/15/16 16:15 11/17/16 12:08 (Gelfoam 12 Mm/7 Mm Top) 1 foam UNSCH PRN TOP 11/15/16 16:15 11/17/16 12:09 (Lipitor) 10 mg HS PO 11/15/16 21:00 11/16/16 21:06 (Symbicort 160-4.5 Inh) 2 puff Q12HR INH 11/15/16 21:00 11/18/16 09:58 (Phoslo) 1,334 mg TID PO 11/15/16 18:00 11/17/16 13:51 (CeleXA) 10 mg DAILY PO 11/16/16 09:00 11/17/16 13:54 (Catapres) 0.2 mg TID PO 11/15/16 18:00 11/18/16 08:57 (Ativan) 1 mg Q6H PRN PO 11/15/16 16:45 11/17/16 07:49 (Toprol Xl) 50 mg DAILY PO 11/16/16 09:00 11/17/16 13:55 (Procardia Xl) 60 mg BID PO 11/15/16 21:00 11/17/16 13:54 (Januvia) 50 mg DAILY PO 11/16/16 09:00 11/17/16 13:55 (Hytrin) 5 mg HS PO 11/15/16 21:00 11/17/16 21:00 (Zofran Inj) 4 mg Q8HR PRN IV PUSH 11/15/16 17:00 (Tylenol) 650 mg Q4H PRN PO 11/15/16 17:00 (Deland 5-325 Mg) 1 tab Q4H PRN PO 11/15/16 17:00 11/17/16 17:34 (Catapres) 0.1 mg Q8HR PRN PO 11/15/16 17:00 11/17/16 23:47 (Pill Splitter) 1 ea UNSCH PRN OTHER 11/15/16 18:00 (D50w (Vial) Inj) 50 ml UNSCH PRN IV 11/16/16 10:30 (Glucagon Inj) 1 mg UNSCH PRN OTHER 11/16/16 10:30 Miscellaneous Information No Heparin, Warfarin, Aspir... UNSCH PRN XX 11/17/16 20:30 11/18/16 20:29 Hydralazine HCl 20 mg 20 mg Q4H PRN IV PUSH 11/17/16 23:45 11/18/16 05:27 Propofol 100 ml @ 0 mls/hr TITRATE IV 11/17/16 23:45 11/18/16 05:27 (fentaNYL DRIP) 250 ml @ 0 mls/hr TITRATE IV 11/17/16 23:45 Allergies Allergies Coded Allergies Penicillin (Verified Allergy, Intermediate, UNKNOWN, 11/15/16) Exam I&O / VS 11/17/16 11/17/16 11/18/16 15:00 23:00 07:00 Intake Total 360 ml 357 ml Output Total 3000 ml 150 ml 50 ml Balance -2640 ml -150 ml 307 ml Intake Oral 360 ml IV Total 357 ml Output Urine Total 0 ml 50 ml Gastric Drainage Total 150 ml 0 ml Hemodialysis 3000 ml # Voids 0 # Bowel Movements 0 0 Vital Signs Date Time Temp Pulse Resp B/P Pulse Ox O2 Delivery O2 Flow Rate FiO2 11/18/16 14:43 30 11/18/16 14:43 100 30 11/18/16 12:00 80 11/18/16 12:00 98.2 80 14 116/55 100 11/18/16 11:45 100 100 11/18/16 11:30 100 30 11/18/16 08:20 100 30 11/18/16 08:00 96.6 71 16 143/70 100 11/18/16 08:00 71 11/18/16 08:00 30 11/18/16 04:08 100 30 11/18/16 04:00 30 11/18/16 04:00 99.0 81 16 153/72 100 Manual Cuff/Auscultation Automatic Cuff 11/18/16 04:00 81 11/18/16 01:34 100 30 11/18/16 00:00 82 11/18/16 00:00 30 11/17/16 23:00 74 11/17/16 23:00 94.5 75 16 100 171/74 11/17/16 22:22 100 30 11/17/16 21:30 30 11/17/16 21:15 100 40 11/17/16 21:00 40 11/17/16 21:00 92.3 74 14 165/73 100 166/72 11/17/16 21:00 73 11/17/16 20:00 82 11/17/16 19:45 98 ambu bag 11/17/16 19:45 99 12.00 11/17/16 19:30 97.3 91 18 150/82 99 11/17/16 17:43 100 Nasal Cannula 2.00 11/17/16 16:00 98.3 85 18 152/77 97 Exam Comments alert, follows commands CN ---perrl, extra-occular motility normal. No facial weakness Motor --moves BUE with equal strength Objective Radiology Results MRI brain--pending Micro and Labs Laboratory Tests Test 11/17/16 11/17/16 11/17/16 11/17/16 20:00 21:07 21:35 21:50 White Blood Count 6.7 Red Blood Count 3.56 Hemoglobin 10.7 Bedside Hemoglobin 11.6 Hematocrit 31.6 Bedside Hematocrit 34.0 Mean Corpuscular Volume 88.7 Mean Corpuscular Hemoglobin 30.0 Mean Corpuscular Hemoglobin 33.8 Concent Red Cell Distribution Width 16.3 Platelet Count 148 Mean Platelet Volume 9.3 Neutrophils (%) (Auto) 66.5 Lymphocytes (%) (Auto) 20.7 Monocytes (%) (Auto) 8.7 Eosinophils (%) (Auto) 3.1 Basophils (%) (Auto) 1.0 Neutrophils # (Auto) 4.4 Lymphocytes # (Auto) 1.4 Monocytes # (Auto) 0.6 Eosinophils # (Auto) 0.2 Basophils # (Auto) 0.1 CBC Comment DIFF FINAL Differential Comment Prothrombin Time 11.0 Prothromb Time International 1.0 Ratio Activated Partial 31.4 Thromboplast Time Fibrinogen 442 Bedside Sodium 140 Bedside Potassium 3.5 Bedside Chloride 93 Bedside Blood Urea Nitrogen 17 Bedside Creatinine 3.7 Bedside Glucose 20 Total Creatine Kinase 62 Troponin I LESS THAN 0.02 Random Glucose 6 225 Nasal Screen MRSA (PCR) MRSA NOT DETECTED Triglycerides Level 94 Cholesterol Level 121 LDL Cholesterol 58 HDL Cholesterol 44.5 Cholesterol/HDL Ratio 2.71 Test 11/17/16 11/17/16 11/18/16 22:10 23:40 03:46 Blood Gas Puncture Site ART LINE Blood Gas Patient Temperature 98.6 Blood Gas HCO3 35 Blood Gas Base Excess 11.0 Blood Gas Oxygen Saturation 96 Arterial Blood pH 7.48 Arterial Blood Partial 47 Pressure CO2 Arterial Blood Partial 111 Pressure O2 Arterial Blood Oxygen Content 12.2 Arterial Blood 1.9 Carboxyhemoglobin Arterial Blood Methemoglobin 0.8 Blood Gas Hemoglobin 8.9 Oxygen Delivery Device VENTILATOR Blood Gas Ventilator Setting PRVC/AC Blood Gas Inspired Oxygen 40 Random Glucose 112 Hemoglobin 8.7 Hematocrit 25.3 B-Hydroxybutyrate 0.12 Benjie Salas PhD Nov 18, 2016 15:23
--- NOTE | 2016-11-18 15:45 | RADRPT ---
EXAM DATE/TIME: 11/18/2016 12:28 [facility] COMPARISON: MRI BRAIN W/O CONTRAST, November 18, 2016, 12:28. CT BRAIN W/O CONTRAST, November 17, 2016, 20:03. INDICATIONS : CVA. MEDICAL HISTORY : Renal failure, chronic. Hypertension. Diabetes mellitus type 2. SURGICAL HISTORY : Thyroidectomy. Colon resection. Hysterectomy. ENCOUNTER: Initial ACUITY: 4-6 days PAIN SCORE: 0/10 LOCATION: head Please note a normal MRA of the brain does not entirely exclude the possibility of a small aneurysm, nor the possibility of distal intracranial vessel disease. TECHNIQUE: 3D time of flight MRA was performed. Source images, multiplanar STS MIP, and 3D volume MIP reconstru ctions were reviewed. FINDINGS: There is excellent visualization of the major intracranial arteries out to the second-order branch ve ssels. Anterior circulation: Suspect moderate stenoses of the cavernous internal carotid arteries bilaterally which correspond wit h calcified plaque on CT exam. There is no evidence for aneurysm, vessel truncation or stenosis, and no evidence for vascular malformation. Posterior circulation: Asymmetric vertebral artery size with a dominant right vertebral artery. Aplastic right P-comm. There is no evidence for aneurysm, vessel truncation or stenosis, and no evidence for vascular malformatio n. Visualized brain parenchyma demonstrates no focal mass, intra-or extra-axial fluid collections, or hy drocephalus. Visualized brain stem and cerebellum are unremarkable. CONCLUSION: 1. Likely moderate stenoses of the cavernous internal carotid arteries bilaterally secondary to calci fied plaque. 2. Otherwise, unremarkable MRA examination of the brain. Yovani Johnson MD on November 18, 2016 at 15:33 Board Certified Radiologist. This report was verified electronically.
--- NOTE | 2016-11-18 15:56 | RADRPT ---
EXAM DATE/TIME: 11/18/2016 12:28 [facility] COMPARISON: No previous studies available for comparison. INDICATIONS : CVA. MEDICAL HISTORY : Renal failure, chronic. Hypertension. Diabetes mellitus type 2. SURGICAL HISTORY : Thyroidectomy. Hysterectomy. Colon resection. ENCOUNTER: Initial ACUITY: 4-6 days PAIN SCORE: 0/10 LOCATION: Head TECHNIQUE: Multiplanar, multisequence MRI of the brain was performed without contrast. FINDINGS: There is minimal gyriform T2 prolongation involving cortex in the high convexity left posterior front al region with mild underlying signal in the subcortical white matter and centrum semiovale. There is minimal occasional white matter T2 prolongation elsewhere. There is no evidence of intra-cranial mas s or hemorrhage. The ventricles are symmetric and normal. There is symmetric mucosal thickening or fl uid in the visualized nasopharynx. The extracranial structures are otherwise unremarkable. CONCLUSION: Mild signal changes in the high convexity posterior left frontal region which may relate to recent is chemic insult. Dilan Petersen MD on November 18, 2016 at 15:47 Board Certified Radiologist. This report was verified electronically.
[2016-11-18] MEDS: ACETAMINOPHEN/HYDROcodone 325 MG/5 MG TAB PO PRN (20:41)
[2016-11-18] MEDS: ATORVASTATIN 10 MG TAB PO SCH (20:41)
[2016-11-18] MEDS: TERAZOSIN HCL 5 MG CAP PO SCH (20:44)
[2016-11-19] VITALS (11 sets, daily range): BP systolic 138–172; BP diastolic 56–87; PULSE 82–98; RESP 18–22; TEMP 96.2–99.1; O2SAT 99–100
[2016-11-19] MEDS: ACETAMINOPHEN/HYDROcodone 325 MG/5 MG TAB PO PRN ×4 (01:48→18:31)
[2016-11-19] MEDS: hydrALAZINE HCL 20 MG/ML VIAL IV PUSH PRN (04:25)
[2016-11-19 05:51] LABS: BICARBONATE 29.1 MEQ/L (21.0-32.0); POTASSIUM 4.1 MEQ/L (3.5-5.1)
[2016-11-19] MEDS: INSULIN ASPART SUPPLEMENTAL SCALE SQ SCH ×4 (06:25→21:00)
[2016-11-19] MEDS: BUDESONIDE-FORMOTEROL 160/4.5 MCG INHALER INH SCH ×2 (09:00→21:00)
[2016-11-19] MEDS: cloNIDine HCL 0.2 MG TAB PO SCH ×3 (09:00→18:02)
[2016-11-19] MEDS: CALCIUM ACETATE 667 MG CAP PO SCH ×3 (09:00→18:02)
[2016-11-19] MEDS: NIFEdipine 60 MG SUSTAINED RELEASE TAB PO SCH ×2 (09:00→21:25)
[2016-11-19] MEDS: METOPROLOL SUCCINATE 50 MG EXTENDED RELEASE TAB PO SCH (09:00)
[2016-11-19] MEDS: CITALOPRAM HYDROBROMIDE 20 MG TAB PO SCH (09:00)
--- NOTE | 2016-11-19 10:19 | HHI.NPPN ---
Subjective History of Present Illness hx of ESRD copd, chf Additional Remarks Seen on dialysis today, tolerating HD well. Review of Systems Cardiovascular Cardiac: HURTADO Objective Data Data 11/18/16 11/19/16 19:00 07:00 Intake Total 216 ml 628 ml Output Total 10 ml 0 ml Balance 206 ml 628 ml Intake Oral 480 ml IV Total 216 ml 148 ml Output Urine Total 10 ml 0 ml Gastric Drainage Total 0 ml # Bowel Movements 0 0 Vital Signs Date Time Temp Pulse Resp B/P Pulse Ox O2 Delivery O2 Flow Rate FiO2 11/19/16 08:38 96.7 95 19 170/87 100 11/19/16 08:00 98.2 86 20 168/60 100 11/19/16 08:00 86 11/19/16 06:00 86 11/19/16 04:45 138/56 11/19/16 04:00 82 11/19/16 04:00 98.7 82 22 172/64 100 11/19/16 02:00 86 11/19/16 00:00 90 11/19/16 00:00 98.7 90 22 159/62 99 11/18/16 22:00 86 11/18/16 20:24 98 Nasal Cannula 2.00 11/18/16 20:00 84 11/18/16 20:00 97.7 84 19 138/60 97 11/18/16 16:27 100 35 11/18/16 16:00 80 11/18/16 16:00 97.9 80 16 151/68 100 11/18/16 15:50 100 Nasal Cannula 2 99 11/18/16 14:43 30 11/18/16 14:43 100 30 11/18/16 12:00 80 11/18/16 12:00 98.2 80 14 116/55 100 11/18/16 11:45 100 100 11/18/16 11:30 100 30 -: 11/18/16 0346 11/19/16 0504 Physical Exam General Appearance: Well Developed Neck Neck Exam: Neck Supple Pulmonary Resp Exam: Decreased Bases Cardiology CV Exam: Regular Gastrointestinal/Abdomen GI Exam: Soft, Non-Tender, Bowel Sounds Present Extremeties Extremities Exam: No Edema Neurologic Neuro Exam: Alert Assessment/Plan Problem List: (1) ESRD (end stage renal disease) Plan: Seen on HD today, tolerating HD well. UF as tolerated. Continue TTS HD, next HD [facility] Remains extubated now, hypoglycemia improved. Follow MRI with neurology (2) DM (diabetes mellitus) Plan: Monitor Her blood glucose (3) HTN (hypertension) Plan: Monitor blood pressure (4) Fluid overload Plan: Monitor respiratory status Problem Qualifiers (1) Fluid overload: Qualified Code: E87.70 - Hypervolemia, unspecified hypervolemia type Jerry Ackerman MD Nov 19, 2016 10:19
[2016-11-19] MEDS: LORazepam 1 MG TAB PO PRN ×2 (11:06→18:31)
[2016-11-19] MEDS: GELATIN 12 MM/7 MM FOAM TOP PRN (11:46)
[2016-11-19] MEDS: EPOETIN ALFA 10,000 UNITS/ML VIAL IV PRN (11:46)
--- NOTE | 2016-11-19 13:02 | HHI.PR ---
Subjective Remarks seen in HD. awake and alert. with no acute distress. Objective Vitals Vital Signs Date Time Temp Pulse Resp B/P Pulse Ox O2 Delivery O2 Flow Rate FiO2 11/19/16 08:38 96.7 95 19 170/87 100 11/19/16 08:00 98.2 86 20 168/60 100 11/19/16 08:00 86 11/19/16 06:00 86 11/19/16 04:45 138/56 11/19/16 04:00 82 11/19/16 04:00 98.7 82 22 172/64 100 11/19/16 02:00 86 11/19/16 00:00 90 11/19/16 00:00 98.7 90 22 159/62 99 11/18/16 22:00 86 11/18/16 20:24 98 Nasal Cannula 2.00 11/18/16 20:00 84 11/18/16 20:00 97.7 84 19 138/60 97 11/18/16 16:27 100 35 11/18/16 16:00 80 11/18/16 16:00 97.9 80 16 151/68 100 11/18/16 15:50 100 Nasal Cannula 2 99 11/18/16 14:43 30 11/18/16 14:43 100 30 I/O 11/18/16 11/18/16 11/18/16 11/19/16 11/19/16 11/19/16 07:00 15:00 23:00 07:00 15:00 23:00 Intake Total 357 ml 216 ml 318 ml 310 ml Output Total 50 ml 10 ml 0 ml 0 ml Balance 307 ml 206 ml 318 ml 310 ml Intake Oral 240 ml 240 ml IV Total 357 ml 216 ml 78 ml 70 ml Output Urine Total 50 ml 10 ml 0 ml 0 ml Gastric Drainage Total 0 ml 0 ml # Bowel Movements 0 0 0 0 Result Diagram: 11/18/16 0346 11/19/16 0504 Imaging Last Impressions Head Magnetic Resonance Angiography 11/18/16 0000 Signed Impressions: Service Date/Time: Friday, November 18, 2016 12:28 - CONCLUSION: 1. Likely moderate stenoses of the cavernous internal carotid arteries bilaterally secondary to calcified plaque. 2. Otherwise, unremarkable MRA examination of the brain. Yovani Johnson MD Brain MRI 11/18/16 0000 Signed Impressions: Service Date/Time: Friday, November 18, 2016 12:28 - CONCLUSION: Mild signal changes in the high convexity posterior left frontal region which may relate to recent ischemic insult. Dilan Petersen MD Head CT 11/17/16 0000 Signed Impressions: Service Date/Time: October 20:03 - CONCLUSION: Mild atrophic change with no evidence of hemorrhage, mass or definite infarction. Deep Jordan MD Chest X-Ray 11/17/16 0000 Signed Impressions: Service Date/Time: October 21:02 - CONCLUSION: 1. Interval intubation and placement of right internal jugular central venous line with no pneumothorax. 2. Rotated exam with interval improvement in bibasal opacity. Deep Jordan MD Objective Remarks GENERAL: This is a well-nourished, well-developed patient, in no apparent distress. CARDIOVASCULAR: Regular rate and regular rhythm without murmurs, gallops, or rubs. RESPIRATORY: bilateral air entry present GASTROINTESTINAL: Abdomen soft, non-tender, nondistended. Normal, active bowel sounds MUSCULOSKELETAL: Extremities without clubbing, cyanosis, or edema. NEURO: Alert & Oriented x4 to person, place, time, situation. Moves all ext x4 Procedures none Medications and IVs Current Medications Sodium Chloride (NS Flush) 2 ml UNSCH PRN IVF FLUSH AFTER USING IV ACCESS; Start 11/15/16 at 14:15 Clonidine 0.1 mg 0.1 mg ONCE ONCE PO Last administered on 11/15/16 14:56; Start 11/15/16 at 14:15; Stop 11/15/16 at 14:16; Status DC Sodium Chloride (NS 1000 ml Inj) 1,000 ml @ 0 mls/hr Q0M PRN IV For Prime & Rinse Back Last administered on 11/17/16 12:09; Start 11/15/16 at 16:14 Heparin Sodium (Porcine) 8000 units 8,000 units UNSCH PRN IVF WITH DIALYSIS; Start 11/15/16 at 16:15 Sodium Chloride 1,000 ml @ 200 mls/hr Q5H PRN IV WITH DIALYSIS; Start 11/15/16 at 16:14 Sodium Chloride (NS 1000 ml Inj) 1,000 ml @ 0 mls/hr Q0M PRN IV WITH DIALYSIS; Start 11/15/16 at 16:14 Mannitol (Mannitol Inj) 12.5 gm UNSCH PRN IV WITH DIALYSIS; Start 11/15/16 at 16:15 Albumin Human (Albumin 25% Inj) 25 gm UNSCH PRN IV WITH DIALYSIS; Start at 16:15 Sodium Chloride (NS Flush) 5 ml UNSCH PRN IV FLUSH WITH DIALYSIS Last administered on 11/16/16 21:06; Start 11/15/16 at 16:15 Heparin Sodium (Porcine) (Heparin Inj) UNSCH PRN .XX WITH DIALYSIS; Start at 16:15 Gentamicin Sulfate (Gentamicin (Dialysis) Inj) 20 mg UNSCH PRN IV WITH DIALYSIS ; Start 11/15/16 at 16:15 Ondansetron HCl (Zofran Inj) 4 mg UNSCH PRN IV WITH DIALYSIS; Start 11/15/16 at 16:15 Acetaminophen (Tylenol) 650 mg UNSCH PRN PO for headach, pain, temp > 101F; Start 11/15/16 at 16:15 Diphenhydramine HCl (Benadryl) 25 mg UNSCH PRN PO for hives/itching/anaphylaxis ; Start 11/15/16 at 16:15 Nitroglycerin (Nitrostat Sl) 0.4 mg UNSCH PRN SL CHEST PAIN; Start 11/15/16 at 16:15 Clonidine (Catapres) 0.1 mg UNSCH PRN PO for BP > 180/100 X 2 readings Last administered on 11/15/16 17:13; Start 11/15/16 at 16:15 Epoetin Julian (Epogen Inj) 10,000 units UNSCH PRN IV WITH DIALYSIS Last administered on 11/19/16 11:46; Start 11/15/16 at 16:15 Gelatin (Gelfoam 12 Mm/7 Mm Top) 1 foam UNSCH PRN TOP SEE LABEL COMMENTS Last administered on 11/19/16 11:46; Start 11/15/16 at 16:15 Atorvastatin Calcium (Lipitor) 10 mg HS PO Last administered on 11/18/16 20:41 ; Start 11/15/16 at 21:00 Budesonide/ Formoterol Fumarate (Symbicort 160-4.5 Inh) 2 puff Q12HR INH Last administered on 11/18/16 20:42; Start 11/15/16 at 21:00 Calcium Acetate (Phoslo) 1,334 mg TID PO Last administered on 11/17/16 13:51; Start 11/15/16 at 18:00 Citalopram Hydrobromide (CeleXA) 10 mg DAILY PO Last administered on 11/17/16 13:54; Start 11/16/16 at 09:00 Clonidine (Catapres) 0.2 mg TID PO Last administered on 11/18/16 17:45; Start 11/15/16 at 18:00 Lorazepam (Ativan) 1 mg Q6H PRN PO ANXIETY AND/OR AGITATION Last administered on 11/19/16 11:06; Start 11/15/16 at 16:45 Metoprolol Succinate (Toprol Xl) 50 mg DAILY PO Last administered on 11/17/16 13:55; Start 11/16/16 at 09:00 Nifedipine (Procardia Xl) 60 mg BID PO Last administered on 11/18/16 20:41; Start 11/15/16 at 21:00 Sitagliptin Phosphate (Januvia) 50 mg DAILY PO Last administered on 11/17/16 13:55; Start 11/16/16 at 09:00 Terazosin HCl (Hytrin) 5 mg HS PO Last administered on 11/18/16 20:44; Start 11/15/16 at 21:00 Ondansetron HCl (Zofran Inj) 4 mg Q8HR PRN IV PUSH NAUSEA; Start 11/15/16 at 17 :00 Acetaminophen (Tylenol) 650 mg Q4H PRN PO FEVER/PAIN <5 Last administered on 04:26; Start 11/15/16 at 17:00 Acetaminophen/ Hydrocodone Bitart (Milligan 5-325 Mg) 1 tab Q4H PRN PO PAIN >5 Last administered on 11/19/16 11:07; Start 11/15/16 at 17:00 Albuterol/ Ipratropium (Duoneb Neb) 1 ampule Q6HR NEB PRN NEB SHORTNESS OF BREATH; Start 11/15/16 at 18:00 Clonidine (Catapres) 0.1 mg Q8HR PRN PO SBP> OR = 180, DBP> OR = 100 Last administered on 11/17/16 23:47; Start 11/15/16 at 17:00 Miscellaneous (Pill Splitter) 1 ea UNSCH PRN OTHER SEE LABEL COMMENTS; Start at 18:00 Dextrose (D50w (Vial) Inj) 50 ml UNSCH PRN IV HYPOGLYCEMIA-SEE COMMENTS; Start 11/16/16 at 10:30 Glucagon (Glucagon Inj) 1 mg UNSCH PRN OTHER HYPOGLYCEMIA-SEE COMMENTS; Start 11/16/16 at 10:30 Insulin Aspart (NovoLOG SUPPLEMENTAL SCALE) 1 ACHS SLIDING SCALE SQ Last administered on 11/17/16 16:00; Start 11/16/16 at 11:00 Alteplase, Recombinant 4.9 mg 4.9 mg ONCE ONCE IV ; Start 11/17/16 at 20:30; Stop 11/17/16 at 20:48; Status DC Alteplase, Recombinant/ Syringe / Bag (Activase Drip/ Syringe/Bag) 44 ml @ 44 mls/hr ONCE ONCE IV ; Start 11/17/16 at 20:30; Stop 11/17/16 at 21:29; Status DC Sodium Chloride (NS Inj) 30 ml ONCE ONCE IVF ; Start 11/17/16 at 20:30; Stop at 20:50; Status DC Miscellaneous Information No Heparin, Warfarin, Aspir... UNSCH PRN XX SEE DOSE INSTRUCTIONS; Start 11/17/16 at 20:30; Stop 11/18/16 at 20:29; Status DC Fentanyl Citrate (fentaNYL INJ) 100 mcg STK-MED ONCE .ROUTE Last administered on 11/17/16 20:57; Start 11/17/16 at 20:57; Stop 11/17/16 at 20:58; Status DC Midazolam HCl 5 mg 5 mg STK-MED ONCE .ROUTE Last administered on 11/17/16 20: 57; Start 11/17/16 at 20:57; Stop 11/17/16 at 20:58; Status DC Propofol (Diprivan 1000 Mg/100ml Inj) 100 ml @ As Directed STK-MED ONCE .ROUTE Last administered on 11/17/16 21:06; Start 11/17/16 at 21:06; Stop 11/17/16 at 21:07; Status DC Dextrose 50 ml 50 ml STK-MED ONCE .ROUTE Last administered on 11/17/16 21:37; Start 11/17/16 at 21:37; Stop 11/17/16 at 21:38; Status DC Fentanyl Citrate (fentaNYL DRIP) 250 ml @ 0 mls/hr TITRATE IV Last administered on 11/17/16 23:43; Start 11/17/16 at 23:15; Stop 11/17/16 at 23:48 ; Status DC Hydralazine HCl 20 mg 20 mg Q4H PRN IV PUSH SBP>160, DBP>90 Last administered on 11/19/16 04:25; Start 11/17/16 at 23:45 Propofol 100 ml @ As Directed STK-MED ONCE .ROUTE Last administered on 23:40; Start 11/17/16 at 23:40; Stop 11/17/16 at 23:41; Status DC Propofol 100 ml @ 0 mls/hr TITRATE IV Last administered on 11/18/16 05:27; Start 11/17/16 at 23:45 Fentanyl Citrate (fentaNYL DRIP) 250 ml @ 0 mls/hr TITRATE IV ; Start 11/17/16 at 23:45 A/P Assessment and Plan A/P -acute respiratory failure- s/p intubation/ extubation keep on oxygen to keep O2 sat >90% -CVA with left frontal region ischemia on MRI brain with hypoglycemic episode awaiting neurology follow-up and recommendations. consult PT. -diabetes mellitus with hypoglycemic episode with no further recurrence- hold Januvia and continue with accu-check with SSI for now - ESRD- on HD nephrology consulted; HD per nephrology- continue with oxygen and neb treatment as needed. -COPD- continue symbicort- neb treatment - walk test today. -hypertension; resumed home meds will monitor BP and adjust the regimen as needed. -anemia of chronic disease- epogen with HD- received PRBC transfusion. evaluated by GI recent admission- -dyslipidemia; resumed statin -DVT prophylaxis with SCD's Discharge Planning pending clinical course, neurology f/u and PT recommendations. Stephanie Dong MD Nov 19, 2016 13:02
[2016-11-19] MEDS: ATORVASTATIN 10 MG TAB PO SCH (21:25)
[2016-11-19] MEDS: TERAZOSIN HCL 5 MG CAP PO SCH (21:28)
[2016-11-20] VITALS (10 sets, daily range): BP systolic 103–180; BP diastolic 61–85; PULSE 79–92; RESP 18–19; TEMP 96.4–98.1; O2SAT 95–100
[2016-11-20] MEDS: INSULIN ASPART SUPPLEMENTAL SCALE SQ SCH ×4 (06:15→21:54)
[2016-11-20] MEDS: METOPROLOL SUCCINATE 50 MG EXTENDED RELEASE TAB PO SCH (09:03)
[2016-11-20] MEDS: cloNIDine HCL 0.2 MG TAB PO SCH ×3 (09:03→17:55)
[2016-11-20] MEDS: CALCIUM ACETATE 667 MG CAP PO SCH ×3 (09:04→17:55)
[2016-11-20] MEDS: BUDESONIDE-FORMOTEROL 160/4.5 MCG INHALER INH SCH ×2 (09:05→22:01)
[2016-11-20] MEDS: CITALOPRAM HYDROBROMIDE 20 MG TAB PO SCH (09:05)
[2016-11-20] MEDS: NIFEdipine 60 MG SUSTAINED RELEASE TAB PO SCH ×2 (09:05→21:53)
--- NOTE | 2016-11-20 10:24 | HHI.PR ---
Subjective Remarks resting comfortably with no distress. denies pain. no sob today. had walk test earlier. d/w the RN. Objective Vitals Vital Signs Date Time Temp Pulse Resp B/P Pulse Ox O2 Delivery O2 Flow Rate FiO2 11/20/16 09:59 2.00 11/20/16 08:14 97.7 92 18 167/85 100 11/20/16 04:13 97.6 88 18 176/80 100 11/20/16 00:12 96.5 87 18 166/80 100 11/19/16 21:25 97 11/19/16 20:00 98.9 98 20 165/78 100 11/19/16 16:37 96.2 95 20 163/77 100 11/19/16 13:27 99.1 95 18 164/77 99 I/O 11/19/16 11/19/16 11/19/16 11/20/16 11/20/16 11/20/16 07:00 15:00 23:00 07:00 15:00 23:00 Intake Total 310 ml 240 ml Output Total 0 ml 2000 ml Balance 310 ml -2000 ml 240 ml Intake Oral 240 ml 240 ml IV Total 70 ml Output Urine Total 0 ml Hemodialysis 2000 ml # Voids 1 0 # Bowel Movements 0 0 0 Result Diagram: 11/18/16 0346 11/19/16 0504 Imaging Last Impressions Head Magnetic Resonance Angiography 11/18/16 0000 Signed Impressions: Service Date/Time: Friday, November 18, 2016 12:28 - CONCLUSION: 1. Likely moderate stenoses of the cavernous internal carotid arteries bilaterally secondary to calcified plaque. 2. Otherwise, unremarkable MRA examination of the brain. Yovani Johnson MD Brain MRI 11/18/16 0000 Signed Impressions: Service Date/Time: Friday, November 18, 2016 12:28 - CONCLUSION: Mild signal changes in the high convexity posterior left frontal region which may relate to recent ischemic insult. Dilan Petersen MD Head CT 11/17/16 0000 Signed Impressions: Service Date/Time: October 20:03 - CONCLUSION: Mild atrophic change with no evidence of hemorrhage, mass or definite infarction. Deep Jordan MD Chest X-Ray 11/17/16 0000 Signed Impressions: Service Date/Time: October 21:02 - CONCLUSION: 1. Interval intubation and placement of right internal jugular central venous line with no pneumothorax. 2. Rotated exam with interval improvement in bibasal opacity. Deep Jordan MD Objective Remarks GENERAL: This is a well-nourished, well-developed patient, in no apparent distress. CARDIOVASCULAR: Regular rate and regular rhythm without murmurs, gallops, or rubs. RESPIRATORY: bilateral air entry present GASTROINTESTINAL: Abdomen soft, non-tender, nondistended. Normal, active bowel sounds MUSCULOSKELETAL: Extremities without clubbing, cyanosis, or edema. NEURO: Alert & Oriented x4 to person, place, time, situation. Moves all ext x4 Procedures none Medications and IVs Current Medications Sodium Chloride (NS Flush) 2 ml UNSCH PRN IVF FLUSH AFTER USING IV ACCESS; Start 11/15/16 at 14:15 Clonidine 0.1 mg 0.1 mg ONCE ONCE PO Last administered on 11/15/16 14:56; Start 11/15/16 at 14:15; Stop 11/15/16 at 14:16; Status DC Sodium Chloride (NS 1000 ml Inj) 1,000 ml @ 0 mls/hr Q0M PRN IV For Prime & Rinse Back Last administered on 11/17/16 12:09; Start 11/15/16 at 16:14 Heparin Sodium (Porcine) 8000 units 8,000 units UNSCH PRN IVF WITH DIALYSIS; Start 11/15/16 at 16:15 Sodium Chloride 1,000 ml @ 200 mls/hr Q5H PRN IV WITH DIALYSIS; Start 11/15/16 at 16:14 Sodium Chloride (NS 1000 ml Inj) 1,000 ml @ 0 mls/hr Q0M PRN IV WITH DIALYSIS; Start 11/15/16 at 16:14 Mannitol (Mannitol Inj) 12.5 gm UNSCH PRN IV WITH DIALYSIS; Start 11/15/16 at 16:15 Albumin Human (Albumin 25% Inj) 25 gm UNSCH PRN IV WITH DIALYSIS; Start at 16:15 Sodium Chloride (NS Flush) 5 ml UNSCH PRN IV FLUSH WITH DIALYSIS Last administered on 11/16/16 21:06; Start 11/15/16 at 16:15 Heparin Sodium (Porcine) (Heparin Inj) UNSCH PRN .XX WITH DIALYSIS; Start at 16:15 Gentamicin Sulfate (Gentamicin (Dialysis) Inj) 20 mg UNSCH PRN IV WITH DIALYSIS ; Start 11/15/16 at 16:15 Ondansetron HCl (Zofran Inj) 4 mg UNSCH PRN IV WITH DIALYSIS; Start 11/15/16 at 16:15 Acetaminophen (Tylenol) 650 mg UNSCH PRN PO for headach, pain, temp > 101F; Start 11/15/16 at 16:15 Diphenhydramine HCl (Benadryl) 25 mg UNSCH PRN PO for hives/itching/anaphylaxis ; Start 11/15/16 at 16:15 Nitroglycerin (Nitrostat Sl) 0.4 mg UNSCH PRN SL CHEST PAIN; Start 11/15/16 at 16:15 Clonidine (Catapres) 0.1 mg UNSCH PRN PO for BP > 180/100 X 2 readings Last administered on 11/15/16 17:13; Start 11/15/16 at 16:15 Epoetin Julian (Epogen Inj) 10,000 units UNSCH PRN IV WITH DIALYSIS Last administered on 11/19/16 11:46; Start 11/15/16 at 16:15 Gelatin (Gelfoam 12 Mm/7 Mm Top) 1 foam UNSCH PRN TOP SEE LABEL COMMENTS Last administered on 11/19/16 11:46; Start 11/15/16 at 16:15 Atorvastatin Calcium (Lipitor) 10 mg HS PO Last administered on 11/19/16 21:25 ; Start 11/15/16 at 21:00 Budesonide/ Formoterol Fumarate (Symbicort 160-4.5 Inh) 2 puff Q12HR INH Last administered on 11/20/16 09:05; Start 11/15/16 at 21:00 Calcium Acetate (Phoslo) 1,334 mg TID PO Last administered on 11/20/16 09:04; Start 11/15/16 at 18:00 Citalopram Hydrobromide (CeleXA) 10 mg DAILY PO Last administered on 11/20/16 09:05; Start 11/16/16 at 09:00 Clonidine (Catapres) 0.2 mg TID PO Last administered on 11/20/16 09:03; Start 11/15/16 at 18:00 Lorazepam (Ativan) 1 mg Q6H PRN PO ANXIETY AND/OR AGITATION Last administered on 11/19/16 18:31; Start 11/15/16 at 16:45 Metoprolol Succinate (Toprol Xl) 50 mg DAILY PO Last administered on 11/20/16 09:03; Start 11/16/16 at 09:00 Nifedipine (Procardia Xl) 60 mg BID PO Last administered on 11/20/16 09:05; Start 11/15/16 at 21:00 Sitagliptin Phosphate (Januvia) 50 mg DAILY PO Last administered on 11/17/16 13:55; Start 11/16/16 at 09:00; Status Hold Terazosin HCl (Hytrin) 5 mg HS PO Last administered on 11/19/16 21:28; Start at 21:00 Ondansetron HCl (Zofran Inj) 4 mg Q8HR PRN IV PUSH NAUSEA; Start 11/15/16 at 17 :00 Acetaminophen (Tylenol) 650 mg Q4H PRN PO FEVER/PAIN <5 Last administered on 04:26; Start 11/15/16 at 17:00 Acetaminophen/ Hydrocodone Bitart (Ferris 5-325 Mg) 1 tab Q4H PRN PO PAIN >5 Last administered on 11/19/16 18:31; Start 11/15/16 at 17:00 Albuterol/ Ipratropium (Duoneb Neb) 1 ampule Q6HR NEB PRN NEB SHORTNESS OF BREATH; Start 11/15/16 at 18:00; Stop 11/19/16 at 18:00; Status DC Clonidine (Catapres) 0.1 mg Q8HR PRN PO SBP> OR = 180, DBP> OR = 100 Last administered on 11/17/16 23:47; Start 11/15/16 at 17:00 Miscellaneous (Pill Splitter) 1 ea UNSCH PRN OTHER SEE LABEL COMMENTS; Start at 18:00 Dextrose (D50w (Vial) Inj) 50 ml UNSCH PRN IV HYPOGLYCEMIA-SEE COMMENTS; Start 11/16/16 at 10:30 Glucagon (Glucagon Inj) 1 mg UNSCH PRN OTHER HYPOGLYCEMIA-SEE COMMENTS; Start 11/16/16 at 10:30 Insulin Aspart (NovoLOG SUPPLEMENTAL SCALE) 1 ACHS SLIDING SCALE SQ Last administered on 11/19/16 18:07; Start 11/16/16 at 11:00 Alteplase, Recombinant 4.9 mg 4.9 mg ONCE ONCE IV ; Start 11/17/16 at 20:30; Stop 11/17/16 at 20:48; Status DC Alteplase, Recombinant/ Syringe / Bag (Activase Drip/ Syringe/Bag) 44 ml @ 44 mls/hr ONCE ONCE IV ; Start 11/17/16 at 20:30; Stop 11/17/16 at 21:29; Status DC Sodium Chloride (NS Inj) 30 ml ONCE ONCE IVF ; Start 11/17/16 at 20:30; Stop at 20:50; Status DC Miscellaneous Information No Heparin, Warfarin, Aspir... UNSCH PRN XX SEE DOSE INSTRUCTIONS; Start 11/17/16 at 20:30; Stop 11/18/16 at 20:29; Status DC Fentanyl Citrate (fentaNYL INJ) 100 mcg STK-MED ONCE .ROUTE Last administered on 11/17/16 20:57; Start 11/17/16 at 20:57; Stop 11/17/16 at 20:58; Status DC Midazolam HCl 5 mg 5 mg STK-MED ONCE .ROUTE Last administered on 11/17/16 20: 57; Start 11/17/16 at 20:57; Stop 11/17/16 at 20:58; Status DC Propofol (Diprivan 1000 Mg/100ml Inj) 100 ml @ As Directed STK-MED ONCE .ROUTE Last administered on 11/17/16 21:06; Start 11/17/16 at 21:06; Stop 11/17/16 at 21:07; Status DC Dextrose 50 ml 50 ml STK-MED ONCE .ROUTE Last administered on 11/17/16 21:37; Start 11/17/16 at 21:37; Stop 11/17/16 at 21:38; Status DC Fentanyl Citrate (fentaNYL DRIP) 250 ml @ 0 mls/hr TITRATE IV Last administered on 11/17/16 23:43; Start 11/17/16 at 23:15; Stop 11/17/16 at 23:48 ; Status DC Hydralazine HCl 20 mg 20 mg Q4H PRN IV PUSH SBP>160, DBP>90 Last administered on 11/19/16 04:25; Start 11/17/16 at 23:45 Propofol 100 ml @ As Directed STK-MED ONCE .ROUTE Last administered on 23:40; Start 11/17/16 at 23:40; Stop 11/17/16 at 23:41; Status DC Propofol 100 ml @ 0 mls/hr TITRATE IV Last administered on 11/18/16 05:27; Start 11/17/16 at 23:45 Fentanyl Citrate (fentaNYL DRIP) 250 ml @ 0 mls/hr TITRATE IV ; Start 11/17/16 at 23:45 A/P Assessment and Plan A/P -acute respiratory failure- s/p intubation/ extubation-resolved keep on oxygen to keep O2 sat >90% patient failed the walk test ; case management will be consulted for home oxygen. - left frontal region ischemia on MRI brain with hypoglycemic episode awaiting neurology follow-up and recommendations. consulted PT. -diabetes mellitus with hypoglycemic episode with no further recurrence- stop Januvia and continue with accu-check with SSI for now previously d/w ( her PCP) who was in agreement with stopping all oral hypoglycemic agents- will have a f/u in the office. - ESRD- on HD nephrology consulted; HD per nephrology- continue with oxygen and neb treatment as needed. -COPD- continue symbicort- neb treatment - needs home oxygen. -hypertension; resumed home meds will monitor BP and adjust the regimen as needed. -anemia of chronic disease- epogen with HD- received PRBC transfusion. evaluated by GI recent admission- -dyslipidemia; resumed statin -DVT prophylaxis with SCD's Discharge Planning dc home with HHC when home oxygen /HHC has been arranged and cleared by neurology. d/w the patient and RN. f/u; pcp , neurology and nephrology. see med list. time spent 35 min. Stephanie Dong MD Nov 20, 2016 10:24
--- NOTE | 2016-11-20 10:26 | HHI.DCPOC ---
Discharge Care Plan Diagnosis: (1) Respiratory failure (2) Fluid overload (3) Hypoglycemia Your Health Problems Are: Fluctuating Blood Sugars Shortness of Breath Goals to Promote Your Health * To prevent worsening of your condition and complications * To maintain your health at the optimal level Directions to Meet Your Goals Take your medications as prescribed Follow your dietary instruction Follow activity as directed Keep your appointments as scheduled Take your immunizations and boosters as scheduled If your symptoms worsen call your PCP, if no PCP go to Urgent Care Center or Emergency Room Smoking is Dangerous to Your Health. Avoid second hand smoke Call the 24-hour hour crisis hotline for domestic abuse at Stephanie Dong MD Nov 20, 2016 10:26
[2016-11-20] MEDS ORDERED: OXYGENTANK NAS.CANULA (10:27)
--- NOTE | 2016-11-20 10:27 | HHI.FF ---
Face to Face Verification Diagnosis: (1) ESRD (end stage renal disease) (2) copd Physical Therapy Order: Evaluate and Treat Home Health Nursing Order: Medical education Signs/symptoms of disease process Oxygen administration education Nursing assessment with vital signs I have seen patient Veena Naik on 11/20/16. My clinical findings support the need for the requested home health care services because: Ltd mobility - disease progression Patient has SOB I certify that my clinical findings support that this patient is homebound because: Hx COPD- exertion dyspnea/weakness Stephanie Dong MD Nov 20, 2016 10:27
[2016-11-20] MEDS ORDERED: DOCUSATE SODIUM 100 MG CAP PO PRN (10:30)
[2016-11-20] MEDS ORDERED: VENTAER INH (10:34)
--- NOTE | 2016-11-20 10:35 | HHI.DS ---
Discharge Summary Admission Date Nov 15, 2016 at 16:13 Discharge Date: Nov 20, 2016 Admitting Diagnosis anemia, fluid overload (1) Fluid overload ICD Code: E87.70 Diagnosis: Principal (2) Anemia ICD Code: D64.9 Diagnosis: Principal Procedures none Brief History - From Admission patient is a 66 y/o female with ESRD- on HD , hypertension, diabetes mellitus, lung cancer who presented to ER with sob. she says that she had her HD earlier today. she was seen by her physician this morning and when she was found to have low oxygen level she was advised to come to ER. she reports productive cough of whitish sputum with no fever or chills. she denies any rectal bleed or dark, black stools. she's complaining of mild nausea but with no emesis. CBC/BMP: 11/18/16 0346 11/19/16 0504 Significant Findings Laboratory Tests Test 11/17/16 11/17/16 11/17/16 11/17/16 20:00 21:07 21:50 22:10 Red Blood Count 3.56 MIL/MM3 (4.00-5.30) Hemoglobin 10.7 GM/DL (11.6-15.3) Bedside Hemoglobin 11.6 G/DL (12.0-17.0) Hematocrit 31.6 % (35.0-46.0) Bedside Hematocrit 34.0 % (38.0-51.0) Platelet Count 148 TH/MM3 (150-450) Monocytes (%) (Auto) 8.7 % (0.0-8.0) Activated Partial 31.4 SEC Thromboplast Time (24.3-30.1) Fibrinogen 442 mg/dL (227-377) Bedside Chloride 93 MMOL/L (98-109) Bedside Creatinine 3.7 MG/DL (0.6-1.0) Bedside Glucose 20 MG/DL (60-95) Troponin I LESS THAN 0.02 NG/ML (0.02-0.05) Random Glucose 6 MG/DL 225 MG/DL (74-106) (74-106) Blood Gas HCO3 35 mmol/L (22-26) Blood Gas Base Excess 11.0 mmol/L (-2-2) Arterial Blood pH 7.48 (7.380-7.420) Arterial Blood Partial 47 mmHg (38-42) Pressure CO2 Blood Gas Hemoglobin 8.9 G/DL (12.0-16.0) Test 11/17/16 11/18/16 11/19/16 23:40 03:46 05:04 Random Glucose 112 MG/DL 128 MG/DL (74-106) (74-106) Hemoglobin 8.7 GM/DL (11.6-15.3) Hematocrit 25.3 % (35.0-46.0) Sodium Level 132 MEQ/L (136-145) Chloride Level 93 MEQ/L (98-107) Blood Urea Nitrogen 26 MG/DL (7-18) Creatinine 6.46 MG/DL (0.50-1.00) Estimat Glomerular Filtration 8 ML/MIN (>89) Rate Imaging Last Impressions Head Magnetic Resonance Angiography 11/18/16 0000 Signed Impressions: Service Date/Time: Friday, November 18, 2016 12:28 - CONCLUSION: 1. Likely moderate stenoses of the cavernous internal carotid arteries bilaterally secondary to calcified plaque. 2. Otherwise, unremarkable MRA examination of the brain. Yovani Johnson MD Brain MRI 11/18/16 0000 Signed Impressions: Service Date/Time: Friday, November 18, 2016 12:28 - CONCLUSION: Mild signal changes in the high convexity posterior left frontal region which may relate to recent ischemic insult. Dilan Petersen MD Head CT 11/17/16 0000 Signed Impressions: Service Date/Time: October 20:03 - CONCLUSION: Mild atrophic change with no evidence of hemorrhage, mass or definite infarction. Deep Jordan MD Chest X-Ray 11/17/16 0000 Signed Impressions: Service Date/Time: October 21:02 - CONCLUSION: 1. Interval intubation and placement of right internal jugular central venous line with no pneumothorax. 2. Rotated exam with interval improvement in bibasal opacity. Deep Jordan MD PE at Discharge GENERAL: This is a well-nourished, well-developed patient, in no apparent distress. CARDIOVASCULAR: Regular rate and regular rhythm without murmurs, gallops, or rubs. RESPIRATORY: bilateral air entry present GASTROINTESTINAL: Abdomen soft, non-tender, nondistended. Normal, active bowel sounds MUSCULOSKELETAL: Extremities without clubbing, cyanosis, or edema. NEURO: Alert & Oriented x4 to person, place, time, situation. Moves all ext x4 Hospital Course -acute respiratory failure- s/p intubation/ extubation-resolved keep on oxygen to keep O2 sat >90% patient failed the walk test ; case management will be consulted for home oxygen. -CVA with left frontal region ischemia on MRI brain with hypoglycemic episode awaiting neurology follow-up and recommendations. consulted PT. -diabetes mellitus with hypoglycemic episode with no further recurrence- stop Januvia and continue with accu-check with SSI for now previously d/w ( her PCP) who was in agreement with stopping all oral hypoglycemic agents- will have a f/u in the office. - ESRD- on HD nephrology consulted; HD per nephrology- continue with oxygen and neb treatment as needed. -COPD- continue symbicort- neb treatment - needs home oxygen. -hypertension; resumed home meds will monitor BP and adjust the regimen as needed. -anemia of chronic disease- epogen with HD- received PRBC transfusion. evaluated by GI recent admission- -dyslipidemia; resumed statin -DVT prophylaxis with SCD's Pt Condition on Discharge: Good Discharge Disposition: Disch w/ Home Health Serv Discharge Time: > 30 minutes Discharge Instructions DIET: Follow Instructions for: Heart Healthy Diet, Diabetic Diet Activities you can perform: Regular-No Restrictions Follow up Referrals: Nephrology Neurology PCP Follow-up New Medications: Albuterol 18 GM Inh (Ventolin Hfa 18 GM Inh) 90 Mcg/Act Aer 2 PUFF INH Q6H PRN SHORTNESS OF BREATH #1 Ref 0 INHALER Oxygen tank (Oxygen tank) 1 Ea Tank 2 LITER KATRIN.CANULA CONTINUOUS Oxygen Concentrator Portable Gaseous 2 L/min via Nasal Cannula Continuous For 99 months HYPOXEMIA PREVENTION #2 CYLINDER Continued Medications: Atorvastatin (Atorvastatin) 10 Mg Tab 10 MG PO HS Cholesterol Management #30 Ref 0 TAB Budesonide-Formoterol Inh (Symbicort Inh) 160-4.5 Mcg/Act Aero 2 PUFF INH Q12HR #1 Ref 0 INHALER Calcium Acetate (Phosphate Bin (Calcium Acetate) 667 Mg Cap 1334 MG PO TID Dialysis #90 CAP Calcium Acetate (Phosphate Binder) (Phoslo) 667 Mg Cap 667 MG PO TID Hyperphosphatemia #90 Ref 0 CAP Cholecalciferol (Vitamin D) 5,000 Unit Tab Citalopram (Citalopram) 10 Mg Tab 10 MG PO DAILY Control Depression #30 Ref 0 TAB Clonidine (Clonidine) 0.2 Mg Tab 0.2 MG PO TID Blood Pressure Management #60 Ref 0 TAB Hydrocodone-Acetaminophen (Hydrocodone-Acetaminophen) 5-325 mg Tab 1 TAB PO Q6H PRN PAIN #12 Ref 0 TAB Insulin Aspart Inj (Novolog Inj) 1,000 Unit/10 Ml Vial 0 SQ DIRECTED Sliding Scale as directed. Blood Sugar Management #10 Ref 0 ML Lorazepam (Ativan) 1 Mg Tab 1 MG PO Q6H PRN ANXIETY AND/OR AGITATION #10 Ref 0 TAB Metoprolol Succinate ER 24 HR (Metoprolol Succinate ER 24 HR) 50 Mg Tab 50 MG PO DAILY #30 Ref 0 TAB Nifedipine (Nifedipine ER) 90 Mg Tab 60 TAB PO BID Ondansetron (Zofran) 8 Mg Tab 8 MG PO TID PRN NAUSEA OR VOMITING Ref 0 TAB Sennosides-Docusate Sodium (Sybil-Colace) 8.6-50 Mg Tab 1 TAB PO BID PRN Constipation #60 Ref 0 TAB Terazosin (Terazosin) 5 Mg Cap 5 MG PO HS #30 Ref 0 CAP Discontinued Medications: Sitagliptin (Januvia) 50 Mg Tab 50 MG PO DAILY Blood Sugar Management #30 Ref 0 TAB Stephanie Dong MD Nov 20, 2016 10:35
[2016-11-20] MEDS: LORazepam 1 MG TAB PO PRN (11:22)
--- NOTE | 2016-11-20 17:51 | HHI.NPPN ---
Subjective History of Present Illness hx of ESRD copd, chf Additional Remarks No acute complaints Review of Systems Cardiovascular Cardiac: HURTADO Objective Data Data 11/19/16 11/20/16 19:00 07:00 Intake Total 240 ml Output Total 2000 ml Balance -1760 ml Intake Oral 240 ml Hemodialysis 2000 ml # Voids 1 # Bowel Movements 0 Vital Signs Date Time Temp Pulse Resp B/P Pulse Ox O2 Delivery O2 Flow Rate FiO2 11/20/16 16:16 96.4 82 18 103/61 99 11/20/16 12:03 97.1 92 19 146/70 95 11/20/16 09:59 2.00 11/20/16 08:14 97.7 92 18 167/85 100 11/20/16 04:13 97.6 88 18 176/80 100 11/20/16 00:12 96.5 87 18 166/80 100 11/19/16 21:25 97 11/19/16 20:00 98.9 98 20 165/78 100 -: 11/18/16 0346 11/19/16 0504 Physical Exam General Appearance: Well Developed Neck Neck Exam: Neck Supple Pulmonary Resp Exam: Decreased Bases Cardiology CV Exam: Regular Gastrointestinal/Abdomen GI Exam: Soft, Non-Tender, Bowel Sounds Present Extremeties Extremities Exam: No Edema Neurologic Neuro Exam: Alert Assessment/Plan Problem List: (1) ESRD (end stage renal disease) Plan: Tolerated HD yesterday Continue TTS HD, next HD Monday (outpatient if discharged) Respiratory status stable, hypoglycemia improved. Follow with neurology Possible d/c tomorrow. (2) DM (diabetes mellitus) Plan: Monitor Her blood glucose (3) HTN (hypertension) Plan: Monitor blood pressure (4) Fluid overload Plan: Monitor respiratory status Problem Qualifiers (1) DM (diabetes mellitus): (2) HTN (hypertension): Qualified Code: I15.9 - Secondary hypertension (3) Fluid overload: Qualified Code: E87.70 - Hypervolemia, unspecified hypervolemia type Jerry Ackerman MD Nov 20, 2016 17:51
--- NOTE | 2016-11-20 17:58 | HHI.PR ---
Review/Management Diagnosis sudden neurologic change, due to hypoglycemia--now improved Plan f/u MRI Diagnosis/Plan: Daily Summary 11/20 called to eval mri and d/c data seen she is doing well on neuro exam, eating and oriented will check carotid us before d/c, want to see left ica at least, considering mri findinds above ok asa and otherwise f/u dr Salas in 2 weeks Subjective Subjective Comments No acute events reported No headache No chest pain No dyspnea Active Medications Current Medications Medications (Trade) Dose Ordered Sig/Hero Route Start Time Stop Time Status Last Admin Sodium Chloride 2 ml 2 ml UNSCH PRN IVF 11/15/16 14:15 (NS 1000 ml Inj) 1,000 ml @ 0 mls/hr Q0M PRN IV 11/15/16 16:14 11/17/16 12:09 Heparin Sodium (Porcine) 8000 units 8,000 units UNSCH PRN IVF 11/15/16 16:15 Sodium Chloride 1,000 ml @ 200 mls/hr Q5H PRN IV 11/15/16 16:14 (NS 1000 ml Inj) 1,000 ml @ 0 mls/hr Q0M PRN IV 11/15/16 16:14 (Mannitol Inj) 12.5 gm UNSCH PRN IV 11/15/16 16:15 (Albumin 25% Inj) 25 gm UNSCH PRN IV 11/15/16 16:15 (NS Flush) 5 ml UNSCH PRN IV FLUSH 11/15/16 16:15 11/16/16 21:06 (Heparin Inj) UNSCH PRN .XX 11/15/16 16:15 (Gentamicin (Dialysis) Inj) 20 mg UNSCH PRN IV 11/15/16 16:15 (Zofran Inj) 4 mg UNSCH PRN IV 11/15/16 16:15 (Tylenol) 650 mg UNSCH PRN PO 11/15/16 16:15 (Benadryl) 25 mg UNSCH PRN PO 11/15/16 16:15 (Nitrostat Sl) 0.4 mg UNSCH PRN SL 11/15/16 16:15 (Catapres) 0.1 mg UNSCH PRN PO 11/15/16 16:15 11/15/16 17:13 (Epogen Inj) 10,000 units UNSCH PRN IV 11/15/16 16:15 11/19/16 11:46 (Gelfoam 12 Mm/7 Mm Top) 1 foam UNSCH PRN TOP 11/15/16 16:15 11/19/16 11:46 (Lipitor) 10 mg HS PO 11/15/16 21:00 11/19/16 21:25 (Symbicort 160-4.5 Inh) 2 puff Q12HR INH 11/15/16 21:00 11/20/16 09:05 (Phoslo) 1,334 mg TID PO 11/15/16 18:00 11/20/16 11:55 (CeleXA) 10 mg DAILY PO 11/16/16 09:00 11/20/16 09:05 (Catapres) 0.2 mg TID PO 11/15/16 18:00 11/20/16 11:55 (Ativan) 1 mg Q6H PRN PO 11/15/16 16:45 11/20/16 11:22 (Toprol Xl) 50 mg DAILY PO 11/16/16 09:00 11/20/16 09:03 (Procardia Xl) 60 mg BID PO 11/15/16 21:00 11/20/16 09:05 (Januvia) 50 mg DAILY PO 11/16/16 09:00 Hold 11/17/16 13:55 (Hytrin) 5 mg HS PO 11/15/16 21:00 11/19/16 21:28 (Zofran Inj) 4 mg Q8HR PRN IV PUSH 11/15/16 17:00 (Tylenol) 650 mg Q4H PRN PO 11/15/16 17:00 11/19/16 04:26 (Orient 5-325 Mg) 1 tab Q4H PRN PO 11/15/16 17:00 11/19/16 18:31 (Catapres) 0.1 mg Q8HR PRN PO 11/15/16 17:00 11/17/16 23:47 (Pill Splitter) 1 ea UNSCH PRN OTHER 11/15/16 18:00 (D50w (Vial) Inj) 50 ml UNSCH PRN IV 11/16/16 10:30 (Glucagon Inj) 1 mg UNSCH PRN OTHER 11/16/16 10:30 Hydralazine HCl 20 mg 20 mg Q4H PRN IV PUSH 11/17/16 23:45 11/19/16 04:25 Propofol 100 ml @ 0 mls/hr TITRATE IV 11/17/16 23:45 11/18/16 05:27 (fentaNYL DRIP) 250 ml @ 0 mls/hr TITRATE IV 11/17/16 23:45 (Colace) 100 mg BID PRN PO 11/20/16 10:30 Allergies Allergies Coded Allergies Penicillin (Verified Allergy, Intermediate, UNKNOWN, 11/15/16) Exam I&O / VS 11/19/16 11/19/16 11/20/16 15:00 23:00 07:00 Intake Total 240 ml Output Total 2000 ml Balance -2000 ml 240 ml Intake Oral 240 ml Hemodialysis 2000 ml # Voids 1 0 # Bowel Movements 0 0 Vital Signs Date Time Temp Pulse Resp B/P Pulse Ox O2 Delivery O2 Flow Rate FiO2 11/20/16 16:16 96.4 82 18 103/61 99 11/20/16 12:03 97.1 92 19 146/70 95 11/20/16 09:59 2.00 11/20/16 08:14 97.7 92 18 167/85 100 11/20/16 04:13 97.6 88 18 176/80 100 11/20/16 00:12 96.5 87 18 166/80 100 11/19/16 21:25 97 11/19/16 20:00 98.9 98 20 165/78 100 Objective Radiology Results Allergies Coded Allergies Type Severity Reaction Last Updated Verified Penicillin Allergy Intermediate UNKNOWN 11/15/16 Yes Recent Impressions Head Magnetic Resonance Angiography 11/18/16 0000 Signed Impressions: Service Date/Time: Friday, November 18, 2016 12:28 - CONCLUSION: 1. Likely moderate stenoses of the cavernous internal carotid arteries bilaterally secondary to calcified plaque. 2. Otherwise, unremarkable MRA examination of the brain. Yovani Johnson MD Brain MRI 11/18/16 0000 Signed Impressions: Service Date/Time: Friday, November 18, 2016 12:28 - CONCLUSION: Mild signal changes in the high convexity posterior left frontal region which may relate to recent ischemic insult. Dilan Petersen MD // 06:00 18:00 06:00 18:00 06:00 18:00 Intake Total 357 ml 216 ml 628 ml 240 ml Output Total 200 ml 10 ml 0 ml 2000 ml Balance 157 ml 206 ml 628 ml -1760 ml Intake Oral 480 ml 240 ml IV Total 357 ml 216 ml 148 ml Output Urine Total 50 ml 10 ml 0 ml Gastric Drainage Total 150 ml 0 ml Hemodialysis 2000 ml # Voids 1 4 # Bowel Movements 0 0 0 0 Laboratory Tests Test 11/17/16 11/17/16 11/17/16 11/17/16 20:00 21:07 21:35 21:50 White Blood Count 6.7 TH/MM3 Red Blood Count 3.56 MIL/MM3 Hemoglobin 10.7 GM/DL Bedside Hemoglobin 11.6 G/DL Hematocrit 31.6 % Bedside Hematocrit 34.0 % Mean Corpuscular Volume 88.7 FL Mean Corpuscular Hemoglobin 30.0 PG Mean Corpuscular Hemoglobin 33.8 % Concent Red Cell Distribution Width 16.3 % Platelet Count 148 TH/MM3 Mean Platelet Volume 9.3 FL Neutrophils (%) (Auto) 66.5 % Lymphocytes (%) (Auto) 20.7 % Monocytes (%) (Auto) 8.7 % Eosinophils (%) (Auto) 3.1 % Basophils (%) (Auto) 1.0 % Neutrophils # (Auto) 4.4 TH/MM3 Lymphocytes # (Auto) 1.4 TH/MM3 Monocytes # (Auto) 0.6 TH/MM3 Eosinophils # (Auto) 0.2 TH/MM3 Basophils # (Auto) 0.1 TH/MM3 CBC Comment DIFF FINAL Differential Comment Prothrombin Time 11.0 SEC Prothromb Time International 1.0 RATIO Ratio Activated Partial 31.4 SEC Thromboplast Time Fibrinogen 442 mg/dL Bedside Sodium 140 MMOL/L Bedside Potassium 3.5 MMOL/L Bedside Chloride 93 MMOL/L Bedside Blood Urea Nitrogen 17 MG/DL Bedside Creatinine 3.7 MG/DL Bedside Glucose 20 MG/DL Total Creatine Kinase 62 U/L Troponin I LESS THAN 0.02 NG/ML Random Glucose 6 MG/DL 225 MG/DL Nasal Screen MRSA (PCR) MRSA NOT DETECTED Triglycerides Level 94 MG/DL Cholesterol Level 121 MG/DL LDL Cholesterol 58 MG/DL HDL Cholesterol 44.5 MG/DL Cholesterol/HDL Ratio 2.71 RATIO Test 11/17/16 11/17/16 11/18/16 11/19/16 22:10 23:40 03:46 05:04 Blood Gas Puncture Site ART LINE Blood Gas Patient Temperature 98.6 Blood Gas HCO3 35 mmol/L Blood Gas Base Excess 11.0 mmol/L Blood Gas Oxygen Saturation 96 % Arterial Blood pH 7.48 Arterial Blood Partial 47 mmHg Pressure CO2 Arterial Blood Partial 111 mmHg Pressure O2 Arterial Blood Oxygen Content 12.2 Vol % Arterial Blood 1.9 % Carboxyhemoglobin Arterial Blood Methemoglobin 0.8 % Blood Gas Hemoglobin 8.9 G/DL Oxygen Delivery Device VENTILATOR Blood Gas Ventilator Setting PRVC/AC Blood Gas Inspired Oxygen 40 % Random Glucose 112 MG/DL 128 MG/DL Hemoglobin 8.7 GM/DL Hematocrit 25.3 % B-Hydroxybutyrate 0.12 MMOL/L Sodium Level 132 MEQ/L Potassium Level 4.1 MEQ/L Chloride Level 93 MEQ/L Carbon Dioxide Level 29.1 MEQ/L Anion Gap 10 MEQ/L Blood Urea Nitrogen 26 MG/DL Creatinine 6.46 MG/DL Estimat Glomerular Filtration 8 ML/MIN Rate Calcium Level 9.5 MG/DL Procedure Category Date Status Time Patient Transfer ADMITTING 11/17/16 Transmitted Activity Bed Rest [facility] 11/17/16 In Process 19:49 Neuro Checks [facility] 11/17/16 In Process 19:49 Nursing Bedside [facility] 11/17/16 Complete Swallow Assess 19:49 Diet Npo DIET 11/18/16 Complete Breakfast Prothrombin Time / LAB 11/17/16 Complete Inr (Pt) 19:49 Act Partial Throm LAB 11/17/16 Complete Time (Ptt) 19:49 Fibrinogen LAB 11/17/16 Complete 19:49 Complete Blood Count LAB 11/17/16 Complete With Diff 19:49 Creatine Kinase (Cpk) LAB 11/17/16 Complete 19:49 Troponin I LAB 11/17/16 Complete 19:49 I-Stat Creatinine LAB 11/17/16 Complete 19:49 I-Stat Profile LAB 11/17/16 Complete 19:49 Ct Brain W/O Iv RADCT 11/17/16 Resulted Contrast(Rout) Electrocardiogram CAV 11/17/16 Resulted Resp Oxygen Jesse C RSP 11/17/16 Complete Titrat 1-4 L Consult Neurology CONS 11/17/16 Transmitted Assistant Technician / [facility] 11/17/16 In Process Telemetry 19:49 (Hub Use Only)Inp Phy CONS 11/17/16 Transmitted Cons/Ref ^ Call Pharmacy [facility] 11/17/16 In Process 20:24 Nih Stroke Scale - [facility] 11/17/16 Complete Nihss 20:24 Anticoagulant Alert [facility] 11/17/16 In Process 20:24 ^ Post Infusion [facility] 11/17/16 In Process Restrictions 20:24 ^ Medication Alert [facility] 11/17/16 In Process 20:24 Vital Signs (Adult) [facility] 11/17/16 Complete 20:[address]: Blood [facility] 11/17/16 In Process Pressure 20:24 ^ Medication Alert [facility] 11/17/16 In Process 20:24 Alteplase Bolus MED 11/17/16 Complete (Activase Bolus) 20:30 Alteplase Drip MED 11/17/16 Complete (Activase Drip) 20:30 Sodium Chloride 0.9% MED 11/17/16 Complete Inj (Ns Inj) 20:30 Misc Nursing MED 11/17/16 Complete Information 20:30 Resp Oxygen Jesse C RSP 11/17/16 Complete Titrat 1-4 L Nih Stroke Scale - [facility] 11/17/16 In Process Nihss 20:26 Consult Rehab Medicine CONS 11/17/16 Transmitted Case Management CONS 11/17/16 Transmitted Consult Lipid Profile LAB 11/17/16 Complete 20:33 Glucose, Random LAB 11/17/16 Complete 20:37 (Hub Use Only)Inp Phy CONS 11/17/16 Transmitted Cons/Ref Fentanyl Inj MED 11/17/16 Complete (Fentanyl Inj) 20:57 Midazolam Inj (Versed MED 11/17/16 Complete Inj) 20:57 Chest, Single Ap RADDIAG 11/17/16 Resulted Propofol 1000 Mg/100 MED 11/17/16 Complete Ml Inj (Diprivan 10 21:06 Resp Ventilation- RSP 11/17/16 Complete Pressure Consult Plasticator CONS 11/17/16 Transmitted Dextrose 50% In Bijal MED 11/17/16 Complete (Syr) Inj (D50w (Syr 21:37 Glucose, Random LAB 11/17/16 Complete 21[facility]51 [facility]16 Transmitted Cons/Ref Mrsa Pcr Surveillance LAB 11/17/16 Complete 21:59 Arterial Blood Gas LAB 11/17/16 Complete (Abg) 22:10 Glucose, Random LAB 11/17/16 Complete 23:30 Resp Mdi/Instruction RSP 11/17/16 Complete Fentanyl Drip MED 11/17/16 Complete (Fentanyl Drip) 23:15 Hydralazine Inj MED 11/17/16 In Process (Apresoline Inj) 23:45 Propofol 1000 Mg/100 MED 11/17/16 Complete Ml Inj (Diprivan 10 23:40 Propofol 1000 Mg/100 MED 11/17/16 In Process Ml Inj (Diprivan 10 23:45 Neurological Rass [facility] 11/17/16 Complete Scale 23:41 Fentanyl Drip MED 11/17/16 In Process (Fentanyl Drip) 23:45 Restraints Non-Violent [facility] 11/17/16 Complete 23:41 Insulin, Blood LAB 11/18/16 In Process 02:19 C Peptide LAB 11/18/16 In Process 02:19 Beta Hydroxybutyrate LAB 11/18/16 Complete (Acetone) 02:19 Insulin Antibody LAB 11/18/16 In Process 02:19 Restraints Non-Violent [facility] 11/18/16 Complete 02:57 Physician Name Changes ADMITTING 11/18/16 Transmitted Basic Metabolic Panel LAB 11/19/16 Complete (Bmp) 04:00 Mri Brain W/O Contrast RADMR 11/18/16 Resulted Mra Brain W/O RADMR 11/18/16 Resulted Contrast (Cow) Resp Extubation RSP 11/18/16 Complete ^ Other Nursing Orders [facility]US 11/18/16 In Process 15:58 Resp Request For RSP 11/18/16 Complete Service ^ Other Nursing Orders [facility]US 11/18/16 In Process 16:01 Consult Hospitalist CONS 11/18/16 Transmitted Diet Renal DIET 11/18/16 Transmitted Dinner Physician Name Changes ADMITTING 11/19/16 Transmitted ^ Other Nursing Orders C[facility]US 11/19/16 In Process 07:37 Patient Transfer ADMITTING 11/19/16 Transmitted Consult Pt Eval & PT 11/19/16 Logged Treat 12:55 Resp Home Oxygen Walk RSP 11/19/16 Complete Test Case Management CONS 11/20/16 Transmitted Consult Docusate Sodium MED 11/20/16 In Process (Colace) 10:30 Us Carotid Arteries RADUS 11/20/16 Logged Comp Bilat Vital Signs Date Time Temp Pulse Resp B/P Pulse Ox O2 Delivery O2 Flow Rate FiO2 11/20/16 16:16 96.4 82 18 103/61 99 11/20/16 12:03 97.1 92 19 146/70 95 11/20/16 09:59 2.00 11/20/16 08:14 97.7 92 18 167/85 100 11/20/16 04:13 97.6 88 18 176/80 100 11/20/16 00:12 96.5 87 18 166/80 100 11/19/16 21:25 97 11/19/16 20:00 98.9 98 20 165/78 100 11/19/16 16:37 96.2 95 20 163/77 100 11/19/16 13:27 99.1 95 18 164/77 99 11/19/16 08:38 96.7 95 19 170/87 100 11/19/16 08:00 98.2 86 20 168/60 100 11/19/16 08:00 86 11/19/16 06:00 86 11/19/16 04:45 138/56 11/19/16 04:00 82 11/19/16 04:00 98.7 82 22 172/64 100 11/19/16 02:00 86 11/19/16 00:00 90 11/19/16 00:00 98.7 90 22 159/62 99 11/18/16 22:00 86 11/18/16 20:24 98 Nasal Cannula 2.00 11/18/16 20:00 84 11/18/16 20:00 97.7 84 19 138/60 97 11/18/16 16:27 100 35 11/18/16 16:00 80 11/18/16 16:00 97.9 80 16 151/68 100 11/18/16 15:50 100 Nasal Cannula 2 99 11/18/16 14:43 30 11/18/16 14:43 100 30 11/18/16 12:00 80 11/18/16 12:00 98.2 80 14 116/55 100 11/18/16 11:45 100 100 11/18/16 11:30 100 30 11/18/16 08:20 100 30 11/18/16 08:00 96.6 71 16 143/70 100 11/18/16 08:00 71 11/18/16 08:00 30 11/18/16 04:08 100 30 11/18/16 04:00 30 11/18/16 04:00 99.0 81 16 153/72 100 Manual Cuff/Auscultation Automatic Cuff 11/18/16 04:00 81 11/18/16 01:34 100 30 11/18/16 00:00 82 11/18/16 00:00 30 11/17/16 23:00 74 11/17/16 23:00 94.5 75 16 100 171/74 11/17/16 22:22 100 30 11/17/16 21:30 30 11/17/16 21:15 100 40 11/17/16 21:00 40 11/17/16 21:00 92.3 74 14 165/73 100 166/72 11/17/16 21:00 73 11/17/16 20:00 82 11/17/16 19:45 98 ambu bag 11/17/16 19:45 99 12.00 11/17/16 19:30 97.3 91 18 150/82 99 Laboratory Tests Test 11/17/16 11/17/16 11/17/16 11/17/16 20:00 21:07 21:50 22:10 Red Blood Count 3.56 MIL/MM3 (4.00-5.30) Hemoglobin 10.7 GM/DL (11.6-15.3) Bedside Hemoglobin 11.6 G/DL (12.0-17.0) Hematocrit 31.6 % (35.0-46.0) Bedside Hematocrit 34.0 % (38.0-51.0) Platelet Count 148 TH/MM3 (150-450) Monocytes (%) (Auto) 8.7 % (0.0-8.0) Activated Partial 31.4 SEC Thromboplast Time (24.3-30.1) Fibrinogen 442 mg/dL (227-377) Bedside Chloride 93 MMOL/L (98-109) Bedside Creatinine 3.7 MG/DL (0.6-1.0) Bedside Glucose 20 MG/DL (60-95) Troponin I LESS THAN 0.02 NG/ML (0.02-0.05) Random Glucose 6 MG/DL 225 MG/DL (74-106) (74-106) Blood Gas HCO3 35 mmol/L (22-26) Blood Gas Base Excess 11.0 mmol/L (-2-2) Arterial Blood pH 7.48 (7.380-7.420) Arterial Blood Partial 47 mmHg (38-42) Pressure CO2 Blood Gas Hemoglobin 8.9 G/DL (12.0-16.0) Test 11/17/16 11/18/16 11/19/16 23:40 03:46 05:04 Random Glucose 112 MG/DL 128 MG/DL (74-106) (74-106) Hemoglobin 8.7 GM/DL (11.6-15.3) Hematocrit 25.3 % (35.0-46.0) Sodium Level 132 MEQ/L (136-145) Chloride Level 93 MEQ/L (98-107) Blood Urea Nitrogen 26 MG/DL (7-18) Creatinine 6.46 MG/DL (0.50-1.00) Estimat Glomerular Filtration 8 ML/MIN (>89) Rate Wai Rojas MD Nov 20, 2016 17:58
[2016-11-20] MEDS: ASPIRIN 325 MG TAB PO SCH (18:29)
--- NOTE | 2016-11-20 21:22 | RADRPT ---
EXAM DATE/TIME: 11/20/2016 19:04 [place] COMPARISON: No previous studies available for comparison. INDICATIONS : Dizziness. MEDICAL HISTORY : Chronic obstructive pulmonary disease. Gastroesophageal reflux disease. Congestive heart failure. Hyp ercholesterolemia. Hypertension. Dyspnea. Carcinoma, cervical. Carcinoma, lung. Radiation therap y. Chemotherapy. Renal failure. Arthritis. Diabetes. SURGICAL HISTORY : Hysterectomy. Thyroidectomy. Goiter removal. Bowel resection. Salpingoopherectomy. ENCOUNTER: Initial ACUITY: 1 day PAIN SCORE: 0/10 LOCATION: Bilateral neck PEAK SYSTOLIC VELOCITIES (cm/sec): ICA/CCA RATIO: Right: 1.6 Left: 1.0 ICA: Right: 84.3 Left: 86.7 CCA: Right: 51.9 Left: 89.0 ECA: Right: 61.1 Left: 69.3 VERTEBRAL: Right: 45.7 antegrade Left: 24.4 antegrade Elevated flow velocities and ICA/CCA ratios have been found to correlate with increased degrees of vessel stenosis, calculated as percentage of diameter relative to a normal segment of distal ICA/CCA FINDINGS: RIGHT CAROTID: There is mild plaque at the carotid bulb region. No significant stenosis is visualized. The waveform s are within normal limits. LEFT CAROTID: There is mild plaque at the carotid bulb region. No significant stenosis is visualized. The waveform s are within normal limits. VERTEBRAL ARTERIES: Antegrade flow is seen in both vertebral arteries. MISCELLANEOUS: None. CONCLUSION: Mild plaque at the carotid bulb regions without a significant stenosis. Dilan Pizarro MD on November 20, 2016 at 21:17 Board Certified Radiologist. This report was verified electronically.
[2016-11-20] MEDS: ATORVASTATIN 10 MG TAB PO SCH (21:53)
[2016-11-20] MEDS: TERAZOSIN HCL 5 MG CAP PO SCH (22:47)
[2016-11-21] VITALS: BP 150/72; PULSE 92; RESP 20; TEMP 97.9; O2SAT 100
[2016-11-21 04:00] VITALS: BP 156/75; PULSE 82; RESP 20; TEMP 97; O2SAT 98
[2016-11-21] MEDS: ACETAMINOPHEN/HYDROcodone 325 MG/5 MG TAB PO PRN (06:39)
[2016-11-21] MEDS: INSULIN ASPART SUPPLEMENTAL SCALE SQ SCH ×2 (06:40→11:35)
[2016-11-21] MEDS: LORazepam 1 MG TAB PO PRN (06:45)
[2016-11-21 08:00] VITALS: BP 172/82; PULSE 83; RESP 19; TEMP 97.4; O2SAT 98
[2016-11-21] MEDS: ASPIRIN 325 MG TAB PO SCH (08:59)
[2016-11-21] MEDS: CITALOPRAM HYDROBROMIDE 20 MG TAB PO SCH (08:59)
[2016-11-21] MEDS: NIFEdipine 60 MG SUSTAINED RELEASE TAB PO SCH (08:59)
[2016-11-21] MEDS: CALCIUM ACETATE 667 MG CAP PO SCH ×2 (08:59→11:30)
[2016-11-21] MEDS: METOPROLOL SUCCINATE 50 MG EXTENDED RELEASE TAB PO SCH (08:59)
[2016-11-21] MEDS: BUDESONIDE-FORMOTEROL 160/4.5 MCG INHALER INH SCH (08:59)
[2016-11-21] MEDS: cloNIDine HCL 0.2 MG TAB PO SCH ×2 (08:59→11:30)
--- NOTE | 2016-11-21 10:28 | HHI.PR ---
Subjective Remarks resting comfortably with no distress. denies pain. no sob. wants to go home today. Objective Vitals Vital Signs Date Time Temp Pulse Resp B/P Pulse Ox O2 Delivery O2 Flow Rate FiO2 11/21/16 08:00 97.4 83 19 172/82 98 11/21/16 04:00 97.0 82 20 156/75 98 11/21/16 00:00 97.9 92 20 150/72 100 11/20/16 22:45 97.2 87 19 180/82 99 11/20/16 21:54 79 11/20/16 21:00 98.1 89 19 170/79 96 11/20/16 16:16 96.4 82 18 103/61 99 11/20/16 16:00 82 11/20/16 12:03 97.1 92 19 146/70 95 I/O 11/20/16 11/20/16 11/20/16 11/21/16 11/21/16 11/21/16 07:00 15:00 23:00 07:00 15:00 23:00 Intake Total 0 ml Balance 0 ml Intake Oral 0 ml # Voids 0 2 2 2 # Bowel Movements 0 0 Result Diagram: 11/18/16 0346 11/19/16 0504 Imaging Last Impressions Carotid Artery Ultrasound 11/20/16 1822 Signed Impressions: Service Date/Time: Sunday, November 20, 2016 19:04 - CONCLUSION: Mild plaque at the carotid bulb regions without a significant stenosis. Dilan Pizarro MD Head Magnetic Resonance Angiography 11/18/16 0000 Signed Impressions: Service Date/Time: Friday, November 18, 2016 12:28 - CONCLUSION: 1. Likely moderate stenoses of the cavernous internal carotid arteries bilaterally secondary to calcified plaque. 2. Otherwise, unremarkable MRA examination of the brain. Yovani Johnson MD Brain MRI 11/18/16 0000 Signed Impressions: Service Date/Time: Friday, November 18, 2016 12:28 - CONCLUSION: Mild signal changes in the high convexity posterior left frontal region which may relate to recent ischemic insult. Dilan Petersen MD Head CT 11/17/16 0000 Signed Impressions: Service Date/Time: October 20:03 - CONCLUSION: Mild atrophic change with no evidence of hemorrhage, mass or definite infarction. Deep Jordan MD Chest X-Ray 11/17/16 0000 Signed Impressions: Service Date/Time: October 21:02 - CONCLUSION: 1. Interval intubation and placement of right internal jugular central venous line with no pneumothorax. 2. Rotated exam with interval improvement in bibasal opacity. Deep Jordan MD Objective Remarks GENERAL: This is a well-nourished, well-developed patient, in no apparent distress. CARDIOVASCULAR: Regular rate and regular rhythm without murmurs, gallops, or rubs. RESPIRATORY: bilateral air entry present GASTROINTESTINAL: Abdomen soft, non-tender, nondistended. Normal, active bowel sounds MUSCULOSKELETAL: Extremities without clubbing, cyanosis, or edema. NEURO: Alert & Oriented x4 to person, place, time, situation. Moves all ext x4 Procedures none Medications and IVs Current Medications Sodium Chloride (NS Flush) 2 ml UNSCH PRN IVF FLUSH AFTER USING IV ACCESS; Start 11/15/16 at 14:15 Clonidine 0.1 mg 0.1 mg ONCE ONCE PO Last administered on 11/15/16 14:56; Start 11/15/16 at 14:15; Stop 11/15/16 at 14:16; Status DC Sodium Chloride (NS 1000 ml Inj) 1,000 ml @ 0 mls/hr Q0M PRN IV For Prime & Rinse Back Last administered on 11/17/16 12:09; Start 11/15/16 at 16:14 Heparin Sodium (Porcine) 8000 units 8,000 units UNSCH PRN IVF WITH DIALYSIS; Start 11/15/16 at 16:15 Sodium Chloride 1,000 ml @ 200 mls/hr Q5H PRN IV WITH DIALYSIS; Start 11/15/16 at 16:14 Sodium Chloride (NS 1000 ml Inj) 1,000 ml @ 0 mls/hr Q0M PRN IV WITH DIALYSIS; Start 11/15/16 at 16:14 Mannitol (Mannitol Inj) 12.5 gm UNSCH PRN IV WITH DIALYSIS; Start 11/15/16 at 16:15 Albumin Human (Albumin 25% Inj) 25 gm UNSCH PRN IV WITH DIALYSIS; Start at 16:15 Sodium Chloride (NS Flush) 5 ml UNSCH PRN IV FLUSH WITH DIALYSIS Last administered on 11/16/16 21:06; Start 11/15/16 at 16:15 Heparin Sodium (Porcine) (Heparin Inj) UNSCH PRN .XX WITH DIALYSIS; Start at 16:15 Gentamicin Sulfate (Gentamicin (Dialysis) Inj) 20 mg UNSCH PRN IV WITH DIALYSIS ; Start 11/15/16 at 16:15 Ondansetron HCl (Zofran Inj) 4 mg UNSCH PRN IV WITH DIALYSIS; Start 11/15/16 at 16:15 Acetaminophen (Tylenol) 650 mg UNSCH PRN PO for headach, pain, temp > 101F; Start 11/15/16 at 16:15 Diphenhydramine HCl (Benadryl) 25 mg UNSCH PRN PO for hives/itching/anaphylaxis ; Start 11/15/16 at 16:15 Nitroglycerin (Nitrostat Sl) 0.4 mg UNSCH PRN SL CHEST PAIN; Start 11/15/16 at 16:15 Clonidine (Catapres) 0.1 mg UNSCH PRN PO for BP > 180/100 X 2 readings Last administered on 11/15/16 17:13; Start 11/15/16 at 16:15 Epoetin Julian (Epogen Inj) 10,000 units UNSCH PRN IV WITH DIALYSIS Last administered on 11/19/16 11:46; Start 11/15/16 at 16:15 Gelatin (Gelfoam 12 Mm/7 Mm Top) 1 foam UNSCH PRN TOP SEE LABEL COMMENTS Last administered on 11/19/16 11:46; Start 11/15/16 at 16:15 Atorvastatin Calcium (Lipitor) 10 mg HS PO Last administered on 11/20/16 21:53 ; Start 11/15/16 at 21:00 Budesonide/ Formoterol Fumarate (Symbicort 160-4.5 Inh) 2 puff Q12HR INH Last administered on 11/21/16 08:59; Start 11/15/16 at 21:00 Calcium Acetate (Phoslo) 1,334 mg TID PO Last administered on 11/21/16 08:59; Start 11/15/16 at 18:00 Citalopram Hydrobromide (CeleXA) 10 mg DAILY PO Last administered on 11/21/16 08:59; Start 11/16/16 at 09:00 Clonidine (Catapres) 0.2 mg TID PO Last administered on 11/21/16 08:59; Start 11/15/16 at 18:00 Lorazepam (Ativan) 1 mg Q6H PRN PO ANXIETY AND/OR AGITATION Last administered on 11/21/16 06:45; Start 11/15/16 at 16:45 Metoprolol Succinate (Toprol Xl) 50 mg DAILY PO Last administered on 11/21/16 08:59; Start 11/16/16 at 09:00 Nifedipine (Procardia Xl) 60 mg BID PO Last administered on 11/21/16 08:59; Start 11/15/16 at 21:00 Sitagliptin Phosphate (Januvia) 50 mg DAILY PO Last administered on 11/17/16 13:55; Start 11/16/16 at 09:00; Status Hold Terazosin HCl (Hytrin) 5 mg HS PO Last administered on 11/20/16 22:47; Start at 21:00 Ondansetron HCl (Zofran Inj) 4 mg Q8HR PRN IV PUSH NAUSEA; Start 11/15/16 at 17 :00 Acetaminophen (Tylenol) 650 mg Q4H PRN PO FEVER/PAIN <5 Last administered on 04:26; Start 11/15/16 at 17:00 Acetaminophen/ Hydrocodone Bitart ([place] 5-325 Mg) 1 tab Q4H PRN PO PAIN >5 Last administered on 11/19/16 18:31; Start 11/15/16 at 17:00 Albuterol/ Ipratropium (Duoneb Neb) 1 ampule Q6HR NEB PRN NEB SHORTNESS OF BREATH; Start 11/15/16 at 18:00; Stop 11/19/16 at 18:00; Status DC Clonidine (Catapres) 0.1 mg Q8HR PRN PO SBP> OR = 180, DBP> OR = 100 Last administered on 11/17/16 23:47; Start 11/15/16 at 17:00 Miscellaneous (Pill Splitter) 1 ea UNSCH PRN OTHER SEE LABEL COMMENTS; Start at 18:00 Dextrose (D50w (Vial) Inj) 50 ml UNSCH PRN IV HYPOGLYCEMIA-SEE COMMENTS; Start 11/16/16 at 10:30 Glucagon (Glucagon Inj) 1 mg UNSCH PRN OTHER HYPOGLYCEMIA-SEE COMMENTS; Start 11/16/16 at 10:30 Insulin Aspart (NovoLOG SUPPLEMENTAL SCALE) 1 ACHS SLIDING SCALE SQ Last administered on 11/20/16 21:54; Start 11/16/16 at 11:00 Alteplase, Recombinant 4.9 mg 4.9 mg ONCE ONCE IV ; Start 11/17/16 at 20:30; Stop 11/17/16 at 20:48; Status DC Alteplase, Recombinant/ Syringe / Bag (Activase Drip/ Syringe/Bag) 44 ml @ 44 mls/hr ONCE ONCE IV ; Start 11/17/16 at 20:30; Stop 11/17/16 at 21:29; Status DC Sodium Chloride (NS Inj) 30 ml ONCE ONCE IVF ; Start 11/17/16 at 20:30; Stop at 20:50; Status DC Miscellaneous Information No Heparin, Warfarin, Aspir... UNSCH PRN XX SEE DOSE INSTRUCTIONS; Start 11/17/16 at 20:30; Stop 11/18/16 at 20:29; Status DC Fentanyl Citrate (fentaNYL INJ) 100 mcg STK-MED ONCE .ROUTE Last administered on 11/17/16 20:57; Start 11/17/16 at 20:57; Stop 11/17/16 at 20:58; Status DC Midazolam HCl 5 mg 5 mg STK-MED ONCE .ROUTE Last administered on 11/17/16 20: 57; Start 11/17/16 at 20:57; Stop 11/17/16 at 20:58; Status DC Propofol (Diprivan 1000 Mg/100ml Inj) 100 ml @ As Directed STK-MED ONCE .ROUTE Last administered on 11/17/16 21:06; Start 11/17/16 at 21:06; Stop 11/17/16 at 21:07; Status DC Dextrose 50 ml 50 ml STK-MED ONCE .ROUTE Last administered on 11/17/16 21:37; Start 11/17/16 at 21:37; Stop 11/17/16 at 21:38; Status DC Fentanyl Citrate (fentaNYL DRIP) 250 ml @ 0 mls/hr TITRATE IV Last administered on 11/17/16 23:43; Start 11/17/16 at 23:15; Stop 11/17/16 at 23:48 ; Status DC Hydralazine HCl 20 mg 20 mg Q4H PRN IV PUSH SBP>160, DBP>90 Last administered on 11/19/16 04:25; Start 11/17/16 at 23:45 Propofol 100 ml @ As Directed STK-MED ONCE .ROUTE Last administered on 23:40; Start 11/17/16 at 23:40; Stop 11/17/16 at 23:41; Status DC Propofol 100 ml @ 0 mls/hr TITRATE IV Last administered on 11/18/16 05:27; Start 11/17/16 at 23:45 Fentanyl Citrate (fentaNYL DRIP) 250 ml @ 0 mls/hr TITRATE IV ; Start 11/17/16 at 23:45 Docusate Sodium (Colace) 100 mg BID PRN PO CONSTIPATION Last administered on 17:55; Start 11/20/16 at 10:30 Aspirin (Aspirin) 325 mg DAILY PO Last administered on 11/21/16 08:59; Start at 18:00 A/P Assessment and Plan A/P -acute respiratory failure- s/p intubation/ extubation-resolved keep on oxygen to keep O2 sat >90% patient failed the walk test ; case management consulted for home oxygen. - left frontal region ischemia on MRI brain with hypoglycemic episode neurology follow-up appreciated; started on aspirin- cleared for discharge with outpatient f/u. consulted PT. -diabetes mellitus with hypoglycemic episode with no further recurrence- stopped Januvia. previously d/w ( her PCP) who was in agreement with stopping all oral hypoglycemic agents- will have a f/u in the office. - ESRD- on HD nephrology consulted; HD per nephrology- continue with oxygen and neb treatment as needed. -COPD- continue symbicort- neb treatment - needs home oxygen. -hypertension; resumed home meds -anemia of chronic disease- epogen with HD- received PRBC transfusion. evaluated by GI recent admission- -dyslipidemia; resumed statin -DVT prophylaxis with SCD's Discharge Planning dc home with C today. d/w the patient and RN. f/u; pcp , neurology and nephrology. see med list. time spent 35 min. Stephanie Dong MD Nov 21, 2016 10:28
[2016-11-21] MEDS ORDERED: ASPI81TA11 PO (10:31)
[2016-11-21 12:00] VITALS: BP 181/98; PULSE 85; RESP 19; TEMP 98; O2SAT 98
[2016-11-23 13:52] LABS: INSULIN AUTO ANTIBODIES LESS THAN 0.4 U/mL (<0.4)
--- NOTE | 2016-11-23 16:38 | PD.CONS ---
Assessment and Plan Plan Consult received per stroke order set. EMR reviewed. Neurology consult reviewed and indicates sudden neurological change due to hypoglycemia.. Consult deferred due to no acute stroke. Please reconsult as appropriate. Thank you. Ina Story MD Nov 23, 2016 16:38
== END 2016-11-21 15:16 | disposition home health service (06) | DRG 291 ==
LOC: NEPC 12:41 → NEDA 16:13 → N04A 20:26 → N03A 11-17 20:22 → N05A 11-19 08:31
PROVIDERS: ADMIT Internal Medicine; ATTEND Internal Medicine
PROC: 03HY32Z Insertion of Monitoring Device into Upper Artery, Percutaneous Approach (ICD-10-PCS; principal; 2016-11-17)
PROC: 02HV33Z Insertion of Infusion Device into Superior Vena Cava, Percutaneous Approach (ICD-10-PCS; 2016-11-17)
PROC: 0BH17EZ Insertion of Endotracheal Airway into Trachea, Via Natural or Artificial Opening (ICD-10-PCS; 2016-11-17)
PROC: 5A1945Z Respiratory Ventilation, 24-96 Consecutive Hours (ICD-10-PCS; 2016-11-17)
PROC: 30233N1 Transfusion of Nonautologous Red Blood Cells into Peripheral Vein, Percutaneous Approach (ICD-10-PCS; 2016-11-17)
PROC: 5A1D60Z (ICD-10-PCS; 2016-11-17)
DX: I13.2 Hypertensive heart and chronic kidney disease with heart failure and with stage 5 chronic kidney disease, or end stage renal disease (principal); N18.6 End stage renal disease; J96.00 Acute respiratory failure, unspecified whether with hypoxia or hypercapnia; G81.91 Hemiplegia, unspecified affecting right dominant side; E11.22 Type 2 diabetes mellitus with diabetic chronic kidney disease; E11.649 Type 2 diabetes mellitus with hypoglycemia without coma; J44.9 Chronic obstructive pulmonary disease, unspecified; K21.9 Gastro-esophageal reflux disease without esophagitis; D63.1 Anemia in chronic kidney disease; E78.5 Hyperlipidemia, unspecified; R29.810 Facial weakness; I50.9 Heart failure, unspecified; Z99.2 Dependence on renal dialysis; Z79.4 Long term (current) use of insulin; Z85.118 Personal history of other malignant neoplasm of bronchus and lung; E83.39 Other disorders of phosphorus metabolism
CPT/HCPCS: 31500; 36430; 70450; 70544; 70551; 71010; 80048; 80053; 80061; 82010; 82435; 82550; 82565; 82805; 82947; 82948; 83525; 83735; 83880; 84132; 84295; 84484; 84520; 84681; 85007; 85014; 85018; 85025; 85027; 85384; 85610; 85730; 86337; 86850; 86900; 86901; 86920; 87641; 90935; 93005; 93880; 94002; 94003; 94620; 94640; 94664; 96374; J0360; J1815; J2250; J3010; J7030; P9016; Q4081

== ENCOUNTER 2017-02-02 15:16 | Inpatient (IN) | payer MEDICARE, BC, MEDICAID ==
[~2017-02-02] VITALS: Ht 175.3 cm; Wt 63.5 kg
[~2017-02-02 15:16] MED LIST changes: +ASPI81TA11 PO; +OXYGENTANK NAS.CANULA; -SITA50 PO; +VENTAER INH
[2017-02-02 15:24] VITALS: BP 166/80; PULSE 74; RESP 20; TEMP 97.6; O2SAT 98
[2017-02-02] MEDS ORDERED: SODIUM CHLORIDE 0.9% FLUSH 10 ML FLUSH IVF PRN ×2 (15:45)
--- NOTE | 2017-02-02 15:53 | PD ---
HPI Chief Complaint: Cardiac Complaint Time Seen by Provider: 15:28 Travel History International Travel<30 days: No Contact w/Intl Traveler<30days: No Traveled to known affect area: No History of Present Illness HPI Patient is a 66-year-old female that presented to the emergency room for evaluation of chest pressure and weakness. Patient states that she was sitting at her table this morning drinking coffee, she received to get up and her whole body started feeling weak and shaky and she experienced chest pressure. Patient states that this occurred yesterday as well. Patient states she went to dialysis on Monday and felt okay, she was supposed to go today but did not feel well enough to go. She denies any abdominal pain, nausea, vomiting, fevers , chills. Patient is tolerating oral fluids and food. She denies any radiation to her arm or jaw, she is pain-free at this time. PFSH Past Medical History Arthritis: Yes (knees) Autoimmune Disease: No Anxiety: Yes Depression: No Cancer: Yes (lung) High Cholesterol: Yes Chemotherapy: Yes (lung cancer) Chest Pain: Yes Congestive Heart Failure: Yes COPD: Yes Diabetes: Yes (IDDM) Patient Takes Glucophage: No Dialysis: Yes () Diminished Hearing: No Endocrine: Yes Gastrointestinal Disorders: Yes GERD: Yes Genitourinary: Yes Hepatitis: No Hiatal Hernia: No Hypertension: Yes Immune Disorder: No Neurologic: Yes Psychiatric: No Reproductive: Yes (CERVICAL CANCER 2006) Immunizations Current: Yes Radiation Therapy: Yes Renal Failure: Yes Thyroid Disease: Yes ?: Not Menopausal: Yes : 0 Past Surgical History Abdominal Surgery: Yes (bowel resection 2015,gtube) AICD: No Arteriovenous Shunt: Yes (right forearm) Endocrine Surgery: Yes (THYROIDECTOMY FOR GOITER 2010) Gynecologic Surgery: Yes (PARTIAL HYSTERECTOMY 1980, SALPINGOOOPHORECTOMY 1994) Hysterectomy: Yes Joint Replacement: No Pacemaker: No Other Surgery: Yes Social History Alcohol Use: No Tobacco Use: Yes (1 PPD) Substance Use: No Allergies-Medications (Allergen,Severity, Reaction): Coded Allergies: penicillin G (Unverified Allergy, Intermediate, UNKNOWN, 01/03/17) Reported Meds & Prescriptions Reported Meds & Active Scripts Active Aspirin EC (Aspirin) 81 Mg Tabdr 162 Mg PO DAILY 30 Days Ventolin Hfa 18 GM Inh (Albuterol Sulfate) 90 Mcg/Act Aer 2 Puff INH Q6H PRN Oxygen tank (Oxygen) 1 Ea Tank 2 Liter KATRIN.CANULA CONTINUOUS Oxygen Concentrator Portable Gaseous 2 L/min via Nasal Cannula Continuous For 99 months Calcium Acetate (Calcium Acetate (Phosphate Bin) 667 Mg Cap 1,334 Mg PO TID Hydrocodone-Acetaminophen 5-325 mg Tab 1 Tab PO Q6H PRN Ativan (Lorazepam) 1 Mg Tab 1 Mg PO Q6H PRN Reported Zofran (Ondansetron HCl) 8 Mg Tab 8 Mg PO TID PRN Nifedipine ER (Nifedipine) 90 Mg Tab 60 Tab PO BID Metoprolol Succinate ER 24 HR (Metoprolol Succinate) 50 Mg Tab 50 Mg PO DAILY Phoslo (Calcium Acetate (Phosphate Binder)) 667 Mg Cap 667 Mg PO TID Sybil-Colace (Sennosides-Docusate Sodium) 8.6-50 Mg Tab 1 Tab PO BID PRN Terazosin (Terazosin HCl) 5 Mg Cap 5 Mg PO HS Symbicort Inh (Budesonide/Formoterol Fumarate) 160-4.5 Mcg/Act Aero 2 Puff INH Q12HR Clonidine (Clonidine HCl) 0.2 Mg Tab 0.2 Mg PO TID Vitamin D (Cholecalciferol) 5,000 Unit Tab Citalopram (Citalopram Hydrobromide) 10 Mg Tab 10 Mg PO DAILY Atorvastatin (Atorvastatin Calcium) 10 Mg Tab 10 Mg PO HS Novolog Inj (Insulin Aspart) 1,000 Unit/10 Ml Vial 0 SQ DIRECTED Sliding Scale as directed. Review of Systems Except as stated in HPI: all other systems reviewed are Neg General / Constitutional: No: Fever Eyes: No: Blurred Vision HENT: No: Headaches Cardiovascular: Positive: Chest Pain or Discomfort Respiratory: Positive: Shortness of Breath Gastrointestinal: No: Nausea, Abdominal Pain Genitourinary: No: Dysuria Musculoskeletal: No: Myalgias Neurologic: Positive: Weakness Physical Exam Narrative GENERAL: Thin, well-developed, alert -[place] female. Resting comfortably in no acute distress. SKIN: Warm and dry. Right forearm AV fistula, positive thrill, positive bruit. HEAD: Atraumatic. Normocephalic. EYES: Pupils equal and round. No scleral icterus. No injection or drainage. ENT: No nasal bleeding or discharge. Mucous membranes pink and moist. NECK: Trachea midline. No JVD. CARDIOVASCULAR: Regular rate and rhythm. 2/6 systolic murmur RESPIRATORY: No accessory muscle use. Clear to auscultation. Breath sounds equal bilaterally. GASTROINTESTINAL: Abdomen soft, non-tender, nondistended. Hepatic and splenic margins not palpable. MUSCULOSKELETAL: Extremities without clubbing, cyanosis, or edema. No obvious deformities. NEUROLOGICAL: Awake and alert. No obvious cranial nerve deficits. Motor grossly within normal limits. Five out of 5 muscle strength in the arms and legs. Normal speech. PSYCHIATRIC: Appropriate mood and affect; insight and judgment normal. Data Data Last Documented VS Vital Signs Date Time Temp Pulse Resp B/P (MAP) Pulse Ox O2 Delivery O2 Flow Rate FiO2 02/02/17 17:00 73 20 155/83 (107) 99 Nasal Cannula 2.00 02/02/17 15:24 97.6 Orders Orders Electrocardiogram (02/02/17 15:38) Ckmb (Isoenzyme) Profile (02/02/17 15:38) Complete Blood Count With Diff (02/02/17 15:38) Comprehensive Metabolic Panel (02/02/17 15:38) Magnesium (Mg) (02/02/17 15:38) Prothrombin Time / Inr (Pt) (02/02/17 15:38) Act Partial Throm Time (Ptt) (02/02/17 15:38) Troponin I (02/02/17 15:38) Chest, Single Ap (02/02/17 15:38) Ecg Monitoring (02/02/17 15:38) Bilateral Bp Monitoring (02/02/17 15:38) Iv Access Insert/Monitor (02/02/17 15:38) Oximetry (02/02/17 15:38) Oxygen Administration (02/02/17 15:38) Sodium Chloride 0.9% Flush (Ns Flush) (02/02/17 15:45) Ckmb (Isoenzyme) Profile (02/02/17 15:39) Magnesium (Mg) (02/02/17 15:39) Act Partial Throm Time (Ptt) (02/02/17 15:39) Troponin I (02/02/17 15:39) Bilateral Bp Monitoring (02/02/17 15:39) Sodium Chloride 0.9% Flush (Ns Flush) (02/02/17 15:45) Acetaminophen (Tylenol) (02/02/17 16:45) CKMB (02/02/17 15:40) CKMB% (02/02/17 15:40) Sodium Polysty Sulfate Liq (Kayexalate L (02/02/17 17:00) Calcium Gluconate Inj (Calcium Gluconate (02/02/17 17:15) Insulin Human Regular Inj (Novolin R Inj (02/02/17 17:15) Dextrose 50% In [place] (Vial) Inj (D50w (Vi (02/02/17 17:15) Dextrose 5% In Wate... W/Sodium Bicarbon (02/02/17 17:15) Admit Order (Ed Use Only) (02/02/17 17:26) Labs Laboratory Tests Test 02/02/17 15:40 White Blood Count 4.8 TH/MM3 Red Blood Count 3.40 MIL/MM3 Hemoglobin 10.9 GM/DL Hematocrit 34.0 % Mean Corpuscular Volume 99.9 FL Mean Corpuscular Hemoglobin 32.2 PG Mean Corpuscular Hemoglobin Concent 32.2 % Red Cell Distribution Width 16.2 % Platelet Count 116 TH/MM3 Mean Platelet Volume 10.4 FL Neutrophils (%) (Auto) 60.4 % Lymphocytes (%) (Auto) 22.4 % Monocytes (%) (Auto) 12.3 % Eosinophils (%) (Auto) 3.5 % Basophils (%) (Auto) 1.4 % Neutrophils # (Auto) 2.9 TH/MM3 Lymphocytes # (Auto) 1.1 TH/MM3 Monocytes # (Auto) 0.6 TH/MM3 Eosinophils # (Auto) 0.2 TH/MM3 Basophils # (Auto) 0.1 TH/MM3 CBC Comment DIFF FINAL Differential Comment Prothrombin Time 11.0 SEC Prothromb Time International Ratio 1.0 RATIO Activated Partial Thromboplast Time 26.4 SEC Blood Urea Nitrogen 70 MG/DL Creatinine 10.48 MG/DL Random Glucose 96 MG/DL Total Protein 7.9 GM/DL Albumin 3.5 GM/DL Calcium Level 9.1 MG/DL Magnesium Level 1.5 MG/DL Alkaline Phosphatase 80 U/L Aspartate Amino Transf (AST/SGOT) 11 U/L Alanine Aminotransferase (ALT/SGPT) 12 U/L Total Bilirubin 0.4 MG/DL Sodium Level 131 MEQ/L Potassium Level 8.3 MEQ/L Chloride Level 102 MEQ/L Carbon Dioxide Level 20.2 MEQ/L Anion Gap 9 MEQ/L Estimat Glomerular Filtration Rate 4 ML/MIN Total Creatine Kinase 102 U/L Creatine Kinase MB 1.5 NG/ML Troponin I LESS THAN 0.02 NG/ML MDM Medical Decision Making Medical Screen Exam Complete: Yes Emergency Medical Condition: Yes Interpretation(s) Last Impressions Chest X-Ray 02/02/17 1538 Signed Impressions: Service Date/Time: January 15:50 - CONCLUSION: 1. Left upper lobe scarring. 2. No acute focal pulmonary infiltrate or pulmonary vascular congestion. Johann Campos MD Laboratory Tests Test 02/02/17 15:40 White Blood Count 4.8 TH/MM3 Red Blood Count 3.40 MIL/MM3 Hemoglobin 10.9 GM/DL Hematocrit 34.0 % Mean Corpuscular Volume 99.9 FL Mean Corpuscular Hemoglobin 32.2 PG Mean Corpuscular Hemoglobin Concent 32.2 % Red Cell Distribution Width 16.2 % Platelet Count 116 TH/MM3 Mean Platelet Volume 10.4 FL Neutrophils (%) (Auto) 60.4 % Lymphocytes (%) (Auto) 22.4 % Monocytes (%) (Auto) 12.3 % Eosinophils (%) (Auto) 3.5 % Basophils (%) (Auto) 1.4 % Neutrophils # (Auto) 2.9 TH/MM3 Lymphocytes # (Auto) 1.1 TH/MM3 Monocytes # (Auto) 0.6 TH/MM3 Eosinophils # (Auto) 0.2 TH/MM3 Basophils # (Auto) 0.1 TH/MM3 CBC Comment DIFF FINAL Differential Comment Prothrombin Time 11.0 SEC Prothromb Time International Ratio 1.0 RATIO Activated Partial Thromboplast Time 26.4 SEC Blood Urea Nitrogen 70 MG/DL Creatinine 10.48 MG/DL Random Glucose 96 MG/DL Total Protein 7.9 GM/DL Albumin 3.5 GM/DL Calcium Level 9.1 MG/DL Magnesium Level 1.5 MG/DL Alkaline Phosphatase 80 U/L Aspartate Amino Transf (AST/SGOT) 11 U/L Alanine Aminotransferase (ALT/SGPT) 12 U/L Total Bilirubin 0.4 MG/DL Sodium Level 131 MEQ/L Potassium Level 8.3 MEQ/L Chloride Level 102 MEQ/L Carbon Dioxide Level 20.2 MEQ/L Anion Gap 9 MEQ/L Estimat Glomerular Filtration Rate 4 ML/MIN Total Creatine Kinase 102 U/L Creatine Kinase MB 1.5 NG/ML Troponin I LESS THAN 0.02 NG/ML Vital Signs Date Time Temp Pulse Resp B/P (MAP) Pulse Ox O2 Delivery O2 Flow Rate FiO2 02/02/17 15:24 97.6 74 20 166/80 (108) 98 Differential Diagnosis ACS versus [place] versus metabolic abnormality versus other Narrative Course Patient is a 66-year-old female presenting to emergency evaluation of chest pressure and weakness. Patient's vital signs are stable, labs and imaging ordered and pending. IV access established, patient placed on telemetry monitoring and continuous pulse oximetry. Initial EKG shows sinus rhythm with first-degree AV block, peaked T waves. CBC reviewed, no acute abnormalities identified. Chemistry with BUN and creatinine 70/10.48, potassium 8.3; A, calcium gluconate , dextrose, insulin, sodium bicarbonate ordered. Discussed with Dr. Teixeira who wants patient admitted to medicine with nephrology consult. Pt to be emergently dialyzed today. [facility] paged for admission. Discussed findings with Dr. Winchester who accepted admission. Patient was also advised on findings and plan of care. Patient is agreeable. Admitting orders placed. Diagnosis Primary Impression: Hyperkalemia Additional Impressions: ESRD (end stage renal disease) Hyponatremia Weakness Admitting Information Admitting Physician Requests: Admit Condition: Stable Amara Dukes Feb 02, 2017 15:53
[2017-02-02 16:14] LABS: AUTOMATED NEUTROPHIL # 2.9 TH/MM3 (1.8-7.7); BASOPHIL # 0.1 TH/MM3 (0-0.2); BASOPHIL % 1.4 % (0.0-2.0); EOSINOPHIL # 0.2 TH/MM3 (0-0.4); EOSINOPHIL % 3.5 % (0.0-4.0); HEMO FLAGS DIFF FINAL; LYMPH % 22.4 % (9.0-44.0); LYMPHOCYTE # 1.1 TH/MM3 (1.0-4.8); MEAN CELL VOLUME 99.9 FL (80.0-100.0); MEAN CORPUSCULAR HEMOGLOBIN 32.2 PG (27.0-34.0); MEAN CORPUSCULAR HGB CONC 32.2 % (32.0-36.0); MONO % 12.3 % (0.0-8.0); NEUT % 60.4 % (16.0-70.0); PLATELET COUNT 116 TH/MM3 (150-450); RED CELL DISTRIBUTION WIDTH 16.2 % (11.6-17.2); WHITE BLOOD COUNT 4.8 TH/MM3 (4.0-11.0)
[2017-02-02 16:18] LABS: APTT (PATIENT) 26.4 SEC (24.3-30.1)
--- NOTE | 2017-02-02 16:20 | RADRPT ---
EXAM DATE/TIME: 02/02/2017 15:50 [facility] COMPARISON: CHEST SINGLE AP, November 15, 2016, 14:07. CHEST SINGLE AP, November 17, 2016, 21:02. INDICATIONS : Chest pain. MEDICAL HISTORY : Chronic obstructive pulmonary disease. Gastroesophageal reflux disease. Congestive heart failure. Hyp ercholesterolemia. Hypertension. Dyspnea. Carcinoma, cervical. Carcinoma, lung. Radiation therapy. Ch emotherapy. Renal failure. Arthritis. Diabetes. SURGICAL HISTORY : Hysterectomy. Thyroidectomy. Goiter removal. Bowel resection. ENCOUNTER: Initial ACUITY: 1 day PAIN SCORE: 5/10 LOCATION: Bilateral chest FINDINGS: The heart is stable in appearance compared to the previous examination. Left upper lobe density is a gain noted consistent with probable scarring. The lungs are otherwise clear. No pulmonary edema is noted. CONCLUSION: 1. Left upper lobe scarring. 2. No acute focal pulmonary infiltrate or pulmonary vascular congestion. Johann Campos MD on February 02, 2017 at 16:11 Board Certified Radiologist. This report was verified electronically.
[2017-02-02 16:37] LABS: ALKALINE PHOSPHATASE 80 U/L (45-117); ALT (GPT) 12 U/L (10-53); ANION GAP 9 MEQ/L (5-15); AST (GOT) 11 U/L (15-37); BICARBONATE 20.2 MEQ/L (21.0-32.0); BLOOD UREA NITROGEN 70 MG/DL (7-18); CHLORIDE 102 MEQ/L (98-107); CREATINE KINASE 102 U/L (26-192); GLOMERULAR FILTRATION RATE 4 ML/MIN (>89); MAGNESIUM 1.5 MG/DL (1.5-2.5); SODIUM (NA) 131 MEQ/L (136-145); TOTAL BILIRUBIN ADULT 0.4 MG/DL (0.2-1.0)
[2017-02-02 16:45] LABS: POTASSIUM 8.3 MEQ/L (3.5-5.1)
[2017-02-02] MEDS ORDERED: ACETAMINOPHEN 325 MG TAB PO ONE (16:45)
[2017-02-02 17:00] VITALS: BP 155/83; PULSE 73; RESP 20; O2SAT 99
[2017-02-02] MEDS ORDERED: SODIUM POLYSTYRENE SULFONATE SUSP 15 GM/60 ML CUP PO ONE (17:00)
[2017-02-02 17:01] LABS: CKMB 1.5 NG/ML (0.5-3.6)
[2017-02-02] MEDS ORDERED: CALCIUM GLUCONATE 10% 1 GM/10 ML VIAL SLOW IVP ONE (17:15)
[2017-02-02] MEDS ORDERED: INSULIN HUMAN REGULAR 1,000 UNITS/10 ML VIAL IV PUSH ONE (17:15)
[2017-02-02] MEDS ORDERED: SODIUM BICARBONATE 8.4% INJ 150 MEQ in DEXTROSE 5% IN WATE 1000ML INJ 1,000 ML IV SCH ×2 (17:15)
[2017-02-02] MEDS ORDERED: DEXTROSE 50% IN WATER 50 ML VIAL(D50) IV PUSH ONE (17:15)
[2017-02-02] MEDS ORDERED: SODIUM CHLORIDE 0.9% FLUSH 10 ML FLUSH IV FLUSH PRN ×2 (17:30→17:45)
[2017-02-02] MEDS ORDERED: LACTULOSE SYRUP 20 GM/30 ML CUP PO PRN (17:30)
[2017-02-02] MEDS ORDERED: ONDANSETRON HCL 4 MG/2 ML VIAL IVP PRN (17:30)
[2017-02-02] MEDS ORDERED: NALOXONE HCL 0.4 MG/ML AMP IV PUSH PRN (17:30)
[2017-02-02] MEDS ORDERED: ACETAMINOPHEN 325 MG TAB PO PRN ×2 (17:30→17:45)
[2017-02-02] MEDS ORDERED: SENNOSIDES 8.6 MG TAB PO PRN (17:30)
[2017-02-02] MEDS ORDERED: BISACODYL 10 MG SUPP RECTAL PRN (17:30)
[2017-02-02] MEDS ORDERED: MAGNESIUM HYDROXIDE SUSP 30 ML CUP PO PRN (17:30)
[2017-02-02] MEDS ORDERED: SODIUM CHLOR 0.9% 1000 ML INJ 1,000 ML OTHER PRN ×2 (17:39)
[2017-02-02] MEDS ORDERED: SODIUM CHLOR 0.9% 1000 ML INJ 1,000 ML IV PRN (17:39)
[2017-02-02] MEDS ORDERED: EPOETIN ALFA 10,000 UNITS/ML VIAL IV PRN (17:45)
[2017-02-02] MEDS ORDERED: HEPARIN SODIUM - IV 10,000 UNITS/10 ML VIAL PRN (17:45)
[2017-02-02] MEDS ORDERED: GELATIN 12 MM/7 MM FOAM TOP PRN (17:45)
[2017-02-02] MEDS ORDERED: diphenhydrAMINE HCL 25 MG CAP PO PRN (17:45)
[2017-02-02] MEDS ORDERED: cloNIDine HCL 0.1 MG TAB PO PRN (17:45)
[2017-02-02] MEDS ORDERED: NITROGLYCERIN 0.4 MG SL 25 TABS/BTL SL PRN (17:45)
[2017-02-02] MEDS ORDERED: HEPARIN SODIUM - IV 10,000 UNITS/10 ML VIAL IV FLUSH PRN (17:45)
[2017-02-02] MEDS ORDERED: ALBUMIN HUMAN 25% 25 GM/100 ML BAGP IV PRN (17:45)
[2017-02-02] MEDS ORDERED: MANNITOL 12.5 GM/50 ML VIAL IV PRN (17:45)
[2017-02-02] MEDS ORDERED: ONDANSETRON HCL 4 MG/2 ML VIAL IV PUSH PRN (17:45)
[2017-02-02] MEDS ORDERED: GENTAMICIN SULFATE (DIALYSIS USE ONLY) 20 MG/2 ML VIAL OTHER PRN (17:45)
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
[2017-02-02 18:46] LABS: MAGNESIUM 1.4 MG/DL (1.5-2.5)
[2017-02-02 18:48] LABS: CREATINE KINASE 105 U/L (26-192)
--- NOTE | 2017-02-02 19:07 | HHI.HP ---
HPI Service [facility] Primary Care Physician Trini Naranjo MD Admission Diagnosis hyperkalemia, end-stage renal disease, weakness Diagnoses: Chief Complaint: Generalized weakness Travel History International Travel<30 Days: No Contact w/Intl Traveler <30 Da: No Traveled to Known Affected Are: No History of Present Illness Ms. Naik is a 56 year old female with a history of ESRD (HD on , , Mon), lung cancer, diabetes mellitus who presented to the ED on due to generalized weakness. She underwent 2 hours of dialysis on Monday but did not go for dialysis today because she was not feeling well. ED work up indicated hyperkalemia with K+ 8.3. Patient admits to eating a lot of tamazight fries in the last few days. At the time of this interview, patient is undergoing emergent dialysis at the dialysis unit. She complains of chronic diarrhea. No fever, chills. Review of Systems Except as stated in HPI: all other systems reviewed are Neg Past Family Social History Past Medical History ESRD Diabetes mellitus COPD Hyperlipidemia Lung cancer Past Surgical History Partial hysterectomy, oophorectomy Thyroidectomy Bowel resection Reported Medications Aspirin EC (Aspirin) 81 Mg Tabdr 162 Mg PO DAILY 30 Days Ventolin Hfa 18 GM Inh (Albuterol Sulfate) 90 Mcg/Act Aer 2 Puff INH Q6H PRN Oxygen tank (Oxygen) 1 Ea Tank 2 Liter KATRIN.CANULA CONTINUOUS Oxygen Concentrator Portable Gaseous 2 L/min via Nasal Cannula Continuous For 99 months Calcium Acetate (Calcium Acetate (Phosphate Bin) 667 Mg Cap 1,334 Mg PO TID Hydrocodone-Acetaminophen 5-325 mg Tab 1 Tab PO Q6H PRN Ativan (Lorazepam) 1 Mg Tab 1 Mg PO Q6H PRN Reported Zofran (Ondansetron HCl) 8 Mg Tab 8 Mg PO TID PRN Nifedipine ER (Nifedipine) 90 Mg Tab 60 Tab PO BID Metoprolol Succinate ER 24 HR (Metoprolol Succinate) 50 Mg Tab 50 Mg PO DAILY Phoslo (Calcium Acetate (Phosphate Binder)) 667 Mg Cap 667 Mg PO TID Sybil-Colace (Sennosides-Docusate Sodium) 8.6-50 Mg Tab 1 Tab PO BID PRN Terazosin (Terazosin HCl) 5 Mg Cap 5 Mg PO HS Symbicort Inh (Budesonide/Formoterol Fumarate) 160-4.5 Mcg/Act Aero 2 Puff INH Q12HR Clonidine (Clonidine HCl) 0.2 Mg Tab 0.2 Mg PO TID Vitamin D (Cholecalciferol) 5,000 Unit Tab Citalopram (Citalopram Hydrobromide) 10 Mg Tab 10 Mg PO DAILY Atorvastatin (Atorvastatin Calcium) 10 Mg Tab 10 Mg PO HS Novolog Inj (Insulin Aspart) 1,000 Unit/10 Ml Vial 0 SQ DIRECTED Sliding Scale as directed. Allergies: Coded Allergies: penicillin G (Unverified Allergy, Intermediate, UNKNOWN, 01/03/17) Family History Mother - kidney disease, DM, HTN Social History Smokes 1 ppd, denies using alcohol or illicit drugs. Physical Exam Vital Signs Vital Signs Date Time Temp Pulse Resp B/P (MAP) Pulse Ox O2 Delivery O2 Flow Rate FiO2 02/02/17 17:00 73 20 155/83 (107) 99 Nasal Cannula 2.00 02/02/17 16:59 99 Nasal Cannula 2.00 02/02/17 15:24 97.6 74 20 166/80 (108) 98 Physical Exam GENERAL: This is a well-nourished, well-developed patient, in no apparent distress. SKIN: No rashes, ecchymoses or lesions. Warm and dry. HEAD: Atraumatic. Normocephalic. No temporal or scalp tenderness. EYES: Pupils equal round and reactive. No injection or drainage. ENT: Nose without bleeding, purulent drainage or septal hematoma. Airway patent. NECK: Trachea midline. No lymphadenopathy. Supple, nontender, no meningeal signs. CARDIOVASCULAR: Regular rate and rhythm without murmurs, gallops, or rubs. No JVD. RESPIRATORY: Clear to auscultation. Breath sounds equal bilaterally. No wheezes , rales, or rhonchi. GASTROINTESTINAL: Abdomen soft, non-tender, nondistended. No guarding. MUSCULOSKELETAL: Extremities without clubbing, cyanosis, or edema. NEUROLOGICAL: Awake and alert. Cranial nerves II through XII intact. No focal neurological deficits. Normal speech. Laboratory Laboratory Tests Test 02/02/17 15:40 White Blood Count 4.8 Red Blood Count 3.40 Hemoglobin 10.9 Hematocrit 34.0 Mean Corpuscular Volume 99.9 Mean Corpuscular Hemoglobin 32.2 Mean Corpuscular Hemoglobin Concent 32.2 Red Cell Distribution Width 16.2 Platelet Count 116 Mean Platelet Volume 10.4 Neutrophils (%) (Auto) 60.4 Lymphocytes (%) (Auto) 22.4 Monocytes (%) (Auto) 12.3 Eosinophils (%) (Auto) 3.5 Basophils (%) (Auto) 1.4 Neutrophils # (Auto) 2.9 Lymphocytes # (Auto) 1.1 Monocytes # (Auto) 0.6 Eosinophils # (Auto) 0.2 Basophils # (Auto) 0.1 CBC Comment DIFF FINAL Differential Comment Prothrombin Time 11.0 Prothromb Time International Ratio 1.0 Activated Partial Thromboplast Time 26.4 Blood Urea Nitrogen 70 Creatinine 10.48 Random Glucose 96 Total Protein 7.9 Albumin 3.5 Calcium Level 9.1 Magnesium Level 1.5 Alkaline Phosphatase 80 Aspartate Amino Transf (AST/SGOT) 11 Alanine Aminotransferase (ALT/SGPT) 12 Total Bilirubin 0.4 Sodium Level 131 Potassium Level 8.3 Chloride Level 102 Carbon Dioxide Level 20.2 Anion Gap 9 Estimat Glomerular Filtration Rate 4 Total Creatine Kinase 105 Creatine Kinase MB 1.5 Troponin I LESS THAN 0.02 Result Diagram: 02/02/17 1540 02/02/17 1540 Imaging Last Impressions Chest X-Ray 02/02/17 1538 Signed Impressions: Service Date/Time: January 15:50 - CONCLUSION: 1. Left upper lobe scarring. 2. No acute focal pulmonary infiltrate or pulmonary vascular congestion. MD Leroy Holmani VTE Risk Assessment Caprini VTE Risk Assessment: Mod/High Risk (score >= 2) Caprini Risk Assessment Model Point Value = 1 Point Value = 2 Point Value = 3 Point Value = 5 Age 41-60 Minor surgery BMI > 25 kg/m2 Swollen legs Varicose veins or History of unexplained or recurrent spontaneous Oral contraceptives or hormone replacement Sepsis (< 1 month) Serious lung disease, including pneumonia (< 1 month) Abnormal pulmonary function Acute myocardial infarction Congestive heart failure (< 1 month) History of inflammatory bowel disease Medical patient at bed rest Age 61-74 Arthroscopic surgery Major open surgery (> 45 min) Laparoscopic surgery (> 45 min) Malignancy Confined to bed (> 72 hours) Immobilizing plaster cast Central venous access Age >= 75 History of VTE Family history of VTE Factor V Leiden Prothrombin [id number] Lupus anticoagulant Anticardiolipin antibodies Elevated serum homocysteine Heparin-induced thrombocytopenia Other congenital or acquired thrombophilia Stroke (< 1 month) Elective arthroplasty Hip, pelvis, or leg fracture Acute spinal cord injury (< 1 month) Prophylaxis Regimen Total Risk Factor Score Risk Level Prophylaxis Regimen 0-1 Low Early ambulation 2 Moderate Order ONE of the following: *Sequential Compression Device (SCD) *Heparin 5000 units SQ BID 3-4 Higher Order ONE of the following medications: *Heparin 5000 units SQ TID *Enoxaparin/Lovenox 40 mg SQ daily (WT < 150 kg, CrCl > 30 mL/min) *Enoxaparin/Lovenox 30 mg SQ daily (WT < 150 kg, CrCl > 10-29 mL/min) *Enoxaparin/Lovenox 30 mg SQ BID (WT < 150 kg, CrCl > 30 mL/min) AND/OR *Sequential Compression Device (SCD) 5 or more Highest Order ONE of the following medications: *Heparin 5000 units SQ TID (Preferred with Epidurals) *Enoxaparin/Lovenox 40 mg SQ daily (WT < 150 kg, CrCl > 30 mL/min) *Enoxaparin/Lovenox 30 mg SQ daily (WT < 150 kg, CrCl > 10-29 mL/min) *Enoxaparin/Lovenox 30 mg SQ BID (WT < 150 kg, CrCl > 30 mL/min) AND *Sequential Compression Device (SCD) Assessment and Plan Problem List: (1) Hyperkalemia ICD Code: E87.5 - Hyperkalemia Status: Acute (2) ESRD (end stage renal disease) ICD Code: N18.6 - ESRD (end stage renal disease) Status: Chronic (3) DM (diabetes mellitus) ICD Code: E11.9 - DM (diabetes mellitus) Status: Chronic (4) HTN (hypertension) ICD Code: I10 - Hypertension Status: Chronic Assessment and Plan Ms. Naik is a 66-year-old female with a history of ESRD, diabetes mellitus, hypertension who presents to the emergency department on 02/02 due to generalized weakness. She was found to have potassium of 8.3. She received dialysis for 2 hours on 01/31/2017. She did not go for dialysis on her scheduled day 02/02/2017 due to not feeling well. - Hypokalemia - ESRD on hemodialysis - Patient received calcium gluconate, insulin and dextrose, Kayexalate and bicarbonate in the emergency department. - Underwent emergent hemodialysis. - Nephrology following. We'll repeat BMP in the morning. - Diabetes mellitus - Continue sliding scale insulin. Goal blood sugar 140 - 180. - Last hemoglobin A1c was 7.2 on 06/22/2015. - Blood sugar on admission was 96. - Hypertension - Hyperlipidemia - Continue nifedipine 90 mg daily, clonidine 0.2 mg 3 times a day. - Continue atorvastatin 10 mg daily at bedtime Full code. Heparin 5000 units every 12 hours. Physician Certification 2 Midnight Certification Type: Admission for Inpatient Services Order for Inpatient Services The services are ordered in accordance with Medicare regulations or non- Medicare payer requirements, as applicable. In the case of services not specified as inpatient-only, they are appropriately provided as inpatient services in accordance with the 2-midnight benchmark. Estimated LOS (days): 2 days is the estimated time the patient will need to remain in the hospital, assuming treatment plan goals are met and no additional complications. Post-Hospital Plan: Mary Madrid DO Feb 02, 2017 7:07 pm
[2017-02-02] MEDS: LORazepam 1 MG TAB PO PRN (20:12)
[2017-02-02] MEDS: SODIUM CHLORIDE 0.9% FLUSH 10 ML FLUSH IV FLUSH SCH (21:00)
[2017-02-02] MEDS: DOCUSATE SODIUM 50 MG/SENNA 8.6 MG TAB PO SCH (21:00)
[2017-02-02 21:11] VITALS: BP 163/83; PULSE 87; RESP 17; TEMP 98.2; O2SAT 97
[2017-02-03] VITALS (7 sets, daily range): BP systolic 139–227; BP diastolic 74–105; PULSE 84–91; RESP 17–20; TEMP 97.4–98.5; O2SAT 96–100
[2017-02-03] MEDS ORDERED: cloNIDine HCL 0.2 MG TAB PO ONE (06:30)
[2017-02-03] MEDS ORDERED: ACETAMINOPHEN/HYDROcodone 325 MG/5 MG TAB PO PRN (06:45)
[2017-02-03] MEDS ORDERED: DEXTROSE 50% IN WATER 50 ML VIAL(D50) IV PRN (07:00)
[2017-02-03] MEDS ORDERED: GLUCAGON 1 MG/ML VIAL OTHER PRN (07:00)
[2017-02-03] MEDS: INSULIN ASPART SUPPLEMENTAL SCALE SQ SCH ×3 (08:00→16:51)
[2017-02-03] MEDS ORDERED: NIFEdipine 90 MG SUSTAINED RELEASE TAB PO SCH ×2 (09:00)
[2017-02-03] MEDS ORDERED: BUDESONIDE-FORMOTEROL 160/4.5 MCG INHALER INH SCH (09:00)
[2017-02-03] MEDS ORDERED: NIFEdipine 60 MG SUSTAINED RELEASE TAB PO SCH (09:00)
[2017-02-03] MEDS ORDERED: ASPIRIN EC 81 MG TABEC PO SCH (09:00)
[2017-02-03] MEDS ORDERED: CITALOPRAM HYDROBROMIDE 20 MG TAB PO SCH (09:00)
[2017-02-03] MEDS ORDERED: CALCIUM ACETATE 667 MG CAP PO SCH (09:00)
[2017-02-03] MEDS ORDERED: METOPROLOL SUCCINATE 50 MG EXTENDED RELEASE TAB PO SCH (09:00)
[2017-02-03] MEDS ORDERED: HEPARIN SODIUM - SQ 10,000 UNITS/ML VIAL SQ SCH (09:00)
[2017-02-03] MEDS: cloNIDine HCL 0.2 MG TAB PO SCH ×3 (09:19→17:11)
[2017-02-03] MEDS: DOCUSATE SODIUM 50 MG/SENNA 8.6 MG TAB PO SCH (09:20)
[2017-02-03] MEDS: CALCIUM ACETATE 667 MG CAP PO SCH ×3 (09:20→17:11)
[2017-02-03] MEDS: SODIUM CHLORIDE 0.9% FLUSH 10 ML FLUSH IV FLUSH SCH (09:21)
[2017-02-03] MEDS: LORazepam 1 MG TAB PO PRN (09:26)
[2017-02-03 10:18] LABS: AUTOMATED NEUTROPHIL # 2.1 TH/MM3 (1.8-7.7); BASOPHIL % 1.3 % (0.0-2.0); EOSINOPHIL # 0.1 TH/MM3 (0-0.4); EOSINOPHIL % 3.5 % (0.0-4.0); HEMATOCRIT 36.6 % (35.0-46.0); HEMO FLAGS DIFF FINAL; LYMPH % 21.7 % (9.0-44.0); LYMPHOCYTE # 0.7 TH/MM3 (1.0-4.8); MEAN CELL VOLUME 99.4 FL (80.0-100.0); MEAN CORPUSCULAR HEMOGLOBIN 32.6 PG (27.0-34.0); MEAN CORPUSCULAR HGB CONC 32.8 % (32.0-36.0); NEUT % 61.5 % (16.0-70.0); PLATELET COUNT 113 TH/MM3 (150-450); RED BLOOD COUNT 3.68 MIL/MM3 (4.00-5.30); RED CELL DISTRIBUTION WIDTH 15.7 % (11.6-17.2); WHITE BLOOD COUNT 3.4 TH/MM3 (4.0-11.0)
[2017-02-03 10:33] LABS: BICARBONATE 27.4 MEQ/L (21.0-32.0); POTASSIUM 5.6 MEQ/L (3.5-5.1)
--- NOTE | 2017-02-03 11:09 | HHI.NPPN ---
Subjective Renal Failure: Chronic, End Stage Renal Disease Interval History Sitting up in chair. K 5.6 today. Feeling okay. (Dinora Sanchez) Objective Data Data Vital Signs Date Time Temp Pulse Resp B/P (MAP) Pulse Ox O2 Delivery O2 Flow Rate FiO2 02/03/17 08:00 98.5 84 20 227/105 (145) 97 02/03/17 05:45 191/93 (125) 02/03/17 04:32 98.1 87 17 197/93 (127) 100 02/03/17 03:51 98 Nasal Cannula 2.00 02/03/17 00:30 98.0 91 17 176/85 (115) 100 02/02/17 21:11 98.2 87 17 163/83 (109) 97 02/02/17 17:00 73 20 155/83 (107) 99 Nasal Cannula 2.00 02/02/17 16:59 99 Nasal Cannula 2.00 02/02/17 15:24 97.6 74 20 166/80 (108) 98 (Dinora Sanchez) -: 02/03/17 0911 02/03/17 0911 Imaging Last 72 hours Impressions Chest X-Ray 02/02/17 1538 Signed Impressions: Service Date/Time: January 15:50 - CONCLUSION: 1. Left upper lobe scarring. 2. No acute focal pulmonary infiltrate or pulmonary vascular congestion. Johann Campos MD (Dinora Sanchez) Physical Exam General Appearance: No Acute Distress, Comfortable, Malnourished (Dinora Sanchez) Throat Throat Exam: Oral Mucosa [place] & Moist (Dinora Sanchez) Pulmonary Resp Exam: Clear Bilaterally, Breath Sounds Equal (Dinora Sanchez) Cardiology CV Exam: Regular, Normal Sinus Rhythm (Dinora Sanchez) Gastrointestinal/Abdomen GI Exam: Soft, Non-Tender (Dinora Sanchez) Musculoskeletal MS Exam: Joints Intact, Normal Gait (Dinora Sanchez) Integumentary Skin Exam: Warm, Dry (Dinora Sanchez) Extremeties Extremities Exam: No Edema, Pedal Pulses Palpable (Dinora Sanchez) Neurologic Neuro Exam: Alert, Awake, Oriented, Speech Clear, Moving All Extremities (Dinora Sanchez) Psychiatric Psych Exam: Appropriate Responses (Dinora Sanchez) Assessment/Plan Discussed Condition With: Patient Assessment Summary: Anemia of CKD, End Stage Renal Disease Problem List: (1) ESRD on hemodialysis ICD Codes: N18.6 - End-stage renal disease on hemodialysis; Z99.2 - Dependence on renal dialysis Status: Chronic Plan: Typical TTS HD Had emergent HD last evening due to hyperkalemia K 5.6, HD again today on a 1K Replace magnesium no dietary protein restriction avoid IVF, gadolinium is contraindicated (2) Hyperkalemia ICD Codes: E87.5 - Hyperkalemia Plan: see above repeat labs later today after HD low K diet discussed (3) Anemia ICD Codes: D64.9 - Anemia Status: Acute Plan: Epogen with dialysis. (4) DM (diabetes mellitus) ICD Codes: E11.9 - DM (diabetes mellitus) Status: Chronic Plan: continue insulin coverage, maintain blood glucose between 140 and 180. (5) HTN (hypertension) ICD Codes: I10 - Hypertension Status: Chronic Plan: continue ordered medications (6) Lung cancer ICD Codes: C34.90 - Lung cancer Status: Chronic Plan: she has been on palliative chemotherapy. Unfortunately she continues to smoke, cessation was advised. on oxygen continuously (Dinora Sanchez) Plan patient was seen and examined. Agree with above assessment and plan. Seen during dialysis. On 1k, UF goal is 3 liters. She can be discharged after dialysis today. (Benjamín Teixeira MD) Dinora Sanchez Feb 03, 2017 11:09 Benjamín Teixeira MD Feb 03, 2017 14:08
[2017-02-03] MEDS ORDERED: MAGNESIUM OXIDE 400 MG TAB PO ONE (11:45)
--- NOTE | 2017-02-03 12:04 | EKG ---
Date Performed: 02/02/2017 Time Performed: 15:23:46 PTAGE: 66 years EKG: Sinus rhythm WITH FIRST DEGREE AV BLOCK INTRAVENTRICULAR CONDUCTION DELAY PEAKED T-WAVES SUGGESTIVE OF HYPERKALEM IA WITH 1ST DEGREE AV BLOCK AND THE HYPERKALEMIC T-WAVES ARE NEW. ABNORMAL ECG PREVIOUS TRACING : 11/17/2016 20.08 DOCTOR: Ruy Jacome Interpretating Date/Time 02/03/2017 12:04:45
--- NOTE | 2017-02-03 16:58 | HHI.PR ---
Subjective Remarks Follow up for hyperkalemia, end-stage renal disease. Patient is doing well. No chest pain, shortness of breath, fever, chills. She underwent another dialysis today. Per discussion with nephrology, patient can be discharged after dialysis today. Objective Vitals Vital Signs Date Time Temp Pulse Resp B/P (MAP) Pulse Ox O2 Delivery O2 Flow Rate FiO2 02/03/17 16:00 98.3 88 20 176/86 (116) 99 02/03/17 12:09 97.4 86 20 139/74 (95) 96 02/03/17 08:00 98.5 84 20 227/105 (145) 97 02/03/17 05:45 191/93 (125) 02/03/17 04:32 98.1 87 17 197/93 (127) 100 02/03/17 03:51 98 Nasal Cannula 2.00 02/03/17 00:30 98.0 91 17 176/85 (115) 100 02/02/17 21:11 98.2 87 17 163/83 (109) 97 02/02/17 17:00 73 20 155/83 (107) 99 Nasal Cannula 2.00 02/02/17 16:59 99 Nasal Cannula 2.00 I/O 02/02/17 02/02/17 02/02/17 02/03/17 02/03/17 02/03/17 07:00 15:00 23:00 07:00 15:00 23:00 Intake Total 240 ml 120 ml 240 ml Output Total 4300 ml 1000 ml Balance -4060 ml 120 ml 240 ml -1000 ml Intake Oral 240 ml 120 ml 240 ml Output Hemodialysis 4300 ml 1000 ml # Bowel Movements 2 1 Result Diagram: 02/03/17 0911 02/03/17 0911 Imaging Last Impressions Chest X-Ray 02/02/17 1538 Signed Impressions: Service Date/Time: January 15:50 - CONCLUSION: 1. Left upper lobe scarring. 2. No acute focal pulmonary infiltrate or pulmonary vascular congestion. Johann Campos MD Objective Remarks GENERAL: Alert, NAD. SKIN: Warm and dry. HEAD: Normocephalic. EYES: No scleral icterus. No injection or drainage. NECK: Supple, trachea midline. No JVD or lymphadenopathy. CARDIOVASCULAR: Regular rate and rhythm without murmurs, gallops, or rubs. RESPIRATORY: Breath sounds equal bilaterally. No accessory muscle use. GASTROINTESTINAL: Abdomen soft, non-tender, nondistended. MUSCULOSKELETAL: No cyanosis, or edema. BACK: Nontender without obvious deformity. No CVA tenderness. Procedures None. A/P Problem List: (1) Hyperkalemia ICD Code: E87.5 - Hyperkalemia Status: Acute (2) ESRD (end stage renal disease) ICD Code: N18.6 - ESRD (end stage renal disease) Status: Chronic (3) DM (diabetes mellitus) ICD Code: E11.9 - DM (diabetes mellitus) Status: Chronic (4) HTN (hypertension) ICD Code: I10 - Hypertension Status: Chronic Assessment and Plan Ms. Naik is a 66-year-old female with a history of ESRD, diabetes mellitus, hypertension who presents to the emergency department on 02/02 due to generalized weakness. She was found to have potassium of 8.3. She received dialysis for 2 hours on 01/31/2017. She did not go for dialysis on her scheduled day 02/02/2017 due to not feeling well. - Hypokalemia - ESRD on hemodialysis - Patient received calcium gluconate, insulin and dextrose, Kayexalate and bicarbonate in the emergency department. - Underwent emergent hemodialysis on 02/02/2017. HD again on 02/03/2017. - Nephrology is okay with discharging patient after dialysis today 2016. - Diabetes mellitus - Continue sliding scale insulin. Goal blood sugar 140 - 180. - Last hemoglobin A1c was 7.2 on 06/22/2015. - Blood sugar on admission was 96. - Hypertension - Hyperlipidemia - Continue nifedipine 90 mg daily, clonidine 0.2 mg 3 times a day. - If blood pressure continues to be high at home, Hydralazine could be considered by PCP or Router Operator. - Continue atorvastatin 10 mg daily at bedtime Full code. Heparin 5000 units every 12 hours. Discharge patient to home Condition on discharge: Improved Renal failure Diet as tolerated Ad Simi activity Rx written: Follow-up with primary care physician within one week, Continue dialysis as scheduled outpatient. Mary Winchester DO Feb 03, 2017 16:58
[2017-02-03] MEDS ORDERED: ATORVASTATIN 10 MG TAB PO SCH (21:00)
[2017-02-03] MEDS ORDERED: TERAZOSIN HCL 5 MG CAP PO SCH (21:00)
== END 2017-02-03 18:38 | disposition home or self-care (01) | DRG 640 ==
LOC: NEPE 15:16 → NEDA 17:27 → N05B 21:00
PROVIDERS: ADMIT Hospitalist; ATTEND Hospitalist
DX: E87.5 Hyperkalemia (principal); N18.6 End stage renal disease; I13.2 Hypertensive heart and chronic kidney disease with heart failure and with stage 5 chronic kidney disease, or end stage renal disease; E11.22 Type 2 diabetes mellitus with diabetic chronic kidney disease; J44.0 Chronic obstructive pulmonary disease with (acute) lower respiratory infection; Z99.2 Dependence on renal dialysis; Z85.118 Personal history of other malignant neoplasm of bronchus and lung; Z92.21 Personal history of antineoplastic chemotherapy; K52.9 Noninfective gastroenteritis and colitis, unspecified; E78.5 Hyperlipidemia, unspecified; F17.210 Nicotine dependence, cigarettes, uncomplicated; D63.1 Anemia in chronic kidney disease; E87.1 Hypo-osmolality and hyponatremia; E87.6 Hypokalemia; I44.0 Atrioventricular block, first degree; I50.9 Heart failure, unspecified; K21.9 Gastro-esophageal reflux disease without esophagitis; Z79.4 Long term (current) use of insulin; Z79.899 Other long term (current) drug therapy; Z85.41 Personal history of malignant neoplasm of cervix uteri; Z99.81 Dependence on supplemental oxygen
CPT/HCPCS: 71010; 80048; 80053; 82550; 82552; 82948; 83735; 84484; 85025; 85610; 85730; 90935; 93005; J1644; J1815

== ENCOUNTER 2017-04-22 12:00 | Inpatient (IN) | payer MEDICARE, BC, MEDICAID ==
[~2017-04-22] VITALS: Ht 170.2 cm; Wt 67.0 kg
[~2017-04-22 12:00] MED LIST changes: -ASPI81TA11 PO; +ASPI81TA23 PO; +METO1TAB9 PO; -METO50TA11 PO
[2017-04-22 12:04] VITALS: BP 213/102; PULSE 96; RESP 19; TEMP 98.4; O2SAT 93
[2017-04-22] MEDS ORDERED: NALOXONE HCL 2 MG/2 ML VIAL ONE (12:09)
[2017-04-22] MEDS ORDERED: LABETALOL HCL 100 MG/20 ML VIAL IV PUSH ONE (12:15)
[2017-04-22] MEDS: SODIUM CHLORIDE 0.9% FLUSH 10 ML FLUSH IV FLUSH PRN ×2 (12:20→21:24)
[2017-04-22 12:37] VITALS: BP 181/85; PULSE 100; RESP 18; O2SAT 100
[2017-04-22 12:37] LABS: AUTOMATED NEUTROPHIL # 4.7 TH/MM3 (1.8-7.7); BASOPHIL # 0.1 TH/MM3 (0-0.2); BASOPHIL % 1.3 % (0.0-2.0); EOSINOPHIL # 0.1 TH/MM3 (0-0.4); HEMATOCRIT 29.1 % (35.0-46.0); HEMO FLAGS DIFF FINAL; LYMPH % 10.3 % (9.0-44.0); LYMPHOCYTE # 0.6 TH/MM3 (1.0-4.8); MEAN CORPUSCULAR HEMOGLOBIN 33.4 PG (27.0-34.0); MEAN CORPUSCULAR HGB CONC 34.5 % (32.0-36.0); MONO % 10.6 % (0.0-8.0); NEUT % 76.8 % (16.0-70.0); PLATELET COUNT 158 TH/MM3 (150-450); RED CELL DISTRIBUTION WIDTH 15.4 % (11.6-17.2); WHITE BLOOD COUNT 6.1 TH/MM3 (4.0-11.0)
[2017-04-22 12:40] VITALS: BP 181/85; PULSE 100
--- NOTE | 2017-04-22 12:41 | RADRPT ---
EXAM DATE/TIME: 04/22/2017 12:27 [facility] COMPARISON: CT BRAIN W/O CONTRAST, November 17, 2016, 20:03. INDICATIONS : Altered mental status. RADIATION DOSE: 48.85 CTDIvol (mGy) MEDICAL HISTORY : Congestive hearrt failure. Carcinoma, lung. SURGICAL HISTORY : Hysterectomy. AV shunt ENCOUNTER: Initial ACUITY: 1 day PAIN SCALE: Non-responsive LOCATION: Bilateral head TECHNIQUE: Multiple contiguous axial images were obtained of the head. Using automated exposure control and adj ustment of the mA and/or kV according to patient size, radiation dose was kept as low as reasonably a chievable to obtain optimal diagnostic quality images. DICOM format image data is available electro nically for review and comparison. FINDINGS: CEREBRUM: The ventricles are normal for age. No evidence of midline shift, mass lesion, hemorrhage or acute in farction. No extra-axial fluid collections are seen. POSTERIOR FOSSA: The cerebellum and brainstem are intact. The 4th ventricle is midline. The cerebellopontine angle i s unremarkable. EXTRACRANIAL: The visualized portion of the orbits is intact. SKULL: The calvaria is intact. No evidence of skull fracture. CONCLUSION: No acute intracranial disease. Campbell Hines MD on April 22, 2017 at 12:38 Board Certified Radiologist. This report was verified electronically.
[2017-04-22 12:46] LABS: INTERNATIONAL NORMALIZED RATIO 1.1 RATIO; PROTHROMBIN TIME - PATIENT 10.8 SEC (9.8-11.6)
[2017-04-22] MEDS ORDERED: OMEP20TA93 PO (12:53)
[2017-04-22] MEDS ORDERED: CINA30 PO (12:53)
[2017-04-22] MEDS ORDERED: DIPH2.5T14 PO (12:53)
[2017-04-22 13:05] LABS: ALT (GPT) 12 U/L (10-53); ANION GAP 13 MEQ/L (5-15); AST (GOT) 12 U/L (15-37); BICARBONATE 25.5 MEQ/L (21.0-32.0); BLOOD UREA NITROGEN 36 MG/DL (7-18); CHLORIDE 92 MEQ/L (98-107); GLOMERULAR FILTRATION RATE 8 ML/MIN (>89); POTASSIUM 4.2 MEQ/L (3.5-5.1); SODIUM (NA) 130 MEQ/L (136-145)
--- NOTE | 2017-04-22 13:05 | RADRPT ---
EXAM DATE/TIME: 04/22/2017 12:40 [facility] COMPARISON: CHEST SINGLE AP, February 02, 2017, 15:50. INDICATIONS : Syncope. MEDICAL HISTORY : Congestive heart failure. Carcinoma, lung. SURGICAL HISTORY : Hysterectomy. AV shunt ENCOUNTER: Initial ACUITY: 1 day PAIN SCORE: Non-responsive. LOCATION: Bilateral chest FINDINGS: Stable left apical scarring and hyperexpansion. No new focal pleural or parenchymal opacities. The ca rdiomediastinal contours are unremarkable. Osseous structures are intact. CONCLUSION: 1. No acute cardiopulmonary disease. Yovani Johnson MD on April 22, 2017 at 13:01 Board Certified Radiologist. This report was verified electronically.
[2017-04-22 13:07] LABS: ALCOHOL LESS THAN 3 MG/DL (0-5)
[2017-04-22 13:15] LABS: ALKALINE PHOSPHATASE 80 U/L (45-117); CREATINE KINASE 135 U/L (26-192); TOTAL BILIRUBIN ADULT 0.5 MG/DL (0.2-1.0)
--- NOTE | 2017-04-22 13:30 | PD ---
HPI Chief Complaint: Altered Mental Status Time Seen by Provider: 12:13 Travel History International Travel<30 days: No Contact w/Intl Traveler<30days: No Traveled to known affect area: No History of Present Illness HPI 66-year-old female came to the emergency room with history of altered mental status that started about 1 hour prior to her arrival. Patient was in dialysis center getting her dialysis done. 15 minutes into the dialysis the nurse noticed that she was lethargic. Normally she is awake and talking. They tried to wake her up and talk to her few times and when they were unsuccessful they called 911. When EMS arrived they gave her a GCS of 12. Patient was hypertensive with blood pressure in 170s to 180s systolic. Upon arrival she was 212 systolic. Patient seems to open her eyes and look at me and try to answer some questions groggy upon asking. Asking her multiple time she said she did not have any headache or chest pain. Patient is not a good historian since she so lethargic. [facility] Past Medical History Narrative Medical List of her past medical, surgical, social and family history is reviewed from the nursing note. Arthritis: Yes Autoimmune Disease: No Anxiety: Yes Depression: No Heart Rhythm Problems: Yes (PAPITATIONS, PT REPORTS OCC TACHY) Cancer: Yes (lung cancer ) Cardiovascular Problems: Yes High Cholesterol: Yes Chemotherapy: Yes Chest Pain: Yes Congestive Heart Failure: Yes COPD: Yes Diabetes: Yes Patient Takes Glucophage: No Dialysis: Yes () Diminished Hearing: No Endocrine: Yes Gastrointestinal Disorders: Yes GERD: No Genitourinary: Yes (DIALYSIS PATIENT) Hepatitis: No Hiatal Hernia: No Hypertension: Yes Immune Disorder: Yes Medical other: Yes (CURRENTLY ON CHEMO AND RADIATION) Musculoskeletal: Yes Neurologic: No Psychiatric: Yes Reproductive: Yes Respiratory: Yes Immunizations Current: Yes Radiation Therapy: Yes Renal Failure: Yes (DIALYSIS) Thyroid Disease: Yes Ulcer: No Menopausal: Yes : 0 Past Surgical History AICD: No Arteriovenous Shunt: Yes (right forearm) Cardiac Surgery: No Ear Surgery: No Endocrine Surgery: No Eye Surgery: No Gynecologic Surgery: Yes (hysterectomy) Hysterectomy: Yes Joint Replacement: No Oral Surgery: No Pacemaker: No Thoracic Surgery: No Other Surgery: Yes Social History Alcohol Use: No Tobacco Use: Yes (1 PPD) Substance Use: No Allergies-Medications (Allergen,Severity, Reaction): Coded Allergies: penicillin G (Unverified Allergy, Intermediate, UNKNOWN, 01/03/17) Comments List of her allergies reviewed from the nursing note. Reported Meds & Prescriptions Reported Meds & Active Scripts Active Aspirin EC (Aspirin) 81 Mg Tabdr 162 Mg PO DAILY 30 Days Ventolin Hfa 18 GM Inh (Albuterol Sulfate) 90 Mcg/Act Aer 2 Puff INH Q6H PRN Oxygen tank (Oxygen) 1 Ea Tank 2 Liter KATRIN.CANULA CONTINUOUS Oxygen Concentrator Portable Gaseous 2 L/min via Nasal Cannula Continuous For 99 months Calcium Acetate (Calcium Acetate (Phosphate Bin) 667 Mg Cap 1,334 Mg PO TID Hydrocodone-Acetaminophen 5-325 mg Tab 1 Tab PO Q6H PRN Ativan (Lorazepam) 1 Mg Tab 1 Mg PO Q6H PRN Reported Omeprazole 20 Mg Tab 20 Mg PO DAILY Sensipar (Cinacalcet) 30 Mg Tab 30 Mg PO DAILY Diphenoxylate-Atropine 2.5-0.025 Mg Tab 1 Tab PO Q6H PRN Zofran (Ondansetron HCl) 8 Mg Tab 8 Mg PO TID PRN Nifedipine ER (Nifedipine) 90 Mg Tab 60 Tab PO BID Metoprolol Succinate ER 24 HR (Metoprolol Succinate) 50 Mg Tab 50 Mg PO DAILY Terazosin (Terazosin HCl) 5 Mg Cap 5 Mg PO HS Symbicort Inh (Budesonide/Formoterol Fumarate) 160-4.5 Mcg/Act Aero 2 Puff INH Q12HR Clonidine (Clonidine HCl) 0.2 Mg Tab 0.2 Mg PO TID Citalopram (Citalopram Hydrobromide) 10 Mg Tab 10 Mg PO DAILY Atorvastatin (Atorvastatin Calcium) 10 Mg Tab 10 Mg PO HS Novolog Inj (Insulin Aspart) 1,000 Unit/10 Ml Vial 0 SQ DIRECTED Sliding Scale as directed. Narrative Medication List of her home medications reviewed from the nursing note. Review of Systems ROS Limitations: Altered Mental Status Except as stated in HPI: all other systems reviewed are Neg Physical Exam Narrative GENERAL: Lethargic, incomprehensible speech SKIN: Focused skin assessment warm/dry. HEAD: Atraumatic. Normocephalic. EYES: Pupils equal and round. No scleral icterus. No injection or drainage. ENT: No nasal bleeding or discharge. Mucous membranes pink and moist. NECK: Trachea midline. No JVD. CARDIOVASCULAR: Regular rate and rhythm. No murmur appreciated. RESPIRATORY: No accessory muscle use. Clear to auscultation. Breath sounds equal bilaterally. GASTROINTESTINAL: Abdomen soft, non-tender, nondistended. Hepatic and splenic margins not palpable. MUSCULOSKELETAL: No obvious deformities. No clubbing. No cyanosis. No edema. NEUROLOGICAL: Lethargic, GCS of 12, slurred incomprehensible speech PSYCHIATRIC: Appropriate mood and affect; insight and judgment normal. Data Data Last Documented VS Vital Signs Date Time Temp Pulse Resp B/P (MAP) Pulse Ox O2 Delivery O2 Flow Rate FiO2 04/22/17 12:40 100 181/85 (117) 04/22/17 12:37 18 100 Room Air 04/22/17 12:15 2.00 04/22/17 12:04 98.4 Orders Orders Naloxone Inj (Narcan Inj) (04/22/17 12:09) Electrocardiogram (04/22/17 12:13) Ammonia (04/22/17 12:13) Complete Blood Count With Diff (04/22/17 12:13) Comprehensive Metabolic Panel (04/22/17 12:13) Creatine Kinase (Cpk) (04/22/17 12:13) Prothrombin Time / Inr (Pt) (04/22/17 12:13) Troponin I (04/22/17 12:13) Thyroid Stimulating Hormone (04/22/17 12:13) Lactic Acid Sepsis Protocol (04/22/17 12:13) Blood Culture (04/22/17 12:13) Chest, Single Ap (04/22/17 12:13) Ct Brain W/O Iv Contrast(Rout) (04/22/17 12:13) Blood Glucose (04/22/17 12:13) Ecg Monitoring (04/22/17 12:13) Iv Access Insert/Monitor (04/22/17 12:13) Oximetry (04/22/17 12:13) Sodium Chloride 0.9% Flush (Ns Flush) (04/22/17 12:15) Alcohol (Ethanol) (04/22/17 12:13) Labetalol Inj (Trandate Inj) (04/22/17 12:15) Labs Laboratory Tests Test 04/22/17 12:04 04/22/17 12:18 04/22/17 12:25 Lactic Acid Level 0.8 mmol/L Ammonia 15 MCMOL/L Blood Urea Nitrogen 36 MG/DL Creatinine 6.04 MG/DL Random Glucose 84 MG/DL Total Protein 8.7 GM/DL Albumin 3.7 GM/DL Calcium Level 8.2 MG/DL Alkaline Phosphatase 80 U/L Aspartate Amino Transf (AST/SGOT) 12 U/L Alanine Aminotransferase (ALT/SGPT) 12 U/L Total Bilirubin 0.5 MG/DL Sodium Level 130 MEQ/L Potassium Level 4.2 MEQ/L Chloride Level 92 MEQ/L Carbon Dioxide Level 25.5 MEQ/L Anion Gap 13 MEQ/L Estimat Glomerular Filtration Rate 8 ML/MIN Total Creatine Kinase 135 U/L Troponin I LESS THAN 0.02 NG/ML Thyroid Stimulating Hormone 3rd Gen 2.170 uIU/ML Ethyl Alcohol Level LESS THAN 3 MG/DL White Blood Count 6.1 TH/MM3 Red Blood Count 3.00 MIL/MM3 Hemoglobin 10.0 GM/DL Hematocrit 29.1 % Mean Corpuscular Volume 97.0 FL Mean Corpuscular Hemoglobin 33.4 PG Mean Corpuscular Hemoglobin Concent 34.5 % Red Cell Distribution Width 15.4 % Platelet Count 158 TH/MM3 Mean Platelet Volume 9.7 FL Neutrophils (%) (Auto) 76.8 % Lymphocytes (%) (Auto) 10.3 % Monocytes (%) (Auto) 10.6 % Eosinophils (%) (Auto) 1.0 % Basophils (%) (Auto) 1.3 % Neutrophils # (Auto) 4.7 TH/MM3 Lymphocytes # (Auto) 0.6 TH/MM3 Monocytes # (Auto) 0.6 TH/MM3 Eosinophils # (Auto) 0.1 TH/MM3 Basophils # (Auto) 0.1 TH/MM3 CBC Comment DIFF FINAL Differential Comment Prothrombin Time 10.8 SEC Prothromb Time International Ratio 1.1 RATIO MDM Medical Decision Making Medical Screen Exam Complete: Yes Emergency Medical Condition: Yes Medical Record Reviewed: Yes Interpretation(s) Twelve-lead EKG was reviewed by me. Normal sinus rhythm, normal axis, tachycardia, nonspecific ST-T wave changes. Heart rate of 101 bpm. Differential Diagnosis Electrolyte abnormalities, intracranial bleed, metabolic encephalopathy Narrative Course 1:[address] scan of the head is back which is negative. Patient was given IV Narcan 2 mg which did not change her mental status. She was also given 20 mg of IV Labetalol to bring her blood pressure down. Blood test results are back. Patient does have end-stage renal disease and hence creatinine is high. However rest of the blood work is nonspecific. Put a call out for the assistant customer service manager. Patient will require admission. 1:37 PM case was discussed with Dr. Dominguez was covering for patient's assistant customer service manager. He is in the room seeing the patient and will try to arrange for dialysis today. Awaiting for the hospitalist call back. Critical Care Narrative Aggregate critical care time was 45 minutes. Time to perform other separately billable procedures was not included in the critical care time. My time did not include minutes spent treating any other patients simultaneously or on activities that did not directly contribute to the patient's treatment. The services I provided to this patient were to treat and/or prevent clinically significant deterioration that could result in: Altered mental status, hypertensive crisis I provided critical care services requiring my management, as noted below: Chart data review, documentation time, medication orders and management, vital sign assessments/reviewing monitor data, ordering and reviewing lab tests, ordering and interpreting/reviewing x-rays and diagnostic studies, care of the patient and discussion of the patient with the admitting physicians. Procedures EKG Prior to Arrival: Yes Diagnosis Primary Impression: Altered mental status Qualified Codes: R40.1 - Stupor Additional Impressions: End stage renal disease Dependent on hemodialysis Hypertensive crisis Admitting Information Admitting Physician Requests: Nupur Valencia MD Apr 22, 2017 13:30
[2017-04-22 14:02] VITALS: BP 193/92
[2017-04-22] MEDS ORDERED: SODIUM CHLOR 0.9% 1000 ML INJ 1,000 ML IV PRN (14:10)
[2017-04-22] MEDS ORDERED: SODIUM CHLOR 0.9% 1000 ML INJ 1,000 ML OTHER PRN ×2 (14:10)
[2017-04-22] MEDS ORDERED: NITROGLYCERIN 0.4 MG SL 25 TABS/BTL SL PRN (14:15)
[2017-04-22] MEDS ORDERED: HEPARIN SODIUM - IV 10,000 UNITS/10 ML VIAL IV FLUSH PRN (14:15)
[2017-04-22] MEDS ORDERED: GELATIN 12 MM/7 MM FOAM TOP PRN (14:15)
[2017-04-22] MEDS ORDERED: cloNIDine HCL 0.1 MG TAB PO PRN (14:15)
[2017-04-22] MEDS ORDERED: HEPARIN SODIUM - IV 10,000 UNITS/10 ML VIAL PRN (14:15)
[2017-04-22] MEDS ORDERED: diphenhydrAMINE HCL 25 MG CAP PO PRN (14:15)
[2017-04-22] MEDS ORDERED: EPOETIN ALFA 10,000 UNITS/ML VIAL IV PUSH PRN (14:15)
[2017-04-22] MEDS ORDERED: ACETAMINOPHEN 325 MG TAB PO PRN (14:15)
[2017-04-22] MEDS ORDERED: GENTAMICIN SULFATE (DIALYSIS USE ONLY) 20 MG/2 ML VIAL OTHER PRN (14:15)
[2017-04-22] MEDS ORDERED: MANNITOL 12.5 GM/50 ML VIAL IV PRN (14:15)
[2017-04-22] MEDS ORDERED: SODIUM CHLORIDE 0.9% FLUSH 10 ML FLUSH IV FLUSH PRN (14:15)
[2017-04-22] MEDS ORDERED: ALBUMIN 25% INJ 100 ML IV PRN (14:15)
[2017-04-22] MEDS ORDERED: ONDANSETRON HCL 4 MG/2 ML VIAL IV PUSH PRN (14:15)
--- NOTE | 2017-04-22 14:43 | MB ---
cc: DARRIUS ANN MD DATE OF CONSULTATION 04/22/17 REASON FOR CONSULTATION End-stage renal disease on hemodialysis for management. HISTORY OF PRESENT ILLNESS This is a 66-year-old female with past medical history of hypertension, history of lung cancer, diabetes mellitus, chronic anemia, history of small-bowel obstruction and ileus, presented to the emergency department because of altered mental status. I was called to see the patient for the management of dialysis. The patient has been on hemodialysis Monday, and Monday. She went for her regular dialysis today and after 15 minutes of dialysis she was found very lethargic and she was transferred here. The patient does not remember why she was transferred here and she is still not fully oriented. She is able to tell her name and she knows that she is in the hospital. When she came to the hospital her blood pressure was more than 200. She denies any headache, dizziness or blurring of vision. The patient had a CT scan of the brain was done which she did not show any stroke. She denies any chest pain or shortness of breath. No palpitation. No nausea or vomiting. PAST MEDICAL HISTORY Hypertension, diabetes mellitus, history of lung cancer, small bowel obstruction with ileus. Chronic anemia, end-stage renal disease on hemodialysis. PAST SURGICAL HISTORY History of A-V fistula surgery done. Hysterectomy. REVIEW OF SYSTEMS Limited since she is not answering most of the questions. Denies any headache, dizziness or blurring of vision. She is awake and alert, oriented x1, not in any distress. Denies any nausea or vomiting. No abdominal pain. Following some of the verbal commands. SOCIAL HISTORY The patient has history of chronic smoking one pack per day. There is no history of heavy alcoholism. FAMILY HISTORY Noncontributory. ALLERGIES SHE IS ALLERGIC TO PENICILLIN G. MEDICATIONS The patient was given: 1. Labetalol. 2. Narcan x1. PHYSICAL EXAMINATION GENERAL: On examination the patient is awake, alert and oriented x1, not in acute distress. VITAL SIGNS: The last blood pressure is 181/85, temperature is 98.4, oxygen saturation on 2 liters nasal cannula is 98-100%. HEENT: Pupils are mid constricted. Nonicteric sclera, conjunctiva pale. NECK: Supple. JVD is not elevated. LUNGS: The patient has bilateral good air entry with occasional wheezing. HEART: S1-S2, regular rhythm. ABDOMEN: Abdomen is soft, lax. There is no tenderness. Bowel sounds positive. EXTREMITIES: There is no pedal edema. INVESTIGATION WBC count is 6.1, hemoglobin 10.0, platelet count 158, neutrophils 76.8%, sodium 130, potassium 4.2, chloride 92, bicarb 25.5, BUN 36, creatinine 6.0. Calcium 8.2. AST, ALT normal. Troponin I 0.02, total protein is 8.7. Albumin of 3.7, INR is 1.1. IMAGING STUDIES The patient had CT scan of the brain that was done without IV contrast and it shows that the patient has no acute intracranial process. Chest x-ray was done which shows lung phillips clear. ASSESSMENT/PLAN 1. Altered mental status with confusion. 2. End-stage renal disease on hemodialysis. 3. Hyponatremia. 4. Hypertension, uncontrolled. 5. History of COPD and lung cancer 6. Chronic anemia. The patient did not complete her dialysis, although her potassium is normal, the BUN, creatinine is high and the sodium is low. We will do the dialysis here. So far the etiology of confusion is not very clear but she is improving clinically. There is possibility of some narcotics, taking narcotics at home. Will admit the patient for observation. I will follow the patient over the weekend. Thank you for the consultation. Darrius Ann MD AQJ/RENATO /2:03 PM /2:24 PM
--- NOTE | 2017-04-22 15:00 | HHI.HP ---
[facility] Service Family Medicine Primary Care Physician Trini Naranjo MD Admission Diagnosis altered mental status, ESRD, HD dependent Diagnoses: International Travel<30 Days: No Contact w/Intl Traveler<30days: No Known Affected Area: No History of Present Illness Patient is a 66-year-old female with past medical history significant for ESRD on HD T/, lung cancer, HTN, anemia of CKD, T2DM who was brought to the ED via [facility] for evaluation after patient was found to have altered mental status about 15 minutes into her dialysis session earlier today. On arrival here she was found to have a blood pressure of 213/102. Her GCS score was 12. ED physician had given the patient 2 mg of Narcan which did not provide any mental status change. Patient was seen and examined while getting dialyzed here after being seen by nephrology. She is easily arousable but not able to consistently answer all questions appropriately. She is pleasant and able to follow basic commands. (Valdemar Bateman MD R2) Review of Systems ROS Limitations: Altered Mental Status (Valdemar Bateman MD R2) Past Family Social History Past Medical History ESRD Diabetes mellitus COPD Hyperlipidemia Lung cancer Past Surgical History Partial hysterectomy, oophorectomy Thyroidectomy Bowel resection (Valdemar Bateman MD R2) Allergies: Coded Allergies: penicillin G (Unverified Allergy, Intermediate, UNKNOWN, 01/03/17) Family History Per EMR: Mother - kidney disease, DM, HTN Social History Per EMR: smokes 1 ppd, denies using alcohol or illicit drugs. (Valdemar Bateman MD R2) Physical Exam Vital Signs Vital Signs Date Time Temp Pulse Resp B/P (MAP) Pulse Ox O2 Delivery O2 Flow Rate FiO2 04/22/17 14:02 193/92 (125) 04/22/17 12:40 100 181/85 (117) 04/22/17 12:37 100 18 181/85 (117) 100 Room Air 04/22/17 12:15 98 Nasal Cannula 2.00 04/22/17 12:04 98.4 96 19 213/102 (139) 93 Physical Exam GENERAL: NAD, lying comfortably in bed in dialysis unit NEURO: Alert. Speech is coherent, not always appropriate with conversation. box maker wood grossly intact. Motor grossly normal. SKIN: Warm and dry. No rashes or erythema. HEAD: Normocephalic. Atraumatic. EYES: EOMI. No scleral icterus. No injection or drainage. ENT: No nasal drainage. Moist mucous membranes. NECK: Supple. No JVD. CARDIOVASCULAR: Regular rate and rhythm without murmurs, rubs, or gallops. RESPIRATORY: Breath sounds clear to auscultation and equal bilaterally, without wheezes, rales, or rhonchi. No accessory muscle use. GASTROINTESTINAL: Abdomen soft, nontender, nondistended MUSCULOSKELETAL: No lower extremity edema. Laboratory Laboratory Tests Test 04/22/17 12:04 04/22/17 12:18 04/22/17 12:25 Lactic Acid Level 0.8 Ammonia 15 Blood Urea Nitrogen 36 Creatinine 6.04 Random Glucose 84 Total Protein 8.7 Albumin 3.7 Calcium Level 8.2 Alkaline Phosphatase 80 Aspartate Amino Transf (AST/SGOT) 12 Alanine Aminotransferase (ALT/SGPT) 12 Total Bilirubin 0.5 Sodium Level 130 Potassium Level 4.2 Chloride Level 92 Carbon Dioxide Level 25.5 Anion Gap 13 Estimat Glomerular Filtration Rate 8 Total Creatine Kinase 135 Troponin I LESS THAN 0.02 Thyroid Stimulating Hormone 3rd Gen 2.170 Ethyl Alcohol Level LESS THAN 3 White Blood Count 6.1 Red Blood Count 3.00 Hemoglobin 10.0 Hematocrit 29.1 Mean Corpuscular Volume 97.0 Mean Corpuscular Hemoglobin 33.4 Mean Corpuscular Hemoglobin Concent 34.5 Red Cell Distribution Width 15.4 Platelet Count 158 Mean Platelet Volume 9.7 Neutrophils (%) (Auto) 76.8 Lymphocytes (%) (Auto) 10.3 Monocytes (%) (Auto) 10.6 Eosinophils (%) (Auto) 1.0 Basophils (%) (Auto) 1.3 Neutrophils # (Auto) 4.7 Lymphocytes # (Auto) 0.6 Monocytes # (Auto) 0.6 Eosinophils # (Auto) 0.1 Basophils # (Auto) 0.1 CBC Comment DIFF FINAL Differential Comment Prothrombin Time 10.8 Prothromb Time International Ratio 1.1 Date/Time Source Procedure Growth Status 04/22/17 12:25 Blood Peripheral Aerobic Blood Culture Pending Received 04/22/17 12:25 Blood Peripheral Anaerobic Blood Culture Pending Received (Valdemar Bateman MD R2) Result Diagram: 04/22/17 1225 04/22/17 1218 Imaging Last [address] 04/22/17 1213 Signed Impressions: Service Date/Time: Saturday, April 22, 2017 12:27 - CONCLUSION: No acute intracranial disease. Campbell Hines MD Chest X-Ray 04/22/17 1213 Signed Impressions: Service Date/Time: Saturday, April 22, 2017 12:40 - CONCLUSION: 1. No acute cardiopulmonary disease. Yovani Johnson MD (Valdemar Bateman MD R2) Caprini VTE Risk Assessment Caprini VTE Risk Assessment: Mod/High Risk (score >= 2) Caprini Risk Assessment Model Point Value = 1 Point Value = 2 Point Value = 3 Point Value = 5 Age 41-60 Minor surgery BMI > 25 kg/m2 Swollen legs Varicose veins or History of unexplained or recurrent spontaneous Oral contraceptives or hormone replacement Sepsis (< 1 month) Serious lung disease, including pneumonia (< 1 month) Abnormal pulmonary function Acute myocardial infarction Congestive heart failure (< 1 month) History of inflammatory bowel disease Medical patient at bed rest Age 61-74 Arthroscopic surgery Major open surgery (> 45 min) Laparoscopic surgery (> 45 min) Malignancy Confined to bed (> 72 hours) Immobilizing plaster cast Central venous access Age >= 75 History of VTE Family history of VTE Factor V Leiden Prothrombin [id number] Lupus anticoagulant Anticardiolipin antibodies Elevated serum homocysteine Heparin-induced thrombocytopenia Other congenital or acquired thrombophilia Stroke (< 1 month) Elective arthroplasty Hip, pelvis, or leg fracture Acute spinal cord injury (< 1 month) Prophylaxis Regimen Total Risk Factor Score Risk Level Prophylaxis Regimen 0-1 Low Early ambulation 2 Moderate Order ONE of the following: *Sequential Compression Device (SCD) *Heparin 5000 units SQ BID 3-4 Higher Order ONE of the following medications: *Heparin 5000 units SQ TID *Enoxaparin/Lovenox 40 mg SQ daily (WT < 150 kg, CrCl > 30 mL/min) *Enoxaparin/Lovenox 30 mg SQ daily (WT < 150 kg, CrCl > 10-29 mL/min) *Enoxaparin/Lovenox 30 mg SQ BID (WT < 150 kg, CrCl > 30 mL/min) AND/OR *Sequential Compression Device (SCD) 5 or more Highest Order ONE of the following medications: *Heparin 5000 units SQ TID (Preferred with Epidurals) *Enoxaparin/Lovenox 40 mg SQ daily (WT < 150 kg, CrCl > 30 mL/min) *Enoxaparin/Lovenox 30 mg SQ daily (WT < 150 kg, CrCl > 10-29 mL/min) *Enoxaparin/Lovenox 30 mg SQ BID (WT < 150 kg, CrCl > 30 mL/min) AND *Sequential Compression Device (SCD) (Valdemar Bateman MD R2) Assessment and Plan Assessment and Plan 66-year-old female being admitted with altered mental status of uncertain etiology at this time. Code Status Full code Discussed Condition With Dr. Constantino Richard (Valdemar Bateman MD R2) Attending Attestation Patient seen and examined. Case reviewed and discussed with the resident team. Agree with plan of care as discussed with me and documented in the resident note. (Amy Meeks MD) Problem List: (1) Altered mental status ICD Codes: R41.82 - Altered mental status, unspecified Status: Acute Plan: Uncertain etiology at this time, consider toxic metabolic encephalopathy , hypertensive encephalopathy, sepsis, medication intoxication or withdrawal, intracranial pathology Continue dialysis T// per nephrology Will control blood pressure as below Head CT showing no acute intracranial disease Patient does meet SIRS criteria, no known source at this time CXR no acute disease Unable to obtain UA as patient is anuric Ammonia level 15 (2) End stage renal disease ICD Codes: N18.6 - End stage renal disease Status: Acute Plan: Continue dialysis T// per nephrology Nephrology consult (3) HTN (hypertension) ICD Codes: I10 - Hypertension Status: Chronic Plan: BP 213/102 on admission BP may lower following dialysis Continue home medications - Clonidine 0.2 mg po tid - Metoprolol 50 mg po daily (4) Anemia ICD Codes: D64.9 - Anemia Status: Acute Plan: Anemia due to CKD Hgb 10.0 on admission Continue to monitor (5) Diabetes mellitus ICD Codes: E11.9 - Type 2 diabetes mellitus without complications Plan: Accuchecks ACHS Low-dose ISS while inpatient (6) Nutrition, metabolism, and development symptoms ICD Codes: R63.8 - Other symptoms and signs concerning food and fluid intake Plan: Fluids: not indicated, patient is ESRD Electrolytes: Na 130, receiving dialysis Nutrition: renal diet DVT ppx: b/l SCDs (Valdemar Bateman MD R2) Physician Certification 2 Midnight Certification Type: Admission for Inpatient Services Order for Inpatient Services The services are ordered in accordance with Medicare regulations or non- Medicare payer requirements, as applicable. In the case of services not specified as inpatient-only, they are appropriately provided as inpatient services in accordance with the 2-midnight benchmark. Estimated LOS (days): 1 days is the estimated time the patient will need to remain in the hospital, assuming treatment plan goals are met and no additional complications. Post-Hospital Plan: Home (Valdemar Bateman MD R2) Problem Qualifiers (1) Altered mental status: Qualified Codes: R40.1 - Stupor Valdemar Bateman MD R2 Apr 22, 2017 15:00 Amy Meeks MD Apr 23, 2017 12:04
--- NOTE | 2017-04-22 15:55 | HHI.FPPN ---
Subjective Remarks This patient was seen, examined and discussed with the medicine team, and with her dialysis nurse. This is a 66-year-old female who has end-stage renal disease. During dialysis today, after about 15 minutes, patient became confused and her mental status was altered. She was transported to the emergency department via [facility] and was found to be stuporous en route. In the emergency department she was found to have significantly high blood pressure and a [place] Coma Scale of 12. She was also given 2 mg of Narcan without relief. She normally gets dialysis Monday and Monday. Has past history of significant hypertension, history of lung cancer, diabetes mellitus, chronic anemia, small bowel obstruction and ileus. She has a tobacco history but no significant alcohol history. Please see history and physical for this admission for additional historical details. She has been admitted to this hospital numerous times and has had significant critical care admissions and has managed to survive. Since coming to the hospital, she has been seen by Dr. Dominguez and we see her today in dialysis suite. She asks us time and again how she got here, wondered where her car was, seem to recognize her dialysis nurse, but intermittently was confused about where she was. She did know that yesterday was Monday. When seen in dialysis, complains of pain in her toes. Objective Vitals Vital Signs Date Time Temp Pulse Resp B/P (MAP) Pulse Ox O2 Delivery O2 Flow Rate FiO2 04/22/17 14:02 193/92 (125) 04/22/17 12:40 100 181/85 (117) 04/22/17 12:37 100 18 181/85 (117) 100 Room Air 04/22/17 12:15 98 Nasal Cannula 2.00 04/22/17 12:04 98.4 96 19 213/102 (139) 93 Result Diagram: 04/22/17 1225 04/22/17 1218 Other Results Laboratory Tests Test 04/22/17 12:04 04/22/17 12:18 04/22/17 12:25 Lactic Acid Level 0.8 mmol/L Ammonia 15 MCMOL/L Blood Urea Nitrogen 36 MG/DL Creatinine 6.04 MG/DL Random Glucose 84 MG/DL Total Protein 8.7 GM/DL Albumin 3.7 GM/DL Calcium Level 8.2 MG/DL Alkaline Phosphatase 80 U/L Aspartate Amino Transf (AST/SGOT) 12 U/L Alanine Aminotransferase (ALT/SGPT) 12 U/L Total Bilirubin 0.5 MG/DL Sodium Level 130 MEQ/L Potassium Level 4.2 MEQ/L Chloride Level 92 MEQ/L Carbon Dioxide Level 25.5 MEQ/L Anion Gap 13 MEQ/L Estimat Glomerular Filtration Rate 8 ML/MIN Total Creatine Kinase 135 U/L Troponin I LESS THAN 0.02 NG/ML Thyroid Stimulating Hormone 3rd Gen 2.170 uIU/ML Ethyl Alcohol Level LESS THAN 3 MG/DL White Blood Count 6.1 TH/MM3 Red Blood Count 3.00 MIL/MM3 Hemoglobin 10.0 GM/DL Hematocrit 29.1 % Mean Corpuscular Volume 97.0 FL Mean Corpuscular Hemoglobin 33.4 PG Mean Corpuscular Hemoglobin Concent 34.5 % Red Cell Distribution Width 15.4 % Platelet Count 158 TH/MM3 Mean Platelet Volume 9.7 FL Neutrophils (%) (Auto) 76.8 % Lymphocytes (%) (Auto) 10.3 % Monocytes (%) (Auto) 10.6 % Eosinophils (%) (Auto) 1.0 % Basophils (%) (Auto) 1.3 % Neutrophils # (Auto) 4.7 TH/MM3 Lymphocytes # (Auto) 0.6 TH/MM3 Monocytes # (Auto) 0.6 TH/MM3 Eosinophils # (Auto) 0.1 TH/MM3 Basophils # (Auto) 0.1 TH/MM3 CBC Comment DIFF FINAL Differential Comment Prothrombin Time 10.8 SEC Prothromb Time International Ratio 1.1 RATIO Imaging Last Impressions Head CT 04/22/17 1213 Signed Impressions: Service Date/Time: Saturday, April 22, 2017 12:27 - CONCLUSION: No acute intracranial disease. Campbell Hines MD Chest X-Ray 04/22/17 1213 Signed Impressions: Service Date/Time: Saturday, April 22, 2017 12:40 - CONCLUSION: 1. No acute cardiopulmonary disease. Yovani Johnson MD Objective Remarks GENERAL: Awake, alert, oriented 1. SKIN: No rashes, ecchymoses or lesions. Cool and dry. HEAD: NC/AT EYES: PERRL. EOMI. No conjunctival injection or drainage. ENT: MMM, OP without erythema, tonsillar swelling, or exudate. NECK: Supple, no lymphadenopathy. No JVD. CARDIOVASCULAR: NRRR. Normal S1/S2. No MRG RESPIRATORY: CTAB. No crackles or wheezes. GASTROINTESTINAL: Abdomen soft, non-distended, non-tender. No hepato- splenomegaly or palpable masses. MUSCULOSKELETAL: Extremities without clubbing, cyanosis, or edema. Dorsalis pedis pulses intact NEUROLOGICAL: Awake and alert. Cranial nerves II through XII grossly intact. Moves all extremities without difficulty. Normal speech. A/P Assessment and Plan Altered mental status in a 66-year-old female with end-stage renal disease, etiology unclear at this time. See orders. Discharge Planning Case management Attending Attestation Patient seen and examined. Case reviewed and discussed with the resident team. Agree with plan of care as discussed with me and documented in the resident note. Amy Meeks MD Apr 22, 2017 15:55
[2017-04-22 20:00] VITALS: BP 178/80; PULSE 100; RESP 18; TEMP 98.6; O2SAT 98
[2017-04-23] VITALS: BP 190/82; PULSE 98; RESP 18; TEMP 97.2; O2SAT 94
[2017-04-23] MEDS ORDERED: ENALAPRILAT 1.25 MG/ML VIAL IV PUSH ONE (02:15)
[2017-04-23] MEDS: SODIUM CHLORIDE 0.9% FLUSH 10 ML FLUSH IV FLUSH PRN (03:40)
[2017-04-23 04:40] VITALS: BP 183/84; PULSE 97
[2017-04-23] MEDS ORDERED: ACETAMINOPHEN 325 MG TAB PO PRN (05:00)
[2017-04-23] MEDS: cloNIDine HCL 0.2 MG TAB PO SCH ×3 (05:24→12:56)
[2017-04-23 08:00] VITALS: BP 135/74; PULSE 94; RESP 17; TEMP 98.2; O2SAT 96
[2017-04-23] MEDS: INSULIN ASPART SUPPLEMENTAL SCALE SQ SCH ×2 (08:00→12:00)
[2017-04-23] MEDS ORDERED: METOPROLOL SUCCINATE 50 MG EXTENDED RELEASE TAB PO SCH (09:00)
[2017-04-23] MEDS ORDERED: CINACALCET HYDROCHLORIDE 30 MG TAB PO SCH (09:00)
[2017-04-23] MEDS ORDERED: CITALOPRAM HYDROBROMIDE 20 MG TAB PO SCH (09:00)
[2017-04-23] MEDS ORDERED: BUDESONIDE-FORMOTEROL 160/4.5 MCG INHALER INH SCH (09:00)
[2017-04-23] MEDS ORDERED: cloNIDine HCL 0.2 MG TAB PO SCH (09:00)
[2017-04-23] MEDS: CALCIUM ACETATE 667 MG CAP PO SCH ×2 (09:42→12:56)
--- NOTE | 2017-04-23 10:51 | HHI.NPPN ---
Subjective History of Present Illness 66-year-old female with past medical history of hypertension, history of lung cancer, diabetes mellitus, chronic anemia, history of small-bowel obstruction and ileus, presented to the emergency department because of altered mental status. I was called to see the patient for the management of dialysis. The patient has been on hemodialysis Monday, and Monday. Additional Remarks Patient is alert, sitting and eating the breakfast, oriented, not in distress. Review of Systems General Constitutional: Fatigue Cardiovascular Cardiac: [place]UR[place] Objective Data Data Vital Signs Date Time Temp Pulse Resp B/P (MAP) Pulse Ox O2 Delivery O2 Flow Rate FiO2 04/23/17 08:00 98.2 94 17 135/74 (94) 96 04/23/17 04:40 97 183/84 (117) 04/23/17 00:00 97.2 98 18 190/82 (118) 94 04/22/17 20:00 98.6 100 18 178/80 (112) 98 04/22/17 14:02 193/92 (125) 04/22/17 12:40 100 181/85 (117) 04/22/17 12:37 100 18 181/85 (117) 100 Room Air 04/22/17 12:15 98 Nasal Cannula 2.00 04/22/17 12:04 98.4 96 19 213/102 (139) 93 -: 04/22/17 1225 04/22/17 1218 Microbiology 04/22/17 Aerobic Blood Culture, Received Pending 04/22/17 Anaerobic Blood Culture, Received Pending 04/22/17 Aerobic Blood Culture, Received Pending 04/22/17 Anaerobic Blood Culture, Received Pending Physical Exam General Appearance: No Acute Distress, Comfortable Eyes Eye Exam: Pupils Equal Throat Throat Exam: Oral Mucosa Sloan & Moist Neck Neck Exam: Neck Supple Pulmonary Resp Exam: Clear Bilaterally, Breath Sounds Equal, No Distress, Rhonchi Cardiology CV Exam: Regular, Normal Sinus Rhythm Gastrointestinal/Abdomen GI Exam: Soft, Non-Tender, Bowel Sounds Present Extremeties Extremities Exam: Trace Edema Neurologic Neuro Exam: Alert, Awake, Oriented Psychiatric Psych Exam: Appropriate Responses Assessment/Plan Assessment Summary: Anemia of CKD, Hypertension, End Stage Renal Disease Problem List: (1) HTN (hypertension) ICD Codes: I10 - Hypertension Status: Chronic (2) Diabetes mellitus ICD Codes: E11.9 - Type 2 diabetes mellitus without complications (3) Anemia ICD Codes: D64.9 - Anemia Status: Acute (4) Dependent on hemodialysis ICD Codes: Z99.2 - Dependence on renal dialysis Status: Acute (5) Altered mental status ICD Codes: R41.82 - Altered mental status, unspecified Status: Acute Plan Patient is now alert and oriented. No SOB, doing better. HD done yesterday, tolerated well and 2 liters removed. Patient has confusion, could have been hypotensive at out patient HD. Can be discharged, to follow with Dr. Teixeira. Problem Qualifiers (1) Altered mental status: Qualified Codes: R40.1 - Julio Cesar Lebron MD Apr 23, 2017 10:51
--- NOTE | 2017-04-23 11:34 | HHI.DCPOC ---
Discharge Care Plan Diagnosis: (1) Altered mental status (2) End stage renal disease Goals to Promote Your Health * To prevent worsening of your condition and complications * To maintain your health at the optimal level Directions to Meet Your Goals Take your medications as prescribed Follow your dietary instruction Follow activity as directed Keep your appointments as scheduled Take your immunizations and boosters as scheduled If your symptoms worsen call your PCP, if no PCP go to Urgent Care Center or Emergency Room Smoking is Dangerous to Your Health. Avoid second hand smoke Call the 24-hour hour crisis hotline for domestic abuse at Brielle Richard MD R1 Apr 23, 2017 11:34
--- NOTE | 2017-04-23 12:28 | HHI.FPPN ---
Subjective Remarks Per nursing, earlier this morning the patient was saying very racial things and being disruptive. Patient states she has not been getting along with the nurse. However, she is eating her breakfast. She does complain that it is cold. Otherwise, she is doing well. She is okay with leaving the hospital today. She denies nausea, vomiting, chest pain, shortness of breath. (Benjie Meeks MD, R3) Objective Vitals Vital Signs Date Time Temp Pulse Resp B/P (MAP) Pulse Ox O2 Delivery O2 Flow Rate FiO2 04/23/17 08:00 98.2 94 17 135/74 (94) 96 04/23/17 04:40 97 183/84 (117) 04/23/17 00:00 97.2 98 18 190/82 (118) 94 04/22/17 20:00 98.6 100 18 178/80 (112) 98 04/22/17 14:02 193/92 (125) 04/22/17 12:40 100 181/85 (117) 04/22/17 12:37 100 18 181/85 (117) 100 Room Air I/O 04/22/17 04/22/17 04/22/17 04/23/17 04/23/17 04/23/17 07:00 15:00 23:00 07:00 15:00 23:00 Output Total 2000 ml Balance -2000 ml Output Hemodialysis 2000 ml # Voids 2 (Benjie Meeks MD, R3) Result Diagram: 04/22/17 1225 04/22/17 1218 Objective Remarks GENERAL: Awake, alert, oriented 3. SKIN: No rashes, ecchymoses or lesions. Cool and dry. HEAD: NC/AT EYES: PERRL. EOMI. No conjunctival injection or drainage. ENT: MMM, OP without erythema, tonsillar swelling, or exudate. NECK: Supple, no lymphadenopathy. No JVD. CARDIOVASCULAR: NRRR. Normal S1/S2. No MRG RESPIRATORY: CTAB. No crackles or wheezes. GASTROINTESTINAL: Abdomen soft, non-distended, non-tender. No hepato- splenomegaly or palpable masses. MUSCULOSKELETAL: Extremities without clubbing, cyanosis, or edema. Dorsalis pedis pulses intact NEUROLOGICAL: Awake and alert. Cranial nerves II through XII grossly intact. Moves all extremities without difficulty. Normal speech. (Benjie Meeks MD, R3) A/P Assessment and Plan 66-year-old female being admitted with altered mental status; now improved. Okay for discharge Discharge Planning Discharge today (Benjie Meeks MD, R3) Attending Attestation Patient seen and examined. Case reviewed and discussed with the resident team. Agree with plan of care as discussed with me and documented in the resident note. (Amy Meeks MD) Problem List: (1) Altered mental status ICD Codes: R41.82 - Altered mental status, unspecified Status: Resolved Plan: Improved mental status. Continue dialysis T/Th/Sa per nephrology Head CT showing no acute intracranial disease CXR no acute disease Unable to obtain UA as patient is anuric Ammonia level 15 (2) End stage renal disease ICD Codes: N18.6 - End stage renal disease Status: Acute Plan: Continue dialysis T/Th/Sa per nephrology Nephrology consult Okay for discharge (3) HTN (hypertension) ICD Codes: I10 - Hypertension Status: Resolved Plan: Currently resolved and within normal limits. Continue home medications - Clonidine 0.2 mg po tid - Metoprolol 50 mg po daily (4) Anemia ICD Codes: D64.9 - Anemia Status: Acute Plan: Anemia due to CKD Hgb 10.0 on admission Continue to monitor (5) Diabetes mellitus ICD Codes: E11.9 - Type 2 diabetes mellitus without complications Plan: Accuchecks ACHS Low-dose ISS while inpatient (6) Nutrition, metabolism, and development symptoms ICD Codes: R63.8 - Other symptoms and signs concerning food and fluid intake Plan: Fluids: not indicated, patient is ESRD Electrolytes: Monitor and replace when necessary Nutrition: renal diet DVT ppx: b/l SCDs (Benjie Meeks MD, R3) Problem Qualifiers (1) Altered mental status: Qualified Codes: R40.1 - Stupor Benjie Meeks MD, R3 Apr 23, 2017 12:27 Amy Meeks MD Apr 23, 2017 14:20
[2017-04-23] MEDS ORDERED: ATORVASTATIN 10 MG TAB PO SCH (21:00)
[2017-04-23] MEDS ORDERED: TERAZOSIN HCL 5 MG CAP PO SCH (21:00)
--- NOTE | 2017-04-23 22:48 | EKG ---
Date Performed: 04/22/2017 Time Performed: 13:00:44 PTAGE: 66 years EKG: SINUS TACHYCARDIA MODERATE VOLTAGE CRITERIA FOR LVH, CONSIDER NORMAL VARIANT ABNORMAL RHYTH M ECG PREVIOUS TRACING : 02/02/2017 15.23 Compared to the previous tracing sinus tachycardia is new DOCTOR: Jarod Liu Interpretating Date/Time 04/23/2017 22:47:53
== END 2017-04-23 13:50 | disposition home or self-care (01) | DRG 947 ==
LOC: NEPE 12:00 → NEDA 14:14 → N07A 18:35
PROVIDERS: ADMIT Family Medicine; ATTEND Family Medicine
DX: R41.82 Altered mental status, unspecified (principal); N18.6 End stage renal disease; I13.2 Hypertensive heart and chronic kidney disease with heart failure and with stage 5 chronic kidney disease, or end stage renal disease; E11.22 Type 2 diabetes mellitus with diabetic chronic kidney disease; I16.9 Hypertensive crisis, unspecified; D63.1 Anemia in chronic kidney disease; I50.9 Heart failure, unspecified; E78.5 Hyperlipidemia, unspecified; J44.9 Chronic obstructive pulmonary disease, unspecified; F17.210 Nicotine dependence, cigarettes, uncomplicated; Z79.899 Other long term (current) drug therapy; Z85.118 Personal history of other malignant neoplasm of bronchus and lung; Z90.710 Acquired absence of both cervix and uterus; Z99.2 Dependence on renal dialysis
CPT/HCPCS: 70450; 71010; 80053; 80307; 82140; 82550; 82948; 83605; 84443; 84484; 85025; 85610; 87040; 90935; 93005; 96374; 96375; J2310

== ENCOUNTER 2017-05-23 09:38 | Emergency (ER) | payer MEDICARE, BC, MEDICAID ==
[2017-05-23] VITALS (7 sets, daily range): BP systolic 123–210; BP diastolic 70–111; PULSE 84–100; RESP 12–22; TEMP 93–93.5; O2SAT 0–100
[~2017-05-23 09:38] MED LIST changes: -CHOL50006; +CINA30 PO; +DIPH2.5T14 PO; +OMEP20TA93 PO; -PERI8.6T PO; -PHOS667C5 PO
[2017-05-23] MEDS ORDERED: MAGNESIUM SULFATE 40 MEQ/10 ML VIAL IV ONE (09:39)
[2017-05-23] MEDS ORDERED: SODIUM BICARBONATE 8.4% INJ 50 MEQ/50 ML SYR IV ONE ×2 (09:39)
[2017-05-23] MEDS ORDERED: CALCIUM CHLORIDE 10% SOLN 1 GRAM/10 ML SYR IV ONE ×2 (09:39)
[2017-05-23] MEDS ORDERED: EPINEPHrine HCL (1:10,000) 1 MG/10 ML SYRINGE IV ONE ×2 (09:39)
[2017-05-23] MEDS ORDERED: NOREPINEPHRINE 4 MG/4 ML AMP IV ONE (09:39)
[2017-05-23] MEDS ORDERED: DEXTROSE 50% IN WATER 50 ML SYRINGE IV ONE (09:39)
[2017-05-23] MEDS ORDERED: ROCURONIUM INJ 50 MG/5 ML VIAL ONE (10:04)
[2017-05-23] MEDS ORDERED: ETOMIDATE 40 MG/20 ML VIAL ONE (10:05)
[2017-05-23] MEDS ORDERED: NOREPINEPHRINE 4 MG/4 ML AMP ONE (10:19)
[2017-05-23] MEDS ORDERED: HEPARIN-NS/PF INJ 0 ML ONE ×2 (10:34→10:42)
[2017-05-23] MEDS ORDERED: DEXTROSE 50% IN WATER 50 ML VIAL(D50) IV PUSH ONE (10:45)
[2017-05-23 10:47] LABS: AUTOMATED NEUTROPHIL # 8.9 TH/MM3 (1.8-7.7); BASOPHIL % 0.3 % (0.0-2.0); EOSINOPHIL % 0.2 % (0.0-4.0); HEMATOCRIT 32.9 % (35.0-46.0); HEMOGLOBIN 9.8 GM/DL (11.6-15.3); LYMPH % 12.3 % (9.0-44.0); LYMPHOCYTE # 1.5 TH/MM3 (1.0-4.8); MEAN CELL VOLUME 108.8 FL (80.0-100.0); MEAN CORPUSCULAR HEMOGLOBIN 32.3 PG (27.0-34.0); MEAN PLATELET VOLUME 10.8 FL (7.0-11.0); MONO % 15.8 % (0.0-8.0); NEUT % 71.4 % (16.0-70.0); PLATELET COUNT 124 TH/MM3 (150-450); RED BLOOD COUNT 3.03 MIL/MM3 (4.00-5.30); RED CELL DISTRIBUTION WIDTH 16.6 % (11.6-17.2); WHITE BLOOD COUNT 12.5 TH/MM3 (4.0-11.0)
[2017-05-23 10:51] LABS: MEAN CORPUSCULAR HGB CONC 29.6 % (32.0-36.0)
[2017-05-23 10:58] LABS: INTERNATIONAL NORMALIZED RATIO 1.4 RATIO; PROTHROMBIN TIME - PATIENT 14.1 SEC (9.8-11.6)
[2017-05-23] MEDS ORDERED: SODIUM POLYSTYRENE SULFONATE SUSP 15 GM/60 ML CUP PO ONE (11:00)
[2017-05-23] MEDS ORDERED: INSULIN HUMAN REGULAR 1,000 UNITS/10 ML VIAL IV PUSH ONE (11:00)
[2017-05-23] MEDS ORDERED: RESP: ALBUTEROL CONC 2.5 MG/0.5 ML NEB INH ONE (11:00)
--- NOTE | 2017-05-23 11:02 | PD ---
HPI Chief Complaint: Altered Mental Status Time Seen by Provider: 10:22 Travel History International Travel<30 days: No Contact w/Intl Traveler<30days: No Traveled to known affect area: No History of Present Illness HPI 66yo F with PMH of ESRD noncompliant with HD, lung CA, DM presents to the ED with alerted mental status. When I went into the exam room, pt had agonal breathing, not responsive. As we are getting ready for intubation, pt lose pulse. CPR was started and pt was given calcium chloride, sodium bicarb and epinephrine for presumed hyperkalemia. Upon pulse check, rhythm was Vfib so pt was defibrillated once. Then it looked like torsades so magnesium sulfate was given. ROSC was obtained and post ROSC EKG showed STEMI. and I discussed with Dr. Dodd and STEMI alert called. However, istat showed potassium of >[address] Dodd back and cancelled STEMI alert. PFSH Past Medical History Arthritis: Yes Autoimmune Disease: No Anxiety: Yes Depression: No Heart Rhythm Problems: Yes (PAPITATIONS, PT REPORTS OCC TACHY) Cancer: Yes (lung cancer ) Cardiovascular Problems: Yes High Cholesterol: Yes Chemotherapy: Yes Chest Pain: Yes Congestive Heart Failure: Yes COPD: Yes Diabetes: Yes Patient Takes Glucophage: No Dialysis: Yes () Diminished Hearing: No Endocrine: Yes Gastrointestinal Disorders: Yes GERD: No Genitourinary: Yes (DIALYSIS PATIENT) Hepatitis: No Hiatal Hernia: No Hypertension: Yes Immune Disorder: Yes Implanted Vascular Access Dvce: No Medical other: Yes (CURRENTLY ON CHEMO AND RADIATION) Musculoskeletal: Yes Neurologic: No Psychiatric: Yes Reproductive: Yes Respiratory: Yes Immunizations Current: Yes Radiation Therapy: Yes Renal Failure: Yes (DIALYSIS) Thyroid Disease: Yes Ulcer: No ?: Not Menopausal: Yes : 0 Past Surgical History AICD: No Arteriovenous Shunt: Yes (right forearm) Cardiac Surgery: No Ear Surgery: No Endocrine Surgery: No Eye Surgery: No Gynecologic Surgery: Yes (hysterectomy) Hysterectomy: Yes Joint Replacement: No Neurologic Surgery: No Oral Surgery: No Pacemaker: No Thoracic Surgery: No Other Surgery: Yes Social History Alcohol Use: No Tobacco Use: Yes (1 PPD) Substance Use: No Allergies-Medications (Allergen,Severity, Reaction): Coded Allergies: penicillin G (Unverified Allergy, Intermediate, UNKNOWN, 05/23/17) Reported Meds & Prescriptions Reported Meds & Active Scripts Active Aspirin EC (Aspirin) 81 Mg Tabdr 162 Mg PO DAILY 30 Days Ventolin Hfa 18 GM Inh (Albuterol Sulfate) 90 Mcg/Act Aer 2 Puff INH Q6H PRN Oxygen tank (Oxygen) 1 Ea Tank 2 Liter KATRIN.CANULA CONTINUOUS Oxygen Concentrator Portable Gaseous 2 L/min via Nasal Cannula Continuous For 99 months Calcium Acetate (Calcium Acetate (Phosphate Bin) 667 Mg Cap 1,334 Mg PO TID Hydrocodone-Acetaminophen 5-325 mg Tab 1 Tab PO Q6H PRN Ativan (Lorazepam) 1 Mg Tab 1 Mg PO Q6H PRN Reported Januvia (Sitagliptin Phosphate) 50 Mg Tab 50 Mg PO DAILY Vitamin D3 (Cholecalciferol) 50,000 Unit Cap 50,000 Units PO EVERY OTHER MONDAY Omeprazole 20 Mg Tab 20 Mg PO DAILY Diphenoxylate-Atropine 2.5-0.025 Mg Tab 1 Tab PO Q6H PRN Zofran (Ondansetron HCl) 8 Mg Tab 8 Mg PO TID PRN Nifedipine ER (Nifedipine) 90 Mg Tab 60 Tab PO BID Metoprolol Succinate ER 24 HR (Metoprolol Succinate) 50 Mg Tab 50 Mg PO DAILY Terazosin (Terazosin HCl) 5 Mg Cap 5 Mg PO HS Symbicort Inh (Budesonide/Formoterol Fumarate) 160-4.5 Mcg/Act Aero 2 Puff INH Q12HR Clonidine (Clonidine HCl) 0.2 Mg Tab 0.2 Mg PO TID Citalopram (Citalopram Hydrobromide) 10 Mg Tab 10 Mg PO DAILY Atorvastatin (Atorvastatin Calcium) 10 Mg Tab 10 Mg PO HS Novolog Inj (Insulin Aspart) 1,000 Unit/10 Ml Vial 0 SQ DIRECTED Sliding Scale as directed. Review of Systems ROS Limitations: Clinical Condition Physical Exam Narrative GENERAL: 66yo F unresponsive. SKIN: Focused skin assessment warm/dry. HEAD: Atraumatic. Normocephalic. EYES: Right pupil 4mm reactive to light. Left pupil 4mm but very sluggish. ENT: No nasal bleeding or discharge. Mucous membranes pink and moist. NECK: Trachea midline. No JVD. CARDIOVASCULAR: Regular rate and rhythm. No murmur appreciated. RESPIRATORY: Agonal breathing. GASTROINTESTINAL: Abdomen soft, non-tender, nondistended. MUSCULOSKELETAL: RUE: +Thrill right arm. NEUROLOGICAL: Unresponsive with agonal breathing. Data Data Last Documented VS Vital Signs Date Time Temp Pulse Resp B/P (MAP) Pulse Ox O2 Delivery O2 Flow Rate FiO2 05/23/17 11:22 100 22 185/81 (115) 100 100 05/23/17 11:04 Ventilator Orders Orders Rocuronium Inj (Zemuron Inj) (05/23/17 10:04) Etomidate Inj (Amidate Inj) (05/23/17 10:05) Norepinephrine Inj (Levophed Inj) (05/23/17 10:19) Troponin I (05/23/17 10:30) Ckmb (Isoenzyme) Profile (05/23/17 10:30) Complete Blood Count With Diff (05/23/17 10:30) I-Stat Profile (05/23/17 10:30) I-Stat Creatinine (05/23/17 10:30) Calcium (05/23/17 10:30) Magnesium (Mg) (05/23/17 10:30) Prothrombin Time / Inr (Pt) (05/23/17 10:30) Act Partial Throm Time (Ptt) (05/23/17 10:30) Chest, Single Ap (05/23/17 10:30) Heparin-Ns/Pf Inj (Heparin-Ns/Pf Inj) (05/23/17 10:34) Insulin Human Regular Inj (Novolin R Inj (05/23/17 11:00) Dextrose 50% In Bijal (Vial) Inj (D50w (Vi (05/23/17 10:45) Heparin-Ns/Pf Inj (Heparin-Ns/Pf Inj) (05/23/17 10:42) Albuterol Concentrated Neb (Albuterol Co (05/23/17 11:00) Sodium Polysty Sulfate Liq (Kayexalate L (05/23/17 11:00) Blood Flow Rate (05/23/17 10:58) Dialysate Flow Rate (05/23/17 10:58) Dialyzer (05/23/17 10:58) Concentrate (05/23/17 10:58) Acid Concentrate (05/23/17 10:58) Length Of Dialysis (05/23/17 10:58) Frequency Of Dialysis (05/23/17 10:58) Dialysis Obtain (05/23/17 10:58) Needle Size (05/23/17 10:58) Dialysis Schedule (05/23/17 10:58) Resp Oxygen Katrin C Titrat 1-4 L (05/23/17 ) Dialysis Weight (05/23/17 10:58) ^ Obtain As Needed (05/23/17 10:58) Sodium Chlor 0.9% 1000 Ml Inj (Ns 1000 M (05/23/17 12:15) Heparin Inj (Heparin Inj) (05/23/17 12:15) Sodium Chlor 0.9% 1000 Ml Inj (Ns 1000 M (05/23/17 12:15) Sodium Chlor 0.9% 1000 Ml Inj (Ns 1000 M (05/23/17 12:15) Mannitol Inj (Mannitol Inj) (05/23/17 12:15) Albumin 25% Inj (Albumin 25% Inj) (05/23/17 12:15) Sodium Chloride 0.9% Flush (Ns Flush) (05/23/17 12:15) Heparin Inj (Heparin Inj) (05/23/17 12:15) Gentamicin (Dialysis) Inj (Gentamicin (D (05/23/17 12:15) Ondansetron Inj (Zofran Inj) (05/23/17 12:15) Acetaminophen (Tylenol) (05/23/17 12:15) Diphenhydramine (Benadryl) (05/23/17 12:15) Nitroglycerin Sl (Nitrostat Sl) (05/23/17 12:15) Clonidine (Catapres) (05/23/17 12:15) Gelatin 12 Mm/7 Mm Top (Gelfoam 12 Mm/7 (05/23/17 12:15) Epoetin Julian Inj (Epogen Inj) (05/23/17 12:15) CKMB (05/23/17 10:30) CKMB% (05/23/17 10:30) Admit Order (Ed Use Only) (05/23/17 11:24) Labs Laboratory Tests Test 05/23/17 10:30 White Blood Count 12.5 TH/MM3 Red Blood Count 3.03 MIL/MM3 Hemoglobin 9.8 GM/DL Bedside Hemoglobin 10.5 G/DL Hematocrit 32.9 % Bedside Hematocrit 31.0 % Mean Corpuscular Volume 108.8 FL Mean Corpuscular Hemoglobin 32.3 PG Mean Corpuscular Hemoglobin Concent 29.6 % Red Cell Distribution Width 16.6 % Platelet Count 124 TH/MM3 Mean Platelet Volume 10.8 FL Neutrophils (%) (Auto) 71.4 % Lymphocytes (%) (Auto) 12.3 % Monocytes (%) (Auto) 15.8 % Eosinophils (%) (Auto) 0.2 % Basophils (%) (Auto) 0.3 % Neutrophils # (Auto) 8.9 TH/MM3 Lymphocytes # (Auto) 1.5 TH/MM3 Monocytes # (Auto) 2.0 TH/MM3 Eosinophils # (Auto) 0.0 TH/MM3 Basophils # (Auto) 0.0 TH/MM3 CBC Comment AUTO DIFF Differential Comment AUTO DIFF CONFIRMED Platelet Estimate LOW Platelet Morphology Comment NORMAL Tear Drop Cells 1+ Prothrombin Time 14.1 SEC Prothromb Time International Ratio 1.4 RATIO Activated Partial Thromboplast Time 36.0 SEC Bedside Sodium 136 MMOL/L Bedside Potassium GREATER THAN 9.0 MMOL/L Bedside Chloride 107 MMOL/L Bedside Blood Urea Nitrogen GREATER THAN 140 MG/DL Bedside Creatinine GREATER THAN 20.0 MG/DL Bedside Glucose 120 MG/DL Calcium Level 8.8 MG/DL Magnesium Level 2.6 MG/DL Total Creatine Kinase 170 U/L Creatine Kinase MB 3.7 NG/ML Troponin I 0.04 NG/ML MDM Medical Decision Making Medical Screen Exam Complete: Yes Emergency Medical Condition: Yes Interpretation(s) EKG #[address] elevation in inferior leads and V4-V6. ST depression aVL. Differential Diagnosis Cardiac arrest secondary to hyperkalemia vs. STEMI Narrative Course 66yo F here with agonal breathing and subsequent cardiac arrest secondary to hyperkalemia. STEMI alert was initially called secondary to ST elevation on EKG after ROSC but cancelled after potassium was found to be over 9. Dr. Dodd did come to evaluate the pt in the ED.I discussed with Dr. Elizabeth who arranged emergent hemodialysis. I also discussed with store detective Dr. Cronin who accepted the patient. Pt proceeded to lose pulse 4 times with ROSC 4 times. Pt received multiple sodium bicarb, epinephrine and calcium chloride. Labs reviewed, leukocytosis at 12.5. H/H 10.5/. Istat showed potassium >9. CXR showed ET tube in good position. Pulmonary edema. My charge nurse spoke to the power of assistant city attorney on the phone who said she was full code. No family member at bedside. Pt receiving hemodialysis in the ED. While in the ED, pt again lose pulse and this time, the code was run by store detective Dr. Cronin who was present and no ROSC was obtained. Pt while in the ED. Critical Care Narrative Aggregate critical care time was 100 minutes. Time to perform other separately billable procedures was not included in the critical care time. My time did not include minutes spent treating any other patients simultaneously or on activities that did not directly contribute to the patient's treatment. The services I provided to this patient were to treat and/or prevent clinically significant deterioration that could result in: cardiovascular collapse and . I provided critical care services requiring my management, as noted below: Chart data review, documentation time, medication orders and management, vital sign assessments/reviewing monitor data, ordering and reviewing lab tests, ordering and interpreting/reviewing x-rays and diagnostic studies, care of the patient and discussion of the patient with the admitting physicians. Procedures Procedure Narrative The patient was put in optimal position for the procedure. Rapid sequence intubation was initiated by me without any medication. The patient was intubated with a 7.5 cuffed endotracheal tube. Tube placement was confirmed by visualization of the tube and balloon passing through the cords, capnometry and subsequent chest x-ray. Breath sounds were equal and well aerated bilaterally postintubation. No breath sounds over stomach. Patient tolerated procedure well. Diagnosis Primary Impression: Cardiac arrest Disposition: 20 Condition: Leonor Aquino DO May 23, 2017 11:02
[2017-05-23] MEDS ORDERED: SITA50 PO (11:04)
[2017-05-23] MEDS ORDERED: CHOL1CAP34 PO (11:04)
[2017-05-23 11:11] LABS: CALCIUM 8.8 MG/DL (8.5-10.1); MAGNESIUM 2.6 MG/DL (1.5-2.5)
[2017-05-23 11:13] LABS: TROPONIN I 0.04 NG/ML (0.02-0.05)
[2017-05-23 11:38] LABS: TEARDROP RBCS 1+ (NORMAL)
--- NOTE | 2017-05-23 11:46 | MB ---
cc: LAUREN CARSON M.D. DATE OF CONSULTATION 05/23/[address] elevation myocardial infarction. HISTORY OF PRESENT ILLNESS History is unobtainable from the patient who is unresponsive and intubated. History is obtained from the emergency room physician and numerous previous electronic medical records. The patient is a 66-year-old -[place] female with a history of end-stage renal disease, diabetes, hypertension, hyperlipidemia, hypothyroidism, lung cancer, recurrent small-bowel obstructions, who was brought to the hospital with mental status changes. She soon developed agonal breathing in the emergency department and loss of pulse. At some point she developed ventricular tachycardia and possibly T[place]ade. She received one shock as well as magnesium intravenously. Initially she was called as a STEMI Alert due to ST elevation seen on EKG. However, her potassium was found to be markedly elevated. PAST MEDICAL HISTORY 1. End-stage renal disease. 2. Diabetes. 3. Hypertension. 4. Hyperlipidemia. 5. Hypothyroidism. 6. Squamous cell lung cancer diagnosed about 2 years ago, status post chemotherapy and radiation therapy. 7. Cervical cancer. 8. Small bowel obstructions. PAST SURGICAL HISTORY 1. Partial hysterectomy and bilateral salpingo-oophorectomy. 2. Thyroidectomy for goiter. 3. Partial gastrectomy. 4. Exploratory laparotomy and lysis of adhesions as well as small-bowel obstruction about a year ago. MEDICATIONS Her cardiac medications at home are unknown. ALLERGIES PENICILLIN. FAMILY HISTORY Currently unobtainable. Reportedly there is a family history of diabetes and hypertension. SOCIAL HISTORY The patient apparently is a chronic smoker, a pack per day, with no history of alcohol abuse. REVIEW OF SYSTEMS Currently unobtainable. PHYSICAL EXAMINATION VITAL SIGNS: Blood pressure 100/60 with a pulse of 70, respirations 10. GENERAL: In general she is a well-developed, thin -[place] female currently intubated and unresponsive. HEENT/NECK: Jugular venous pressure is seen to the mandible. Carotid pulses are 1+ bilaterally and without definite bruit. CHEST: Examination of the chest reveals clear lung phillips anteriorly. CARDIAC: On cardiac examination she has a regular rhythm and rate without S3, S4 or murmur. ABDOMEN: On abdominal examination she has a soft abdomen. No bowel sounds are evident. There is no definite hepatosplenomegaly. EXTREMITIES: Examination of the extremities reveals no clubbing, cyanosis or edema. EKG EKG shows possible accelerated junctional rhythm, right bundle branch block, inferior ST-elevation, consider early repolarization abnormality. LABORATORY Laboratory data includes WBC 12.5, hemoglobin 9.8, platelets 124, potassium greater than 9.0, BUN greater than 140, creatinine greater than 20, magnesium 2.6, sodium 136. IMAGING Chest x-ray is pending. IMPRESSION Abnormal EKG in this 66-year-old -[place] female with a history of multiple medical problems including end-stage renal disease, diabetes, lung cancer, now status post apparent ventricular tachycardia arrest. Overall I doubt the initial ST-elevation seen on EKG is due to acute ST-elevation myocardial infarction but rather to her severe metabolic derangements. Repeat EKG does not show any ST elevation. The initial ST-elevation was also concave up, more suggestive of early repolarization, with no reciprocal changes. At this point she is a very poor candidate for aggressive invasive cardiac evaluation. She has had repeated trouble with pulseless electrical activity here in the emergency department. RECOMMENDATIONS 1. Agree with emergency dialysis. 2. Repeat her EKG once her potassium has normalized. 3. Overall conservative cardiac management and evaluation. MD PIYUSH Bellamy/JOEL /11:00 AM /11:13 AM MTDD
--- NOTE | 2017-05-23 12:02 | RADRPT ---
EXAM DATE/TIME: 05/23/2017 10:34 [facility] COMPARISON: CHEST SINGLE AP, April 22, 2017, 12:40. INDICATIONS : Stemi alert. MEDICAL HISTORY : Congestive heart failure. Diabetes mellitus type I. Carcinoma, lung. SURGICAL HISTORY : Hysterectomy. AV Shunt ENCOUNTER: Initial ACUITY: 1 day PAIN SCORE: Non-responsive. LOCATION: Bilateral chest FINDINGS: The cardiac silhouette is enlarged in transverse diameter. There is pulmonary edema asymmetric more p rominent on the right than on the left. Endotracheal tube is in good position above the chau. CONCLUSION: Satisfactory position of endotracheal tube as above. Pulmonary edema Mauricio Black MD on May 23, 2017 at 11:58 Board Certified Radiologist. This report was verified electronically.
--- NOTE | 2017-05-23 12:08 | DEATH SUM ---
Pronouncement Date Pronounced : May 23, 2017 Time Of : 12:08 Pronouncement Called to pronounce of patient. Identified patient as Veena Naik with wrist band MR# [id number]. Patient with no cardiac activity in 2 separate leads and no palpable/auscible cardiac activity. Patient with no spontaneous respirations, no corneal reflex or response to painful stimuli. Pupils fixed and dilated. Preliminary Cause of : Cardiac arrest Riley Cronin MD May 23, 2017 12:08
[2017-05-23] MEDS ORDERED: diphenhydrAMINE HCL 25 MG CAP PO PRN (12:15)
[2017-05-23] MEDS ORDERED: ACETAMINOPHEN 325 MG TAB PO PRN (12:15)
[2017-05-23] MEDS ORDERED: GELATIN 12 MM/7 MM FOAM TOP PRN (12:15)
[2017-05-23] MEDS ORDERED: HEPARIN SODIUM - IV 10,000 UNITS/10 ML VIAL PRN (12:15)
[2017-05-23] MEDS ORDERED: HEPARIN SODIUM - IV 10,000 UNITS/10 ML VIAL IV FLUSH PRN (12:15)
[2017-05-23] MEDS ORDERED: EPOETIN ALFA 10,000 UNITS/ML VIAL IV PUSH PRN (12:15)
[2017-05-23] MEDS ORDERED: SODIUM CHLOR 0.9% 1000 ML INJ 1,000 ML OTHER PRN ×2 (12:15)
[2017-05-23] MEDS ORDERED: SODIUM CHLOR 0.9% 1000 ML INJ 1,000 ML IV PRN (12:15)
[2017-05-23] MEDS ORDERED: ONDANSETRON HCL 4 MG/2 ML VIAL IV PUSH PRN (12:15)
[2017-05-23] MEDS ORDERED: ALBUMIN 25% INJ 100 ML IV PRN (12:15)
[2017-05-23] MEDS ORDERED: MANNITOL 12.5 GM/50 ML VIAL IV PRN (12:15)
[2017-05-23] MEDS ORDERED: NITROGLYCERIN 0.4 MG SL 25 TABS/BTL SL PRN (12:15)
[2017-05-23] MEDS ORDERED: SODIUM CHLORIDE 0.9% FLUSH 10 ML FLUSH IV FLUSH PRN (12:15)
[2017-05-23] MEDS ORDERED: GENTAMICIN SULFATE (DIALYSIS USE ONLY) 20 MG/2 ML VIAL OTHER PRN (12:15)
[2017-05-23] MEDS ORDERED: cloNIDine HCL 0.1 MG TAB PO PRN (12:15)
--- NOTE | 2017-05-23 12:58 | PD.CONS ---
HPI Service Nephrology Consult Requested By Reason for Consult ESRD, hyperkalemia Primary Care Physician Unknown History of Present Illness This is a 66 y/o AAF patient on HD. Her last HD was . Monday she reportedly felt weak therefore did not come in for treatment. A well visit was called to police and she was found to be minimally responsive, brought to ER and intubated. Her POC K test showed a level over 9. She was immediately started on HD on a 1K bath. Just prior to starting treatment she suffered cardiac arrest 3 times.PMH listed below. She is unresponsive on vent, no evidence of fluid overload. She was seen at 1110 AM. (Dinora Sanchez) Review of Systems ROS Limitations: Intubated, Unresponsive (Dinora Sanchez) Past Family Social History Allergies: Coded Allergies: penicillin G (Unverified Allergy, Intermediate, UNKNOWN, 05/23/17) Past Medical History ESRD Hx hyperkalemia lung cancer History of tobacco abuse. Hypertension Anemia of CKD. History of SBO and ileus. Type 2 diabetes mellitus Past Surgical History AVF placement Reported Medications Aspirin EC (Aspirin) 81 Mg Tabdr 162 Mg PO DAILY 30 Days Ventolin Hfa 18 GM Inh (Albuterol Sulfate) 90 Mcg/Act Aer 2 Puff INH Q6H PRN Oxygen tank (Oxygen) 1 Ea Tank 2 Liter KATRIN.CANULA CONTINUOUS Oxygen Concentrator Portable Gaseous 2 L/min via Nasal Cannula Continuous For 99 months Calcium Acetate (Calcium Acetate (Phosphate Bin) 667 Mg Cap 1,334 Mg PO TID Hydrocodone-Acetaminophen 5-325 mg Tab 1 Tab PO Q6H PRN Ativan (Lorazepam) 1 Mg Tab 1 Mg PO Q6H PRN Reported Januvia (Sitagliptin Phosphate) 50 Mg Tab 50 Mg PO DAILY Vitamin D3 (Cholecalciferol) 50,000 Unit Cap 50,000 Units PO EVERY OTHER MONDAY Omeprazole 20 Mg Tab 20 Mg PO DAILY Diphenoxylate-Atropine 2.5-0.025 Mg Tab 1 Tab PO Q6H PRN Zofran (Ondansetron HCl) 8 Mg Tab 8 Mg PO TID PRN Nifedipine ER (Nifedipine) 90 Mg Tab 60 Tab PO BID Metoprolol Succinate ER 24 HR (Metoprolol Succinate) 50 Mg Tab 50 Mg PO DAILY Terazosin (Terazosin HCl) 5 Mg Cap 5 Mg PO HS Symbicort Inh (Budesonide/Formoterol Fumarate) 160-4.5 Mcg/Act Aero 2 Puff INH Q12HR Clonidine (Clonidine HCl) 0.2 Mg Tab 0.2 Mg PO TID Citalopram (Citalopram Hydrobromide) 10 Mg Tab 10 Mg PO DAILY Atorvastatin (Atorvastatin Calcium) 10 Mg Tab 10 Mg PO HS Novolog Inj (Insulin Aspart) 1,000 Unit/10 Ml Vial 0 SQ DIRECTED Sliding Scale as directed. Active Ordered Medications Current Medications Medications (Trade) Dose Ordered Sig/Hero Route Start Time Stop Time Status Last Admin Sodium Chloride 1,000 ml @ 0 mls/hr Q0M PRN OTHER 05/23/17 12:15 (Heparin Inj) 8,000 units UNSCH PRN IV FLUSH 05/23/17 12:15 Sodium Chloride 1,000 ml @ 200 mls/hr Q5H PRN IV 05/23/17 12:15 Sodium Chloride 1,000 ml @ 0 mls/hr Q0M PRN OTHER 05/23/17 12:15 (Mannitol Inj) 12.5 gm UNSCH PRN IV 05/23/17 12:15 Albumin Human 100 ml @ 60 mls/hr UNSCH PRN IV 05/23/17 12:15 (NS Flush) 5 ml UNSCH PRN IV FLUSH 05/23/17 12:15 (Heparin Inj) UNSCH PRN .XX 05/23/17 12:15 (Gentamicin (Dialysis) Inj) 20 mg UNSCH PRN OTHER 05/23/17 12:15 (Zofran Inj) 4 mg UNSCH PRN IV PUSH 05/23/17 12:15 (Tylenol) 650 mg UNSCH PRN PO 05/23/17 12:15 (Benadryl) 25 mg UNSCH PRN PO 05/23/17 12:15 (Nitrostat Sl) 0.4 mg UNSCH PRN SL 05/23/17 12:15 (Catapres) 0.1 mg UNSCH PRN PO 05/23/17 12:15 (Gelfoam 12 Mm/7 Mm Top) 1 foam UNSCH PRN TOP 05/23/17 12:15 (Epogen Inj) 4,000 units UNSCH PRN IV PUSH 05/23/17 12:15 Family History Non contributory Social History Lives alone She smokes daily Full code Disabled (Dinora SanchezP) Physical Exam Vital Signs Vital Signs Date Time Temp Pulse Resp B/P (MAP) Pulse Ox O2 Delivery O2 Flow Rate FiO2 05/23/17 11:46 93.5 92 12 123/79 (94) 100 Ventilator 100 05/23/17 11:29 93.0 05/23/17 11:22 100 22 185/81 (115) 100 100 05/23/17 11:04 92 18 135/70 (91) 96 Ventilator 05/23/17 10:36 84 22 210/111 (144) 100 Ventilator 100 05/23/17 10:20 0 100 05/23/17 10:10 100 05/23/17 09:40 88 20 150/82 (104) Physical Exam GENERAL: cachectic AAF, intubated, unresponsive SKIN: Warm and dry. HEAD: Normocephalic. EYES: No scleral icterus. No injection or drainage. NECK: Supple, trachea midline. No JVD or lymphadenopathy. CARDIOVASCULAR: Regular rate and rhythm without murmurs, gallops, or rubs. RESPIRATORY: Breath sounds equal bilaterally. No accessory muscle use. GASTROINTESTINAL: Abdomen soft, non-tender, mild distension noted. MUSCULOSKELETAL: no dependent edema. AVF + thrill, bruit Laboratory Laboratory Tests Test 05/23/17 10:30 White Blood Count 12.5 Red Blood Count 3.03 Hemoglobin 9.8 Bedside Hemoglobin 10.5 Hematocrit 32.9 Bedside Hematocrit 31.0 Mean Corpuscular Volume 108.8 Mean Corpuscular Hemoglobin 32.3 Mean Corpuscular Hemoglobin Concent 29.6 Red Cell Distribution Width 16.6 Platelet Count 124 Mean Platelet Volume 10.8 Neutrophils (%) (Auto) 71.4 Lymphocytes (%) (Auto) 12.3 Monocytes (%) (Auto) 15.8 Eosinophils (%) (Auto) 0.2 Basophils (%) (Auto) 0.3 Neutrophils # (Auto) 8.9 Lymphocytes # (Auto) 1.5 Monocytes # (Auto) 2.0 Eosinophils # (Auto) 0.0 Basophils # (Auto) 0.0 CBC Comment AUTO DIFF Differential Comment AUTO DIFF CONFIRMED Platelet Estimate LOW Platelet Morphology Comment NORMAL Tear Drop Cells 1+ Prothrombin Time 14.1 Prothromb Time International Ratio 1.4 Activated Partial Thromboplast Time 36.0 Bedside Sodium 136 Bedside Potassium GREATER THAN 9.0 Bedside Chloride 107 Bedside Blood Urea Nitrogen GREATER THAN 140 Bedside Creatinine GREATER THAN 20.0 Bedside Glucose 120 Calcium Level 8.8 Magnesium Level 2.6 Total Creatine Kinase 170 Creatine Kinase MB 3.7 Troponin I 0.04 (Dinora Sanchez) Result Diagram: 05/23/17 1030 Imaging Last 24 hours Impressions Chest X-Ray 05/23/17 1030 Signed Impressions: Service Date/Time: Tuesday, May 23, 2017 10:34 - CONCLUSION: Satisfactory position of endotracheal tube as above. Pulmonary edema Mauricio Black MD (Dinora Sanchez) Assessment and Plan Problem List: (1) ESRD (end stage renal disease) ICD Codes: N18.6 - ESRD (end stage renal disease) Status: Chronic Plan: Emergent HD on 1K bath, may need dialysis in AM Repeat labs in AM Avoid excessive fluid administration AVF is patent (2) Hyperkalemia ICD Codes: E87.5 - Hyperkalemia Plan: History of, she is historically noncompliant Given insulin, dextrose, and bicarb IV Stat dialysis on a 1K, most likely dialyze tomorrow if she survives. (3) Respiratory failure ICD Codes: J96.90 - Respiratory failure, unspecified, unspecified whether with hypoxia or hypercapnia Status: Acute Plan: s/p intubation Continue vent support (4) Anemia ICD Codes: D64.9 - Anemia Status: Acute Plan: Epogen with dialysis has been ordered (Dinora Sanchez) Assessment and Plan patient had missed dialysis on Monday. Dialysis staff called the police to inform them when she missed dialysis again today. She was found poorly responsive. In the ER, serum potassium was noted to be more than 9. Emergent dialysis was begun. Patient . (Benjamín Teixeira MD) Dinora Sanchez May 23, 2017 12:58 Benjamín Teixeira MD May 23, 2017 21:26
--- NOTE | 2017-05-23 17:30 | EKG ---
Date Performed: 05/23/2017 Time Performed: 10:23:30 PTAGE: 66 years EKG: ATRIAL FIBRILLATION WITH RAPID VENTRICULAR RESPONSE MARKED LEFT AXIS DEVIATION RIGHT BUNDLE BRANCH BLOCK SEPTAL MYOCARDIAL INFARCTION ST ELEVATION, CONSIDER LATERAL INJURY ACUTE ME When compared to PREVIOUS TRACING , there is now atrial fibrillation With rapid ventricular response. PREV IOUS TRACIN04/22/2017 13.00 DOCTOR: Bernadette Martinez Interpretating Date/Time 05/23/2017 17:30:12
--- NOTE | 2017-05-23 17:33 | EKG ---
Date Performed: 05/23/2017 Time Performed: 10:56:05 PTAGE: 66 years EKG: Sinus rhythm WITH SINUS ARRHYTHMIA WITH FIRST DEGREE AV BLOCK MARKED LEFT AXIS DEVIATION RIGHT BUNDLE BRANCH BLOC K SEPTAL MYOCARDIAL INFARCTION ST ELEVATION, CONSIDER LATERAL INJURY ACUTE LA Since PREVIOUS TRACING , no significant change noted PREVIOUS TRACIN05/23/2017 10.23 DOCTOR: Bernadette Martinez Interpretating Date/Time 05/23/2017 17:30:53
--- NOTE | 2017-05-23 19:52 | HHI.HP ---
HPI Service Critical Care Medicine Primary Care Physician Unknown Admission Diagnosis Hyperkalemia, cardiac arrest Diagnosis: Chief Complaint: cardiac arrest Travel History International Travel<30 Days: No Contact w/Intl Traveler <30 Da: No Traveled to Known Affected Are: No History of Present Illness This is 66-year-old female with a past medical history of metastatic lung cancer as well as end-stage renal disease on intermittent hemodialysis with a history of noncompliance. She presents to the emergency department in extremis and was immediately coded by the ER physician. The patient had multiple rounds of ACLS including ROSC 4, but was unable to maintain a pulse. The ER physician asked for my assistance in managing the unstable patient. Immediately I came down to the emergency department and evaluated the patient. The patient was getting emergent hemodialysis for a potassium of 9 and creatinine of 20. Despite this the patient rapidly developed into a PEA arrest again. Despite our maximal efforts to regained spontaneous circulation, the patient . Due to the emergent nature of the consult, no additional information is available from the patient. Review of Systems ROS Limitations: Clinical Condition, Intubated, Altered Mental Status, Unresponsive Past Family Social History Allergies: Coded Allergies: penicillin G (Unverified Allergy, Intermediate, UNKNOWN, 05/23/17) Past Medical History Lung cancer End-stage renal disease on hemodialysis No additional information is easily available from the patient Past Surgical History Unobtainable due to the patient's clinical condition Reported Medications Reported Meds & Active Scripts Active Aspirin EC (Aspirin) 81 Mg Tabdr 162 Mg PO DAILY 30 Days Ventolin Hfa 18 GM Inh (Albuterol Sulfate) 90 Mcg/Act Aer 2 Puff INH Q6H PRN Oxygen tank (Oxygen) 1 Ea Tank 2 Liter KATRIN.CANULA CONTINUOUS Oxygen Concentrator Portable Gaseous 2 L/min via Nasal Cannula Continuous For 99 months Calcium Acetate (Calcium Acetate (Phosphate Bin) 667 Mg Cap 1,334 Mg PO TID Hydrocodone-Acetaminophen 5-325 mg Tab 1 Tab PO Q6H PRN Ativan (Lorazepam) 1 Mg Tab 1 Mg PO Q6H PRN Reported Januvia (Sitagliptin Phosphate) 50 Mg Tab 50 Mg PO DAILY Vitamin D3 (Cholecalciferol) 50,000 Unit Cap 50,000 Units PO EVERY OTHER MONDAY Omeprazole 20 Mg Tab 20 Mg PO DAILY Diphenoxylate-Atropine 2.5-0.025 Mg Tab 1 Tab PO Q6H PRN Zofran (Ondansetron HCl) 8 Mg Tab 8 Mg PO TID PRN Nifedipine ER (Nifedipine) 90 Mg Tab 60 Tab PO BID Metoprolol Succinate ER 24 HR (Metoprolol Succinate) 50 Mg Tab 50 Mg PO DAILY Terazosin (Terazosin HCl) 5 Mg Cap 5 Mg PO HS Symbicort Inh (Budesonide/Formoterol Fumarate) 160-4.5 Mcg/Act Aero 2 Puff INH Q12HR Clonidine (Clonidine HCl) 0.2 Mg Tab 0.2 Mg PO TID Citalopram (Citalopram Hydrobromide) 10 Mg Tab 10 Mg PO DAILY Atorvastatin (Atorvastatin Calcium) 10 Mg Tab 10 Mg PO HS Novolog Inj (Insulin Aspart) 1,000 Unit/10 Ml Vial 0 SQ DIRECTED Sliding Scale as directed. Active Ordered Medications See MAR Family History Unavailable due to the patient's clinical condition Social History Unobtainable due to the patient's clinical condition Physical Exam Vital Signs Vital Signs Date Time Temp Pulse Resp B/P (MAP) Pulse Ox O2 Delivery O2 Flow Rate FiO2 05/23/17 11:46 93.5 92 12 123/79 (94) 100 Ventilator 100 05/23/17 11:29 93.0 05/23/17 11:22 100 22 185/81 (115) 100 100 05/23/17 11:04 92 18 135/70 (91) 96 Ventilator 05/23/17 10:36 84 22 210/111 (144) 100 Ventilator 100 05/23/17 10:20 0 100 05/23/17 10:10 100 05/23/17 09:40 88 20 150/82 (104) Physical Exam When I arrived, the patient initially had a heart rate in the 40s and a blood pressure in the 70s systolic. She had agonal respirations on the ventilator with 100% FiO2. She was mottled. She did have a right forearm AV fistula which was accessed with active hemodialysis going. Her extremities were cool and poorly perfused. Her Pupils are 6mm, fixed dilated nonreactive. Negative cough. Negative gag. Negative corneals. Negative oculocephalic reflex.. GCS 3. Laboratory Laboratory Tests Test 05/23/17 10:30 White Blood Count 12.5 Red Blood Count 3.03 Hemoglobin 9.8 Bedside Hemoglobin 10.5 Hematocrit 32.9 Bedside Hematocrit 31.0 Mean Corpuscular Volume 108.8 Mean Corpuscular Hemoglobin 32.3 Mean Corpuscular Hemoglobin Concent 29.6 Red Cell Distribution Width 16.6 Platelet Count 124 Mean Platelet Volume 10.8 Neutrophils (%) (Auto) 71.4 Lymphocytes (%) (Auto) 12.3 Monocytes (%) (Auto) 15.8 Eosinophils (%) (Auto) 0.2 Basophils (%) (Auto) 0.3 Neutrophils # (Auto) 8.9 Lymphocytes # (Auto) 1.5 Monocytes # (Auto) 2.0 Eosinophils # (Auto) 0.0 Basophils # (Auto) 0.0 CBC Comment AUTO DIFF Differential Comment AUTO DIFF CONFIRMED Platelet Estimate LOW Platelet Morphology Comment NORMAL Tear Drop Cells 1+ Prothrombin Time 14.1 Prothromb Time International Ratio 1.4 Activated Partial Thromboplast Time 36.0 Bedside Sodium 136 Bedside Potassium GREATER THAN 9.0 Bedside Chloride 107 Bedside Blood Urea Nitrogen GREATER THAN 140 Bedside Creatinine GREATER THAN 20.0 Bedside Glucose 120 Calcium Level 8.8 Magnesium Level 2.6 Total Creatine Kinase 170 Creatine Kinase MB 3.7 Troponin I 0.04 Result Diagram: 05/23/17 1030 Imaging Last Impressions Chest X-Ray 05/23/17 1030 Signed Impressions: Service Date/Time: Tuesday, May 23, 2017 10:34 - CONCLUSION: Satisfactory position of endotracheal tube as above. Pulmonary edema MD Sierra Nieves VTE Risk Assessment Sierra VTE Risk Assessment: Mod/High Risk (score >= 2) Caprini Risk Assessment Model Point Value = 1 Point Value = 2 Point Value = 3 Point Value = 5 Age 41-60 Minor surgery BMI > 25 kg/m2 Swollen legs Varicose veins or History of unexplained or recurrent spontaneous Oral contraceptives or hormone replacement Sepsis (< 1 month) Serious lung disease, including pneumonia (< 1 month) Abnormal pulmonary function Acute myocardial infarction Congestive heart failure (< 1 month) History of inflammatory bowel disease Medical patient at bed rest Age 61-74 Arthroscopic surgery Major open surgery (> 45 min) Laparoscopic surgery (> 45 min) Malignancy Confined to bed (> 72 hours) Immobilizing plaster cast Central venous access Age >= 75 History of VTE Family history of VTE Factor V Leiden Prothrombin [id number] Lupus anticoagulant Anticardiolipin antibodies Elevated serum homocysteine Heparin-induced thrombocytopenia Other congenital or acquired thrombophilia Stroke (< 1 month) Elective arthroplasty Hip, pelvis, or leg fracture Acute spinal cord injury (< 1 month) Prophylaxis Regimen Total Risk Factor Score Risk Level Prophylaxis Regimen 0-1 Low Early ambulation 2 Moderate Order ONE of the following: *Sequential Compression Device (SCD) *Heparin 5000 units SQ BID 3-4 Higher Order ONE of the following medications: *Heparin 5000 units SQ TID *Enoxaparin/Lovenox 40 mg SQ daily (WT < 150 kg, CrCl > 30 mL/min) *Enoxaparin/Lovenox 30 mg SQ daily (WT < 150 kg, CrCl > 10-29 mL/min) *Enoxaparin/Lovenox 30 mg SQ BID (WT < 150 kg, CrCl > 30 mL/min) AND/OR *Sequential Compression Device (SCD) 5 or more Highest Order ONE of the following medications: *Heparin 5000 units SQ TID (Preferred with Epidurals) *Enoxaparin/Lovenox 40 mg SQ daily (WT < 150 kg, CrCl > 30 mL/min) *Enoxaparin/Lovenox 30 mg SQ daily (WT < 150 kg, CrCl > 10-29 mL/min) *Enoxaparin/Lovenox 30 mg SQ BID (WT < 150 kg, CrCl > 30 mL/min) AND *Sequential Compression Device (SCD) Assessment and Plan Assessment and Plan Assessment: 66-year-old female arrived in extremis with refractory cardiovascular collapse and cardiac arrest, likely due to noncompliance with end -stage renal disease and hemodialysis with severe hyperkalemia, volume overload , hypoxemic respiratory failure, cardiac shock. Nonsurvivable insult. Active problems: Acute metabolic encephalopathy Anoxic brain injury Acute hypoxic and hypercarbic respiratory failure Cardiac shock Lactic acidosis Symptomatic bradycardia Cardiac arrest Severe intravascular volume overload Noncompliance with intermittent hemodialysis End-stage renal disease Severe life-threatening hyperkalemia Patient not survive the emergency room. She was not admitted to the inpatient setting. This patient remains critically ill with one or more organ systems which are or may become a threat to life. I have spent in excess of 30 minutes discontinuously in the care and management of this patient. This time is exclusive of procedures, and includes, but is not limited to, evaluation of the patient, review of the medical record, discussions with family, consultants, nursing staff, or respiratory therapy, and documentation in the medical record. Riley Cronin MD May 23, 2017 19:52
== END 2017-05-23 14:03 | disposition expired ==
LOC: NEPC 09:38 → NEDA 11:25 → UNDOADMIN 11:25 → UNDODISIN 12:00
DX: I46.9 Cardiac arrest, cause unspecified (principal); E87.5 Hyperkalemia; E11.22 Type 2 diabetes mellitus with diabetic chronic kidney disease; I12.0 Hypertensive chronic kidney disease with stage 5 chronic kidney disease or end stage renal disease; N18.6 End stage renal disease; F17.210 Nicotine dependence, cigarettes, uncomplicated; M19.90 Unspecified osteoarthritis, unspecified site; E78.00 Pure hypercholesterolemia, unspecified; J44.9 Chronic obstructive pulmonary disease, unspecified; E07.9 Disorder of thyroid, unspecified; Z99.2 Dependence on renal dialysis; Z79.4 Long term (current) use of insulin
CPT/HCPCS: 31500; 71045; 82310; 82435; 82550; 82552; 82565; 82947; 83735; 84132; 84295; 84484; 84520; 85025; 85610; 85730; 90935; 92950; 93005; 96374; 96375; 99291; 99292; J0171; J1815; J3475; J1644